=== PATIENT | male | born 1980 | race Hispanic/Latino ===

== ENCOUNTER 2019-06-06 07:44 | Emergency (ER) | payer SELFPAY ==
[2019-06-06] MEDS ORDERED: KETOROLAC 30 MG/ML INJ ONE (08:16)
[2019-06-06 08:20] LABS: Absolute Lymphocytes (CBC) 1.6 K/uL (0.7-4.9); Basophils % 0.9 % (0-1.3); Hematocrit 39.5 % (39.6-49.0); Lymphocytes % 14.7 % (15.3-44.8); MPV 9.1 fL (7.6-11.3)
[2019-06-06 08:45] LABS: Albumin 3.6 g/dL (3.4-5.0); Bilirubin Direct 0.1 mg/dL (0-0.2); Bilirubin Total 0.4 mg/dL (0.2-1.0); Potassium 3.9 mmol/L (3.5-5.1); Protein, Total 7.6 g/dL (6.4-8.2)
--- NOTE | 2019-06-06 08:47 | RAD REPORT ---
EXAM DESCRIPTION: CT - Stone Protocol - 06/06/2019 8:25 am CLINICAL HISTORY: Flank pain. FLANK PAIN COMPARISON: Stone Protocol dated 12/25/2016 TECHNIQUE: Axial images were obtained without oral or IV contrast. Lack of contrast limits solid org an and vascular assessment. The [id number] spans the entirety of the system partially obscuring uppermost abdomen and lung bases. Coronal reformatted images were obtained and reviewed. All CT scans are performed using dose optimization technique as appropriate and may include automated exposure control or mA/KV adjustment according to patient size. FINDINGS: The lower lung izquierdo are clear. 20 mm cyst is present superior aspect of right lobe of the liver compatible with a small cyst.The spl een is intact. The pancreas and adrenal glands are normal. No pathologic lymphadenopathy in the abdom en or pelvis. Multiple small stones are present in both kidneys. 6 mm stone is present in the right renal pelvis. M ild right hydronephrosis. No left-sided hydronephrosis. No bowel obstruction, free air, free fluid or abscess. Normal appendix noted. Mild compression fracture anteriorly affects the L3 vertebral body. IMPRESSION: Bilateral nephrolithiasis is present with a stone in the right renal pelvis noted. Mild right hydronephrosis.
--- NOTE | 2019-06-06 08:55 | ER ---
Nurse's Notes [facility] Name: James Cooley II Age: 38 yrs Sex: Male : 1980 Arrival Date: 06/06/2019 Time: 07:46 Bed 14 Private MD: Juan Monahan H Diagnosis: Hydronephrosis with renal and ureteral calculous obstruction Presentation: 06/06 07:53 Presenting complaint: Patient states: 0500 this morning he started having pain in the rb1 right lower quadrant, pain radiates to his back. Transition of care: patient was not received from another setting of care. Onset of symptoms was June 06, 2019 at 05:00. Risk Assessment: Do you want to hurt yourself or someone else? Patient reports no desire to harm self or others. Initial Sepsis Screen: Does the patient meet any 2 criteria? No. Patient's initial sepsis screen is negative. Does the patient have a suspected source of infection? No. Patient's initial sepsis screen is negative. Care prior to arrival: None. 07:53 Method Of Arrival: Ambulatory [facility] 07:53 Acuity: SHAYE 3 rb1 Triage Assessment: 07:53 General: Appears in no apparent distress. comfortable, Behavior is calm, cooperative, rb1 Denies fever. Pain: Complains of pain in right lower quadrant Pain radiates to right mid back and right low back Pain currently is 8 out of 10 on a pain scale. Pain began 0500 this morning. Neuro: Level of Consciousness is awake, alert, obeys commands, Oriented to person, place, time, situation. Cardiovascular: Capillary refill < 3 seconds is brisk in bilateral fingers. Respiratory: Reports cough that is productive, clear sputum Airway is patent Respiratory effort is even, unlabored, Respiratory pattern is regular, symmetrical. GI: Reports diarrhea. : No signs and/or symptoms were reported regarding the genitourinary system. Derm: Skin is pink, warm \T\ dry. Historical: - Allergies: 07:56 No Known Allergies; rb1 - Home Meds: 07:56 None [Active]; rb1 - PMHx: 07:56 Kidney stones; rb1 - PSHx: 07:53 None; rb1 - Immunization history:: Adult Immunizations up to date. - Social history:: Smoking status: Patient/guardian denies using tobacco. - Ebola Screening: : Patient negative for fever greater than or equal to 101.5 degrees Fahrenheit, and additional compatible Ebola Virus Disease symptoms. Screenin:53 Abuse screen: Denies threats or abuse. Nutritional screening: No deficits noted. rb1 Tuberculosis screening: No symptoms or risk factors identified. Fall Risk None identified. Assessment: 07:53 General: See triage assessment. rb1 07:53 GI: Bowel sounds present X 4 quads. Abd is soft X 4 quads. rb1 08:21 Reassessment: Pt. went to CT. rb1 08:36 Reassessment: Pt is back from CT and is playing on his phone. rb1 09:02 Reassessment: Patient appears in no apparent distress at this time. Patient and/or rb1 family updated on plan of care and expected duration. Pain level reassessed. Patient is alert, oriented x 3, equal unlabored respirations, skin warm/dry/pink. Vital Signs: 07:53 BP 128 / 88; Pulse 70; Resp 19; Temp 97.5(O); Pulse Ox 97% on R/A; Weight 127.01 kg rb1 (R); Height 5 ft. 9 in. (175.26 cm) (R); Pain 8/10; 09:02 BP 126 / 79; Pulse 83; Resp 18; Pulse Ox 97% on R/A; Pain 6/10; rb1 07:53 Body Mass Index 41.35 (127.01 kg, 175.26 cm) [facility] ED Course: 07:46 Patient arrived in ED. ag5 07:46 Jesse Lindsay MD is Private Physician. ag5 07:46 Juan Monahan DO is Private Physician. ag5 07:48 Zeina Vicente, RN is Primary Nurse. rb1 07:53 Arm band placed on right wrist. rb1 07:53 Patient has correct armband on for positive identification. Bed in low position. Call rb1 light in reach. Side rails up X 1. Pulse ox on. NIBP on. 07:55 Triage completed. rb1 08:00 Aroldo Reinoso MD is Attending Physician. ps1 08:00 [employer] PA is PHCP. jr8 08:01 Aroldo Reinoso MD is Attending Physician. jr8 08:10 Inserted saline lock: 20 gauge in right antecubital area, using aseptic technique. rb1 Blood collected. 08:26 CT Stone Protocol In Process Unspecified. EDMS 08:53 Raúl Venegas MD is Referral Physician. jr8 09:03 No provider procedures requiring assistance completed. IV discontinued, intact, rb1 bleeding controlled, No redness/swelling at site. Pressure dressing applied. Administered Medications: 08:20 Drug: TORadol - Ketorolac 15 mg Route: IVP; Site: right antecubital; rb1 08:35 Follow up: Response: No adverse reaction; Pain is decreased rb1 Outcome: 08:53 Discharge ordered by . jr8 09:03 Discharged to home ambulatory, with family. rb1 09:03 Condition: stable 09:03 Discharge instructions given to patient, Instructed on discharge instructions, follow up and referral plans. medication usage, Demonstrated understanding of instructions, follow-up care, medications, Prescriptions given X 3. 09:04 Patient left the ED. rb1 Signatures: Dispatcher [employer] EDMS [employer] PA PA jr8 Zeina Vicente, RN RN rb1 Aroldo Reinoso MD MD ps1 Axel Spence ag5
--- NOTE | 2019-06-06 08:55 | EDPHYS ---
Physician Documentation [facility] Name: Jaems Cooley II Age: 38 yrs Sex: Male : 1980 Arrival Date: 06/06/2019 Time: 07:46 Bed 14 Private MD: Juan Monahan H ED Physician Aroldo Reinoso HPI: 06/06 08:45 This 38 yrs old Male presents to ER via Ambulatory with complaints of jr8 Abdominal Pain. 08:45 The patient presents with abdominal pain right lower quadrant. Onset: The jr8 symptoms/episode began/occurred acutely, this morning, today. The symptoms radiate to right back. Associated signs and symptoms: none. The symptoms are described as sharp. Modifying factors: The symptoms are alleviated by nothing, the symptoms are aggravated by nothing. Severity of pain: At its worst the pain was moderate in the emergency department the pain is unchanged. It is unknown whether or not the patient has had similar symptoms in the past. The patient has not recently seen a physician. History of renal stones in past. Started with right lower quadrant abdomen radiating to back . Historical: - Allergies: 07:56 No Known Allergies; rb1 - Home Meds: 07:56 None [Active]; rb1 - PMHx: 07:56 Kidney stones; rb1 - PSHx: 07:53 None; rb1 - Immunization history:: Adult Immunizations up to date. - Social history:: Smoking status: Patient/guardian denies using tobacco. - Ebola Screening: : Patient negative for fever greater than or equal to 101.5 degrees Fahrenheit, and additional compatible Ebola Virus Disease symptoms. ROS: 08:45 Eyes: Negative for injury, pain, redness, and discharge, ENT: Negative for injury, jr8 pain, and discharge, Neck: Negative for injury, pain, and swelling, Cardiovascular: Negative for chest pain, palpitations, and edema, Respiratory: Negative for shortness of breath, cough, wheezing, and pleuritic chest pain, MS/Extremity: Negative for injury and deformity, Skin: Negative for injury, rash, and discoloration, Neuro: Negative for headache, weakness, numbness, tingling, and seizure. 08:45 Abdomen/GI: Positive for abdominal pain, Negative for nausea, vomiting, and diarrhea, abdominal distension, anorexia, dysphagia, hematemesis, black/tarry stool, rectal pain, rectal bleeding, bowel incontinence, flatulence. 08:45 Back: Positive for pain at rest, Negative for pain with movement. Exam: 08:45 Eyes: Pupils equal round and reactive to light, extra-ocular motions intact. Lids and jr8 lashes normal. Conjunctiva and sclera are non-icteric and not injected. Cornea within normal limits. Periorbital areas with no swelling, redness, or edema. ENT: Nares patent. No nasal discharge, no septal abnormalities noted. Tympanic membranes are normal and external auditory canals are clear. Oropharynx with no redness, swelling, or masses, exudates, or evidence of obstruction, uvula midline. Mucous membranes moist. Neck: Trachea midline, no thyromegaly or masses palpated, and no cervical lymphadenopathy. Supple, full range of motion without nuchal rigidity, or vertebral point tenderness. No Meningismus. Cardiovascular: Regular rate and rhythm with a normal S1 and S2. No gallops, murmurs, or rubs. Normal PMI, no JVD. No pulse deficits. Respiratory: Lungs have equal breath sounds bilaterally, clear to auscultation and percussion. No rales, rhonchi or wheezes noted. No increased work of breathing, no retractions or nasal flaring. Abdomen/GI: Soft, non-tender, with normal bowel sounds. No distension or tympany. No guarding or rebound. No evidence of tenderness throughout. Skin: Warm, dry with normal turgor. Normal color with no rashes, no lesions, and no evidence of cellulitis. MS/ Extremity: Pulses equal, no cyanosis. Neurovascular intact. Full, normal range of motion. Neuro: Awake and alert, GCS 15, oriented to person, place, time, and situation. Cranial nerves II-XII grossly intact. Motor strength 5/5 in all extremities. Sensory grossly intact. Cerebellar exam normal. Normal gait. 08:45 Back: pain, that is mild, of the right flank and right mid back, ROM is normal, normal spinal alignment noted, CVA tenderness, is absent, vertebral tenderness, is not appreciated, muscle spasm, is not present. Vital Signs: 07:53 BP 128 / 88; Pulse 70; Resp 19; Temp 97.5(O); Pulse Ox 97% on R/A; Weight 127.01 kg rb1 (R); Height 5 ft. 9 in. (175.26 cm) (R); Pain 8/10; 09:02 BP 126 / 79; Pulse 83; Resp 18; Pulse Ox 97% on R/A; Pain 6/10; rb1 07:53 Body Mass Index 41.35 (127.01 kg, 175.26 cm) rb1 MDM: 08:01 Patient medically screened. jr8 08:52 Data reviewed: vital signs, nurses notes, lab test result(s), radiologic studies, CT jr8 scan. Data interpreted: Pulse oximetry: on room air is 97 %. Interpretation: normal. Counseling: I had a detailed discussion with the patient and/or guardian regarding: the historical points, exam findings, and any diagnostic results supporting the discharge/admit diagnosis, lab results, radiology results, the need for outpatient follow up, a urologist, to return to the emergency department if symptoms worsen or persist or if there are any questions or concerns that arise at home. Response to treatment: the patient's symptoms have markedly improved after treatment. 06/06 08:00 Order name: Basic Metabolic Panel; Complete Time: 08:52 06/06 08:00 Order name: CBC with Diff; Complete Time: 08:34 06/06 08:00 Order name: Creatinine for Radiology; Complete Time: 06/06 08:00 Order name: Hepatic Function; Complete Time: :52 06/06 08:00 Order name: Lipase; Complete Time: :52 06/06 08:45 Order name: Urine Dipstick--Ancillary (enter results) bd 06/06 08:00 Order name: IV Saline Lock; Complete Time: 08:14 06/06 08:00 Order name: Labs collected and sent; Complete Time: 08:14 06/06 08:09 Order name: CT Stone Protocol; Complete Time: 06/06 08:09 Order name: Urine Dipstick-Ancillary (obtain specimen); Complete Time: 08:31 Administered Medications: 08:20 Drug: TORadol - Ketorolac 15 mg Route: IVP; Site: right antecubital; rb1 08:35 Follow up: Response: No adverse reaction; Pain is decreased rb1 Disposition: 17:50 Co-signature as Attending Physician, Aroldo Reinoso MD Did not see or evaluate patient. ps1 Chart signed for administrative purposes. Not an endorsement of care. . Disposition: 06/06/19 08:53 Discharged to Home. Impression: Hydronephrosis with renal and ureteral calculous obstruction. - Condition is Stable. - Discharge Instructions: Kidney Stones, Hydronephrosis. - Prescriptions for Ibuprofen 800 mg Oral Tablet - take 1 tablet by ORAL route every 12 hours As needed take with food; 20 tablet. Zofran 4 mg Oral Tablet - take 1 tablet by ORAL route every 12 hours As needed; 20 tablet. Flomax 0.4 mg Oral Capsule, Sust. Release 24 hr - take 1 capsule by ORAL route once daily 1/2 hour following the same meal each day; 30 capsule. - Medication Reconciliation Form, Thank You Letter, Antibiotic Education, Prescription Opioid Use form. - Follow up: Raúl Venegas MD; When: 5 - 6 days; Reason: Recheck today's complaints, Continuance of care, Re-evaluation by your physician. - Problem is new. - Symptoms have improved. Signatures: Dispatcher [employer] EDMS [employer] PA PA jr8 Zeina Vicente, RN RN rb1 Aroldo Reinoso MD MD ps1 Corrections: (The following items were deleted from the chart) 09:04 08:53 06/06/2019 08:53 Discharged to Home. Impression: Hydronephrosis with renal and rb1 ureteral calculous obstruction. Condition is Stable. Forms are Medication Reconciliation Form, Thank You Letter, Antibiotic Education, Prescription Opioid Use. Follow up: Raúl Venegas; When: 5 - 6 days; Reason: Recheck today's complaints, Continuance of care, Re-evaluation by your physician. Problem is new. Symptoms have improved. jr8
[2019-06-06 09:51] LABS: Urine Blood 3+ (NEG); Urine Glucose NEGATIVE (NEG); Urine Protein 1+ (NEG); Urine Specific Gravity >1.030 (1.005-1.030); Urine pH 5.5 (5.0-7.0)
[2019-06-06 10:10] VITALS: TEMP 97.5; O2SAT 97
[2019-06-06 10:11] VITALS: BP 126/79
== END 2019-06-06 09:04 | disposition home or self-care (01) ==
LOC: ER 07:44
DX: N13.2 Hydronephrosis with renal and ureteral calculous obstruction (principal)
CPT/HCPCS: 36415; 74176; 76377; 80048; 80076; 81003; 83690; 85025; 96374; 99284

== ENCOUNTER 2019-09-24 12:14 | Inpatient (IN) | payer SELFPAY ==
[2019-09-24 12:45] LABS: Absolute Lymphocytes (CBC) 2.3 K/uL (0.7-4.9); Basophils % 0.8 % (0-1.3); Hematocrit 43.1 % (39.6-49.0); Lymphocytes % 22.7 % (15.3-44.8); MPV 9.3 fL (7.6-11.3); RBC Red Blood Cell Count 5.12 M/uL (4.33-5.43)
[2019-09-24 12:48] LABS: Protime INR 0.96
[2019-09-24] MEDS ORDERED: ASPIRIN 81 MG CHEWABLE TABLET ONE (12:51)
[2019-09-24] MEDS ORDERED: METOPROLOL TAR 50 MG TAB ONE (12:51)
[2019-09-24] MEDS ORDERED: FAMOTIDINE 20 MG/2 ML VIAL IV ONE (12:51)
[2019-09-24] MEDS ORDERED: MORPHINE 2 MG/ML SYR ONE (12:51)
[2019-09-24] MEDS ORDERED: ONDANSETRON 4 MG/2 ML VIAL ONE (12:51)
--- NOTE | 2019-09-24 13:09 | EDPHYS ---
Physician Documentation [facility] Name: James Cooley II Age: 39 yrs Sex: Male : 1980 Arrival Date: 09/24/2019 Time: 12:18 Bed 4 Private MD: KIM Physician Anival Escudero HPI: 09/23 12:33 This 39 yrs old Male presents to ER via Ambulatory with complaints of Numbness joshua Of Arm, Jaw Pain, Shoulder Pain. 12:33 The patient or guardian complains of pain, that is acute. joshua 12:34 The complaints affect the left bicep, dorsal aspect of left forearm, left tricep and joshua palmar aspect of left forearm. Context: The problem was sustained at home. Onset: The symptoms/episode began/occurred this morning, today. Treatment prior to arrival includes: no previous treatment. Modifying factors: The symptoms are alleviated by nothing. the symptoms are aggravated by nothing. The patient or guardian reports chest pain that is located primarily in the anterior chest wall. The pain radiates to the left arm, Historical: - Allergies: 12:32 No Known Allergies; ss - Home Meds: 12:32 None [Active]; ss - PMHx: 12:32 Kidney stones; ss - Immunization history:: Adult Immunizations up to date. - Social history:: Smoking status: Patient denies any tobacco usage or history of. - Family history:: not pertinent. ROS: 12:34 Constitutional: Negative for fever, chills, and weight loss, Eyes: Negative for injury, joshua pain, redness, and discharge, ENT: Negative for injury, pain, and discharge, Neck: Negative for injury, pain, and swelling, Respiratory: Negative for shortness of breath, cough, wheezing, and pleuritic chest pain, Abdomen/GI: Negative for abdominal pain, nausea, vomiting, diarrhea, and constipation, Back: Negative for injury and pain, : Negative for injury, bleeding, discharge, and swelling, MS/Extremity: Negative for injury and deformity, Skin: Negative for injury, rash, and discoloration, Neuro: Negative for headache, weakness, numbness, tingling, and seizure, Psych: Negative for depression, anxiety, suicide ideation, homicidal ideation, and hallucinations, Allergy/Immunology: Negative for hives, rash, and allergies, Endocrine: Negative for neck swelling, polydipsia, polyuria, polyphagia, and marked weight changes, Hematologic/Lymphatic: Negative for swollen nodes, abnormal bleeding, and unusual bruising. 12:34 Cardiovascular: Positive for chest pain, of the chest. Exam: 12:34 Constitutional: This is a well developed, well nourished patient who is awake, alert, joshua and in no acute distress. Head/Face: Normocephalic, atraumatic. Eyes: Pupils equal round and reactive to light, extra-ocular motions intact. Lids and lashes normal. Conjunctiva and sclera are non-icteric and not injected. Cornea within normal limits. Periorbital areas with no swelling, redness, or edema. ENT: Nares patent. No nasal discharge, no septal abnormalities noted. Tympanic membranes are normal and external auditory canals are clear. Oropharynx with no redness, swelling, or masses, exudates, or evidence of obstruction, uvula midline. Mucous membranes moist. Neck: Trachea midline, no thyromegaly or masses palpated, and no cervical lymphadenopathy. Supple, full range of motion without nuchal rigidity, or vertebral point tenderness. No Meningismus. Chest/axilla: Normal chest wall appearance and motion. Nontender with no deformity. No lesions are appreciated. Cardiovascular: Regular rate and rhythm with a normal S1 and S2. No gallops, murmurs, or rubs. Normal PMI, no JVD. No pulse deficits. Respiratory: Lungs have equal breath sounds bilaterally, clear to auscultation and percussion. No rales, rhonchi or wheezes noted. No increased work of breathing, no retractions or nasal flaring. Abdomen/GI: Soft, non-tender, with normal bowel sounds. No distension or tympany. No guarding or rebound. No evidence of tenderness throughout. Back: No spinal tenderness. No costovertebral tenderness. Full range of motion. Male : Normal genitalia with no discharge or lesions. Skin: Warm, dry with normal turgor. Normal color with no rashes, no lesions, and no evidence of cellulitis. MS/ Extremity: Pulses equal, no cyanosis. Neurovascular intact. Full, normal range of motion. Neuro: Awake and alert, GCS 15, oriented to person, place, time, and situation. Cranial nerves II-XII grossly intact. Motor strength 5/5 in all extremities. Sensory grossly intact. Cerebellar exam normal. Normal gait. Psych: Awake, alert, with orientation to person, place and time. Behavior, mood, and affect are within normal limits. 12:36 Musculoskeletal/extremity: DVT Exam: No signs of deep vein thrombosis. no pain, no joshua swelling, no tenderness, negative Homans' sign noted on exam, no appreciated bluish discoloration, no erythema, no increased warmth. Vital Signs: 12:29 BP 148 / 94; Pulse 92; Resp 17; Temp 97.4; Pulse Ox 100% on R/A; Weight 136.08 kg; hb Height 5 ft. 8 in. (172.72 cm); Pain 5/10; 12:30 BP 148 / 94; Pulse 93; Resp 23; Pulse Ox 96% ; sv 13:38 Pain 0/10; sv 13:45 BP 152 / 91; Pulse 88; Resp 18; Pulse Ox 98% on R/A; sv 15:00 BP 110 / 69; Pulse 79; Resp 14; Pulse Ox 97% on R/A; sv 16:04 BP 108 / 61; Pulse 76; Resp 12; Pulse Ox 100% ; sv 16:46 BP 116 / 71; Pulse 68; Resp 20; Pulse Ox 97% on R/A; sv 17:18 BP 121 / 73; Pulse 66; Resp 18; Pulse Ox 100% ; sv 18:00 BP 102 / 69; Pulse 63; Resp 20; Pulse Ox 96% ; sv 19:00 BP 123 / 75; Pulse 62; Resp 15; Pulse Ox 97% ; sv 12:29 Body Mass Index 45.62 (136.08 kg, 172.72 cm) hb MDM: 12:23 Patient medically screened. [facility] 12:36 Data reviewed: vital signs, nurses notes, lab test result(s), EKG, radiologic studies, [facility] CT scan, plain films. 09/23 12:33 Order name: Basic Metabolic Panel; Complete Time: 13:23 [facility] 09/23 12:33 Order name: CBC with Diff; Complete Time: 13:06 [facility] 09/23 12:33 Order name: LFT's; Complete Time: 13:23 [facility] 09/23 12:33 Order name: Magnesium; Complete Time: 13:23 [facility] 09/23 12:33 Order name: NT PRO-BNP; Complete Time: 13:23 [facility] 09/23 12:33 Order name: PT-INR; Complete Time: 13:06 [facility] 09/23 12:33 Order name: Troponin (emerg Dept Use Only); Complete Time: 13:23 [facility] 09/23 12:33 Order name: XRAY Chest (1 view) [facility] 09/23 12:33 Order name: Lipase; Complete Time: 13:23 [facility] 09/23 12:33 Order name: CT Aorta for Dissection [facility] 09/23 13:06 Order name: UDS [facility] 09/23 13:29 Order name: Urine Dipstick--Ancillary (enter results) 09/23 12:33 Order name: EKG; Complete Time: 12:34 [facility] 09/23 12:33 Order name: Cardiac monitoring; Complete Time: 12:54 [facility] 09/23 12:33 Order name: EKG - Nurse/Tech; Complete Time: 12:54 [facility] 09/23 12:33 Order name: IV Saline Lock; Complete Time: 12:54 [facility] 09/23 12:33 Order name: Labs collected and sent; Complete Time: 12:55 [facility] 09/23 12:33 Order name: O2 Per Protocol; Complete Time: 12:55 [facility] 09/23 12:33 Order name: O2 Sat Monitoring; Complete Time: 12:55 [facility] 09/23 12:33 Order name: Urine Dipstick-Ancillary (obtain specimen); Complete Time: 13:29 [facility] 09/23 15:53 Order name: Diet Heart Healthy; Complete Time: 15:54 eb Administered Medications: 12:50 Drug: Aspirin Chewable Tablet 324 mg Route: PO; sv 13:39 Follow up: Response: No adverse reaction sv 12:50 Drug: Lopressor (metoprolol TARTRATE) 50 mg Route: PO; sv 13:39 Follow up: Response: No adverse reaction sv 12:50 Drug: Zofran (Ondansetron) 4 mg Route: IVP; Site: right antecubital; sv 13:38 Follow up: Response: No adverse reaction sv 12:52 Drug: Pepcid 20 mg Route: IVP; Site: right antecubital; sv 13:38 Follow up: Response: No adverse reaction sv 12:54 Drug: morphine 2 mg {Note: RASS0.} Route: IVP; Site: right antecubital; sv 13:38 Follow up: Pain 0/10 Adult; Response: No adverse reaction; Marked relief of symptoms; sv Pain is decreased; RASS: Alert and Calm (0) 14:30 Drug: Lovenox 1 mg/kg Route: Sub-Q; Site: left lower abdomen; sv 15:08 Follow up: Response: No adverse reaction sv Disposition: 09/24/19 13:08 Hospitalization ordered by Edin Salmon for Observation. Preliminary diagnosis are Other chest pain, Essential (primary) hypertension, Obesity, unspecified. - Bed requested for Telemetry/MedSurg (observation). - Status is Observation. rr5 - Condition is Fair. - Problem is new. - Symptoms have improved. Signatures: Dispatcher [employer] EDElizabeth Bansal RN RN Anival Jordan MD MD cha Smirch, Shelby, RN RN Nora Wood Raymond RN RN rr5 Corrections: (The following items were deleted from the chart) 13:30 13:08 Hospitalization Ordered by Edin Salmon for Observation. Preliminary diagnosis eb is Other chest pain; Essential (primary) hypertension; Obesity, unspecified. Bed requested for Telemetry/MedSurg (observation). Status is Observation. Condition is Fair. Problem is new. Symptoms have improved. joshua 18:53 13:30 09/24/2019 13:08 Hospitalization Ordered by Edin Salmon for Observation. eb Preliminary diagnosis is Other chest pain; Essential (primary) hypertension; Obesity, unspecified. Bed requested for Telemetry/MedSurg (observation). Status is Observation. Condition is Fair. Problem is new. Symptoms have improved. eb 19:52 18:53 09/24/2019 13:08 Hospitalization Ordered by Edin Salmon for Observation. rr5 Preliminary diagnosis is Other chest pain; Essential (primary) hypertension; Obesity, unspecified. Bed requested for Telemetry/MedSurg (observation). Status is Observation. Condition is Fair. Problem is new. Symptoms have improved. eb
--- NOTE | 2019-09-24 13:09 | ER ---
Nurse's Notes [facility] Name: James Cooley II Age: 39 yrs Sex: Male : 1980 Arrival Date: 09/24/2019 Time: 12:18 Bed 4 Private MD: Diagnosis: Other chest pain;Essential (primary) hypertension;Obesity, unspecified Presentation: 09/23 12:29 Chief complaint: Patient states: L sided jaw pain, chest discomfort, nausea, R shoulder ss pain and intermittent numbness to L arm that began yesterday. Coronavirus screen: The patient has NOT traveled to a country currently being monitored by the [facility] within the last 14 days. Ebola Screen: Patient denies exposure to infectious person. Patient denies travel to an Ebola-affected area in the 21 days before illness onset. Initial Sepsis Screen: Does the patient meet any 2 criteria? No. Patient's initial sepsis screen is negative. Does the patient have a suspected source of infection? No. Patient's initial sepsis screen is negative. Risk Assessment: Do you want to hurt yourself or someone else? Patient reports no desire to harm self or others. 12:29 Method Of Arrival: Ambulatory ss 12:29 Acuity: SHAYE 3 ss 12:40 Onset of symptoms was September 23, 2019. sv Historical: - Allergies: 12:32 No Known Allergies; ss - Home Meds: 12:32 None [Active]; ss - PMHx: 12:32 Kidney stones; ss - Immunization history:: Adult Immunizations up to date. - Social history:: Smoking status: Patient denies any tobacco usage or history of. - Family history:: not pertinent. Screenin:33 Abuse screen: Denies threats or abuse. Denies injuries from another. Nutritional hb screening: No deficits noted. Tuberculosis screening: No symptoms or risk factors identified. Fall Risk None identified. Assessment: 12:35 General: Appears in no apparent distress. uncomfortable, well groomed, well developed, sv Behavior is cooperative, appropriate for age, quiet. Pain: Complains of pain in chest and left jaw Pain radiates to left arm Pain currently is 5 out of 10 on a pain scale. Pain began 1 day ago. Is continuous. Neuro: Level of Consciousness is awake, alert, obeys commands, Oriented to person, place, time, situation, Moves all extremities. Full function Gait is steady, Speech is normal. Cardiovascular: Patient's skin is warm and dry. Rhythm is sinus rhythm. Respiratory: Airway is patent Respiratory effort is even, unlabored, Respiratory pattern is regular, symmetrical. Derm: Skin is intact, Skin is pink, warm \T\ dry. Musculoskeletal: Range of motion: intact in all extremities, Reports numbness in left arm. 12:54 Reassessment: Patient appears in no apparent distress at this time. No changes from sv previously documented assessment. Patient and/or family updated on plan of care and expected duration. Pain level reassessed. Patient is alert, oriented x 3, equal unlabored respirations, skin warm/dry/pink. 13:38 Reassessment: Patient appears in no apparent distress at this time. Patient and/or sv family updated on plan of care and expected duration. Pain level reassessed. Patient is alert, oriented x 3, equal unlabored respirations, skin warm/dry/pink. Patient denies pain at this time. Patient states feeling better. Patient states symptoms have improved. 13:49 Reassessment: Dr Salmon at the bedside. 14:30 Reassessment: Patient appears in no apparent distress at this time. Patient and/or hb family updated on plan of care and expected duration. Pain level reassessed. Patient is alert, oriented x 3, equal unlabored respirations, skin warm/dry/pink. 15:30 Reassessment: Patient appears in no apparent distress at this time. Patient and/or hb family updated on plan of care and expected duration. Pain level reassessed. Patient is alert, oriented x 3, equal unlabored respirations, skin warm/dry/pink. 16:30 Reassessment: Patient appears in no apparent distress at this time. Patient and/or hb family updated on plan of care and expected duration. Pain level reassessed. Patient is alert, oriented x 3, equal unlabored respirations, skin warm/dry/pink. 17:30 Reassessment: Patient appears in no apparent distress at this time. Patient and/or hb family updated on plan of care and expected duration. Pain level reassessed. Patient is alert, oriented x 3, equal unlabored respirations, skin warm/dry/pink. 18:30 Reassessment: Patient appears in no apparent distress at this time. Patient and/or hb family updated on plan of care and expected duration. Pain level reassessed. Patient is alert, oriented x 3, equal unlabored respirations, skin warm/dry/pink. Admission ordered, awaiting room assignment at this time. Family remains at bedside. 19:28 Reassessment: Patient appears in no apparent distress at this time. Patient and/or sg family updated on plan of care and expected duration. Pain level reassessed. Patient is alert, oriented x 3, equal unlabored respirations, skin warm/dry/pink. pt updated on POC and attempt to call report but the receiving nurse was not available, pt and pt family stated understanding, will attempt to call report again. Vital Signs: 12:29 BP 148 / 94; Pulse 92; Resp 17; Temp 97.4; Pulse Ox 100% on R/A; Weight 136.08 kg; hb Height 5 ft. 8 in. (172.72 cm); Pain 5/10; 12:30 BP 148 / 94; Pulse 93; Resp 23; Pulse Ox 96% ; sv 13:38 Pain 0/10; sv 13:45 BP 152 / 91; Pulse 88; Resp 18; Pulse Ox 98% on R/A; sv 15:00 BP 110 / 69; Pulse 79; Resp 14; Pulse Ox 97% on R/A; sv 16:04 BP 108 / 61; Pulse 76; Resp 12; Pulse Ox 100% ; sv 16:46 BP 116 / 71; Pulse 68; Resp 20; Pulse Ox 97% on R/A; sv 17:18 BP 121 / 73; Pulse 66; Resp 18; Pulse Ox 100% ; sv 18:00 BP 102 / 69; Pulse 63; Resp 20; Pulse Ox 96% ; sv 19:00 BP 123 / 75; Pulse 62; Resp 15; Pulse Ox 97% ; sv 12:29 Body Mass Index 45.62 (136.08 kg, 172.72 cm) hb ED Course: 12:18 Patient arrived in ED. mr 12:23 Anival Escudero MD is Attending Physician. joshua 12:28 Elizabeth Kiran, JANICE is Primary Nurse. sv 12:31 Triage completed. ss 12:32 Arm band placed on right wrist. ss 12:40 Radiology exam delayed due to lab results not completed at this time. (BUN/Creatinine). vm2 12:40 Patient has correct armband on for positive identification. Placed in gown. Bed in low sv position. Call light in reach. Adult w/ patient. air sampling and monitoring on. Pulse ox on. NIBP on. Door closed. Head of bed elevated. 12:40 Inserted saline lock: 20 gauge in right antecubital area, using aseptic technique. sv Blood collected. Flushed right antecubital with 5 ml normal saline. 12:59 X-ray(s) taken. sv 13:07 Edin Salmon is Hospitalizing Provider. joshua 13:09 XRAY Chest (1 view) In Process Unspecified. EDMS 13:[address] Scan. sv 13:37 CT Aorta for Dissection In Process Unspecified. EDMS 13:38 Awaiting radiology results. sv 15:08 Awaiting bed assignment. sv 16:04 Awaiting bed assignment. sv 19:08 Primary Nurse role handed off by Elizabeth Kiran RN sg 19:08 Mat Corey, RN is Primary Nurse. sg 19:11 Report given to Mat CAMACHO and Angel CAMACHO. sv 19:41 No provider procedures requiring assistance completed. Patient admitted, IV remains in rr5 place. intact, No redness/swelling at site. Administered Medications: 12:50 Drug: Aspirin Chewable Tablet 324 mg Route: PO; sv 13:39 Follow up: Response: No adverse reaction sv 12:50 Drug: Lopressor (metoprolol TARTRATE) 50 mg Route: PO; sv 13:39 Follow up: Response: No adverse reaction sv 12:50 Drug: Zofran (Ondansetron) 4 mg Route: IVP; Site: right antecubital; sv 13:38 Follow up: Response: No adverse reaction sv 12:52 Drug: Pepcid 20 mg Route: IVP; Site: right antecubital; sv 13:38 Follow up: Response: No adverse reaction sv 12:54 Drug: morphine 2 mg {Note: RASS0.} Route: IVP; Site: right antecubital; sv 13:38 Follow up: Pain 0/10 Adult; Response: No adverse reaction; Marked relief of symptoms; sv Pain is decreased; RASS: Alert and Calm (0) 14:30 Drug: Lovenox 1 mg/kg Route: Sub-Q; Site: left lower abdomen; sv 15:08 Follow up: Response: No adverse reaction sv Outcome: 13:08 Decision to Hospitalize by Provider. [facility] 19:40 Admitted to Med/surg accompanied by tech, via stretcher, room 221, with chart, Report rr5 called to michelle 19:40 Condition: stable 19:40 Instructed on the need for admit. 19:52 Patient left the ED. rr5 Signatures: Dispatcher [employer] Elizabeth De La Torre, JANICE CAMACHO Mat Corey RN RN sg Anderson, Corey, MD MD cha Rivera, Zuleika mr Kavita Dickens RN RN Kayleigh Deras RN RN Rosangela Richards [facility] Angel Almeida RN RN rr5 Corrections: (The following items were deleted from the chart) 12:32 12:29 Resp 17bpm; Pulse Ox 100% RA; 136.08 kg; Height 5 ft. 8 in.; BMI: 45.6; Pain hb 5/10; ss 12:32 12:31 BP 164 / 95; Pulse 88bpm; Resp 20bpm; Pulse Ox 94% RA; Temp 97.4F; 136.08 kg; hb Height 6 ft.; BMI: 40.6; Pain 8/10; hb
[2019-09-24 13:16] LABS: ALT/SGPT 74 U/L (12-78); AST/SGOT 32 U/L (15-37); Albumin 3.5 g/dL (3.4-5.0); Alkaline Phosphatase 90 U/L (45-117); BUN Blood Urea Nitrogen 13 mg/dL (7-18); Bicarbonate 27 mmol/L (21-32); Bilirubin Direct < 0.1 mg/dL (0-0.2); Bilirubin Total 0.3 mg/dL (0.2-1.0); Glucose Level 144 mg/dL (74-106); Lipase 135 U/L (73-393); NT PRO-BNP 7 pg/mL (<125); Potassium 3.6 mmol/L (3.5-5.1); Sodium Level 141 mmol/L (136-145); Troponin (Emerg Dept Use Only) < 0.02 ng/mL (0.0-0.045)
--- NOTE | 2019-09-24 13:39 | RAD REPORT ---
EXAM DESCRIPTION: RAD - Chest Single View - 09/24/2019 1:09 pm CLINICAL HISTORY: CHEST PAIN TECHNIQUE: AP portable chest image was obtained 09/24/2019 1:09 pm . FINDINGS: Lungs are clear. Heart and vasculature are normal. No measurable pleural effusion and no p neumothorax. No acute bony abnormality seen. No acute aortic findings suspected. IMPRESSION: No acute cardiopulmonary process.
[2019-09-24 13:47] LABS: Urine Blood NEGATIVE (NEG); Urine Glucose NEGATIVE (NEG); Urine Protein NEGATIVE (NEG); Urine pH 7.5 (5.0-7.0)
[2019-09-24 13:49] LABS: Barbiturates NEGATIVE (NEGATIVE); Benzodiazepines NEGATIVE (NEGATIVE); Cocaine NEGATIVE (NEGATIVE); METHAMPHETAM NEGATIVE (NEGATIVE); Methadone NEGATIVE (NEGATIVE); Opiates NEGATIVE (NEGATIVE); Phencyclidine NEGATIVE (NEGATIVE); THC Cannibis NEGATIVE (NEGATIVE)
--- NOTE | 2019-09-24 13:59 | RAD REPORT ---
EXAM DESCRIPTION: CT - Angio Aorta For Dissection - 09/24/2019 1:36 pm CLINICAL HISTORY: Dissection;PE COMPARISON: None. TECHNIQUE: Dynamically enhanced 3 mm thick images of the chest, abdomen, and upper pelvis were obtai cb during administration of approximately 150mL Isovue 370 IV contrast. Sagittal and coronal reconst ruction images were generated using MIP and reviewed. Exam utilizes a protocol to evaluate entire cou rse of the aorta. All CT scans are performed using dose optimization technique as appropriate and may include automated exposure control or mA/KV adjustment according to patient size. FINDINGS: Aorta is normal in diameter with no dissection or other acute aortic findings. Reconstruct ion images show no significant findings. Pulmonary arteries are normal as well. No cardiomegaly, pericardial thickening or pericardial effusio n. No mass or infiltrate in the lung parenchyma. No pleural thickening, pleural effusion or pneumothorax . No abnormal mediastinal or hilar mass or lymphadenopathy seen. No chest wall mass or abnormal axillar y lymphadenopathy. Celiac, SMA and renal arteries show no suspicious findings. Solid abdominal viscera and bowel show no significant findings. Gallbladder contracted. No biliary tree dilatation. Bilateral nonobstructing c thomas calculi are present similar to comparison. No mass or abnormal lymphadenopathy. No free air, fr ee fluid or inflammatory stranding. No urinary bladder abnormality. No acute bone finding. The L3 compression fracture is stable from May 2019. IMPRESSION: Negative CT scan of the aorta. No other significant findings on chest, abdomen and upper pelvis examination.
--- NOTE | 2019-09-24 14:22 | P.HP ---
Certification for Inpatient Patient admitted to: Observation With expected LOS: <2 Midnights Practitioner: I am a practitioner with admitting privileges, knowledge of patient current condition, hospital course, and medical plan of care. Services: Services provided to patient in accordance with Admission requirements found in Title 42 Section 412.3 of the Code of Federal Regulations Patient History Date of Service: 09/24/19 Reason for admission: Chest pain History of Present Illness: 39-year-old gentleman with no known past medical history presented to the ED with a complaint of chest pain of onset since yesterday, described as intermittent, radiating to both jaws, associated with left arm numbness and tingling sensation. Patient has a significant family history of coronary artery disease. His father of heart disease at the age of 55. His initial troponin in the ED is negative. Patient noted to be hypertensive. EKG showed normal sinus rhythm, Q-wave in lead V1 and V2. CTA thorax negative for aortic dissection. Patient is placed under observation for ACS rule out. Allergies No Known Allergies Allergy (Unverified 11/10/11 12:42) Home medications list reviewed: Yes (None) - Past Medical/Surgical History -: None -: None - Social History Smoking Status: Former smoker Alcohol use: Yes CD- Drugs: No Place of Residence: Home Review of Systems Other: Except as documented, all other systems reviewed are negative. Physical Examination - Physical Exam General: Alert, In no apparent distress, Oriented x3 HEENT: PERRLA, Mucous membr. moist/pink, Sclerae nonicteric Neck: Supple, JVD not distended Respiratory: Clear to auscultation bilaterally, Normal air movement Cardiovascular: No edema, Normal pulses, Regular rate/rhythm, Normal S1 S2 Capillary refill: <2 Seconds Gastrointestinal: Normal bowel sounds, Soft and benign, Non-distended, No tenderness Musculoskeletal: No swelling, No erythema Integumentary: No rashes, No erythema Neurological: Normal speech, Normal strength at 5/5 x4 extr - Studies Laboratory Data (last 24 hrs) 09/24/19 12:30: PT 11.3, INR 0.96 09/24/19 12:30: WBC 10.0, Hgb 14.4, Hct 43.1, Plt Count 308 09/24/19 12:30: Sodium 141, Potassium 3.6, BUN 13, Creatinine 0.99, Glucose 144 H, Magnesium 2.0, Total Bilirubin 0.3, AST 32, ALT 74, Alkaline Phosphatase 90, Lipase 135 Assessment and Plan - Problems (Diagnosis) (1) Chest pain Current Visit: Yes Status: Acute (2) Hypertension Current Visit: Yes Status: Acute - Plan Place under observation Continue to trend troponin Start aspirin and metoprolol Check lipid profile Obtain echocardiogram. Stress test if troponin trend negative given patient's significant risk factors - Advance Directives Does patient have a Living Will: No Does patient have a Durable POA for Healthcare: No
[2019-09-24] MEDS ORDERED: ENOXAPARIN 30 MG/0.3 ML SQ ONE (14:34)
[2019-09-24] MEDS ORDERED: ENOXAPARIN 100 MG/ML SYR SQ ONE (14:34)
[2019-09-24] MEDS ORDERED: NITROGLYCERIN 0.4 MG/TAB SL PRN (20:22)
[2019-09-24 21:13] LABS: HDL Cholesterol 31 mg/dL (40-60); LDL Cholesterol, Calculated ND (<130); Troponin I < 0.02 ng/mL (0.0-0.045)
[2019-09-24 21:26] LABS: LDL, Direct 141 mg/dL (100-129)
[2019-09-24] MEDS: METOPROLOL TAR 50 MG TAB PO SCH (21:44)
[2019-09-24 22:51] VITALS: BMI 43.8
[2019-09-25] MEDS ORDERED: INFLUENZA VACCINE (for 3y+) 0.5 ML DOSE IMVAC ONE (08:00)
[2019-09-25 08:07] VITALS: O2SAT 95
[2019-09-25] MEDS ORDERED: REGADENOSON 0.4 MG/5 ML SYR IV ONE (08:47)
[2019-09-25] MEDS ORDERED: ASPIRIN EC 81 MG TAB PO SCH (09:00)
[2019-09-25] MEDS ORDERED: ENOXAPARIN 40 MG/0.4 ML SQ SCH (09:00)
--- NOTE | 2019-09-25 09:15 | EKG ---
Test Date: 2019-09-24 Test Time: 12:31:48 Airplane Flight Attendant: DL MEASUREMENT RESULTS: Intervals: Rate: 91 OH: 150 QRSD: 78 QT: 340 QTc: 418 [place]: P: 50 OH: 150 QRS: 41 T: 13 INTERPRETIVE STATEMENTS: Normal sinus rhythm Septal infarct, age undetermined Abnormal ECG Compared to ECG 06/05/2003 15:20:00 Myocardial infarct finding now present Atrial premature complex(es) no longer present Electronically Signed On 09-25-19 09:14:30 CDT by Tanmay Trujillo
[2019-09-25 11:01] VITALS: TEMP 97.6
[2019-09-25] MEDS: METOPROLOL TAR 50 MG TAB PO SCH (12:47)
[2019-09-25 12:48] VITALS: BP 117/65
--- NOTE | 2019-09-25 12:48 | RAD REPORT ---
EXAM DESCRIPTION: NM - Rest Stress Cardiac Imaging - 09/25/2019 12:34 pm CLINICAL HISTORY: Chest pain COMPARISON: None. TECHNIQUE: The patient was administered 10.4 mCi of Tc 99m Sestamibi prior to resting SPECT imaging of the heart. The patient was then administered 32.1 mCi of Tc 99m Sestamibi following exercise or ph armacologic stress. Multiplanar SPECT images were reviewed. FINDINGS: The end diastolic volume is 140 ml, the end systolic volume is 83 ml, and the ejection fra ction is 40 %. Physiologic distribution of the radiopharmaceutical through the myocardium is noted. No stress induce d ischemic defect is seen to suggest stress induced ischemia. No fixed defect is seen to suggest hibe rnating myocardium or scarred myocardium. Diaphragm attenuation artifacts are present involving the inferior wall. IMPRESSION: No stress induced ischemia or other suspicious findings. End-diastolic volume is enlarged at 140 milliliters. Ejection fraction is below normal at 40%.
--- NOTE | 2019-09-25 14:23 | P.DS ---
Admission Date: 09/25/19 Discharge Date: 09/25/19 Primary Care Provider: none Disposition: ROUTINE DISCHARGE Discharge Condition: GOOD Reason for Admission: Chest pain Consultations: none Procedures: Cardiac Stress test: FINDINGS: The end diastolic volume is 140 ml, the end systolic volume is 83 ml , and the ejection fraction is 40 %. Physiologic distribution of the radiopharmaceutical through the myocardium is noted. No stress induced ischemic defect is seen to suggest stress induced ischemia. No fixed defect is seen to suggest hibernating myocardium or scarred myocardium. Diaphragm attenuation artifacts are present involving the inferior wall. IMPRESSION: No stress induced ischemia or other suspicious findings. End-diastolic volume is enlarged at 140 milliliters. Ejection fraction is below normal at 40%. CT Scan: FINDINGS: Aorta is normal in diameter with no dissection or other acute aortic findings. Reconstruction images show no significant findings. Pulmonary arteries are normal as well. No cardiomegaly, pericardial thickening or pericardial effusion. No mass or infiltrate in the lung parenchyma. No pleural thickening, pleural effusion or pneumothorax. No abnormal mediastinal or hilar mass or lymphadenopathy seen. No chest wall mass or abnormal axillary lymphadenopathy. Celiac, SMA and renal arteries show no suspicious findings. Solid abdominal viscera and bowel show no significant findings. Gallbladder contracted. No biliary tree dilatation. Bilateral nonobstructing calyx calculi are present similar to comparison. No mass or abnormal lymphadenopathy. No free air, free fluid or inflammatory stranding. No urinary bladder abnormality. No acute bone finding. The L3 compression fracture is stable from May 2019. IMPRESSION: Negative CT scan of the aorta. No other significant findings on chest, abdomen and upper pelvis examination. Medical Problem list: Chest pain Hypertension, new Hyperlipidemia GERD Brief History of Present Illness: 39-year-old male presented to the emergency room with chest pain. Patient was admitted for further evaluation. Initial CT chest unremarkable. Hospital Course: Patient presented with chest pain. CT chest unremarkable. Cardiac enzymes also have been unremarkable. Echocardiogram obtained. Cardiac stress test showed no stress-induced ischemia with ejection fraction around 40%. No further intervention was required. Patient was also to found to have elevated blood pressure indicative of hypertension. Patient was placed on blood pressure medication. At discharge patient may continue with aspirin 81 mg daily, metoprolol 12.5 mg 1 pill twice daily. Hold blood pressure medication if systolic less than 110 or heart rate less than 50. Patient also has hyperlipidemia. Total triglycerides 497, LDL 140. At discharge patient will continue with Lipitor 20 mg daily and fish oil 1 g twice daily. Recommend to recheck fasting lipid panel in 1 month to monitor his progress. Patient with BMI 43. Lifestyle modification education provided. Patient may have underlying GERD. Patient may continue with Protonix 40 mg daily. Patient may follow up with GI as an outpatient to further evaluate. Vital Signs/Physical Exam: Temp Pulse Resp BP Pulse Ox 97.6 F 64 20 117/65 97 09/25/19 12:00 09/25/19 12:47 09/25/19 12:00 09/25/19 12:47 09/25/19 12:00 General: Alert, In no apparent distress, Oriented x3, Cooperative HEENT: Atraumatic Neck: Supple Respiratory: Clear to auscultation bilaterally, Normal air movement Cardiovascular: Normal pulses, Regular rate/rhythm Gastrointestinal: Normal bowel sounds, Soft and benign, Non-distended, No tenderness, No masses, No rebound, No guarding Integumentary: No tenderness/swelling, No erythema, No warmth, No cyanosis Neurological: Normal speech, Normal strength at 5/5 x4 extr, Normal tone, Normal affect Laboratory Data at Discharge: WBC 10.0 K/uL (4.3-10.9) 09/24/19 12:30 Hgb 14.4 g/dL (13.6-17.9) 09/24/19 12:30 Hct 43.1 % (39.6-49.0) 09/24/19 12:30 Plt Count 308 K/uL (152-406) 09/24/19 12:30 PT 11.3 SECONDS (9.5-12.5) 09/24/19 12:30 INR 0.96 09/24/19 12:30 Sodium 141 mmol/L (136-145) 09/24/19 12:30 Potassium 3.6 mmol/L (3.5-5.1) 09/24/19 12:30 BUN 13 mg/dL (7-18) 09/24/19 12:30 Creatinine 0.99 mg/dL (0.55-1.3) 09/24/19 12:30 Glucose 144 mg/dL (74-106) H 09/24/19 12:30 Magnesium 2.0 mg/dL (1.8-2.4) 09/24/19 12:30 Total Bilirubin 0.3 mg/dL (0.2-1.0) 09/24/19 12:30 AST 32 U/L (15-37) 09/24/19 12:30 ALT 74 U/L (12-78) 09/24/19 12:30 Alkaline Phosphatase 90 U/L (45-117) 09/24/19 12:30 Troponin I < 0.02 ng/mL (0.0-0.045) 09/25/19 04:58 Triglycerides 497 mg/dL (<150) H 09/24/19 20:30 Cholesterol 207 mg/dL (<200) H 09/24/19 20:30 LDL Cholesterol Direct 141 mg/dL (100-129) H 09/24/19 20:30 HDL Cholesterol 31 mg/dL (40-60) L 09/24/19 20:30 Cholesterol/HDL Ratio 6.68 09/24/19 20:30 Lipase 135 U/L (73-393) 09/24/19 12:30 Home Medications: Aspirin [Aspirin EC 81 MG] 81 mg PO DAILY #90 tablet. 09/25/19 Atorvastatin Calcium [Lipitor] 20 mg PO BEDTIME #30 tab 09/25/19 Docosahexanoic AC/Epa [Fish Oil 1,000 MG CAP] 1 cap PO BID #60 cap 09/25/19 Metoprolol Tartrate [Lopressor*] 12.5 mg PO BID #60 tab 09/25/19 Pantoprazole Sodium [Protonix] 40 mg PO DAILY #30 tablet. 09/25/19 New Medications: Aspirin [Aspirin EC 81 MG] 81 mg PO DAILY #90 tablet. Atorvastatin Calcium [Lipitor] 20 mg PO BEDTIME #30 tab Docosahexanoic AC/Epa [Fish Oil 1,000 MG CAP] 1 cap PO BID #60 cap Metoprolol Tartrate [Lopressor*] 12.5 mg PO BID #60 tab Pantoprazole Sodium [Protonix] 40 mg PO DAILY #30 tablet. Patient Discharge Instructions: 1. Recommend follow up with a PCP to establish care and follow up this hospitalization. 2. Patient presented with chest pain. CT chest unremarkable. Cardiac enzymes also have been unremarkable. Echocardiogram obtained. Cardiac stress test showed no stress-induced ischemia with ejection fraction around 40%. No further intervention was required. Patient was also to found to have elevated blood pressure indicative of hypertension. Patient was placed on blood pressure medication. At discharge patient may continue with aspirin 81 mg daily, metoprolol 12.5 mg 1 pill twice daily. Hold blood pressure medication if systolic less than 110 or heart rate less than 50. 3. Patient also has hyperlipidemia. Total triglycerides 497, LDL 140. At discharge patient will continue with Lipitor 20 mg daily and fish oil 1 g twice daily. Recommend to recheck fasting lipid panel in 1 month to monitor his progress. 4. Patient with BMI 43. Lifestyle modification education provided. 5. Patient may have underlying GERD. Patient may continue with Protonix 40 mg daily. Patient may follow up with GI as an outpatient to further evaluate. Diet: AHA Activity: Ad vira Time spent managing pt's care (in minutes): 55
--- NOTE | 2019-09-25 14:57 | ECHO ---
HEIGHT: 5 ft 9 in WEIGHT: 296 lb 11.2 oz DATE OF STUDY: 09/25/[address]: walter mendoza 2-DIMENSIONAL: YES M.MODE: YES DOPPLER: YES COLOR FLOW: YES TDS: NO PORTABLE: NO DEFINITY: NO BUBBLE STUDY: NO DIAGNOSIS: CHEST PAIN, HYPERTENSION CARDIAC HISTORY: CATHERIZATION: NO SURGERY: NO PROSTHETIC VALVE: NO PACEMAKER: NO MEASUREMENTS (cm) DIASTOLIC (NORMALS) SYSTOLIC (NORMALS) IVSd 1.1 (0.6-1.2) LA Diam 3.8 (1.9-4.0) LVEF 69% LVIDd 4.7 (3.5-5.7) LVIDs 2.9 (2.0-3.5) %FS 38% LVPWd 1.1 (0.6-1.2) Ao Diam 2.7 (2.0-3.7) 2 DIMENSIONAL ASSESSMENT: RIGHT ATRIUM: NORMAL LEFT ATRIUM: NORMAL RIGHT VENTRICLE: NORMAL LEFT VENTRICLE: NORMAL TRICUSPID VALVE: NORMAL MITRAL VALVE: NORMAL PULMONIC VALVE: NORMAL AORTIC VALVE: NORMAL PERICARDIAL EFFUSION: NONE AORTIC ROOT: NORMAL LEFT VENTRICULAR WALL MOTION: NORMAL. DOPPLER/COLOR FLOW: NORMAL. COMMENTS: NORMAL 2D ECHO WITH DOPPLER. TECHNOLOGIST: OZZY DIXON
--- NOTE | 2019-09-25 15:07 | TREADPHA ---
DX: CHEST PAIN Date of Study: 09/25/2019 Ht: 5 9 Wt: 296 lb 11.2 oz Consulting Physician: HA MEDICATIONS: ASPIRIN, LOVENOX, LOPRESSOR, NITROSTAT, PEPCID, MORPHINE HISTORY: 39 YEAR OLD MALE PATIENT ADMITTED FOR CHEST DISCOMFORT AND LEFT JAW PAIN REPORTS NO PREVIOUS MEDICAL HISTORY. DENIED CHEST PAIN AT TIME OF TESTING. PHYSICIAL EXAMINATION: RESTING B.P.: 132/80 RESTING H.R.: 59 RESTING EKG: NORMAL PROTOCOL: PHARMACOLOGIC EXERCISE TIME: 3:30 B.P. AT PEAK STRESS: 173/117 IMPRESSION: LEXISCAN STRESS TEST PERFORMED. CARDIOLITE INJECTED PER PROTOCOL. NO SUPRAVENTRICULAR TACHYCARDIA, NO VENTRICULAR TACHCARDIA, NO ARRHYTHMIA NOTED. PATIENT DENIED CHEST PAIN. REPEAT BLOOD PRESSURE 129/84. TOLTERATED WELL. SEE NUCLEAR MEDICINE REPORT. NON-DIAGNOSTIC ELECTROCARDIOGRAM WITH LEXISCAN STRESS.
== END 2019-09-25 15:29 | disposition home or self-care (01) | DRG 313 ==
LOC: ER 12:14 → ERHOLD 14:44 → 2ND 19:30 → OBSVTOIN 09-25 07:50
PROVIDERS: ADMIT Internal Medicine; ATTEND Internal Medicine
DX: R07.9 Chest pain, unspecified (principal); I10 Essential (primary) hypertension; E78.5 Hyperlipidemia, unspecified; K21.9 Gastro-esophageal reflux disease without esophagitis
CPT/HCPCS: 36415; 71045; 71275; 74175; 78452; 80048; 80061; 80076; 80307; 81003; 83690; 83735; 83880; 84484; 85025; 85610; 93005; 93017; 93306; 94760; 96372; 96374; 96375; 99285; A9500; G0378; J1650; J2270; J2405; J2785; Q9967

== ENCOUNTER 2021-01-16 08:40 | Inpatient (IN) | payer OTHER, SELFPAY ==
[2021-01-16 08:59] LABS: Absolute Lymphocytes (CBC) 0.6 K/uL (0.7-4.9); Basophils % 0.3 % (0-1.3); Hematocrit 42.4 % (39.6-49.0); Lymphocytes % 9.9 % (15.3-44.8); RBC Red Blood Cell Count 5.17 M/uL (4.33-5.43)
[2021-01-16 09:03] LABS: Protime INR 1.13
[2021-01-16] MEDS ORDERED: METHYLPREDNISOLONE 125 MG INJ ONE (09:07)
[2021-01-16] MEDS ORDERED: NA CHLORIDE 0.9% 500 ML ONE (09:11)
[2021-01-16] MEDS ORDERED: LEVALBUTEROL 1.25 MG/3 ML NEB ONE (09:11)
[2021-01-16] MEDS ORDERED: ACETAMINOPHEN 500 MG TAB ONE (09:20)
[2021-01-16 09:35] LABS: Blood Morphology Comment NOT SEEN (NOT SEEN); Platelet Estimate ADEQ
[2021-01-16 09:52] LABS: Albumin 2.9 g/dL (3.4-5.0); Bilirubin Direct 0.2 mg/dL (0-0.2); Bilirubin Total 0.4 mg/dL (0.2-1.0); Ferritin 1317.8 ng/mL (26-388); Potassium 3.9 mmol/L (3.5-5.1); Protein, Total 7.6 g/dL (6.4-8.2); Troponin (Emerg Dept Use Only) 0.02 ng/mL (0.0-0.045)
--- NOTE | 2021-01-16 10:03 | RAD REPORT ---
EXAM DESCRIPTION: CT - Chest For Pe Angio - 01/16/2021 9:38 am CLINICAL HISTORY: DYSPNEA DYSPNEA , COVID positive COMPARISON: Chest Single View dated 01/16/2021 TECHNIQUE: Dynamically enhanced 3 mm thick images of the chest were obtained during administration o f approximately 150mL Isovue 370 IV contrast. Coronal and oblique MIP reconstruction images were gene rated and reviewed. Exam utilizes a protocol to evaluate the pulmonary arterial tree. All CT scans are performed using dose optimization technique as appropriate and may include automated exposure control or mA/KV adjustment according to patient size. FINDINGS: No pulmonary emboli are identified. Far peripheral branch assessment is difficult due to m otion. The aorta as imaged shows no acute or suspicious finding. No pericardial thickening or effusion. Extensive bilateral airspace opacification present most pronounced in the right upper lobe in each danette ng base. Given the provided history this is consistent with moderate severity COVID-19 pneumonia. No pleural effusion or pleural thickening. No mediastinal or hilar suspicious masses. No chest wall masses or abnormal axillary lymphadenopathy. IMPRESSION: No pulmonary emboli identified. Moderate severity bilateral COVID-19 pneumonia.
--- NOTE | 2021-01-16 10:04 | RAD REPORT ---
EXAM DESCRIPTION: RAD - Chest Single View - 01/16/2021 9:25 am CLINICAL HISTORY: DYSPNEA COMPARISON: September 2019 TECHNIQUE: AP portable chest image was obtained 01/16/2021 9:25 am . FINDINGS: Lung volumes are low. Bilateral airspace opacification is present with relative sparing of the left apex. Trachea is midline. No cavitation or mass component. Heart and vasculature are normal . No measurable pleural effusion and no pneumothorax. No acute bony abnormality seen. No acute aortic findings suspected. IMPRESSION: Extensive bilateral airspace opacification. In the current clinical environment, bilateral COVID-19 pneumonia would be a primary consideration. A non COVID viral pneumonia can also have this presentation. Pattern is not typical for failure or vol ume overload.
--- NOTE | 2021-01-16 10:51 | EDPHYS ---
Physician Documentation [facility] Name: James Cooley II Age: 40 yrs Sex: Male : 1980 Arrival Date: 01/16/2021 Time: 08:41 Bed 4 Private MD: ED Physician Canelo Arthur HPI: 01/16 08:43 This 40 yrs old Male presents to ER via Unassigned with complaints of rn Shortness Of Breath. 08:43 The patient has shortness of breath at rest, with light activity. Onset: The rn symptoms/episode began/occurred this morning. Duration: The symptoms are continuous. The patient's shortness of breath is aggravated by exertion, light activity, talking, walking, is alleviated by nothing. Associated signs and symptoms: Pertinent positives: productive cough, Pertinent negatives: fever, hemoptysis, loss of consciousness. Severity of symptoms: At their worst the symptoms were moderate in the emergency department the symptoms are unchanged. The patient has not experienced similar symptoms in the past. The patient has been recently seen by a physician:. Reports sick for 6 days, tested positive for COVID 5 days ago, increased sob since last night and this morning. No known medical problems, non-smoker, no chronic medical conditions. No chest pain. No hx of dvt/PE. No leg swelling.. Historical: - Allergies: 08:43 No Known Allergies; sv - PMHx: 08:43 Kidney stones; sv - PSHx: 08:43 None; sv - Immunization history:: Client reports having NOT received the Covid vaccine. - Social history:: Smoking status: . - Family history:: not pertinent. - Hospitalizations: : No recent hospitalization is reported. ROS: 08:43 Constitutional: Negative for fever, chills, and weight loss, Eyes: Negative for injury, rn pain, redness, and discharge, ENT: Negative for injury, pain, and discharge, Neck: Negative for injury, pain, and swelling, Cardiovascular: Negative for chest pain, palpitations, and edema, Respiratory: + sob and cough Abdomen/GI: Negative for abdominal pain, nausea, vomiting, diarrhea, and constipation, Back: Negative for injury and pain, MS/Extremity: Negative for injury and deformity, Skin: Negative for injury, rash, and discoloration, Neuro: Negative for headache, numbness, tingling, and seizure. 08:50 All other systems are negative. rn Exam: 08:43 Constitutional: This is a well developed, well nourished patient who is awake, alert, rn appears anxious, able to walk and get into bed on own power. Head/Face: Normocephalic, atraumatic. Eyes: Periorbital areas with no swelling, redness, or edema. ENT: dry MM, no stridor Cardiovascular: Tachycardic, regular Respiratory: + moderate tachypnea, speaking 3 word sentences. Skin: Warm, dry, no cyanosis MS/ Extremity: Pulses equal, no cyanosis. Neurovascular intact. Full, normal range of motion. Equal circumference. Neuro: Awake and alert, GCS 15, oriented to person, place, time, and situation. Cranial nerves II-XII grossly intact. Motor strength 4/5 in all extremities. Sensory grossly intact. Normal gait. 08:49 ECG was reviewed by the Attending Physician. rn 08:50 Abdomen/GI: Soft, non-tender rn Vital Signs: 08:42 Pulse Ox 45% on R/A; Weight 104.33 kg; Height 5 ft. 9 in. (175.26 cm); sv 08:45 Pulse 138; Resp 26; Temp 103.5(TE); ll1 08:56 BP 112 / 66; sv 10:54 BP 112 / 66; Pulse 138; Resp 22; Temp 98.2(A); Pulse Ox 92% on CPAP; kg 12:00 BP 116 / 71; Pulse 101; Resp 29; Pulse Ox 91% on CPAP; kg 13:00 BP 130 / 71; Pulse 110; Resp 27; Pulse Ox 91% on BiPAP; kg 13:30 BP 125 / 68; Pulse 106; Resp 29; Pulse Ox 91% on CPAP; kg 08:42 Body Mass Index 33.96 (104.33 kg, 175.26 cm) sv 08:42 Pt placed on 10)% NRB sv MDM: 08:41 Patient medically screened. rn 08:46 Differential diagnosis: Anemia Anxiety Reaction Bronchitis Myocardial Infarction rn pneumonia, Pneumothorax pulmonary edema, Pulmonary Embolism Sepsis. 08:46 Data interpreted: Pulse oximetry: on room air is 52 %. Interpretation: hypoxia. Plan: rn O2 by Mask applied. 08:58 Antibiotic administration: Not indicated, the patient has a suspected viral illness, rn COVID +. 08:58 ED course: Gradual fluid administration given COVID + and elevated HR primarily 2/2 103 rn fever at this point, no hypotension.. 10:48 Data reviewed: vital signs, nurses notes, lab test result(s), EKG, radiologic studies, rn CT scan, plain films, and as a result, I will admit patient. Counseling: I had a detailed discussion with the patient and/or guardian regarding: the historical points, exam findings, and any diagnostic results supporting the discharge/admit diagnosis, lab results, radiology results, the need for further work-up and treatment in the hospital. Response to treatment: the patient's symptoms have mildly improved after treatment, and as a result, I will admit patient. Admission orders: after a detailed discussion of the patient's condition and case, the admit orders are written by me. ED course: Pt feels much better after bipap, oxygen up to 95%, HR down to 118, will admit to Dr. Alfaro for COVID pneumonia and hypoxemia.. 01/16 08:43 Order name: BMP rn 01/16 08:43 Order name: Blood Culture Adult (2) rn 01/16 08:43 Order name: C-Reactive Protein rn 01/16 08:43 Order name: CBC with Diff rn 01/16 08:43 Order name: D-Dimer; Complete Time: 10:12 rn 01/16 08:43 Order name: Ferritin; Complete Time: 10:12 rn 01/16 08:43 Order name: Flu; Complete Time: 10:12 rn 01/16 08:43 Order name: LFT's; Complete Time: 10:12 rn 01/16 08:43 Order name: Lactate rn 01/16 08:43 Order name: PT-INR; Complete Time: 10:12 rn 01/16 08:43 Order name: Procalcitonin; Complete Time: 11:13 rn 01/16 08:43 Order name: Ptt, Activated; Complete Time: 10:12 rn 01/16 08:43 Order name: Troponin (emerg Dept Use Only); Complete Time: 10:12 rn 01/16 08:43 Order name: Basic Metabolic Panel; Complete Time: 10:12 EDMS 01/16 08:43 Order name: CXR XRAY; Complete Time: 10:12 rn 01/16 08:43 Order name: EKG; Complete Time: 08:44 rn 08 08:43 Order name: Cardiac monitoring; Complete Time: 12:57 rn 08 08:43 Order name: Droplet/Contact Precautions; Complete Time: 08:48 rn 08 08:43 Order name: EKG - Nurse/Tech; Complete Time: 08:48 rn 08 08:43 Order name: CT Chest For PE Angio; Complete Time: 10:12 rn 08 08:43 Order name: BIPAP rn 01/16 08:43 Order name: Blood Culture EDMS 08 08:43 Order name: C-Reactive Protein; Complete Time: 10:12 EDMS 08 08:43 Order name: CBC with Automated Diff; Complete Time: 10:12 EDMS 08 09:13 Order name: CREATININE WHOLE BLOOD; Complete Time: 10:12 EDMS 08 09:35 Order name: Manual Differential; Complete Time: 10:12 EDMS 08 08:43 Order name: IV Start; Complete Time: 08:48 rn 08 08:43 Order name: Labs collected and sent; Complete Time: 08:48 rn 08 08:43 Order name: O2 Per Protocol; Complete Time: 08:48 rn 08 08:43 Order name: O2 Sat Monitoring; Complete Time: 08:48 rn 08 08:59 Order name: Labs - recollect needed; Complete Time: 09:11 mt EC:49 Rate is 141 beats/min. Rhythm is regular. QRS [place] is Normal. [place] interval is normal. rn QRS interval is normal. QT interval is normal. No Q waves. T waves are Normal. No ST changes noted. Clinical impression: Sinus tachycardia. Interpreted by me. Reviewed by me. Administered Medications: 08:49 Drug: SOLU-Medrol (methylPrednisoLONE) 125 mg Route: IVP; Site: left antecubital; kg 09:30 Follow up: Response: No adverse reaction; Marked relief of symptoms kg 08:49 Drug: NS 0.9% 500 ml Route: IV; Rate: bolus; Site: right antecubital; kg 10:00 Follow up: IV Status: Completed infusion; IV Intake: 500ml kg 08:49 Drug: Xopenex (levalbuterol) 1.25 mg Route: Inhalation; kg 09:06 Drug: Tylenol 1000 mg Route: PO; kg 10:00 Follow up: Response: No adverse reaction; Marked relief of symptoms; Temperature is kg decreased Disposition: 10:48 Critical Care:. rn Disposition Summary: 01/16/21 10:50 Hospitalization Ordered Hospitalization Status: Inpatient Admission rn Provider: Osman Alfaro rn Condition: Stable rn Problem: new rn Symptoms: have improved rn Bed/Room Type: Standard rn Location: Intensive Care Unit(01/16/21 13:31) dw Room Assignment: 6-(01/16/21 13:31) dw Diagnosis - Viral pneumonia, unspecified - COVID/Coronavirus rn - Hypoxemia rn - Sepsis, unspecified organism rn Forms: - Medication Reconciliation Form rn - SBAR form director e learning time excluding procedures: 10:48 Critical care time: Bedside Care: 30 minutes, Consultation: 5 minutes. Total time: 35 rn minutes Signatures: Dispatcher [employer] Elizabeth De La Torre RN Doris Craig RN RN dw Canelo Arthur MD MD rn Thompson, Moriah Eileen Villalobos RN RN kg Corrections: (The following items were deleted from the chart) 13:31 10:50 Telemetry/MedSurg (Inpatient) rn dw 13:31 10:50 rn dw
--- NOTE | 2021-01-16 10:51 | ER ---
Nurse's Notes [facility] Name: James Cooley II Age: 40 yrs Sex: Male : 1980 Arrival Date: 01/16/2021 Time: 08:41 Bed 4 Private MD: Diagnosis: Viral pneumonia, unspecified-COVID/Coronavirus;Hypoxemia;Sepsis, unspecified organism Presentation: 01/16 08:42 Chief complaint: Patient states: SOB increased this morning, stated that his O2 sv sat at home was 45%. Pt tested COVID+ 01/11/21. Coronavirus screen: Client denies travel out of the [place] in the last 14 days. Client presents with at least one sign or symptom that may indicate coronavirus-19. Standard/surgical mask placed on the client. Provider contacted for isolation considerations. Client reports previous positive COVID test result. Date of collection: January 11, 2021. Ebola Screen: No symptoms or risks identified at this time. Risk Assessment: Do you want to hurt yourself or someone else? Patient reports no desire to harm self or others. Onset of symptoms was January 16, 2021. 08:42 Method Of Arrival: Wheelchair sv 08:42 Acuity: SHAYE 1 sv 09:17 Initial Sepsis Screen: Does the patient meet any 2 criteria? RR > 20 per min. Temp kg <36.0*C (96.8*F)) or > 38.3*C (100.9*F). HR > 90 bpm. Yes Does the patient have a suspected source of infection? Yes: Productive cough/pneumonia. Triage Assessment: 08:42 General: Appears comfortable, Behavior is calm, cooperative, appropriate for age. sv Neuro: Level of Consciousness is awake, alert, obeys commands, Oriented to person, place, time, situation. Respiratory: Reports shortness of breath at rest on exertion Respiratory effort is even, Respiratory pattern is tachypnea Onset: The symptoms/episode began/occurred this morning, the patient has moderate shortness of breath. Historical: - Allergies: 08:43 No Known Allergies; sv - PMHx: 08:43 Kidney stones; sv - PSHx: 08:43 None; sv - Immunization history:: Client reports having NOT received the Covid vaccine. - Social history:: Smoking status: . - Family history:: not pertinent. - Hospitalizations: : No recent hospitalization is reported. Screenin:48 Abuse screen: Denies threats or abuse. Denies injuries from another. Nutritional sv screening: No deficits noted. Tuberculosis screening: No symptoms or risk factors identified. Fall Risk None identified. Assessment: 09:12 General: Appears distressed, Behavior is calm, cooperative, appropriate for age, quiet. kg Pain: Denies pain. Neuro: No deficits noted. Level of Consciousness is awake, alert, obeys commands, Oriented to person, place, time, situation, Appropriate for age Weakness. Cardiovascular: Heart tones S1 S2 Capillary refill is > 3 seconds is brisk Pulses are 3+ in right radial artery and left radial artery Rhythm is sinus tachycardia. Respiratory: Reports shortness of breath at rest on exertion Airway is patent Trachea midline Respiratory effort is gasping, with nasal flaring, with retractions, Respiratory pattern is regular, tachypnea. GI: No deficits noted. : No deficits noted. EENT: No deficits noted. Derm: No deficits noted. Musculoskeletal: No deficits noted. 09:30 Respiratory: Breath sounds are diminished bilaterally. kg Vital Signs: 08:42 Pulse Ox 45% on R/A; Weight 104.33 kg; Height 5 ft. 9 in. (175.26 cm); sv 08:45 Pulse 138; Resp 26; Temp 103.5(TE); ll1 08:56 BP 112 / 66; sv 10:54 BP 112 / 66; Pulse 138; Resp 22; Temp 98.2(A); Pulse Ox 92% on CPAP; kg 12:00 BP 116 / 71; Pulse 101; Resp 29; Pulse Ox 91% on CPAP; kg 13:00 BP 130 / 71; Pulse 110; Resp 27; Pulse Ox 91% on BiPAP; kg 13:30 BP 125 / 68; Pulse 106; Resp 29; Pulse Ox 91% on CPAP; kg 08:42 Body Mass Index 33.96 (104.33 kg, 175.26 cm) sv 08:42 Pt placed on 10)% NRB sv ED Course: 08:41 Patient arrived in ED. rn 08:41 Canelo Arthur MD is Attending Physician. rn 08:42 monitor tech on. Pulse ox on. NIBP on. sv 08:42 Inserted saline lock: 18 gauge in left antecubital area, using aseptic technique. kg 08:43 Triage completed. sv 08:43 Arm band placed on. sv 08:45 Patient has correct armband on for positive identification. Placed in gown. Bed in low sv position. Call light in reach. Head of bed elevated. 08:45 Inserted saline lock: 18 gauge in right antecubital area, using aseptic technique. kg ,using aseptic technique. By Lidya CAMACHO. 08:48 BIPAP Sent. sv 08:51 BMP Sent. sv 08:51 Blood Culture Adult (2) Sent. sv 08:51 C-Reactive Protein Sent. sv 08:51 CBC with Diff Sent. sv 09:05 Notified ED physician of a critical lab result(s). D dimer 533. Dr. Sandhya garcia, ll1 verbalized understanding. 09:09 Eileen Nance, JANICE is Primary Nurse. kg 09:25 CXR XRAY In Process Unspecified. EDMS 09:38 CT Chest For PE Angio In Process Unspecified. EDMS 10:49 Osman Alfaro DO is Hospitalizing Provider. rn 12:57 Lactate Sent. kg 13:41 Report given to Bernie CAMACHO. kg 13:42 No provider procedures requiring assistance completed. Converted IV to saline lock on kg right left antecubital area. Administered Medications: 08:49 Drug: SOLU-Medrol (methylPrednisoLONE) 125 mg Route: IVP; Site: left antecubital; kg 09:30 Follow up: Response: No adverse reaction; Marked relief of symptoms kg 08:49 Drug: NS 0.9% 500 ml Route: IV; Rate: bolus; Site: right antecubital; kg 10:00 Follow up: IV Status: Completed infusion; IV Intake: 500ml kg 08:49 Drug: Xopenex (levalbuterol) 1.25 mg Route: Inhalation; kg 09:06 Drug: Tylenol 1000 mg Route: PO; kg 10:00 Follow up: Response: No adverse reaction; Marked relief of symptoms; Temperature is kg decreased Intake: 10:00 IV: 500ml; Total: 500ml. kg Output: 12:50 Urine: 380ml ([place]); Total: 380ml. kg Outcome: 10:50 Decision to Hospitalize by Provider. rn 13:42 Admitted to ICU accompanied by tech, via wheelchair, room 6, with oxygen, with chart, kg Report called to Bernie CAMACHO 13:42 Condition: stable 13:42 Instructed on the need for admit, Demonstrated understanding of instructions. 14:19 Patient left the ED. kg Signatures: Dispatcher [employer] Elizabeth De La Torre, RN Canelo Barnes MD MD rn Lewis, Lynsay, RN RN ll1 Eileen Nance RN RN kg Corrections: (The following items were deleted from the chart) 13:34 08:45 Inserted saline lock: 20 gauge in right antecubital area, using aseptic kg technique. ,using aseptic technique. By Lidya CAMACHO kg
--- NOTE | 2021-01-16 12:00 | P.HP ---
Certification for Inpatient Patient admitted to: Inpatient With expected LOS: >2 Midnights Patient will require the following post-hospital care: None Practitioner: I am a practitioner with admitting privileges, knowledge of patient current condition, hospital course, and medical plan of care. Services: Services provided to patient in accordance with Admission requirements found in Title 42 Section 412.3 of the Code of Federal Regulations Patient History Date of Service: 01/16/21 Primary Care Provider: None Reason for admission: Shortness of breath History of Present Illness: 40-year-old male with no past medical history. Patient presents with increasing shortness of breath, fatigue and body aches. Patient also reported some fever. Patient has been ill over the past 5 days. He was tested positive recently for Covid. His symptoms did not improve. Patient continued to have increasing shortness of breath and fever. He came to the ER for further evaluation. Patient is unvaccinated Patient was seen and evaluated in the ER. In the ER patient was found to be hypoxic with room air saturations around 50%. Patient febrile. Patient tachypneic and tachycardic initially but improved. White count 6.2, hemoglobin 14.4. Platelet count 241. Sodium 137, creatinine 1.2 with a GFR 65. Glucose 169. Ferritin 1317. CRP 124. D-dimer elevated at 553. Procalcitonin 0.49. AST 202, ALT 141. CT scan shows moderate Covid pneumonia. Negative for pulmonary embolism. Patient given IV Solu-Medrol in the emergency room. Patient was placed on BiPAP. Patient admitted for further evaluation and treatment. Allergies No Known Allergies Allergy (Verified 09/24/19 21:45) Home medications list reviewed: Yes Home Medications: Aspirin [Aspirin EC 81 MG] 81 mg PO DAILY #90 tablet. 09/25/19 Atorvastatin Calcium [Lipitor] 20 mg PO BEDTIME #30 tab 09/25/19 Docosahexanoic AC/Epa [Fish Oil 1,000 MG CAP] 1 cap PO BID #60 cap 09/25/19 Metoprolol Tartrate [Lopressor*] 12.5 mg PO BID #60 tab 09/25/19 Pantoprazole Sodium [Protonix] 40 mg PO DAILY #30 tablet. 09/25/19 - Past Medical/Surgical History Diabetic: No Past Medical History: Patient denies medical history Past Surgical History: Patient denies surgical history -: None Psychosocial/ Personal History: Patient lives at home - Family History Family History: Reviewed- Non-Contributory - Social History Smoking Status: Never smoker Alcohol use: Yes CD- Drugs: No Caffeine use: No Place of Residence: Home Review of Systems General: Fever, Chills, Weakness, Malaise, As per HPI Eyes: Unremarkable ENT: Nose Congestion, As per HPI Respiratory: Cough, Shortness of Breath, SOB with Excertion, As per HPI Cardiovascular: Unremarkable Gastrointestinal: Unremarkable Genitourinary: Unremarkable Musculoskeletal: Unremarkable Integumentary: Unremarkable Neurological: Unremarkable Lymphatics: Unremarkable Physical Examination - Studies Laboratory Data (last 24 hrs) 01/16/21 09:05: Sodium 137, Potassium 3.9, BUN 16, Creatinine 1.23, Glucose 169 H, Total Bilirubin 0.4, AST 202 H, ALT 141 H, Alkaline Phosphatase 82 01/16/21 08:47: PT 13.0 H, INR 1.13, APTT 31.2 01/16/21 08:47: WBC 6.20, Hgb 14.4, Hct 42.4, Plt Count 241 Microbiology Data (last 24 hrs): 01/16/21 09:04 Nasopharnyx Influenza Type A Antigen Screen - Final 01/16/21 09:04 Nasopharnyx Influenza Type B Antigen Screen - Final Assessment and Plan Discharge Plan: Home Plan to discharge in: Greater than 2 days - Advance Directives Does patient have a Living Will: No Does patient have a Durable POA for Healthcare: No - Code Status/Comfort Care Code Status Assessed: Yes (Patient is full code) Physician Review Additional Text: CT scan: FINDINGS: No pulmonary emboli are identified. Far peripheral branch assessment is difficult due to motion. The aorta as imaged shows no acute or suspicious finding. No pericardial thickening or effusion. Extensive bilateral airspace opacification present most pronounced in the right upper lobe in each lung base. Given the provided history this is consistent with moderate severity COVID-19 pneumonia. No pleural effusion or pleural thickening. No mediastinal or hilar suspicious masses. No chest wall masses or abnormal axillary lymphadenopathy. IMPRESSION: No pulmonary emboli identified. Moderate severity bilateral COVID-19 pneumonia. Physical Exam: GENERAL: Anterior VITAL SIGNS: Reviewed HEENT: Head is normocephalic and atraumatic. Extraocular muscles are intact. Pupils are equal, round, and reactive to light and accommodation. Nares appeared normal. Mouth is well hydrated and without lesions. Mucous membranes are moist. NECK: Supple. No carotid bruits. No lymphadenopathy or thyromegaly. LUNGS: Clear to auscultation. No crackles or wheezes are heard. HEART: Regular rate and rhythm, no appreciable gallops, rubs, murmurs or extra heart sounds ABDOMEN: Soft, nontender, and nondistended. Positive bowel sounds. No hepatosplenomegaly was noted. EXTREMITIES: Without any cyanosis, clubbing, rash, lesions or peripheral edema. NEUROLOGIC: The patient is oriented to person, place and time. Strength and sensation are grossly intact. Face is symmetric. SKIN: Normal color, turgor and temperature. No ulcerations or rashes noted. Impression: Acute respiratory failure with hypoxia secondary to bilateral moderate Covid 19 pneumonia, unvaccinated Elevated liver function likely underlying fatty liver Plan: Acute respiratory failure with hypoxia secondary to bilateral moderate Covid 19 pneumonia, unvaccinated: Patient will be admitted for further evaluation and treatment. Will continue with BiPAP and wean off. Patient may be able to do high flow at this time. Maintain oxygen above 93%. Continue with IV Solu- Medrol and supplementation. Due to his elevated liver function patient not a candidate for remdesivir, Actemra, or baricitinib. We will continue to monitor his response with IV steroids and supplementation. Will provide medication for cough. Will discuss case with pulmonology. Continue to monitor and trend CRP/ferritin. Will monitor his response to therapy. Will provide medication for nausea, fever, pain. Will provide medication for cough. DVT prophylaxis in placeLovenox. Anticipate improvement over the next 72 to 96 hours. Elevated liver function likely underlying fatty liver: Liver function test elevated. We will continue to monitor and trend liver function test. Code Status: Full Code DVT prophylaxis: Lovenox Advanced Care Planning-30 minutes: Patient desires to go home at discharge. Time Spent Managing Pts Care (In Minutes): 55
[2021-01-16] MEDS ORDERED: IBUPROFEN 400 MG TAB PO PRN (13:41)
[2021-01-16] MEDS ORDERED: BENZONATATE 100 MG CAP PO PRN (13:41)
[2021-01-16] MEDS ORDERED: TRAMADOL HCL 50 MG TAB PO PRN (13:41)
[2021-01-16] MEDS ORDERED: ACETAMINOPHEN 500 MG TAB PO PRN (13:41)
[2021-01-16] MEDS: ASCORBIC ACID 500 MG TABLET PO SCH ×2 (16:29→20:21)
[2021-01-16] MEDS: ENOXAPARIN 40 MG/0.4 ML SQ SCH (16:29)
[2021-01-16] MEDS: METHYLPREDNISOLONE 125 MG INJ IV SCH (16:29)
[2021-01-16] MEDS: FAMOTIDINE 20 MG TAB PO SCH (20:21)
[2021-01-17] MEDS: METHYLPREDNISOLONE 125 MG INJ IV SCH ×3 (01:51→17:29)
[2021-01-17] MEDS: ONDANSETRON 4 MG/2 ML VIAL IV PRN ×2 (03:18→12:53)
[2021-01-17] MEDS ORDERED: GUAIFENESIN/CODEINE 5ML UCUP PO PRN (03:20)
[2021-01-17 05:50] LABS: Absolute Lymphocytes (CBC) 0.9 K/uL (0.7-4.9); Basophils % 0.2 % (0-1.3); Hematocrit 40.8 % (39.6-49.0); Lymphocytes % 11.3 % (15.3-44.8); RBC Red Blood Cell Count 4.95 M/uL (4.33-5.43)
--- NOTE | 2021-01-17 05:54 | P.PN ---
Subjective Date of Service: 01/17/21 Primary Care Provider: None Chief Complaint: Shortness of breath Subjective: Improving (But remains on BIPAP at 100%. He says he is doing better.) Physical Examination - Vital Signs Temperature: 97.8 F Blood Pressure: 109/59 Pulse: 88 Respirations: 27 Pulse Ox (%): 88 - Studies Laboratory Data (last 24 hrs) 01/16/21 09:05: Sodium 137, Potassium 3.9, BUN 16, Creatinine 1.23, Glucose 169 H, Total Bilirubin 0.4, AST 202 H, ALT 141 H, Alkaline Phosphatase 82 01/16/21 08:47: PT 13.0 H, INR 1.13, APTT 31.2 01/16/21 08:47: WBC 6.20, Hgb 14.4, Hct 42.4, Plt Count 241 Microbiology Data (last 24 hrs): 01/16/21 09:04 Nasopharnyx Influenza Type A Antigen Screen - Final 01/16/21 09:04 Nasopharnyx Influenza Type B Antigen Screen - Final Assessment & Plan Discharge Plan: Home Plan to discharge in: Greater than 2 days Physician Review Additional Text: CT scan: FINDINGS: No pulmonary emboli are identified. Far peripheral branch assessment is difficult due to motion. The aorta as imaged shows no acute or suspicious finding. No pericardial thickening or effusion. Extensive bilateral airspace opacification present most pronounced in the right upper lobe in each lung base. Given the provided history this is consistent with moderate severity COVID-19 pneumonia. No pleural effusion or pleural thickening. No mediastinal or hilar suspicious masses. No chest wall masses or abnormal axillary lymphadenopathy. IMPRESSION: No pulmonary emboli identified. Moderate severity bilateral COVID-19 pneumonia. Physical Exam: GENERAL: Anterior VITAL SIGNS: Reviewed HEENT: Head is normocephalic and atraumatic. Extraocular muscles are intact. Pupils are equal, round, and reactive to light and accommodation. Nares appeared normal. Mouth is well hydrated and without lesions. Mucous membranes are moist. NECK: Supple. No carotid bruits. No lymphadenopathy or thyromegaly. LUNGS: Congestion bilateral to the bases. Patient does not appear in any distress. Patient currently on BiPAP 100%. HEART: Regular rate and rhythm, no appreciable gallops, rubs, murmurs or extra heart sounds ABDOMEN: Soft, nontender, and nondistended. Positive bowel sounds. No hepatosplenomegaly was noted. EXTREMITIES: Without any cyanosis, clubbing, rash, lesions or peripheral edema. NEUROLOGIC: The patient is oriented to person, place and time. Strength and sensation are grossly intact. Face is symmetric. SKIN: Normal color, turgor and temperature. No ulcerations or rashes noted. Impression: Acute respiratory failure with hypoxia secondary to bilateral moderate Covid 19 pneumonia, unvaccinated Elevated liver function likely underlying fatty liver Plan: Acute respiratory failure with hypoxia secondary to bilateral moderate Covid 19 pneumonia, unvaccinated: Patient reports slight improvement. Continue with current treatment plan. Patient on BiPAP at 100%. Continue to wean off to high flow then nasal cannula. Maintain oxygen above 93%. Continue with IV Solu- Medrol and supplementation. Due to his elevated liver function patient not a candidate for remdesivir, Actemra, or baricitinib. We will continue to monitor his response with IV steroids and supplementation. Will provide medication for cough. Will adjust medication for cough. Will discuss case with pulmonology. Continue to monitor and trend CRP/ferritin. Will provide medication for nausea, fever, pain. Will provide medication for cough. DVT prophylaxis in placeLovenox. Recheck chest x-ray tomorrow. Anticipate improvement over the next 5 days. Elevated liver function likely underlying fatty liver: Liver function test elevated. Will continue to monitor and trend liver function test. Code Status: Full Code DVT prophylaxis: Lovenox Advanced Care Planning-30 minutes: Patient desires to go home at discharge. Time Spent Managing Pts Care (In Minutes): 55
[2021-01-17 06:30] LABS: ALT/SGPT 141 U/L (12-78); AST/SGOT 244 U/L (15-37); Albumin 2.7 g/dL (3.4-5.0); Alkaline Phosphatase 83 U/L (45-117); BUN Blood Urea Nitrogen 18 mg/dL (7-18); Bicarbonate 29 mmol/L (21-32); Bilirubin Total 0.4 mg/dL (0.2-1.0); Ferritin 1749.6 ng/mL (26-388); Glucose Level 190 mg/dL (74-106); Magnesium 2.5 mg/dL (1.8-2.4); Potassium 4.1 mmol/L (3.5-5.1); Protein, Total 7.3 g/dL (6.4-8.2); Sodium Level 141 mmol/L (136-145); Thyroid Stimulating Hormone 0.304 uIU/mL (0.360-3.740)
--- NOTE | 2021-01-17 07:46 | EKG ---
Test Date: 2021-01-16 Test Time: 08:47:40 Gas Flow Regulator: DL MEASUREMENT RESULTS: Intervals: Rate: 141 ME: 122 QRSD: 74 QT: 282 QTc: 431 Parker: P: 28 ME: 122 QRS: 19 T: 20 INTERPRETIVE STATEMENTS: Sinus tachycardia Septal infarct, age undetermined Abnormal ECG Compared to ECG 09/24/2019 12:31:48 Sinus rhythm no longer present Myocardial infarct finding still present Electronically Signed On 01-17-21 07:43:00 CDT by Matt Kirk
[2021-01-17] MEDS: THIAMINE HCL 100 MG TABLET PO SCH (09:18)
[2021-01-17] MEDS: ENOXAPARIN 40 MG/0.4 ML SQ SCH (09:18)
[2021-01-17] MEDS: VITAMIN D 1000 UNIT TAB PO SCH (09:18)
[2021-01-17] MEDS: ASPIRIN EC 81 MG TAB PO SCH (09:18)
[2021-01-17] MEDS: ASCORBIC ACID 500 MG TABLET PO SCH ×3 (09:18→20:00)
[2021-01-17] MEDS: ZINC SULFATE 220 MG CAP PO SCH (09:18)
[2021-01-17] MEDS: FAMOTIDINE 20 MG TAB PO SCH ×2 (09:18→20:00)
[2021-01-17] MEDS: GUAIFENESIN/CODEINE 5ML UCUP PO SCH ×3 (15:11→20:00)
[2021-01-17] MEDS: PROMETHAZINE INJ 25 MG/ML AMP IV PRN (17:56)
[2021-01-18] MEDS: METHYLPREDNISOLONE 125 MG INJ IV SCH ×3 (00:16→16:59)
[2021-01-18 05:16] LABS: Absolute Lymphocytes (CBC) 0.8 K/uL (0.7-4.9); Hematocrit 41.3 % (39.6-49.0); Lymphocytes % 7.7 % (15.3-44.8); MPV 8.7 fL (7.6-11.3); RBC Red Blood Cell Count 4.96 M/uL (4.33-5.43)
--- NOTE | 2021-01-18 05:48 | P.PN ---
Subjective Date of Service: 01/18/21 Primary Care Provider: None Chief Complaint: Shortness of breath Subjective: Other (Patient remains on BiPAP at 100%. Patient reports some improvement) Physical Examination - Vital Signs Temperature: 98.2 F Blood Pressure: 116/63 Pulse: 83 Respirations: 27 Pulse Ox (%): 87 Assessment & Plan Discharge Plan: Home Plan to discharge in: Greater than 2 days Physician Review Additional Text: CT scan: FINDINGS: No pulmonary emboli are identified. Far peripheral branch assessment is difficult due to motion. The aorta as imaged shows no acute or suspicious finding. No pericardial thickening or effusion. Extensive bilateral airspace opacification present most pronounced in the right upper lobe in each lung base. Given the provided history this is consistent with moderate severity COVID-19 pneumonia. No pleural effusion or pleural thickening. No mediastinal or hilar suspicious masses. No chest wall masses or abnormal axillary lymphadenopathy. IMPRESSION: No pulmonary emboli identified. Moderate severity bilateral COVID-19 pneumonia. Follow up CXR: COMPARISON: January 16 CT chest and portable chest TECHNIQUE: AP portable chest image was obtained 01/18/2021 7:46 am . FINDINGS: Bilateral airspace opacification is present throughout both lung izquierdo. Allowing for inspiratory differences in portable technique differences, pneumonia findings are not significantly different. Heart size magnified by the lower lung volumes. Pulmonary vasculature has not changed. No measurable pleural effusion and no pneumothorax. IMPRESSION: Bilateral COVID-19 pneumonia not clearly different from comparison. Physical Exam: GENERAL: Anterior VITAL SIGNS: Reviewed HEENT: Neck supple patient appears well-hydrated NECK: Supple. No carotid bruits. No lymphadenopathy or thyromegaly. LUNGS: Congestion bilateral to the bases. Patient does not appear in any distress. Patient currently on BiPAP 100%. HEART: Regular rate and rhythm, no appreciable gallops, rubs, murmurs or extra heart sounds ABDOMEN: Soft, nontender, and nondistended. Positive bowel sounds. No hep atosplenomegaly was noted. EXTREMITIES: Without any cyanosis, clubbing, rash, lesions or peripheral edema. NEUROLOGIC: The patient is oriented to person, place and time. Strength and sensation are grossly intact. Face is symmetric. SKIN: Normal color, turgor and temperature. No ulcerations or rashes noted. Impression: Acute respiratory failure with hypoxia secondary to bilateral moderate Covid 19 pneumonia, unvaccinated Elevated liver function likely underlying fatty liver Plan: Acute respiratory failure with hypoxia secondary to bilateral moderate Covid 19 pneumonia, unvaccinated: Patient clinically appears stable. Patient reports some improvement. Still on BiPAP at 100%. Continue to wean off. LFTs, CRP and ferritin remain elevated. No change in x-ray. Maintain oxygen above 90%. Continue with IV Solu-Medrol and supplementation. Due to his elevated liver function patient not a candidate for remdesivir, Actemra, or baricitinib. Will continue to monitor his response with IV steroids and supplementation. Will provide medication for cough. Will adjust medication for cough. Will discuss case with pulmonology. Continue to monitor and trend CRP/ferritin. Will provide medication for nausea, fever, pain. Will provide medication for cough. DVT prophylaxis in placeLovenox. Recheck chest x-ray tomorrow. Anticipate improvement over the next 5 days. Elevated liver function likely underlying fatty liver: Liver function test elevated. Will continue to monitor and trend liver function test. Code Status: Full Code DVT prophylaxis: Lovenox Advanced Care Planning-30 minutes: Patient desires to go home at discharge. Time Spent Managing Pts Care (In Minutes): 55
[2021-01-18 05:59] LABS: ALT/SGPT 154 U/L (12-78); AST/SGOT 226 U/L (15-37); Albumin 2.6 g/dL (3.4-5.0); Alkaline Phosphatase 82 U/L (45-117); BUN Blood Urea Nitrogen 26 mg/dL (7-18); Bicarbonate 29 mmol/L (21-32); Bilirubin Total 0.4 mg/dL (0.2-1.0); Ferritin 1727.2 ng/mL (26-388); Glucose Level 217 mg/dL (74-106); Magnesium 2.8 mg/dL (1.8-2.4); Potassium 4.3 mmol/L (3.5-5.1); Protein, Total 7.1 g/dL (6.4-8.2); Sodium Level 143 mmol/L (136-145)
--- NOTE | 2021-01-18 08:24 | RAD REPORT ---
EXAM DESCRIPTION: RAD - Chest Single View - 01/18/2021 7:46 am CLINICAL HISTORY: follow up COVID, COVID pneumonia, shortness of breath COMPARISON: January 16 CT chest and portable chest TECHNIQUE: AP portable chest image was obtained 01/18/2021 7:46 am . FINDINGS: Bilateral airspace opacification is present throughout both lung izquierdo. Allowing for insp iratory differences in portable technique differences, pneumonia findings are not significantly diffe rent. Heart size magnified by the lower lung volumes. Pulmonary vasculature has not changed. No measurable pleural effusion and no pneumothorax. Delete select IMPRESSION: Bilateral COVID-19 pneumonia not clearly different from comparison.
[2021-01-18] MEDS: THIAMINE HCL 100 MG TABLET PO SCH (08:33)
[2021-01-18] MEDS: VITAMIN D 1000 UNIT TAB PO SCH (08:33)
[2021-01-18] MEDS: ASPIRIN EC 81 MG TAB PO SCH (08:33)
[2021-01-18] MEDS: ZINC SULFATE 220 MG CAP PO SCH (08:33)
[2021-01-18] MEDS: FAMOTIDINE 20 MG TAB PO SCH ×2 (08:34→20:07)
[2021-01-18] MEDS: ENOXAPARIN 40 MG/0.4 ML SQ SCH (08:34)
[2021-01-18] MEDS: ASCORBIC ACID 500 MG TABLET PO SCH ×3 (08:34→20:07)
[2021-01-18] MEDS: GUAIFENESIN/CODEINE 5ML UCUP PO SCH ×4 (08:34→20:07)
[2021-01-18] MEDS ORDERED: DOCUSATE NA 100 MG CAP PO PRN (09:04)
[2021-01-19] MEDS: METHYLPREDNISOLONE 125 MG INJ IV SCH ×3 (00:16→17:18)
[2021-01-19 04:32] LABS: Absolute Lymphocytes (CBC) 0.7 K/uL (0.7-4.9); Basophils % 0.3 % (0-1.3); Hematocrit 39.8 % (39.6-49.0); Lymphocytes % 6.6 % (15.3-44.8); MPV 9.2 fL (7.6-11.3); RBC Red Blood Cell Count 4.76 M/uL (4.33-5.43)
[2021-01-19 04:58] LABS: ALT/SGPT 163 U/L (12-78); AST/SGOT 155 U/L (15-37); Albumin 2.6 g/dL (3.4-5.0); Alkaline Phosphatase 83 U/L (45-117); BUN Blood Urea Nitrogen 35 mg/dL (7-18); Bicarbonate 29 mmol/L (21-32); Bilirubin Total 0.8 mg/dL (0.2-1.0); Ferritin 1231.2 ng/mL (26-388); Glucose Level 237 mg/dL (74-106); Magnesium 3.2 mg/dL (1.8-2.4); Potassium 4.7 mmol/L (3.5-5.1); Protein, Total 6.7 g/dL (6.4-8.2); Sodium Level 144 mmol/L (136-145)
[2021-01-19] MEDS: GUAIFENESIN/CODEINE 5ML UCUP PO SCH ×4 (08:19→20:43)
[2021-01-19] MEDS: ASPIRIN EC 81 MG TAB PO SCH (08:19)
[2021-01-19] MEDS: ZINC SULFATE 220 MG CAP PO SCH (08:19)
[2021-01-19] MEDS: ENOXAPARIN 40 MG/0.4 ML SQ SCH (08:19)
[2021-01-19] MEDS: THIAMINE HCL 100 MG TABLET PO SCH (08:19)
[2021-01-19] MEDS: VITAMIN D 1000 UNIT TAB PO SCH (08:19)
[2021-01-19] MEDS: ASCORBIC ACID 500 MG TABLET PO SCH ×3 (08:20→20:39)
[2021-01-19] MEDS: FAMOTIDINE 20 MG TAB PO SCH ×2 (08:20→20:39)
--- NOTE | 2021-01-19 09:01 | RAD REPORT ---
EXAM DESCRIPTION: Si[facility] Single View01/19/2021 6:14 am CLINICAL HISTORY: Chest pain COMPARISON: January 18 FINDINGS: No significant change in diffuse bilateral pulmonary opacities. Heart is mildly enlarged IMPRESSION: No change in bilateral pneumonia
[2021-01-19] MEDS ORDERED: GLUCAGON 1 MG/VIAL IM PRN (09:12)
[2021-01-19] MEDS ORDERED: D50W 25 GM/50 ML SYRINGE IV PRN (09:12)
--- NOTE | 2021-01-19 09:17 | P.PN ---
Subjective Date of Service: 01/19/21 Primary Care Provider: None Chief Complaint: Shortness of breath Subjective: Improving (Patient sitting up to the chair. Currently on BiPAP. Patient reports improvement.) Physical Examination - Vital Signs Temperature: 98 F Blood Pressure: 117/72 Pulse: 79 Respirations: 22 Pulse Ox (%): 100 Assessment & Plan Discharge Plan: Home Plan to discharge in: Greater than 2 days Physician Review Additional Text: CT scan: FINDINGS: No pulmonary emboli are identified. Far peripheral branch assessment is difficult due to motion. The aorta as imaged shows no acute or suspicious finding. No pericardial thickening or effusion. Extensive bilateral airspace opacification present most pronounced in the right upper lobe in each lung base. Given the provided history this is consistent with moderate severity COVID-19 pneumonia. No pleural effusion or pleural thickening. No mediastinal or hilar suspicious masses. No chest wall masses or abnormal axillary lymphadenopathy. IMPRESSION: No pulmonary emboli identified. Moderate severity bilateral COVID-19 pneumonia. Follow up CXR: COMPARISON: January 18 FINDINGS: No significant change in diffuse bilateral pulmonary opacities. Heart is mildly enlarged IMPRESSION: No change in bilateral pneumonia Physical Exam: GENERAL: Anterior VITAL SIGNS: Reviewed HEENT: Neck supple patient appears well-hydrated NECK: Supple. No carotid bruits. No lymphadenopathy or thyromegaly. LUNGS: Patient sitting up to the chair. Patient does not appear labored. Currently on BiPAP at 100%. Air movement improved. HEART: Regular rate and rhythm, no appreciable gallops, rubs, murmurs or extra heart sounds ABDOMEN: Soft, nontender, and nondistended. Positive bowel sounds. No hepatosplenomegaly was noted. EXTREMITIES: Without any cyanosis, clubbing, rash, lesions or peripheral edema. NEUROLOGIC: The patient is oriented to person, place and time. Strength and sensation are grossly intact. Face is symmetric. SKIN: Normal color, turgor and temperature. No ulcerations or rashes noted. Impression: Acute respiratory failure with hypoxia secondary to bilateral moderate Covid 19 pneumonia, unvaccinated Elevated liver function likely underlying fatty liver Hyperglycemia suspect diabetes mellitus type 2 Obesity, BMI greater than 40 Plan: Acute respiratory failure with hypoxia secondary to bilateral moderate Covid 19 pneumonia, unvaccinated: Patient reports improvement. Patient able to sit to the chair. Currently on BiPAP at 100%. We will have respiratory wean off BiPAP to maintain sats above 92%. LFTs remain elevated. CRP and ferritin improved. Chest x-ray shows no change. Blood sugars elevated. Suspect diabetes mellitus. Accu-Cheks in place. Sliding scale added. Lantus also added for better blood sugar control. Will check A1c to confirm diabetes. Continue with IV Solu-Medrol and supplementation. Due to his elevated liver function patient not a candidate for remdesivir, Actemra, or baricitinib. Will continue to monitor his response with IV steroids and supplementation. Continue to monitor and trend CRP/ferritin. Continue with medication for cough, nausea, fever and pain. DVT prophylaxis in placeLovenox. Will monitor liver function test. Anticipate continued improvement over the next several days. Elevated liver function likely underlying fatty liver: Liver function test remains elevated. Will continue to monitor and trend liver function test. Hyperglycemia suspect diabetes mellitus type 2: Blood sugars elevated. Will check A1c to confirm diabetes. Will start Accu-Cheks and sliding scale. We will add Lantus 10 units daily as the patient is on IV Solu-Medrol. Monitor and address appropriately. Obesity, BMI greater than 40: Lifestyle modification education provided. Code Status: Full Code DVT prophylaxis: Lovenox Advanced Care Planning-30 minutes: Patient desires to go home at discharge. Anticipate improvement over the next several days. Time Spent Managing Pts Care (In Minutes): 55
[2021-01-19] MEDS: INSULIN -REGULAR HUMAN 50 UNIT/0.5 ML ML SQ SCH ×4 (09:32→21:34)
[2021-01-20] MEDS: METHYLPREDNISOLONE 125 MG INJ IV SCH ×3 (01:01→17:29)
[2021-01-20 05:14] LABS: Absolute Lymphocytes (CBC) 0.8 K/uL (0.7-4.9); Basophils % 0.1 % (0-1.3); Hematocrit 38.1 % (39.6-49.0); Lymphocytes % 6.9 % (15.3-44.8); MPV 9.2 fL (7.6-11.3); RBC Red Blood Cell Count 4.61 M/uL (4.33-5.43)
[2021-01-20 05:38] LABS: ALT/SGPT 237 U/L (12-78); AST/SGOT 109 U/L (15-37); Albumin 2.5 g/dL (3.4-5.0); Alkaline Phosphatase 86 U/L (45-117); BUN Blood Urea Nitrogen 32 mg/dL (7-18); Bicarbonate 30 mmol/L (21-32); Bilirubin Total 0.7 mg/dL (0.2-1.0); C-Reactive Protein 6.67 mg/L (<3.00); Glucose Level 245 mg/dL (74-106); Magnesium 3.1 mg/dL (1.8-2.4); Potassium 4.6 mmol/L (3.5-5.1); Protein, Total 6.4 g/dL (6.4-8.2); Sodium Level 140 mmol/L (136-145)
--- NOTE | 2021-01-20 05:50 | P.PN ---
Subjective Date of Service: 01/20/21 Primary Care Provider: None Chief Complaint: Shortness of breath Subjective: Improving (Sitting up to chair on CPAP. Reports he is improving.) Physical Examination - Vital Signs Temperature: 97.5 F Blood Pressure: 108/54 Pulse: 70 Respirations: 25 Pulse Ox (%): 93 Assessment & Plan Discharge Plan: Home Plan to discharge in: Greater than 2 days Physician Review Additional Text: CT scan: FINDINGS: No pulmonary emboli are identified. Far peripheral branch assessment is difficult due to motion. The aorta as imaged shows no acute or suspicious finding. No pericardial thickening or effusion. Extensive bilateral airspace opacification present most pronounced in the right upper lobe in each lung base. Given the provided history this is consistent with moderate severity COVID-19 pneumonia. No pleural effusion or pleural thickening. No mediastinal or hilar suspicious masses. No chest wall masses or abnormal axillary lymphadenopathy. IMPRESSION: No pulmonary emboli identified. Moderate severity bilateral COVID-19 pneumonia. Follow up CXR: COMPARISON: January 18 FINDINGS: No significant change in diffuse bilateral pulmonary opacities. Heart is mildly enlarged IMPRESSION: No change in bilateral pneumonia Physical Exam: GENERAL: Alert cooperative. No deficits. VITAL SIGNS: Reviewed HEENT: Neck supple patient appears well-hydrated NECK: Supple. No carotid bruits. No lymphadenopathy or thyromegaly. LUNGS: Patient sitting up to the chair. Patient does not appear labored. Currently on CPAP at 50%. Air movement improved. HEART: Regular rate and rhythm, no appreciable gallops, rubs, murmurs or extra heart sounds ABDOMEN: Soft, nontender, and nondistended. Positive bowel sounds. No hepatosplenomegaly was noted. EXTREMITIES: Without any cyanosis, clubbing, rash, lesions or peripheral edema. NEUROLOGIC: The patient is oriented to person, place and time. Strength and sensation are grossly intact. Face is symmetric. SKIN: Normal color, turgor and temperature. No ulcerations or rashes noted. Impression: Acute respiratory failure with hypoxia secondary to bilateral moderate Covid 19 pneumonia, unvaccinated Elevated liver function likely underlying fatty liver Hyperglycemia suspect diabetes mellitus type 2 Obesity, BMI greater than 40 Plan: Acute respiratory failure with hypoxia secondary to bilateral moderate Covid 19 pneumonia, unvaccinated: Patient reports continued improvement. Patient able to sit to the chair. Currently on CPAP at 50% and HF at 100%. Will have respiratory wean off CPAP and HF to maintain sats above 92%. LFTs remain elevated. CRP and ferritin improved. Chest x-ray shows no change. Blood sugars elevated. Patient with DM with A1c at 6.9. Will add Metformin for diabetes mellitus. Accu-Cheks in place. Continue with sliding scale and Lantus. Continue with IV Solu-Medrol and supplementation. Due to his elevated liver function patient not a candidate for remdesivir, Actemra, or baricitinib. Will continue to monitor his response with IV steroids and supplementation. Continue to monitor and trend CRP/ferritin. Continue with medication for cough, nausea, fever and pain. DVT prophylaxis in placeLovenox. Will monitor liver function test. Anticipate continued improvement over the next several days. Elevated liver function likely underlying fatty liver: Liver function test r emains elevated. Will continue to monitor and trend liver function test. Hyperglycemia suspect diabetes mellitus type 2: Blood sugars elevated. A1c 6.9, new DM. Will add Metformin. Cotinue with sliding scale and Lantus as the patient is on IV Solu-Medrol. Will continue to adjust Lantus for better controll. Monitor and address appropriately. Obesity, BMI greater than 40: Lifestyle modification education provided. Code Status: Full Code DVT prophylaxis: Lovenox Advanced Care Planning-30 minutes: Patient desires to go home at discharge. Anticipate improvement over the next several days. Time Spent Managing Pts Care (In Minutes): 55
[2021-01-20] MEDS ORDERED: INSULIN GLARGINE 100 UNITS/ML SQ SCH (08:00)
[2021-01-20] MEDS: INSULIN GLARGINE 100 UNITS/ML SQ SCH (08:13)
[2021-01-20] MEDS: INSULIN -REGULAR HUMAN 50 UNIT/0.5 ML ML SQ SCH ×4 (08:13→20:19)
[2021-01-20] MEDS: ASPIRIN EC 81 MG TAB PO SCH (08:14)
[2021-01-20] MEDS: GUAIFENESIN/CODEINE 5ML UCUP PO SCH ×4 (08:14→20:18)
[2021-01-20] MEDS: ZINC SULFATE 220 MG CAP PO SCH (08:14)
[2021-01-20] MEDS: ENOXAPARIN 40 MG/0.4 ML SQ SCH (08:14)
[2021-01-20] MEDS: FAMOTIDINE 20 MG TAB PO SCH ×2 (08:14→20:18)
[2021-01-20] MEDS: VITAMIN D 1000 UNIT TAB PO SCH (08:14)
[2021-01-20] MEDS: ASCORBIC ACID 500 MG TABLET PO SCH ×3 (08:14→20:19)
[2021-01-20] MEDS: THIAMINE HCL 100 MG TABLET PO SCH (08:14)
[2021-01-20] MEDS: METFORMIN HCL 500 MG TAB PO SCH ×2 (08:14→17:29)
[2021-01-20] MEDS: NYSTATIN 500,000 UNIT/5 ML UDC PO SCH ×2 (17:29→20:18)
[2021-01-21] MEDS: METHYLPREDNISOLONE 125 MG INJ IV SCH ×3 (00:57→17:04)
[2021-01-21 04:45] LABS: Absolute Lymphocytes (CBC) 0.7 K/uL (0.7-4.9); Basophils % 0.1 % (0-1.3); Hematocrit 38.4 % (39.6-49.0); Lymphocytes % 5.8 % (15.3-44.8); MPV 9.5 fL (7.6-11.3); RBC Red Blood Cell Count 4.65 M/uL (4.33-5.43)
[2021-01-21 05:11] LABS: ALT/SGPT 213 U/L (12-78); AST/SGOT 66 U/L (15-37); Albumin 2.5 g/dL (3.4-5.0); Alkaline Phosphatase 84 U/L (45-117); BUN Blood Urea Nitrogen 32 mg/dL (7-18); Bicarbonate 31 mmol/L (21-32); Bilirubin Total 0.6 mg/dL (0.2-1.0); C-Reactive Protein 5.61 mg/L (<3.00); Ferritin 695.5 ng/mL (26-388); Glucose Level 247 mg/dL (74-106); Magnesium 3.1 mg/dL (1.8-2.4); Protein, Total 6.5 g/dL (6.4-8.2); Sodium Level 141 mmol/L (136-145)
--- NOTE | 2021-01-21 06:08 | P.PN ---
Subjective Date of Service: 01/21/21 Primary Care Provider: None Chief Complaint: Shortness of breath Subjective: Improving, Doing well Physical Examination - Vital Signs Temperature: 98.7 F Blood Pressure: 123/69 Pulse: 79 Respirations: 21 Pulse Ox (%): 90 Assessment & Plan Discharge Plan: Home Plan to discharge in: Greater than 2 days Physician Review Additional Text: CT scan: FINDINGS: No pulmonary emboli are identified. Far peripheral branch assessment is difficult due to motion. The aorta as imaged shows no acute or suspicious finding. No pericardial thickening or effusion. Extensive bilateral airspace opacification present most pronounced in the right upper lobe in each lung base. Given the provided history this is consistent with moderate severity COVID-19 pneumonia. No pleural effusion or pleural thickening. No mediastinal or hilar suspicious masses. No chest wall masses or abnormal axillary lymphadenopathy. IMPRESSION: No pulmonary emboli identified. Moderate severity bilateral COVID-19 pneumonia. Follow up CXR: COMPARISON: January 18 FINDINGS: No significant change in diffuse bilateral pulmonary opacities. Heart is mildly enlarged IMPRESSION: No change in bilateral pneumonia Physical Exam: GENERAL: Alert cooperative. No deficits. VITAL SIGNS: Reviewed HEENT: Neck supple patient appears well-hydrated NECK: Supple. No carotid bruits. No lymphadenopathy or thyromegaly. LUNGS: Patient sitting up to the chair. Patient does not appear labored. Air movement improved. Currently on high flow at 100%. HEART: Regular rate and rhythm, no appreciable gallops, rubs, murmurs or extra heart sounds ABDOMEN: Soft, nontender, and nondistended. Positive bowel sounds. No hepatosplenomegaly was noted. EXTREMITIES: Without any cyanosis, clubbing, rash, lesions or peripheral edema. NEUROLOGIC: The patient is oriented to person, place and time. Strength and sensation are grossly intact. Face is symmetric. SKIN: Normal color, turgor and temperature. No ulcerations or rashes noted. Impression: Acute respiratory failure with hypoxia secondary to bilateral moderate Covid 19 pneumonia, unvaccinated Elevated liver function likely underlying fatty liver Hyperglycemia suspect diabetes mellitus type 2 Obesity, BMI greater than 40 Plan: Acute respiratory failure with hypoxia secondary to bilateral moderate Covid 19 pneumonia, unvaccinated: Patient reports continued improvement. Patient able to sit to the chair. Currently on CPAP at 50% and HF at 100%. Will have respiratory wean off CPAP and HF to maintain sats above 92%. LFTs remain elevated. CRP and ferritin improved. Chest x-ray shows no change. Blood sugars elevated but stable. Patient with DM with A1c at 6.9. Metformin was added the other day. Accu-Cheks in place. Continue with sliding scale and Lantus. Continue with IV Solu-Medrol and supplementation. Due to his elevated liver function patient not a candidate for remdesivir, Actemra, or baricitinib. Will continue to monitor his response with IV steroids and supplementation. Continue to monitor and trend CRP/ferritin. Continue with medication for cough, nausea, fever and pain. DVT prophylaxis in placeLovenox. Will monitor liver function test. Anticipate continued improvement over the next several days. Will turn to service over to the hospitalist team tomorrow. I will go over plan of care with him. Elevated liver function likely underlying fatty liver: Liver function test remains elevated. Will continue to monitor and trend liver function test. Hyperglycemia suspect diabetes mellitus type 2: Blood sugars elevated. A1c 6.9, new DM. Now on Metformin. Continue with sliding scale and Lantus as the patient is on IV Solu-Medrol. Will continue to adjust Lantus for better contro ll. Monitor and address appropriately. Obesity, BMI greater than 40: Lifestyle modification education provided. Code Status: Full Code DVT prophylaxis: Lovenox Advanced Care Planning-30 minutes: Patient desires to go home at discharge. Anticipate improvement over the next several days. Time Spent Managing Pts Care (In Minutes): 55
[2021-01-21] MEDS: INSULIN -REGULAR HUMAN 50 UNIT/0.5 ML ML SQ SCH ×4 (08:08→20:26)
[2021-01-21] MEDS: INSULIN GLARGINE 100 UNITS/ML SQ SCH (08:08)
[2021-01-21] MEDS: ASCORBIC ACID 500 MG TABLET PO SCH ×3 (08:09→20:25)
[2021-01-21] MEDS: ENOXAPARIN 40 MG/0.4 ML SQ SCH (08:09)
[2021-01-21] MEDS: METFORMIN HCL 500 MG TAB PO SCH ×2 (08:09→17:03)
[2021-01-21] MEDS: GUAIFENESIN/CODEINE 5ML UCUP PO SCH ×4 (08:09→20:26)
[2021-01-21] MEDS: ZINC SULFATE 220 MG CAP PO SCH (08:10)
[2021-01-21] MEDS: VITAMIN D 1000 UNIT TAB PO SCH (08:10)
[2021-01-21] MEDS: ASPIRIN EC 81 MG TAB PO SCH (08:10)
[2021-01-21] MEDS: FAMOTIDINE 20 MG TAB PO SCH ×2 (08:10→20:25)
[2021-01-21] MEDS: THIAMINE HCL 100 MG TABLET PO SCH (08:10)
[2021-01-21] MEDS: NYSTATIN 500,000 UNIT/5 ML UDC PO SCH ×3 (08:10→20:25)
--- NOTE | 2021-01-21 21:58 | P.CNS ---
Date of Consult: 01/21/21 (TV) Reason for Consult: REsp failure Primary Care Provider: None Chief Complaint: Shortness of breath History of Present Illness: PT NO PMH, AW reps failure from COVID, REquiring high CPAP Allergies No Known Allergies Allergy (Verified 09/24/19 21:45) Home Medications: NK [No Home Meds] 01/16/21 - Past Medical/Surgical History Diabetic: No -: Kidney Stones -: None Psychosocial/ Personal History: Patient lives at home - Family History Mother History Unknown: Yes Medical History: Heart disease, Hypertension Brother History Unknown: Yes Medical History: Heart disease - Social History Smoking Status: Current some day smoker Alcohol use: Yes CD- Drugs: No Caffeine use: No Place of Residence: Home Physical Examination Temp Pulse Resp BP Pulse Ox 97.8 F 100 H 29 H 127/74 91 01/21/21 19:00 01/21/21 20:00 01/21/21 20:00 01/21/21 20:00 01/21/21 20:00 - Problems (1) COVID-19 Current Visit: Yes Status: Acute Plan: PT is AGE 40 AW resp failure from COVID/CRP has declinedREquiring high conc fo O2LAbs reviewedCT scan ext biateral infiltrates. Better in prone on CPAP
[2021-01-22] MEDS: METHYLPREDNISOLONE 125 MG INJ IV SCH ×3 (00:30→17:09)
[2021-01-22 05:12] LABS: Absolute Lymphocytes (CBC) 0.6 K/uL (0.7-4.9); Basophils % 0.1 % (0-1.3); Lymphocytes % 3.5 % (15.3-44.8); MPV 10.1 fL (7.6-11.3); RBC Red Blood Cell Count 4.73 M/uL (4.33-5.43)
[2021-01-22 05:21] LABS: ALT/SGPT 219 U/L (12-78); AST/SGOT 58 U/L (15-37); Albumin 2.6 g/dL (3.4-5.0); Alkaline Phosphatase 78 U/L (45-117); BUN Blood Urea Nitrogen 31 mg/dL (7-18); Bicarbonate 29 mmol/L (21-32); Bilirubin Total 0.7 mg/dL (0.2-1.0); C-Reactive Protein 9.58 mg/L (<3.00); Glucose Level 247 mg/dL (74-106); Magnesium 2.9 mg/dL (1.8-2.4); Protein, Total 6.6 g/dL (6.4-8.2); Sodium Level 140 mmol/L (136-145)
[2021-01-22] MEDS: INSULIN GLARGINE 100 UNITS/ML SQ SCH (08:00)
[2021-01-22] MEDS: ZINC SULFATE 220 MG CAP PO SCH (08:00)
[2021-01-22] MEDS: METFORMIN HCL 500 MG TAB PO SCH ×2 (08:00→17:10)
[2021-01-22] MEDS: INSULIN -REGULAR HUMAN 50 UNIT/0.5 ML ML SQ SCH ×4 (08:00→20:56)
[2021-01-22] MEDS: ASCORBIC ACID 500 MG TABLET PO SCH ×3 (08:01→20:29)
[2021-01-22] MEDS: GUAIFENESIN/CODEINE 5ML UCUP PO SCH ×4 (08:01→20:29)
[2021-01-22] MEDS: FAMOTIDINE 20 MG TAB PO SCH ×2 (08:01→20:28)
[2021-01-22] MEDS: ENOXAPARIN 40 MG/0.4 ML SQ SCH (08:01)
[2021-01-22] MEDS: VITAMIN D 1000 UNIT TAB PO SCH (08:01)
[2021-01-22] MEDS: NYSTATIN 500,000 UNIT/5 ML UDC PO SCH ×3 (08:01→20:28)
[2021-01-22] MEDS: ASPIRIN EC 81 MG TAB PO SCH (08:01)
[2021-01-22] MEDS: THIAMINE HCL 100 MG TABLET PO SCH (08:01)
[2021-01-22 08:51] LABS: Blood Morphology Comment NOT SEEN (NOT SEEN); Platelet Estimate ADEQ
[2021-01-22] MEDS: BARICITINIB 2 MG TABLET PO SCH (09:24)
[2021-01-22] MEDS: IPRATROPIUM BROM 0.5MG/2.5ML NEB PRN ×3 (10:08→20:20)
[2021-01-22] MEDS: ALBUTEROL 2.5 MG/3 ML NEB SOL NEB PRN ×2 (10:08→15:43)
--- NOTE | 2021-01-22 18:14 | P.PN ---
Subjective Date of Service: 01/22/21 (TV) Primary Care Provider: None Chief Complaint: Resp failure from COVID Subjective: Improving (Doign better on BIPA alert, responive and coperative) Review of Systems General: Weakness Physical Examination - Vital Signs Temperature: 99.0 F Blood Pressure: 141/80 Pulse: 94 Respirations: 24 Pulse Ox (%): 90 Assessment & Plan - Problems (Diagnosis) (1) COVID-19 Current Visit: Yes Status: Acute Plan: Aw resp failure from COVID, feeling better still on BIPAP/ LAbs rev. WBC mild eleation On high concentration o f O2 CW present tX/ On Barcitinib con to monitor LFT
[2021-01-22] MEDS ORDERED: FUROSEMIDE 20 MG/ 2ML VIAL IV ONE (19:00)
[2021-01-23] MEDS: METHYLPREDNISOLONE 125 MG INJ IV SCH ×3 (01:00→16:51)
[2021-01-23 04:52] LABS: Absolute Lymphocytes (CBC) 0.7 K/uL (0.7-4.9); Basophils % 0.1 % (0-1.3); Hematocrit 39.4 % (39.6-49.0); Lymphocytes % 4.2 % (15.3-44.8); MPV 10.3 fL (7.6-11.3); RBC Red Blood Cell Count 4.77 M/uL (4.33-5.43)
[2021-01-23 05:13] LABS: ALT/SGPT 281 U/L (12-78); AST/SGOT 78 U/L (15-37); Albumin 2.6 g/dL (3.4-5.0); Alkaline Phosphatase 78 U/L (45-117); BUN Blood Urea Nitrogen 31 mg/dL (7-18); Bicarbonate 27 mmol/L (21-32); Bilirubin Total 0.8 mg/dL (0.2-1.0); Ferritin 732.6 ng/mL (26-388); Glucose Level 197 mg/dL (74-106); Magnesium 2.7 mg/dL (1.8-2.4); Protein, Total 6.7 g/dL (6.4-8.2); Sodium Level 139 mmol/L (136-145)
[2021-01-23] MEDS: INSULIN -REGULAR HUMAN 50 UNIT/0.5 ML ML SQ SCH ×4 (07:30→21:10)
--- NOTE | 2021-01-23 08:10 | RAD REPORT ---
EXAM DESCRIPTION: RAD - Chest Single View - 01/23/2021 5:40 am CLINICAL HISTORY: COVID pneumonia COMPARISON: Chest Single View dated 01/19/2021; Chest Single View dated 01/18/2021; Chest Single View dated 01/16/2021; Chest Single View dated 09/24/2019 FINDINGS: Interval development of extensive subcutaneous emphysema. Widespread bilateral airspace di sease noted. Difficult to exclude a small right apical pneumothorax. There is increased consolidation bilaterally. Heart size is normal. Suspect pneumomediastinum as well. Visualized upper abdomen is un remarkable. IMPRESSION: Worsened aeration of the lungs bilaterally with increasing consolidation in the left zuleyma g. Interval development of extensive subcutaneous emphysema and pneumomediastinum. Suspect new small right apical pneumothorax. Discussed with ICU nurse Puja by Dr. Allen at 0805 on 01/23/21
[2021-01-23] MEDS: GUAIFENESIN/CODEINE 5ML UCUP PO SCH ×4 (08:17→21:09)
[2021-01-23] MEDS: ENOXAPARIN 40 MG/0.4 ML SQ SCH (08:17)
[2021-01-23] MEDS: INSULIN GLARGINE 100 UNITS/ML SQ SCH (08:17)
[2021-01-23] MEDS: METFORMIN HCL 500 MG TAB PO SCH ×2 (08:18→16:51)
[2021-01-23] MEDS: ASPIRIN EC 81 MG TAB PO SCH (08:18)
[2021-01-23] MEDS: THIAMINE HCL 100 MG TABLET PO SCH (08:18)
[2021-01-23] MEDS: VITAMIN D 1000 UNIT TAB PO SCH (08:18)
[2021-01-23] MEDS: ASCORBIC ACID 500 MG TABLET PO SCH ×3 (08:18→21:10)
[2021-01-23] MEDS: ZINC SULFATE 220 MG CAP PO SCH (08:18)
[2021-01-23] MEDS: NYSTATIN 500,000 UNIT/5 ML UDC PO SCH ×3 (08:19→21:09)
[2021-01-23] MEDS: FAMOTIDINE 20 MG TAB PO SCH ×2 (08:19→21:10)
[2021-01-23] MEDS: BARICITINIB 2 MG TABLET PO SCH (08:19)
--- NOTE | 2021-01-23 14:01 | RAD REPORT ---
EXAM DESCRIPTION: RAD - Chest Single View - 01/23/2021 1:42 pm CLINICAL HISTORY: f/u pneumothorax, COVID-19 pneumonia COMPARISON: January 23 TECHNIQUE: AP portable chest image was obtained 01/23/2021 1:42 pm . FINDINGS: Extensive bilateral airspace opacification is present similar to the examination earlier i n the day. Extensive pneumomediastinum and subcutaneous emphysema again noted. Several lines overlie the midline upper chest. It is unknown if the patient has been intubated. Earlier study showed questionable apical pneumothorax on the right. That finding is diminished or abs ent on the current examination. Heart and vasculature are normal. No measurable pleural effusion and no pneumothorax. No acute bony abnormality seen. No acute aortic findings suspected. IMPRESSION: Right apical pneumothorax is not identifiable on this study. There is no enlargement of a pneumothorax. Lung parenchymal opacification not substantially different from earlier study. Extensive subcutaneous emphysema and pneumomediastinum are similar to earlier in the day.
--- NOTE | 2021-01-23 14:02 | RAD REPORT ---
EXAM DESCRIPTION: RAD - Abdomen 1 View (KUB) - 01/23/2021 1:42 pm CLINICAL HISTORY: Dobbhoff placement COMPARISON: No comparisons FINDINGS: Feeding tube has been placed. Tip is in the midline abdomen which corresponds to the body of the decompressed stomach. No abnormal bend or kink in the tubing. No other significant finding.
[2021-01-23] MEDS: GLUCERNA 1.2 CAL 1,000 ML BOT FT SCH ×2 (15:00→21:11)
--- NOTE | 2021-01-23 17:37 | P.PN ---
Subjective Date of Service: 01/22/21 Patient states he feels better. Still on BiPAP. Continue with management noninvasive ventilation. Will try to alternate with high-flow oxygen if he can tolerated. Review of Systems 10-point ROS is otherwise unremarkable Physical Examination - Vital Signs Temperature: 99.4 F Blood Pressure: 123/77 Pulse: 97 Respirations: 22 Pulse Ox (%): 91 - Physical Exam General: Alert, In no apparent distress, Oriented x3 HEENT: Atraumatic, PERRLA, EOMI Neck: Supple, JVD not distended Respiratory: Diminished, Rhonchi/gurgles Cardiovascular: Regular rate/rhythm, Normal S1 S2 Gastrointestinal: Normal bowel sounds, No tenderness Musculoskeletal: No tenderness Integumentary: No rashes Neurological: Normal speech, Normal tone, Normal affect Lymphatics: No axilla or inguinal lymphadenopathy - Studies Medications List Reviewed: Yes Assessment & Plan - Problems (Diagnosis) (1) Pneumonia due to COVID-19 virus Current Visit: Yes Status: Acute (2) Hypertension Current Visit: Yes Status: Acute (3) Morbid obesity Current Visit: Yes Status: Acute - Plan 1. Continue with IV steroids 2. Monitor inflammatory markers 3. Repeat chest x-ray is symptoms are progressively worsening 4. O2 per protocol 5. Pulmonary consultation 6. Continue with albuterol inhaler therapy; also supportive care 7. Monitor LFTs 8. GI and DVT prophylaxis - Advance Directives Does patient have a Living Will: No Does patient have a Durable POA for Healthcare: No
--- NOTE | 2021-01-23 21:35 | P.PN ---
Subjective Date of Service: 01/23/21 (TV) Primary Care Provider: None Chief Complaint: Resp failure from COVID Subjective: Improving (Looking well on BIPAP/ unable to remove BIPAP) Review of Systems Respiratory: Shortness of Breath Physical Examination - Vital Signs Temperature: 97.7 F Blood Pressure: 111/68 Pulse: 92 Respirations: 26 Pulse Ox (%): 92 - Studies Medications List Reviewed: Yes Assessment & Plan - Problems (Diagnosis) (1) COVID-19 Current Visit: Yes Status: Acute Plan: Resp failure/ NC. Alert andresponsive/ Dobhoff done
[2021-01-24] MEDS: METHYLPREDNISOLONE 125 MG INJ IV SCH ×3 (00:17→17:13)
[2021-01-24 06:35] LABS: Alkaline Phosphatase 85 U/L (45-117); BUN Blood Urea Nitrogen 27 mg/dL (7-18); Bicarbonate 25 mmol/L (21-32); Bilirubin Total 0.8 mg/dL (0.2-1.0); Glucose Level 233 mg/dL (74-106); Sodium Level 137 mmol/L (136-145)
[2021-01-24 06:36] LABS: AST/SGOT 98 U/L (15-37); Albumin 2.6 g/dL (3.4-5.0); Ferritin 809.9 ng/mL (26-388); Magnesium 2.5 mg/dL (1.8-2.4); Potassium 4.8 mmol/L (3.5-5.1); Protein, Total 6.8 g/dL (6.4-8.2)
[2021-01-24 06:39] LABS: ALT/SGPT 383 U/L (12-78)
--- NOTE | 2021-01-24 07:23 | RAD REPORT ---
EXAM DESCRIPTION: RAD - Chest Single View - 01/24/2021 5:43 am CLINICAL HISTORY: COVID pneumonia COMPARISON: Abdomen 1 View (KUB) dated 01/23/2021; Chest Single View dated 01/23/2021; Chest Single Vi ew dated 01/23/2021; Chest Single View dated 01/19/2021 FINDINGS: Widespread airspace disease without significant change compared with 01/23/2021. No pneumo thorax identified. Subcutaneous emphysema and pneumomediastinum is again noted. The heart size is nor mal. Enteric tube is noted. The tip is not visualized beyond the cardiac silhouette due to underpenet ration. IMPRESSION: Similar widespread bilateral airspace disease concerning for multifocal pneumonia. Subcu taneous emphysema and pneumomediastinum again identified. No pneumothorax is seen.
[2021-01-24 07:24] LABS: Protime INR 1.02
[2021-01-24] MEDS: NYSTATIN 500,000 UNIT/5 ML UDC PO SCH ×3 (08:57→20:22)
[2021-01-24] MEDS: FAMOTIDINE 20 MG TAB PO SCH ×2 (08:58→20:22)
[2021-01-24] MEDS: THIAMINE HCL 100 MG TABLET PO SCH (08:58)
[2021-01-24] MEDS: ENOXAPARIN 40 MG/0.4 ML SQ SCH ×2 (08:58→20:23)
[2021-01-24] MEDS: ASCORBIC ACID 500 MG TABLET PO SCH ×3 (08:58→20:22)
[2021-01-24] MEDS: VITAMIN D 1000 UNIT TAB PO SCH (08:58)
[2021-01-24] MEDS: ZINC SULFATE 220 MG CAP PO SCH (08:58)
[2021-01-24] MEDS: METFORMIN HCL 500 MG TAB PO SCH ×2 (08:58→17:14)
[2021-01-24] MEDS: INSULIN -REGULAR HUMAN 50 UNIT/0.5 ML ML SQ SCH ×3 (08:59→17:13)
[2021-01-24] MEDS: INSULIN GLARGINE 100 UNITS/ML SQ SCH (08:59)
[2021-01-24] MEDS: GLUCERNA 1.2 CAL 1,000 ML BOT FT SCH ×2 (09:00→13:09)
[2021-01-24] MEDS: BARICITINIB 2 MG TABLET PO SCH (09:02)
[2021-01-24] MEDS: GUAIFENESIN/CODEINE 5ML UCUP PO SCH ×4 (09:02→20:22)
[2021-01-24] MEDS: ASPIRIN 81 MG CHEWABLE TABLET PO SCH (09:27)
[2021-01-24] MEDS: IVERMECTIN 3 MG TABLET PO SCH (10:01)
--- NOTE | 2021-01-24 11:00 | P.PN ---
Date of Service: 01/24/21 Subjective Patient is clinically doing a little bit better. Sitting up on BiPAP support. at bedside. Review of Systems 10-point ROS is otherwise unremarkable Physical Examination - Vital Signs Reviewed - Physical Exam General: Alert, In no apparent distress, Oriented x3 Respiratory: Diminished, Rhonchi/gurgles Cardiovascular: Regular rate/rhythm, Normal S1 S2 Gastrointestinal: Normal bowel sounds, No tenderness Neurological: Normal speech, Normal tone, Normal affect Assessment & Plan - Problems (Diagnosis) (1) Pneumonia due to COVID-19 virus Current Visit: Yes Status: Acute (2) Hypertension Current Visit: Yes Status: Acute (3) Morbid obesity Current Visit: Yes Status: Acute - Plan Continue with plan of care as mentioned below: 1. Continue with IV steroids 2. Monitor inflammatory markers 3. Repeat chest x-ray after changing BiPAP settings 4. O2 per protocol 5. Pulmonary consultation appreciated 6. Continue with albuterol inhaler therapy; also supportive care 7. Monitor LFTs 8. GI and DVT prophylaxis
--- NOTE | 2021-01-24 11:00 | P.PN ---
Date of Service: 01/23/21 Subjective Patient's chest x-ray revealed apical pneumothorax with a pneumomediastinum and subcutaneous emphysema. Changed BiPAP settings and repeat chest x-ray Review of Systems 10-point ROS is otherwise unremarkable Physical Examination - Vital Signs Reviewed - Physical Exam General: Alert, In no apparent distress, Oriented x3 Respiratory: Diminished, Rhonchi/gurgles Cardiovascular: Regular rate/rhythm, Normal S1 S2 Gastrointestinal: Normal bowel sounds, No tenderness Neurological: Normal speech, Normal tone, Normal affect Assessment & Plan - Problems (Diagnosis) (1) Pneumonia due to COVID-19 virus Current Visit: Yes Status: Acute (2) Hypertension Current Visit: Yes Status: Acute (3) Morbid obesity Current Visit: Yes Status: Acute - Plan Continue with plan of care as mentioned below: 1. Continue with IV steroids 2. Monitor inflammatory markers 3. Repeat chest x-ray after changing BiPAP settings 4. O2 per protocol 5. Pulmonary consultation appreciated 6. Continue with albuterol inhaler therapy; also supportive care 7. Monitor LFTs 8. GI and DVT prophylaxis
[2021-01-24] MEDS ORDERED: D50W 25 GM/50 ML SYRINGE IV PRN (15:45)
[2021-01-24] MEDS ORDERED: GLUCAGON 1 MG/VIAL IM PRN (15:45)
[2021-01-24] MEDS: VITAL AF 1,000 ML BOT FT SCH (20:23)
[2021-01-24] MEDS ORDERED: NA CHLORIDE 0.9% 250 ML IV ONE (22:54)
[2021-01-25] MEDS: METHYLPREDNISOLONE 125 MG INJ IV SCH ×3 (00:17→17:45)
[2021-01-25] MEDS: INSULIN -REGULAR HUMAN 50 UNIT/0.5 ML ML SQ SCH ×4 (00:17→17:45)
[2021-01-25] MEDS: VITAL AF 1,000 ML BOT FT SCH ×6 (00:17→21:18)
[2021-01-25 05:43] LABS: Absolute Lymphocytes (CBC) 0.7 K/uL (0.7-4.9); Hematocrit 37.1 % (39.6-49.0); Lymphocytes % 3.8 % (15.3-44.8); MPV 10.3 fL (7.6-11.3); RBC Red Blood Cell Count 4.44 M/uL (4.33-5.43)
--- NOTE | 2021-01-25 05:59 | P.PN ---
Subjective Date of Service: 01/25/21 Primary Care Provider: None Chief Complaint: Resp failure from COVID Subjective: Other (Patient reports improvement. Currently on CPAP. Dobbhoff in place. Vital signs stable) Physical Examination - Vital Signs Temperature: 98.1 F Blood Pressure: 130/70 Pulse: 80 Respirations: 16 Pulse Ox (%): 94 - Studies Medications List Reviewed: Yes Assessment & Plan Discharge Plan: Transfer Plan to discharge in: 24 Hours Physician Review Additional Text: CT scan: FINDINGS: No pulmonary emboli are identified. Far peripheral branch assessment is difficult due to motion. The aorta as imaged shows no acute or suspicious finding. No pericardial thickening or effusion. Extensive bilateral airspace opacification present most pronounced in the right upper lobe in each lung base. Given the provided history this is consistent with moderate severity COVID-19 pneumonia. No pleural effusion or pleural thickening. No mediastinal or hilar suspicious masses. No chest wall masses or abnormal axillary lymphadenopathy. IMPRESSION: No pulmonary emboli identified. Moderate severity bilateral COVID-19 pneumonia. Follow up CXR 01/25/2021: COMPARISON: Chest Single View dated 01/24/2021; Abdomen 1 View (KUB) dated 01/23/2021; Chest Single View dated 01/23/2021; Chest Single View dated 01/23/2021 FINDINGS: Widespread bilateral airspace disease without significant interval change. Pneumomediastinum and subcutaneous emphysema has slightly decreased. Enteric tube noted with tip not visualized due to underpenetration. The heart size is unchanged. No fractures are seen. IMPRESSION: No significant change in aeration of the lungs but mild decreased subcutaneous emphysema. Physical Exam: GENERAL: Alert cooperative. No deficits. VITAL SIGNS: Reviewed HEENT: Neck supple patient appears well-hydrated. Dobbhoff in place NECK: Supple. No carotid bruits. No lymphadenopathy or thyromegaly. LUNGS: Patient sitting up to the chair. Patient does not appear labored. Air movement improved. Subcutaneous emphysema noted to the upper chest. Currently on CPAP 12 at 100% HEART: Mild tachycardia. ABDOMEN: Soft, nontender, and nondistended. Positive bowel sounds. No hepatosplenomegaly was noted. EXTREMITIES: Some slight subcutaneous emphysema noted to the upper chest wall NEUROLOGIC: The patient is oriented to person, place and time. Strength and sensation are grossly intact. Face is symmetric. SKIN: Normal color, turgor and temperature. No ulcerations or rashes noted. Impression: Acute respiratory failure with hypoxia secondary to bilateral moderate Covid 19 pneumonia, unvaccinated with pneumomediastinum and subcu emphysema Elevated liver function likely underlying fatty liver Hyperglycemia suspect diabetes mellitus type 2 Obesity, BMI greater than 40 Plan: Acute respiratory failure with hypoxia secondary to bilateral moderate Covid 19 pneumonia, unvaccinated with pneumomediastinum and subcu emphysema: Patient reports some improvement. Patient sitting up to chair this morning. Currently on CPAP at 100% with setting at 12. Chest x-ray shows decreased subcutaneous emphysema. No pneumothorax noted. Continue to wean off CPAP. Dobbhoff in place. Ferritin and CRP improving. AST 66, ALT 381. Patient remains on IV steroids and supplementation. Patient also on baricitinib currently on dose 5 out of 16. Continue to monitor and trend CRP/ferritin. Continue with medication for cough, nausea, fever and pain. DVT prophylaxis in placeLovenox. Will monitor liver function test. Case discussed with pulmonology about the possibility of transfer to higher level center for further evaluation and treatment. This was discussed in detail with patient and significant other. All are in agreement. Will transfer to higher level center for further evaluation. Elevated liver function likely underlying fatty liver: Liver function test remains elevated but stable. Will continue to monitor and trend liver function test. Hyperglycemia suspect diabetes mellitus type 2: Blood sugars elevated. A1c 6.9, new DM. Now on Metformin and Lantus. Continue with sliding scale and Lantus as the patient is on IV Solu-Medrol. Will continue to adjust Lantus for better control. Monitor and address appropriately. Obesity, BMI greater than 40: Lifestyle modification education provided. Code Status: Full Code DVT prophylaxis: Lovenox Advanced Care Planning-30 minutes: Patient desires to go home at discharge. Time Spent Managing Pts Care (In Minutes): 55
[2021-01-25 06:00] LABS: Protime INR 1.01
[2021-01-25 06:28] LABS: AST/SGOT 66 U/L (15-37); Albumin 2.4 g/dL (3.4-5.0); Alkaline Phosphatase 74 U/L (45-117); BUN Blood Urea Nitrogen 32 mg/dL (7-18); Bicarbonate 28 mmol/L (21-32); Bilirubin Total 0.5 mg/dL (0.2-1.0); C-Reactive Protein 31.3 mg/L (<3.00); Ferritin 644.8 ng/mL (26-388); Glucose Level 304 mg/dL (74-106); Magnesium 2.6 mg/dL (1.8-2.4); Protein, Total 6.3 g/dL (6.4-8.2); Sodium Level 136 mmol/L (136-145)
[2021-01-25 06:33] LABS: ALT/SGPT 381 U/L (12-78)
--- NOTE | 2021-01-25 07:03 | RAD REPORT ---
EXAM DESCRIPTION: RAD - Chest Single View - 01/25/2021 6:43 am CLINICAL HISTORY: COVID pneumonia COMPARISON: Chest Single View dated 01/24/2021; Abdomen 1 View (KUB) dated 01/23/2021; Chest Single Vi ew dated 01/23/2021; Chest Single View dated 01/23/2021 FINDINGS: Widespread bilateral airspace disease without significant interval change. Pneumomediastin um and subcutaneous emphysema has slightly decreased. Enteric tube noted with tip not visualized due to underpenetration. The heart size is unchanged. No fractures are seen. IMPRESSION: No significant change in aeration of the lungs but mild decreased subcutaneous emphysema .
[2021-01-25] MEDS: THIAMINE HCL 100 MG TABLET PO SCH (07:56)
[2021-01-25] MEDS: VITAMIN D 1000 UNIT TAB PO SCH (07:56)
[2021-01-25] MEDS: METFORMIN HCL 500 MG TAB PO SCH ×2 (07:56→17:45)
[2021-01-25] MEDS: ZINC SULFATE 220 MG CAP PO SCH (07:57)
[2021-01-25] MEDS: FAMOTIDINE 20 MG TAB PO SCH ×2 (07:57→21:17)
[2021-01-25] MEDS: GUAIFENESIN/CODEINE 5ML UCUP PO SCH ×5 (07:57→21:17)
[2021-01-25] MEDS: INSULIN GLARGINE 100 UNITS/ML SQ SCH (07:57)
[2021-01-25] MEDS: ASCORBIC ACID 500 MG TABLET PO SCH ×3 (07:57→21:19)
[2021-01-25] MEDS: ASPIRIN 81 MG CHEWABLE TABLET PO SCH (07:57)
[2021-01-25] MEDS: ENOXAPARIN 40 MG/0.4 ML SQ SCH ×2 (07:58→21:17)
[2021-01-25] MEDS: NYSTATIN 500,000 UNIT/5 ML UDC PO SCH ×4 (07:58→21:17)
[2021-01-25] MEDS: BARICITINIB 2 MG TABLET PO SCH (07:59)
--- NOTE | 2021-01-25 16:41 | P.DS ---
Admission Date: 01/16/21 Discharge Date: 01/25/21 Primary Care Provider: None Disposition: [facility] Discharge Condition: GOOD Reason for Admission: Resp failure from COVID Consultations: Pulmonary-Dr. Richardson Procedures: CT scan: FINDINGS: No pulmonary emboli are identified. Far peripheral branch assessment is difficult due to motion. The aorta as imaged shows no acute or suspicious finding. No pericardial thickening or effusion. Extensive bilateral airspace opacification present most pronounced in the right upper lobe in each lung base. Given the provided history this is consistent with moderate severity COVID-19 pneumonia. No pleural effusion or pleural thickening. No mediastinal or hilar suspicious masses. No chest wall masses or abnormal axillary lymphadenopathy. IMPRESSION: No pulmonary emboli identified. Moderate severity bilateral COVID-19 pneumonia. Follow up CXR 01/25/2021: COMPARISON: Chest Single View dated 01/24/2021; Abdomen 1 View (KUB) dated 01/23/2021; Chest Single View dated 01/23/2021; Chest Single View dated 01/23/2021 FINDINGS: Widespread bilateral airspace disease without significant interval change. Pneumomediastinum and subcutaneous emphysema has slightly decreased. Enteric tube noted with tip not visualized due to underpenetration. The heart size is unchanged. No fractures are seen. IMPRESSION: No significant change in aeration of the lungs but mild decreased subcutaneous emphysema. Medical problem list: Acute respiratory failure with hypoxia secondary to bilateral moderate Covid 19 pneumonia, unvaccinated with pneumomediastinum and subcu emphysema Elevated liver function likely underlying fatty liver Hyperglycemia suspect diabetes mellitus type 2 Obesity, BMI greater than 40 Brief History of Present Illness: 40-year-old male with no past medical history. Patient presents with increasing shortness of breath, fatigue and body aches. Patient also reported some fever. Patient has been ill over the past 5 days. He was tested positive recently for Covid. His symptoms did not improve. Patient continued to have increasing shortness of breath and fever. He came to the ER for further evaluation. Patient is unvaccinated Patient was seen and evaluated in the ER. In the ER patient was found to be hypoxic with room air saturations around 50%. Patient febrile. Patient tachypneic and tachycardic initially but improved. White count 6.2, hemoglobin 14.4. Platelet count 241. Sodium 137, creatinine 1.2 with a GFR 65. Glucose 169. Ferritin 1317. CRP 124. D-dimer elevated at 553. Procalcitonin 0.49. AST 202, ALT 141. CT scan shows moderate Covid pneumonia. Negative for pulmonary embolism. Patient given IV Solu-Medrol in the emergency room. Patient was placed on BiPAP. Patient admitted for further evaluation and t reatment. Hospital Course: Patient presented with acute respiratory failure with hypoxia secondary to bilateral moderate COVID-19 pneumonia. Patient is unvaccinated. Patient was admitted for treatment. His condition has not improved. Patient has received IV steroids, supplementation and baricitinib. He is currently on dose 5 out of 16. Patient will be transferred to [place] for higher level of care which may include invasive ventilation and other treatment. This was discussed in detail with the patient and family. Patient agreed. Patient has been accepted. Patient will be transferred. Case discussed in detail with pulmonology who agrees with plan. Patient stable for transfer. Patient with elevated liver function likely underlying fatty liver. This has been monitored closely. Patient with hyperglycemia with diabetes mellitus type 2. Hemoglobin A1c 6.9. Patient currently on Lantus and Metformin. This can be further adjusted at the other facility. Vital Signs/Physical Exam: Temp Pulse Resp BP Pulse Ox 98.1 F 129 H 22 H 137/85 91 01/25/21 13:45 01/25/21 14:00 01/25/21 14:00 01/25/21 14:00 01/25/21 14:00 General: Alert, In no apparent distress, Oriented x3, Cooperative HEENT: Atraumatic, Other (Dobbhoff in place) Neck: Supple Respiratory: Other (Currently on [id number].) Cardiovascular: Normal pulses, Regular rate/rhythm Gastrointestinal: Normal bowel sounds, No masses, No rebound, No guarding Integumentary: Other (Subcutaneous emphysema noted) Neurological: Normal speech, Normal strength at 5/5 x4 extr, Normal tone, Normal affect Laboratory Data at Discharge: WBC 17.40 K/uL (4.3-10.9) H 01/25/21 04:57 Hgb 12.6 g/dL (13.6-17.9) L 01/25/21 04:57 Hct 37.1 % (39.6-49.0) L 01/25/21 04:57 Plt Count 362 K/uL (152-406) 01/25/21 04:57 PT 11.6 SECONDS (9.5-12.5) 01/25/21 04:57 INR 1.01 01/25/21 04:57 APTT 31.2 SECONDS (24.3-36.9) 01/16/21 08:47 Sodium 136 mmol/L (136-145) 01/25/21 04:57 Potassium 5.0 mmol/L (3.5-5.1) 01/25/21 04:57 BUN 32 mg/dL (7-18) H 01/25/21 04:57 Creatinine 0.78 mg/dL (0.55-1.3) 01/25/21 04:57 Glucose 304 mg/dL (74-106) H 01/25/21 04:57 Magnesium 2.6 mg/dL (1.8-2.4) H 01/25/21 04:57 Total Bilirubin 0.5 mg/dL (0.2-1.0) 01/25/21 04:57 AST 66 U/L (15-37) H 01/25/21 04:57 ALT 381 U/L (12-78) H* 01/25/21 04:57 Alkaline Phosphatase 74 U/L (45-117) 01/25/21 04:57 Home Medications: NK [No Home Meds] 01/16/21 Physician Discharge Instructions: Patient will be transferred to [facility] to continue Covid treatment. Diet: ADA Activity: Ad vira Followup: NONE,NONE [Primary Care Provider] - Time spent managing pt's care (in minutes): 55
[2021-01-25] MEDS ORDERED: GLUCAGON 1 MG/VIAL IM PRN (17:02)
[2021-01-25] MEDS ORDERED: D50W 25 GM/50 ML SYRINGE IV PRN (17:02)
--- NOTE | 2021-01-25 17:05 | P.PN ---
Subjective Date of Service: 01/25/21 (TV) Primary Care Provider: None Chief Complaint: Resp failure from COVID NC stil on high concentration of Fio2/ Tolerating feeding/ Alert Physical Examination - Vital Signs Temperature: 98.1 F Blood Pressure: 137/85 Pulse: 129 Respirations: 22 Pulse Ox (%): 91 - Studies Medications List Reviewed: Yes Assessment & Plan - Problems (Diagnosis) (1) COVID-19 Current Visit: Yes Status: Acute Plan: Resp failure SQ emphysema/ Pt has a deedee/ ALT elevated/ CXRY reviewed SQ emphysema/Add insulin
[2021-01-25 17:58] LABS: Arterial Blood Carboxyhemoglob 0.8 % (0-1.5); Blood Gas Oxyhemoglobin 95.1 % (94-97); Blood O2 Saturation 96.7 % (92-98.5)
[2021-01-25] MEDS ORDERED: LORazepam 2 MG/ML VIAL IV ONE (19:06)
[2021-01-25] MEDS ORDERED: LORazepam 2 MG/ML VIAL ONE (19:30)
[2021-01-26] MEDS ORDERED: INSULIN -REGULAR HUMAN 50 UNIT/0.5 ML ML SQ SCH ×3 (00:36→06:00)
[2021-01-26] MEDS: METHYLPREDNISOLONE 125 MG INJ IV SCH ×3 (00:42→17:49)
[2021-01-26] MEDS: VITAL AF 1,000 ML BOT FT SCH ×6 (00:49→20:19)
[2021-01-26] MEDS: INSULIN -REGULAR HUMAN 50 UNIT/0.5 ML ML SQ SCH ×4 (05:29→17:51)
[2021-01-26 05:31] LABS: Protime INR 1.01
--- NOTE | 2021-01-26 05:51 | P.PN ---
Subjective Date of Service: 01/26/21 Primary Care Provider: None Chief Complaint: Resp failure from COVID Subjective: Other (Transfer was held yesterday due to poor saturation on ambulance BIPAP. Patient stable this am. BP and HR elevated. On CPAP) Physical Examination - Vital Signs Temperature: 98.6 F Blood Pressure: 131/70 Pulse: 114 Respirations: 22 Pulse Ox (%): 93 - Studies Medications List Reviewed: Yes Assessment & Plan Discharge Plan: Home Plan to discharge in: Greater than 2 days Physician Review Additional Text: CT scan: FINDINGS: No pulmonary emboli are identified. Far peripheral branch assessment is difficult due to motion. The aorta as imaged shows no acute or suspicious finding. No pericardial thickening or effusion. Extensive bilateral airspace opacification present most pronounced in the right upper lobe in each lung base. Given the provided history this is consistent with moderate severity COVID-19 pneumonia. No pleural effusion or pleural thickening. No mediastinal or hilar suspicious masses. No chest wall masses or abnormal axillary lymphadenopathy. IMPRESSION: No pulmonary emboli identified. Moderate severity bilateral COVID-19 pneumonia. Follow up CXR 01/25/2021: COMPARISON: Chest Single View dated 01/24/2021; Abdomen 1 View (KUB) dated 01/23/2021; Chest Single View dated 01/23/2021; Chest Single View dated 01/23/2021 FINDINGS: Widespread bilateral airspace disease without significant interval change. Pneumomediastinum and subcutaneous emphysema has slightly decreased. Enteric tube noted with tip not visualized due to underpenetration. The heart size is unchanged. No fractures are seen. IMPRESSION: No significant change in aeration of the lungs but mild decreased subcutaneous emphysema. Physical Exam: GENERAL: Alert cooperative. No deficits. VITAL SIGNS: Reviewed HEENT: Neck supple patient appears well-hydrated. Dobbhoff in place NECK: Supple. No carotid bruits. No lymphadenopathy or thyromegaly. LUNGS: Patient sitting up to the chair. Patient does not appear labored. Air movement improved. Subcutaneous emphysema noted to the upper chest. Currently on CPAP 12 at 100% HEART: Mild tachycardia. ABDOMEN: Soft, nontender, and nondistended. Positive bowel sounds. No hepatosplenomegaly was noted. EXTREMITIES: Some slight subcutaneous emphysema noted to the upper chest wall NEUROLOGIC: The patient is oriented to person, place and time. Strength and sensation are grossly intact. Face is symmetric. SKIN: Normal color, turgor and temperature. No ulcerations or rashes noted. Impression: Acute respiratory failure with hypoxia secondary to bilateral moderate Covid 19 pneumonia, unvaccinated with pneumomediastinum and subcu emphysema Elevated liver function likely underlying fatty liver Hyperglycemia suspect diabetes mellitus type 2 HTN Obesity, BMI greater than 40 Plan: Acute respiratory failure with hypoxia secondary to bilateral moderate Covid 19 pneumonia, unvaccinated with pneumomediastinum and subcu emphysema: Transfer was held due to poor saturation on ambulance BIPAP. Will hold off on transfer at this time. Patient reports some improvement. Patient sitting up to chair this morning. Currently on CPAP at 100% with setting at 12. BP and HR up. Will add Metoprolol and monitor. Will recheck CXR. Continue to wean off CPAP. Dobbhoff in place. Monitor CRP/Ferritin along with LFT. Patient remains on IV steroids and supplementation. Patient also on baricitinib. This may need to be discontinued if PFT remain high. Will discuss with Pharmacy. Continue with medication for cough, nausea, fever and pain. DVT prophylaxis in placeLovenox. Will monitor liver function test. Will discuss with pulmonology. Continue with current plan. Elevated liver function likely underlying fatty liver: Liver function test remains elevated but stable. Will continue to monitor and trend liver function test. May need to DC Baricitinib if LFT remain high. Will discuss with Pharmacy. Hyperglycemia suspect diabetes mellitus type 2: Blood sugars elevated. A1c 6.9, new DM. Now on Metformin and Lantus. Continue with sliding scale and Lantus as the patient is on IV Solu-Medrol. Will continue to adjust Lantus for better control. Monitor and address appropriately. HTN: Will add Metoprolol and monitor BP/HR. Obesity, BMI greater than 40: Lifestyle modification education provided. Code Status: Full Code DVT prophylaxis: Lovenox Advanced Care Planning-30 minutes: Patient desires to go home at discharge. Time Spent Managing Pts Care (In Minutes): 55
[2021-01-26 06:02] LABS: AST/SGOT 41 U/L (15-37); Albumin 2.4 g/dL (3.4-5.0); Alkaline Phosphatase 73 U/L (45-117); BUN Blood Urea Nitrogen 33 mg/dL (7-18); Bicarbonate 28 mmol/L (21-32); Bilirubin Total 0.4 mg/dL (0.2-1.0); Ferritin 509.6 ng/mL (26-388); Glucose Level 325 mg/dL (74-106); Magnesium 2.5 mg/dL (1.8-2.4); Protein, Total 6.4 g/dL (6.4-8.2); Sodium Level 137 mmol/L (136-145)
[2021-01-26 06:03] LABS: ALT/SGPT 327 U/L (12-78)
[2021-01-26] MEDS ORDERED: METOPROLOL TAR 25 MG TAB PO SCH ×2 (06:57→09:00)
[2021-01-26] MEDS ORDERED: INSULIN 70/30 100 UNITS/ML SQ SCH (07:30)
--- NOTE | 2021-01-26 07:47 | RAD REPORT ---
EXAM DESCRIPTION: RAD - Chest Single View - 01/26/2021 6:15 am CLINICAL HISTORY: COVID pneumonia Chest pain. COMPARISON: Chest Single View dated 01/25/2021; Chest Single View dated 01/24/2021; Abdomen 1 View ([facility] B) dated 01/23/2021; Chest Single View dated 01/23/2021 FINDINGS: Portable technique limits examination quality. Since 01/25/2021, little overall change is seen. Subcutaneous emphysema and pneumomediastinum appear stable. Extensive bilateral pulmonary opacities appear unchanged. The heart is normal in size. IMPRESSION: Stable chest since 01/25/2021.
[2021-01-26] MEDS ORDERED: INSULIN GLARGINE 100 UNITS/ML SQ SCH (08:00)
[2021-01-26] MEDS: AMIODARONE HCL 900 MG in Dextrose 5%-Water 482 ML IV SCH ×2 (08:21→08:44)
[2021-01-26] MEDS ORDERED: ADENOSINE 6 MG/ 2ML VIAL IV ONE (08:25)
[2021-01-26] MEDS ORDERED: AMIODARONE HCL 150 MG in D5W 100 ML IV STA (08:31)
[2021-01-26] MEDS: ENOXAPARIN 40 MG/0.4 ML SQ SCH (08:36)
[2021-01-26] MEDS: VITAMIN D 1000 UNIT TAB PO SCH (08:37)
[2021-01-26] MEDS: FAMOTIDINE 20 MG TAB PO SCH ×2 (08:37→20:19)
[2021-01-26] MEDS: THIAMINE HCL 100 MG TABLET PO SCH (08:37)
[2021-01-26] MEDS: ASCORBIC ACID 500 MG TABLET PO SCH ×3 (08:37→20:19)
[2021-01-26] MEDS: ASPIRIN 81 MG CHEWABLE TABLET PO SCH (08:37)
[2021-01-26] MEDS: METFORMIN HCL 500 MG TAB PO SCH ×2 (08:37→17:50)
[2021-01-26] MEDS: GUAIFENESIN/CODEINE 5ML UCUP PO SCH ×5 (08:37→20:18)
[2021-01-26] MEDS: ZINC SULFATE 220 MG CAP PO SCH (08:37)
[2021-01-26] MEDS: IVERMECTIN 3 MG TABLET PO SCH (08:39)
[2021-01-26] MEDS: INSULIN GLARGINE 100 UNITS/ML SQ SCH ×2 (08:45→20:20)
[2021-01-26] MEDS ORDERED: AMIODARONE HCL 450 MG in D5W 241 ML IV SCH (09:00)
[2021-01-26] MEDS: NYSTATIN 500,000 UNIT/5 ML UDC PO SCH ×3 (09:00→20:18)
[2021-01-26] MEDS ORDERED: DIGOXIN 0.25 MG/ML AMP IV ONE (10:00)
[2021-01-26] MEDS: BARICITINIB 2 MG TABLET PO SCH (17:49)
[2021-01-26] MEDS: METOPROLOL TARTRATE 5 MG/5 ML INJ IV PRN (17:50)
--- NOTE | 2021-01-26 19:14 | P.PN ---
Subjective Date of Service: 01/26/21 (TV) Primary Care Provider: None Chief Complaint: Resp failure from COVID Oxygenation improving Review of Systems is unable to be obtained Physical Examination - Vital Signs Temperature: 99.8 F Blood Pressure: 122/67 Pulse: 109 Respirations: 26 Pulse Ox (%): 96 - Studies Medications List Reviewed: Yes Assessment & Plan - Problems (Diagnosis) (1) COVID-19 Current Visit: Yes Status: Acute Plan: Improving/developed Afib/ On AMio and Lopressor/ o2 requirement have declined/ CXYR no change/ ALt declining/ increase aspirin/change to Eliquis
[2021-01-26] MEDS: APIXABAN 2.5 MG TABLET PO SCH (20:19)
[2021-01-26] MEDS: METOPROLOL TAR 25 MG TAB PO SCH (20:19)
[2021-01-27] MEDS: METHYLPREDNISOLONE 125 MG INJ IV SCH ×3 (00:25→16:51)
[2021-01-27] MEDS: VITAL AF 1,000 ML BOT FT SCH ×3 (00:26→08:52)
[2021-01-27] MEDS: INSULIN -REGULAR HUMAN 50 UNIT/0.5 ML ML SQ SCH ×4 (00:26→16:52)
[2021-01-27 04:53] LABS: Absolute Lymphocytes (CBC) 0.7 K/uL (0.7-4.9); Basophils % 0.2 % (0-1.3); Hematocrit 38.5 % (39.6-49.0); MPV 10.7 fL (7.6-11.3); RBC Red Blood Cell Count 4.65 M/uL (4.33-5.43)
[2021-01-27 05:10] LABS: ALT/SGPT 276 U/L (12-78); AST/SGOT 34 U/L (15-37); Albumin 2.4 g/dL (3.4-5.0); Alkaline Phosphatase 74 U/L (45-117); BUN Blood Urea Nitrogen 33 mg/dL (7-18); Bicarbonate 28 mmol/L (21-32); Bilirubin Total 0.5 mg/dL (0.2-1.0); Ferritin 522.2 ng/mL (26-388); Glucose Level 313 mg/dL (74-106); Magnesium 2.6 mg/dL (1.8-2.4); Phosphorus 3.4 mg/dL (2.5-4.9); Potassium 4.9 mmol/L (3.5-5.1); Protein, Total 6.4 g/dL (6.4-8.2); Sodium Level 138 mmol/L (136-145)
--- NOTE | 2021-01-27 06:01 | P.PN ---
Subjective Date of Service: 01/27/21 Primary Care Provider: None Chief Complaint: Resp failure from COVID Subjective: Other (Patient reports improvement. Currently on CPAP at 80%. Patient remains normal sinus rhythm) Physical Examination - Vital Signs Temperature: 97.3 F Blood Pressure: 129/70 Pulse: 90 Respirations: 21 Pulse Ox (%): 91 - Studies Medications List Reviewed: Yes Assessment & Plan Discharge Plan: LTAC Plan to discharge in: 48 Hours Physician Review Additional Text: CT scan: FINDINGS: No pulmonary emboli are identified. Far peripheral branch assessment is difficult due to motion. The aorta as imaged shows no acute or suspicious finding. No pericardial thickening or effusion. Extensive bilateral airspace opacification present most pronounced in the right upper lobe in each lung base. Given the provided history this is consistent with moderate severity COVID-19 pneumonia. No pleural effusion or pleural thickening. No mediastinal or hilar suspicious masses. No chest wall masses or abnormal axillary lymphadenopathy. IMPRESSION: No pulmonary emboli identified. Moderate severity bilateral COVID-19 pneumonia. Follow up CXR 01/25/2021: COMPARISON: Chest Single View dated 01/26/2021; Chest Single View dated 01/25/2021; Chest Single View dated 01/24/2021; Abdomen 1 View (KUB) dated 01/23/2021 FINDINGS: Re- demonstrated widespread bilateral airspace disease. No significant change from yesterday's chest radiograph. Pneumomediastinum and extensive subcutaneous emphysema again noted. The heart size is within normal limits. No fractures seen. Enteric tube noted. IMPRESSION: No significant change from 01/26/2021 with widespread airspace disease compatible with multifocal pneumonia. Physical Exam: GENERAL: Alert cooperative. No deficits. VITAL SIGNS: Reviewed HEENT: Neck supple patient appears well-hydrated. Dobbhoff in place NECK: Supple. No carotid bruits. No lymphadenopathy or thyromegaly. LUNGS: Patient sitting up to the chair. Patient does not appear labored. Air movement improved. Subcutaneous emphysema noted to the upper chest. CPAP at 80% HEART: Mild tachycardia. ABDOMEN: Soft, nontender, and nondistended. Positive bowel sounds. No hepatosplenomegaly was noted. EXTREMITIES: Some slight subcutaneous emphysema noted to the upper chest wall NEUROLOGIC: The patient is oriented to person, place and time. Strength and sensation are grossly intact. Face is symmetric. SKIN: Normal color, turgor and temperature. No ulcerations or rashes noted. Impression: Acute respiratory failure with hypoxia secondary to bilateral moderate Covid 19 pneumonia, unvaccinated with pneumomediastinum and subcu emphysema Atrial fibrillation with RVR Elevated liver function likely underlying fatty liver Hyperglycemia suspect diabetes mellitus type 2 HTN Obesity, BMI greater than 40 Plan: Acute respiratory failure with hypoxia secondary to bilateral moderate Covid 19 pneumonia, unvaccinated with pneumomediastinum and subcu emphysema: Patient continues to improve. Currently on CPAP at 80%. Patient now in sinus rhythm. Continue to wean off BiPAP. Dobbhoff in place. Monitor CRP/Ferritin along with LFT. Patient remains on IV steroids and supplementation. Patient also on baricitinib. Patient now on Eliquis for prophylaxis. Continue to monitor the patient closely. If his condition improves over the next 48 to 72 hours we will consider long-term acute care facility placement if not patient will continue with current treatment plan. Atrial fibrillation with RVR: Patient now in sinus rhythm. Continue IV amiodarone. Continue metoprolol. We will change Lovenox to Eliquis. Will transition to oral amiodarone once taking better oral intake. Elevated liver function likely underlying fatty liver: Liver function test remains elevated but stable. Will continue to monitor and trend liver function test. While pharmacy monitor and adjust medication Hyperglycemia suspect diabetes mellitus type 2: Blood sugars elevated. A1c 6.9, new DM. Now on Metformin and Lantus. Continue with sliding scale and Lantus as the patient is on IV Solu-Medrol. Will continue to adjust Lantus for better control. Monitor and address appropriately. HTN: Continue metoprolol. Obesity, BMI greater than 40: Lifestyle modification education provided. Code Status: Full Code DVT prophylaxis: Lovenox Advanced Care Planning-30 minutes: Consider long-term acute care facility placement if his condition improves Time Spent Managing Pts Care (In Minutes): 55
[2021-01-27 06:42] LABS: Blood Morphology Comment NOT SEEN (NOT SEEN); Platelet Estimate ADEQ
--- NOTE | 2021-01-27 07:34 | RAD REPORT ---
EXAM DESCRIPTION: RAD - Chest Single View - 01/27/2021 6:05 am CLINICAL HISTORY: COVID pneumonia COMPARISON: Chest Single View dated 01/26/2021; Chest Single View dated 01/25/2021; Chest Single View dated 01/24/2021; Abdomen 1 View (KUB) dated 01/23/2021 FINDINGS: Re- demonstrated widespread bilateral airspace disease. No significant change from yesterd ay's chest radiograph. Pneumomediastinum and extensive subcutaneous emphysema again noted. The heart size is within normal limits. No fractures seen. Enteric tube noted. IMPRESSION: No significant change from 01/26/2021 with widespread airspace disease compatible with m ultifocal pneumonia.
[2021-01-27] MEDS: METOPROLOL TAR 25 MG TAB PO SCH ×2 (08:49→20:30)
[2021-01-27] MEDS: APIXABAN 2.5 MG TABLET PO SCH ×2 (08:49→20:30)
[2021-01-27] MEDS: THIAMINE HCL 100 MG TABLET PO SCH (08:50)
[2021-01-27] MEDS: ASPIRIN 81 MG CHEWABLE TABLET PO SCH (08:50)
[2021-01-27] MEDS: ASCORBIC ACID 500 MG TABLET PO SCH ×3 (08:50→20:31)
[2021-01-27] MEDS: GUAIFENESIN/CODEINE 5ML UCUP PO SCH ×4 (08:50→20:31)
[2021-01-27] MEDS: METFORMIN HCL 500 MG TAB PO SCH ×2 (08:50→16:51)
[2021-01-27] MEDS: FAMOTIDINE 20 MG TAB PO SCH ×2 (08:50→20:31)
[2021-01-27] MEDS: NYSTATIN 500,000 UNIT/5 ML UDC PO SCH ×3 (08:51→20:31)
[2021-01-27] MEDS: ZINC SULFATE 220 MG CAP PO SCH (08:51)
[2021-01-27] MEDS: VITAMIN D 1000 UNIT TAB PO SCH (08:51)
[2021-01-27] MEDS: BARICITINIB 2 MG TABLET PO SCH (08:52)
[2021-01-27] MEDS: INSULIN GLARGINE 100 UNITS/ML SQ SCH ×2 (09:00→20:32)
[2021-01-27] MEDS ORDERED: AMIODARONE HCL 900 MG in Dextrose 5%-Water 482 ML IV SCH (12:00)
[2021-01-27] MEDS ORDERED: VITAL HP 1,000 ML BOT FT SCH (13:00)
[2021-01-27] MEDS: VITAL HP 1,000 ML BOT FT SCH ×3 (16:24→20:24)
--- NOTE | 2021-01-27 19:04 | CON ---
Date of Consultation: 01/26/2021 Reason For Consultation: Mr. Cooley was admitted on 01/16/2021 with COVID pneumonia. I was consul heladio on 01/26/2021, because of new-onset atrial fibrillation. History Of Present Illness: The patient remains on CPAP and BiPAP. He was admitted on 01/16/2021 wi th COVID pneumonia. No previous cardiac history. Asymptomatic with his atrial fibrillation, but his rate is very rapid, did not respond to IV beta-dinora. I elected to put him on IV amiodarone. The re is an echocardiogram pending. Past Medical History: Negative. Medications: At home are negative. Review of Systems: Negative. Social History: Negative. Family History: Negative. Physical Examination: Vital Signs: His O2 saturations are adequate on CPAP and BiPAP. He is in atrial fibrillation, but b lood pressure is adequate. HEENT: Negative. Neck: Supple with no bruit. Chest: Revealed rales throughout. Cardiac: Revealed atrial fibrillation. Abdomen: Benign. Extremities: Revealed no clubbing, cyanosis, or edema. Diagnostic Data: As stated earlier. Impression And Plan: 1.COVID pneumonia, on appropriate therapy. 2.Atrial fibrillation secondary to COVID pneumonia. I would like to get an echocardiogram, continue IV amiodarone, continue anticoagulation. We would see what the echocardiogram shows and hopefully t he amiodarone will work. I will continue to follow him. NEFTALI/RICHMOND Voice ID: [id number] Report ID: [id number]
[2021-01-28] MEDS: VITAL HP 1,000 ML BOT FT SCH ×6 (00:24→16:24)
[2021-01-28] MEDS: METHYLPREDNISOLONE 125 MG INJ IV SCH ×3 (00:31→16:44)
[2021-01-28 05:12] LABS: Absolute Lymphocytes (CBC) 0.9 K/uL (0.7-4.9)
[2021-01-28 05:19] LABS: Basophils % 0.1 % (0-1.3); Lymphocytes % 4.3 % (15.3-44.8); RBC Red Blood Cell Count 4.69 M/uL (4.33-5.43)
[2021-01-28 05:28] LABS: ALT/SGPT 239 U/L (12-78); AST/SGOT 28 U/L (15-37); Albumin 2.5 g/dL (3.4-5.0); Alkaline Phosphatase 71 U/L (45-117); BUN Blood Urea Nitrogen 34 mg/dL (7-18); Bicarbonate 29 mmol/L (21-32); Bilirubin Total 0.5 mg/dL (0.2-1.0); C-Reactive Protein 5.61 mg/L (<3.00); Ferritin 546.2 ng/mL (26-388); Glucose Level 246 mg/dL (74-106); Magnesium 2.6 mg/dL (1.8-2.4); Potassium 4.8 mmol/L (3.5-5.1); Protein, Total 6.5 g/dL (6.4-8.2); Sodium Level 140 mmol/L (136-145)
[2021-01-28] MEDS: INSULIN -REGULAR HUMAN 50 UNIT/0.5 ML ML SQ SCH ×4 (05:57→16:44)
[2021-01-28] MEDS: VITAMIN D 1000 UNIT TAB PO SCH (08:21)
[2021-01-28] MEDS: FAMOTIDINE 20 MG TAB PO SCH ×2 (08:21→20:01)
[2021-01-28] MEDS: NYSTATIN 500,000 UNIT/5 ML UDC PO SCH ×3 (08:21→20:02)
[2021-01-28] MEDS: ASPIRIN 81 MG CHEWABLE TABLET PO SCH (08:21)
[2021-01-28] MEDS: APIXABAN 2.5 MG TABLET PO SCH (08:22)
[2021-01-28] MEDS: METOPROLOL TAR 25 MG TAB PO SCH ×2 (08:22→20:00)
[2021-01-28] MEDS: METFORMIN HCL 500 MG TAB PO SCH ×2 (08:22→16:39)
[2021-01-28] MEDS: ZINC SULFATE 220 MG CAP PO SCH (08:22)
[2021-01-28] MEDS: THIAMINE HCL 100 MG TABLET PO SCH (08:22)
[2021-01-28] MEDS: GUAIFENESIN/CODEINE 5ML UCUP PO SCH ×4 (08:22→20:02)
[2021-01-28] MEDS: ASCORBIC ACID 500 MG TABLET PO SCH ×3 (08:22→20:01)
[2021-01-28] MEDS: CEFTRIAXONE/SWI 1gm 1 GM/10 ML SYR IV SCH (08:24)
[2021-01-28] MEDS: INSULIN GLARGINE 100 UNITS/ML SQ SCH ×2 (08:28→20:02)
[2021-01-28] MEDS ORDERED: CEFTRIAXONE 1 GM/NS 50 ML 1 GM/50 ML BAG IV SCH (09:00)
[2021-01-28 10:52] LABS: Blood Morphology Comment NOT SEEN (NOT SEEN); Platelet Estimate ADEQ
--- NOTE | 2021-01-28 12:35 | PN ---
Date of Progress Note: 01/27/2021 Mr. Cooley, I was consulted on him because of COVID pneumonia and atrial fibrillation. We started him on IV amiodarone yesterday. He is back in normal rhythm. I feel comfortable switching him to 40 0 mg one p.o. b.i.d. whenever it is okay with Dr. Alfaro. I still think he needs an echocardiogram, to rule out a cardiomyopathy related to COVID. I will sign off his case. I will be available for qu estions if the need arises. NEFTALI/RICHMOND Voice ID: [id number] Report ID: [id number]
[2021-01-28] MEDS: AMIODARONE HCL 200 MG TAB PO SCH ×2 (12:38→20:01)
[2021-01-28] MEDS: BARICITINIB 2 MG TABLET PO SCH (12:38)
--- NOTE | 2021-01-28 16:27 | P.PN ---
Subjective Date of Service: 01/28/21 Primary Care Provider: None Chief Complaint: Resp failure from COVID Subjective: Improving Physical Examination - Vital Signs Temperature: 98.9 F Blood Pressure: 137/87 Pulse: 97 Respirations: 27 Pulse Ox (%): 95 - Studies Medications List Reviewed: Yes Assessment & Plan Discharge Plan: LTAC Plan to discharge in: 48 Hours Physician Review Additional Text: CT scan: FINDINGS: No pulmonary emboli are identified. Far peripheral branch assessment is difficult due to motion. The aorta as imaged shows no acute or suspicious finding. No pericardial thickening or effusion. Extensive bilateral airspace opacification present most pronounced in the right upper lobe in each lung base. Given the provided history this is consistent with moderate severity COVID-19 pneumonia. No pleural effusion or pleural thickening. No mediastinal or hilar suspicious masses. No chest wall masses or abnormal axillary lymphadenopathy. IMPRESSION: No pulmonary emboli identified. Moderate severity bilateral COVID-19 pneumonia. Follow up CXR 01/25/2021: COMPARISON: Chest Single View dated 01/26/2021; Chest Single View dated 01/25/2021; Chest Single View dated 01/24/2021; Abdomen 1 View (KUB) dated 01/23/2021 FINDINGS: Re- demonstrated widespread bilateral airspace disease. No s ignificant change from yesterday's chest radiograph. Pneumomediastinum and extensive subcutaneous emphysema again noted. The heart size is within normal limits. No fractures seen. Enteric tube noted. IMPRESSION: No significant change from 01/26/2021 with widespread airspace disease compatible with multifocal pneumonia. Physical Exam: GENERAL: Alert cooperative. No deficits. VITAL SIGNS: Reviewed HEENT: Neck supple patient appears well-hydrated. Dobbhoff in place NECK: Supple. No carotid bruits. No lymphadenopathy or thyromegaly. LUNGS: Patient sitting up to the chair. Patient does not appear labored. Air movement improved. Subcutaneous emphysema noted to the upper chest. CPAP at 80% HEART: Mild tachycardia. ABDOMEN: Soft, nontender, and nondistended. Positive bowel sounds. No hepatosplenomegaly was noted. EXTREMITIES: Some slight subcutaneous emphysema noted to the upper chest wall NEUROLOGIC: The patient is oriented to person, place and time. Strength and sensation are grossly intact. Face is symmetric. SKIN: Normal color, turgor and temperature. No ulcerations or rashes noted. Impression: Acute respiratory failure with hypoxia secondary to bilateral moderate Covid 19 pneumonia, unvaccinated with pneumomediastinum and subcu emphysema Atrial fibrillation with RVR Elevated liver function likely underlying fatty liver Hyperglycemia suspect diabetes mellitus type 2 HTN Obesity, BMI greater than 40 Plan: Acute respiratory failure with hypoxia secondary to bilateral moderate Covid 19 pneumonia, unvaccinated with pneumomediastinum and subcu emphysema: Patient continues to improve. Currently on CPAP at 80%. Patient now in sinus rhythm. Continue to wean off BiPAP. Dobbhoff in place. Monitor CRP/Ferritin along with LFT. Patient remains on IV steroids and supplementation. Patient also on baricitinib. Patient now on Eliquis for prophylaxis. Continue to monitor the patient closely. If his condition improves over the next 48 to 72 hours we will consider long-term acute care facility placement if not patient will continue with current treatment plan. Patient is agreeable to LTAC. Atrial fibrillation with RVR: Patient now in sinus rhythm. Transition to oral amiodarone. Continue metoprolol. We will change Lovenox to Eliquis. Will transition to oral amiodarone once taking better oral intake. Elevated liver function likely underlying fatty liver: Liver function test remai ns elevated but stable. Will continue to monitor and trend liver function test. Pharmacy monitor and adjust medication Hyperglycemia suspect diabetes mellitus type 2: Blood sugars elevated. A1c 6.9, new DM. Now on Metformin and Lantus. Continue with sliding scale and Lantus as the patient is on IV Solu-Medrol. Will continue to adjust Lantus for better control. Monitor and address appropriately. HTN: Continue metoprolol. Obesity, BMI greater than 40: Lifestyle modification education provided. Code Status: Full Code DVT prophylaxis: Lovenox Advanced Care Planning-30 minutes: Patient is agreeable to LTAC. Will continue to monitor. Time Spent Managing Pts Care (In Minutes): 55
[2021-01-28] MEDS ORDERED: APIXABAN 5 MG TABLET PO SCH (21:00)
[2021-01-29] MEDS: METHYLPREDNISOLONE 125 MG INJ IV SCH ×3 (00:24→18:02)
[2021-01-29] MEDS: VITAL HP 1,000 ML BOT FT SCH ×6 (00:24→21:15)
[2021-01-29 05:23] LABS: ALT/SGPT 219 U/L (12-78); AST/SGOT 24 U/L (15-37); Albumin 2.7 g/dL (3.4-5.0); Alkaline Phosphatase 66 U/L (45-117); BUN Blood Urea Nitrogen 40 mg/dL (7-18); Bicarbonate 28 mmol/L (21-32); Bilirubin Total 0.6 mg/dL (0.2-1.0); Ferritin 671.9 ng/mL (26-388); Glucose Level 280 mg/dL (74-106); Magnesium 2.6 mg/dL (1.8-2.4); Potassium 4.8 mmol/L (3.5-5.1); Protein, Total 6.5 g/dL (6.4-8.2); Sodium Level 138 mmol/L (136-145)
[2021-01-29] MEDS ORDERED: SODIUM CHLORIDE 0.9% 10ML INJ IV PRN (05:32)
[2021-01-29] MEDS ORDERED: PANTOPRAZOLE 40 MG INJ IVP SCH (05:32)
[2021-01-29 06:00] LABS: C-Reactive Protein < 2.90 mg/L (<3.00)
[2021-01-29] MEDS: INSULIN -REGULAR HUMAN 50 UNIT/0.5 ML ML SQ SCH ×4 (06:00→18:03)
--- NOTE | 2021-01-29 06:00 | P.PN ---
Subjective Date of Service: 01/29/21 Primary Care Provider: None Chief Complaint: Resp failure from COVID Subjective: Improving, Doing well Physical Examination - Vital Signs Temperature: 98.3 F Blood Pressure: 140/86 Pulse: 96 Respirations: 28 Pulse Ox (%): 87 - Studies Medications List Reviewed: Yes Assessment & Plan Discharge Plan: LTAC Plan to discharge in: 24 Hours Physician Review Additional Text: CT scan: FINDINGS: No pulmonary emboli are identified. Far peripheral branch assessment is difficult due to motion. The aorta as imaged shows no acute or suspicious finding. No pericardial thickening or effusion. Extensive bilateral airspace opacification present most pronounced in the right upper lobe in each lung base. Given the provided history this is consistent with moderate severity COVID-19 pneumonia. No pleural effusion or pleural thickening. No mediastinal or hilar suspicious masses. No chest wall masses or abnormal axillary lymphadenopathy. IMPRESSION: No pulmonary emboli identified. Moderate severity bilateral COVID-19 pneumonia. Follow up CXR 01/25/2021: COMPARISON: Chest Single View dated 01/26/2021; Chest Single View dated 01/25/2021; Chest Single View dated 01/24/2021; Abdomen 1 View (KUB) dated 01/23/2021 FINDINGS: Re- demonstrated widespread bilateral airspace disease. No significant change from yesterday's chest radiograph. Pneumomediastinum and extensive subcutaneous emphysema again noted. The heart size is within normal limits. No fractures seen. Enteric tube noted. IMPRESSION: No significant change from 01/26/2021 with widespread airspace disease compatible with multifocal pneumonia. Physical Exam: GENERAL: Alert cooperative. No deficits. VITAL SIGNS: Reviewed HEENT: Neck supple patient appears well-hydrated. Dobbhoff in place NECK: Supple. No carotid bruits. No lymphadenopathy or thyromegaly. LUNGS: Patient sitting up to the chair. Patient does not appear labored. Air movement improved. Subcutaneous emphysema noted to the upper chest. CPAP at 70% HEART: Mild tachycardia. ABDOMEN: Soft, nontender, and nondistended. Positive bowel sounds. No hepatosplenomegaly was noted. EXTREMITIES: Some slight subcutaneous emphysema noted to the upper chest wall NEUROLOGIC: The patient is oriented to person, place and time. Strength and sensation are grossly intact. Face is symmetric. SKIN: Normal color, turgor and temperature. No ulcerations or rashes noted. Impression: Acute respiratory failure with hypoxia secondary to bilateral moderate Covid 19 pneumonia, unvaccinated with pneumomediastinum and subcu emphysema Atrial fibrillation with RVR Elevated liver function likely underlying fatty liver Hyperglycemia suspect diabetes mellitus type 2 HTN Obesity, BMI greater than 40 Plan: Acute respiratory failure with hypoxia secondary to bilateral moderate Covid 19 pneumonia, unvaccinated with pneumomediastinum and subcu emphysema: Patient continues to improve. Currently on CPAP at 70%. Mild tachycardia noted. Continue to wean off CPAP. Dobbhoff in place. Monitor CRP/Ferritin along with LFT. Patient remains on IV steroids and supplementation. Patient also on baricitinib. Patient on Eliquis for prophylaxis. Continue to monitor the patient closely. Awaiting approval for long-term acute care facility placement Atrial fibrillation with RVR: Continue oral amiodarone. Increase metoprolol for better rate control. Continue Eliquis. Elevated liver function likely underlying fatty liver: Liver function test remains elevated but stable. Will continue to monitor and trend liver function test. Pharmacy monitor and adjust medication Hyperglycemia suspect diabetes mellitus type 2: Blood sugars elevated. A1c 6.9, new DM. Now on Metformin and Lantus. Continue with sliding scale and Lantus as the patient is on IV Solu-Medrol. Will continue to adjust Lantus for better control. Monitor and address appropriately. HTN: Continue metoprolol. Obesity, BMI greater than 40: Lifestyle modification education provided. Code Status: Full Code DVT prophylaxis: Lovenox Advanced Care Planning-30 minutes: Awaiting approval for long-term acute care facility placement. Time Spent Managing Pts Care (In Minutes): 55
[2021-01-29 06:22] LABS: Absolute Lymphocytes (CBC) 0.9 K/uL (0.7-4.9); Basophils % 0.1 % (0-1.3); Hematocrit 40.9 % (39.6-49.0); Lymphocytes % 4.5 % (15.3-44.8); RBC Red Blood Cell Count 4.87 M/uL (4.33-5.43)
[2021-01-29] MEDS: NYSTATIN 500,000 UNIT/5 ML UDC PO SCH ×3 (08:49→21:12)
[2021-01-29] MEDS: GUAIFENESIN/CODEINE 5ML UCUP PO SCH ×4 (08:50→21:12)
[2021-01-29] MEDS: FAMOTIDINE 20 MG TAB PO SCH ×2 (08:50→21:13)
[2021-01-29] MEDS: METOPROLOL TAR 25 MG TAB PO SCH ×2 (08:50→21:13)
[2021-01-29] MEDS: ZINC SULFATE 220 MG CAP PO SCH (08:50)
[2021-01-29] MEDS: VITAMIN D 1000 UNIT TAB PO SCH (08:50)
[2021-01-29] MEDS: METFORMIN HCL 500 MG TAB PO SCH ×2 (08:51→18:02)
[2021-01-29] MEDS: CEFTRIAXONE/SWI 1gm 1 GM/10 ML SYR IV SCH (08:51)
[2021-01-29] MEDS: THIAMINE HCL 100 MG TABLET PO SCH (08:51)
[2021-01-29] MEDS: AMIODARONE HCL 200 MG TAB PO SCH ×2 (08:51→21:13)
[2021-01-29] MEDS: ASCORBIC ACID 500 MG TABLET PO SCH ×3 (08:51→21:30)
[2021-01-29] MEDS: INSULIN GLARGINE 100 UNITS/ML SQ SCH (08:52)
[2021-01-29] MEDS: BARICITINIB 2 MG TABLET PO SCH (08:53)
--- NOTE | 2021-01-29 11:03 | ECHO ---
HEIGHT: 5 ft 9 in WEIGHT: 277 lb 14.4 oz DATE OF STUDY: 01/28/[address]: Osman Alfaro DO 2-DIMENSIONAL: YES M.MODE: YES DOPPLER: COLOR FLOW: TDS: YES PORTABLE: YES DEFINITY: BUBBLE STUDY: DIAGNOSIS: ATRIAL FIBRILLATION CARDIAC HISTORY: CATHERIZATION: NO SURGERY: NO PROSTHETIC VALVE: NO PACEMAKER: NO MEASUREMENTS (cm) DIASTOLIC (NORMALS) SYSTOLIC (NORMALS) IVSd (0.6-1.2) LA Diam (1.9-4.0) LVEF % LVIDd (3.5-5.7) LVIDs (2.0-3.5) %FS % LVPWd (0.6-1.2) Ao Diam (2.0-3.7) 2 DIMENSIONAL ASSESSMENT: RIGHT ATRIUM: LEFT ATRIUM: RIGHT VENTRICLE: LEFT VENTRICLE: TRICUSPID VALVE: MITRAL VALVE: PULMONIC VALVE: AORTIC VALVE: PERICARDIAL EFFUSION: AORTIC ROOT: LEFT VENTRICULAR WALL MOTION: DOPPLER/COLOR FLOW: COULD NOT COMPLETE DUE TO POOR WINDOWS COMMENTS: TECHNICALLY DIFFICULT STUDY. UNABLE TO INTERPRET. TECHNOLOGIST: OZZY DIXON
--- NOTE | 2021-01-29 11:34 | P.PN ---
Subjective Date of Service: 01/29/21 (TV) Primary Care Provider: None Chief Complaint: Resp failure from COVID GI bleed poss?, loosstools red stools/ On tube feeds Physical Examination - Vital Signs Temperature: 98.3 F Blood Pressure: 140/86 Pulse: 96 Respirations: 28 Pulse Ox (%): 87 - Studies Medications List Reviewed: Yes Assessment & Plan - Problems (Diagnosis) (1) COVID-19 Current Visit: Yes Status: Acute Plan: Resp failure / Maroon n colored stools/ Stable on BIPAP NC HGB stable/ Continue to monitor. Anticoag is on hold/ unstable for Ct of abdomen/On barcitinib and steroids Daily CXRY/ on 75% Fio2
--- NOTE | 2021-01-29 12:55 | RAD REPORT ---
EXAM DESCRIPTION: RAD - Chest Single View - 01/29/2021 12:34 pm CLINICAL HISTORY: Resp failure COMPARISON: Chest Single View dated 01/27/2021; Chest Single View dated 01/26/2021; Chest Single View dated 01/25/2021; Chest Single View dated 01/24/2021 FINDINGS: Diffuse widespread airspace disease, similar to 01/27/2021. Subcutaneous emphysema is note d. This is similar. Enteric tube below the diaphragm which is obscured by underpenetration. Heart siz e is similar. No fractures. IMPRESSION: Unchanged bilateral widespread airspace disease consistent with multifocal pneumonia.
[2021-01-29 15:19] LABS: Hematocrit 43.7 % (39.6-49.0)
[2021-01-29] MEDS ORDERED: INSULIN GLARGINE 100 UNITS/ML SQ SCH (21:00)
[2021-01-30] MEDS ORDERED: LORazepam 2 MG/ML VIAL IV ONE (00:31)
[2021-01-30] MEDS: METHYLPREDNISOLONE 125 MG INJ IV SCH ×3 (00:44→18:02)
[2021-01-30] MEDS: INSULIN -REGULAR HUMAN 50 UNIT/0.5 ML ML SQ SCH ×4 (00:45→18:02)
[2021-01-30] MEDS: VITAL HP 1,000 ML BOT FT SCH ×6 (00:45→20:45)
[2021-01-30 04:07] LABS: Albumin 2.8 g/dL (3.4-5.0); Bilirubin Total 0.5 mg/dL (0.2-1.0); C-Reactive Protein 3.63 mg/L (<3.00); Ferritin 806.4 ng/mL (26-388); Magnesium 2.6 mg/dL (1.8-2.4); Potassium 4.8 mmol/L (3.5-5.1); Protein, Total 6.6 g/dL (6.4-8.2)
--- NOTE | 2021-01-30 07:11 | RAD REPORT ---
EXAM DESCRIPTION: RAD - Chest Single View - 01/30/2021 6:51 am CLINICAL HISTORY: Resp failure COMPARISON: Chest Single View dated 01/29/2021; Chest Single View dated 01/27/2021; Chest Single View dated 01/26/2021; Chest Single View dated 01/25/2021 FINDINGS: Diffuse widespread airspace disease is similar to 01/29/2021 The heart size is within norm al limits.No acute osseous abnormality. Subcutaneous emphysema again noted. Enteric tube again noted. IMPRESSION: Unchanged widespread airspace disease consistent with multifocal pneumonia and/or ARDS.
--- NOTE | 2021-01-30 07:15 | P.PN ---
Subjective Date of Service: 01/30/21 Primary Care Provider: None Chief Complaint: Resp failure from COVID Subjective: Doing well (Minimal bleeding noted from stool. No jann blood. Patient reports stable. Still in A fib rate around 130s.) Physical Examination - Vital Signs Temperature: 98.3 F Blood Pressure: 139/75 Pulse: 121 Respirations: 32 Pulse Ox (%): 93 - Studies Medications List Reviewed: Yes Assessment & Plan Discharge Plan: LTAC Plan to discharge in: 48 Hours Physician Review Additional Text: CT scan: FINDINGS: No pulmonary emboli are identified. Far peripheral branch assessment is difficult due to motion. The aorta as imaged shows no acute or suspicious finding. No pericardial thickening or effusion. Extensive bilateral airspace opacification present most pronounced in the right upper lobe in each lung base. Given the provided history this is consistent with moderate severity COVID-19 pneumonia. No pleural effusion or pleural thickening. No mediastinal or hilar suspicious masses. No chest wall masses or abnormal axillary lymphadenopathy. IMPRESSION: No pulmonary emboli identified. Moderate severity bilateral COVID-19 pneumonia. Follow up CXR 01/25/2021: COMPARISON: Chest Single View dated 01/26/2021; Chest Single View dated 01/25/2021; Chest Single View dated 01/24/2021; Abdomen 1 View (KUB) dated 01/23/2021 FINDINGS: Re- demonstrated widespread bilateral airspace disease. No significant change from yesterday's chest radiograph. Pneumomediastinum and extensive subcutaneous emphysema again noted. The heart size is within normal limits. No fractures seen. Enteric tube noted. IMPRESSION: No significant change from 01/26/2021 with widespread airspace disease compatible with multifocal pneumonia. Physical Exam: GENERAL: Alert cooperative. No deficits. VITAL SIGNS: Reviewed HEENT: Neck supple patient appears well-hydrated. Dobbhoff in place NECK: Supple. No carotid bruits. No lymphadenopathy or thyromegaly. LUNGS: Patient sitting up to the chair. Patient does not appear labored. Air movement improved but still decreased. Subcutaneous emphysema noted to the upper chest. CPAP at 80% HEART: A fib, rate around 130 ABDOMEN: Soft, nontender, and nondistended. Positive bowel sounds. No hepatosplenomegaly was noted. EXTREMITIES: Some slight subcutaneous emphysema noted to the upper chest wall NEUROLOGIC: The patient is oriented to person, place and time. Strength and sensation are grossly intact. Face is symmetric. SKIN: Normal color, turgor and temperature. No ulcerations or rashes noted. Impression: Acute respiratory failure with hypoxia secondary to bilateral moderate Covid 19 pneumonia, unvaccinated with pneumomediastinum and subcu emphysema Atrial fibrillation with RVR Elevated liver function likely underlying fatty liver Hyperglycemia suspect diabetes mellitus type 2 HTN Melana Obesity, BMI greater than 40 Plan: Acute respiratory failure with hypoxia secondary to bilateral moderate Covid 19 pneumonia, unvaccinated with pneumomediastinum and subcu emphysema: Patient stable. Continue to monitor CRP and Ferritin. Continue to wean off CPAP currently on 80%. He remains on IV Solumedrol and Baricinitib. Will adjust Lantus for better control. Will adjust Metoprolol for rate control. Will add back on Lovenox 1 mg/kg sc BID. Will have dietary address daily needs. Will add Lovenox for A fib anticoagulation and monitor stool. Will discuss with Pulmonary and Cardiology. Continue to pursue LTAC. Atrial fibrillation with RVR: Continue oral amiodarone. Increase metoprolol for better rate control. Will discuss with Cardiology. Elevated liver function likely underlying fatty liver: Liver function test remains elevated but stable. Will continue to monitor and trend liver function test. Pharmacy monitor and adjust medication Hyperglycemia suspect diabetes mellitus type 2: Blood sugars elevated. A1c 6.9, new DM. Now on Metformin and Lantus. Continue with sliding scale and Lantus as the patient is on IV Solu-Medrol. Will continue to adjust Lantus for better control. Monitor and address appropriately. Lantus increased today. Will have dietary address daily needs. HTN: Continue metoprolol. Melana: ASA and Eliquis was discontinued along with NSAIDS. Will add back Krys enox for a fib anticoagulation. Increase Protonix to BID. Will monitor stool H/H stable. No need for CT ab for now. Will monitor closely. Obesity, BMI greater than 40: Lifestyle modification education provided. Code Status: Full Code DVT prophylaxis: Lovenox Advanced Care Planning-30 minutes: Awaiting approval for long-term acute care facility placement. Time Spent Managing Pts Care (In Minutes): 55
[2021-01-30] MEDS: ENOXAPARIN 100 MG/ML SYR SQ SCH ×2 (08:19→20:41)
[2021-01-30] MEDS: VITAMIN D 1000 UNIT TAB PO SCH (08:19)
[2021-01-30] MEDS: AMIODARONE HCL 200 MG TAB PO SCH ×2 (08:20→20:43)
[2021-01-30] MEDS: ZINC SULFATE 220 MG CAP PO SCH (08:20)
[2021-01-30] MEDS: METOPROLOL TAR 25 MG TAB PO SCH ×2 (08:20→20:43)
[2021-01-30] MEDS: THIAMINE HCL 100 MG TABLET PO SCH (08:20)
[2021-01-30] MEDS: INSULIN GLARGINE 100 UNITS/ML SQ SCH ×2 (08:20→20:41)
[2021-01-30] MEDS: METFORMIN HCL 500 MG TAB PO SCH ×2 (08:20→18:02)
[2021-01-30] MEDS: GUAIFENESIN/CODEINE 5ML UCUP PO SCH ×4 (08:20→20:44)
[2021-01-30] MEDS: ASCORBIC ACID 500 MG TABLET PO SCH ×3 (08:20→20:44)
[2021-01-30] MEDS: PANTOPRAZOLE 40 MG INJ IVP SCH ×2 (08:21→20:43)
[2021-01-30] MEDS: NYSTATIN 500,000 UNIT/5 ML UDC PO SCH ×3 (08:21→20:43)
[2021-01-30] MEDS: CEFTRIAXONE/SWI 1gm 1 GM/10 ML SYR IV SCH (08:27)
[2021-01-30] MEDS: LACTOBACILLUS/ACIDOPHILUS TAB PO SCH ×2 (08:27→20:43)
[2021-01-30] MEDS: BARICITINIB 2 MG TABLET PO SCH (08:28)
[2021-01-30 13:49] LABS: Absolute Lymphocytes (CBC) 0.7 K/uL (0.7-4.9); Basophils % 0.1 % (0-1.3); Hematocrit 41.1 % (39.6-49.0); Lymphocytes % 3.5 % (15.3-44.8); MPV 10.1 fL (7.6-11.3); RBC Red Blood Cell Count 4.89 M/uL (4.33-5.43)
[2021-01-30 14:31] LABS: Blood Morphology Comment NOT SEEN (NOT SEEN); Platelet Estimate INCR
[2021-01-31] MEDS: INSULIN -REGULAR HUMAN 50 UNIT/0.5 ML ML SQ SCH ×5 (00:07→23:59)
[2021-01-31] MEDS: METHYLPREDNISOLONE 125 MG INJ IV SCH ×3 (00:12→17:54)
[2021-01-31] MEDS: VITAL HP 1,000 ML BOT FT SCH ×6 (00:13→19:52)
[2021-01-31 05:31] LABS: Absolute Lymphocytes (CBC) 0.8 K/uL (0.7-4.9); Basophils % 0.2 % (0-1.3); Hematocrit 39.4 % (39.6-49.0); Lymphocytes % 3.6 % (15.3-44.8); MPV 10.3 fL (7.6-11.3); RBC Red Blood Cell Count 4.68 M/uL (4.33-5.43)
[2021-01-31 05:49] LABS: ALT/SGPT 193 U/L (12-78); AST/SGOT 22 U/L (15-37); Albumin 2.7 g/dL (3.4-5.0); Alkaline Phosphatase 58 U/L (45-117); BUN Blood Urea Nitrogen 42 mg/dL (7-18); Bicarbonate 29 mmol/L (21-32); Bilirubin Total 0.5 mg/dL (0.2-1.0); Ferritin 930.5 ng/mL (26-388); Glucose Level 293 mg/dL (74-106); Magnesium 2.5 mg/dL (1.8-2.4); Potassium 4.7 mmol/L (3.5-5.1); Protein, Total 6.2 g/dL (6.4-8.2); Sodium Level 140 mmol/L (136-145)
[2021-01-31 05:52] LABS: C-Reactive Protein < 2.90 mg/L (<3.00)
--- NOTE | 2021-01-31 05:53 | P.PN ---
Subjective Date of Service: 01/31/21 Primary Care Provider: None Chief Complaint: Resp failure from COVID Subjective: Doing well, Other (Patient feeling better. HR better. Currently on CPAP at 80. No distress noted.) Physical Examination - Vital Signs Temperature: 97.1 F Blood Pressure: 128/78 Pulse: 112 Respirations: 40 Pulse Ox (%): 96 - Studies Medications List Reviewed: Yes Assessment & Plan Discharge Plan: LTAC Plan to discharge in: 48 Hours Physician Review Additional Text: CT scan: FINDINGS: No pulmonary emboli are identified. Far peripheral branch assessment is difficult due to motion. The aorta as imaged shows no acute or suspicious finding. No pericardial thickening or effusion. Extensive bilateral airspace opacification present most pronounced in the right upper lobe in each lung base. Given the provided history this is consistent with moderate severity COVID-19 pneumonia. No pleural effusion or pleural thickening. No mediastinal or hilar suspicious masses. No chest wall masses or abnormal axillary lymphadenopathy. IMPRESSION: No pulmonary emboli identified. Moderate severity bilateral COVID-19 pneumonia. Follow up CXR 01/25/2021: COMPARISON: Chest Single View dated 01/26/2021; Chest Single View dated 01/25/2021; Chest Single View dated 01/24/2021; Abdomen 1 View (KUB) dated 01/23/2021 FINDINGS: Re- demonstrated widespread bilateral airspace disease. No significant change from yesterday's chest radiograph. Pneumomediastinum and extensive subcutaneous emphysema again noted. The heart size is within normal limits. No fractures seen. Enteric tube noted. IMPRESSION: No significant change from 01/26/2021 with widespread airspace disease compatible with multifocal pneumonia. Physical Exam: GENERAL: Alert cooperative. No deficits. VITAL SIGNS: Reviewed HEENT: Neck supple patient appears well-hydrated. Dobbhoff in place NECK: Supple. No carotid bruits. No lymphadenopathy or thyromegaly. LUNGS: Patient sitting up to the chair. Patient does not appear labored. Air movement improved but still decreased. Subcutaneous emphysema noted to the upper chest. CPAP at 80% HEART: A fib, rate around 110-120 ABDOMEN: Soft, nontender, and nondistended. Positive bowel sounds. No hepatosplenomegaly was noted. EXTREMITIES: Some slight subcutaneous emphysema noted to the upper chest wall, Edema to the lower ext. NEUROLOGIC: The patient is oriented to person, place and time. Strength and sensation are grossly intact. Face is symmetric. SKIN: Normal color, turgor and temperature. No ulcerations or rashes noted. Impression: Acute respiratory failure with hypoxia secondary to bilateral moderate Covid 19 pneumonia, unvaccinated with pneumomediastinum and subcu emphysema Atrial fibrillation with RVR Elevated liver function likely underlying fatty liver Hyperglycemia suspect diabetes mellitus type 2 HTN Melana Edema Obesity, BMI greater than 40 Plan: Acute respiratory failure with hypoxia secondary to bilateral moderate Covid 19 pneumonia, unvaccinated with pneumomediastinum and subcu emphysema: Patient stable. CRP improved but Ferritin slightly higher today. Will give Lasix 40 mg times one today due to dependent edema to the lower ext. May need to continue with lasix 20 mg daily until improved. Continue to monitor CRP and Ferritin. Continue to wean off CPAP currently on 80%. He remains on IV Solumedrol and Baricinitib. Also on Rocephin to cover for opportunistic infection. WBC stable. Will continued to adjust Lantus for better control. Metoprolol adjusted yesterday for better rate control. Also on Amidoarone orally. Was placed back on Lovenox 1 mg/kg sc BID. Will have dietary address daily needs. Will continue to discuss with Pulmonary and Cardiology. Approved for LTAC. Will discuss with Cardiology, Pulmonary and Respiratory this am to determine if stable for Transport. I anticipate dc to LTAC later today. Atrial fibrillation with RVR: Continue oral amiodarone. Metoprolol was increased for better rate control. Will continued to discuss with Cardiology. Elevated liver function likely underlying fatty liver: Liver function test remains elevated but stable. Will continue to monitor and trend liver function test. Pharmacy monitor and adjust medication Hyperglycemia suspect diabetes mellitus type 2: Blood sugars elevated. A1c 6.9, new DM. Now on Metformin and Lantus. Continue with sliding scale and Lantus as the patient is on IV Solu-Medrol. Will continue to adjust Lantus for better control. Monitor and address appropriately. Lantus increased today. Will have dietary address daily needs. HTN: Continue metoprolol. Melana: ASA and Eliquis was discontinued along with NSAIDS. Now back on Lovenox for a fib anticoagulation. On Protonix to BID. Will monitor stool H/H stable. No need for CT ab for now. Will monitor closely. Edema: Will provide Lasix 40 mg times one. Will continue with Lasix 20 mg daily until improved. Obesity, BMI greater than 40: Lifestyle modification education provided. Code Status: Full Code DVT prophylaxis: Lovenox Advanced Care Planning-30 minutes: Approval for long-term acute care facility placement. Likely dc to LTAC later today Time Spent Managing Pts Care (In Minutes): 55
[2021-01-31] MEDS ORDERED: FUROSEMIDE 40 MG/4 ML VIAL IV ONE (07:14)
--- NOTE | 2021-01-31 07:15 | RAD REPORT ---
EXAM DESCRIPTION: RAD - Chest Single View - 01/31/2021 5:56 am CLINICAL HISTORY: Resp failure COMPARISON: January 30, January 29 TECHNIQUE: AP portable chest image was obtained 01/31/2021 5:56 am . FINDINGS: Low lung volume exam again shows diffuse airspace opacification not clearly different from the 2 comparison studies. Feeding tube in place extending below the diaphragm, off the field of view . Extensive subcutaneous emphysema again noted. Heart and vasculature are normal. No measurable pleur al effusion and no pneumothorax. No acute bony abnormality seen. No acute aortic findings suspected. IMPRESSION: Stable chest as detailed. No identifiable changes from January 30 imaging.
[2021-01-31] MEDS: VITAMIN D 1000 UNIT TAB PO SCH (08:52)
[2021-01-31] MEDS: THIAMINE HCL 100 MG TABLET PO SCH (08:52)
[2021-01-31] MEDS: ENOXAPARIN 100 MG/ML SYR SQ SCH ×2 (08:52→19:54)
[2021-01-31] MEDS: LACTOBACILLUS/ACIDOPHILUS TAB PO SCH ×2 (08:52→19:54)
[2021-01-31] MEDS: PANTOPRAZOLE 40 MG INJ IVP SCH (08:52)
[2021-01-31] MEDS: AMIODARONE HCL 200 MG TAB PO SCH ×2 (08:52→19:53)
[2021-01-31] MEDS: METFORMIN HCL 500 MG TAB PO SCH ×2 (08:52→17:54)
[2021-01-31] MEDS: CEFTRIAXONE/SWI 1gm 1 GM/10 ML SYR IV SCH (08:53)
[2021-01-31] MEDS: NYSTATIN 500,000 UNIT/5 ML UDC PO SCH ×3 (08:53→19:55)
[2021-01-31] MEDS: METOPROLOL TAR 25 MG TAB PO SCH ×2 (08:53→19:54)
[2021-01-31] MEDS: ASCORBIC ACID 500 MG TABLET PO SCH ×3 (08:53→19:55)
[2021-01-31] MEDS: ZINC SULFATE 220 MG CAP PO SCH (08:53)
[2021-01-31] MEDS: INSULIN GLARGINE 100 UNITS/ML SQ SCH ×2 (08:55→19:58)
[2021-01-31] MEDS: FUROSEMIDE 20 MG/ 2ML VIAL IV SCH (08:57)
[2021-01-31] MEDS: GUAIFENESIN/CODEINE 5ML UCUP PO SCH ×4 (08:57→19:55)
[2021-01-31] MEDS: BARICITINIB 2 MG TABLET PO SCH (08:58)
--- NOTE | 2021-01-31 10:10 | P.PN ---
Subjective Date of Service: 01/31/21 Primary Care Provider: None Chief Complaint: Resp failure from COVID Coperative/ unable to wean off BIPAP/ sig desaturation. Whti colored stools. HGB stable Review of Systems General: Weakness Respiratory: Shortness of Breath Physical Examination - Vital Signs Temperature: 97.1 F Blood Pressure: 139/94 Pulse: 125 Respirations: 40 Pulse Ox (%): 96 - Studies Medications List Reviewed: Yes Assessment & Plan - Problems (Diagnosis) (1) COVID-19 Current Visit: Yes Status: Acute Plan: Resp failure uable to wean of BIPAP. Sig desat/ Mroon colored stools. HGB stable. Agree with low dose lasix// CXRY ILD with sQ emphsyema/ labs rev/ Dobut sepsis/ Change to PO AB, Cefurozime/PO,WBC stable/
[2021-01-31 13:23] LABS: Arterial Blood Carboxyhemoglob 1.1 % (0-1.5); Blood Gas Oxyhemoglobin 94.1 % (94-97); Blood O2 Saturation 96.1 % (92-98.5)
[2021-01-31] MEDS ORDERED: PANTOPRAZOLE 40MG TABLET PO SCH (16:30)
[2021-01-31] MEDS: CEFUROXIME 250 MG TAB PO SCH (19:53)
[2021-01-31] MEDS: Pantoprazole (granules) 40 MG/BLIST PACKET FT SCH (19:55)
[2021-02-01] MEDS: VITAL HP 1,000 ML BOT FT SCH ×6 (00:18→20:10)
[2021-02-01] MEDS: METHYLPREDNISOLONE 125 MG INJ IV SCH ×3 (00:18→17:53)
[2021-02-01 05:17] LABS: Absolute Lymphocytes (CBC) 0.8 K/uL (0.7-4.9); Basophils % 0.2 % (0-1.3); Hematocrit 40.6 % (39.6-49.0); Lymphocytes % 3.5 % (15.3-44.8); RBC Red Blood Cell Count 4.84 M/uL (4.33-5.43)
[2021-02-01 05:30] LABS: ALT/SGPT 205 U/L (12-78); AST/SGOT 28 U/L (15-37); Albumin 2.8 g/dL (3.4-5.0); Alkaline Phosphatase 58 U/L (45-117); BUN Blood Urea Nitrogen 44 mg/dL (7-18); Bicarbonate 29 mmol/L (21-32); Bilirubin Total 0.5 mg/dL (0.2-1.0); Ferritin 1197.4 ng/mL (26-388); Glucose Level 317 mg/dL (74-106); Magnesium 2.5 mg/dL (1.8-2.4); Potassium 4.8 mmol/L (3.5-5.1); Protein, Total 6.3 g/dL (6.4-8.2); Sodium Level 139 mmol/L (136-145)
[2021-02-01 05:31] LABS: C-Reactive Protein < 2.90 mg/L (<3.00)
--- NOTE | 2021-02-01 05:56 | P.PN ---
Subjective Date of Service: 02/01/21 Primary Care Provider: None Chief Complaint: Resp failure from COVID Subjective: Doing well Physical Examination - Vital Signs Temperature: 96.9 F Blood Pressure: 144/86 Pulse: 121 Respirations: 34 Pulse Ox (%): 92 - Studies Medications List Reviewed: Yes Assessment & Plan Discharge Plan: LTAC Plan to discharge in: Greater than 2 days Physician Review Additional Text: CT scan: FINDINGS: No pulmonary emboli are identified. Far peripheral branch assessment is difficult due to motion. The aorta as imaged shows no acute or suspicious finding. No pericardial thickening or effusion. Extensive bilateral airspace opacification present most pronounced in the right upper lobe in each lung base. Given the provided history this is consistent with moderate severity COVID-19 pneumonia. No pleural effusion or pleural thickening. No mediastinal or hilar suspicious masses. No chest wall masses or abnormal axillary lymphadenopathy. IMPRESSION: No pulmonary emboli identified. Moderate severity bilateral COVID-19 pneumonia. Follow up CXR 01/25/2021: COMPARISON: Chest Single View dated 01/26/2021; Chest Single View dated 01/25/2021; Chest Single View dated 01/24/2021; Abdomen 1 View (KUB) dated 01/23/2021 FINDINGS: Re- demonstrated widespread bilateral airspace disease. No significant change from yesterday's chest radiograph. Pneumomediastinum and extensive subcutaneous emphysema again noted. The heart size is within normal limits. No fractures seen. Enteric tube noted. IMPRESSION: No significant change from 01/26/2021 with widespread airspace disease compatible with multifocal pneumonia. Physical Exam: GENERAL: Alert cooperative. No deficits. VITAL SIGNS: Reviewed HEENT: Neck supple patient appears well-hydrated. Dobbhoff in place NECK: Supple. No carotid bruits. No lymphadenopathy or thyromegaly. LUNGS: Patient sitting up to the chair. Patient does not appear labored. Air movement improved but still decreased. Subcutaneous emphysema noted to the upper chest. CPAP at 80% HEART: A fib, rate around 110-120 ABDOMEN: Soft, nontender, and nondistended. Positive bowel sounds. No hepatosplenomegaly was noted. EXTREMITIES: Some slight subcutaneous emphysema noted to the upper chest wall, Edema to the lower ext. NEUROLOGIC: The patient is oriented to person, place and time. Strength and sensation are grossly intact. Face is symmetric. SKIN: Normal color, turgor and temperature. No ulcerations or rashes noted. Impression: Acute respiratory failure with hypoxia secondary to bilateral moderate Covid 19 pneumonia, unvaccinated with pneumomediastinum and subcu emphysema Atrial fibrillation with RVR Elevated liver function likely underlying fatty liver Hyperglycemia suspect diabetes mellitus type 2 HTN Melana Edema Obesity, BMI greater than 40 Plan: Acute respiratory failure with hypoxia secondary to bilateral moderate Covid 19 pneumonia, unvaccinated with pneumomediastinum and subcu emphysema: Patient stable. CRP improved but Ferritin slightly higher today. Continue with Lasix 20 mg daily. Continue to monitor CRP and Ferritin. Continue to wean off CPAP currently on 80%. He remains on IV Solumedrol and Baricinitib. Pulmonary plans to adjust CPAP. He also changed Rocephin to oral medication. Continue with Amidoarone orally. Currently on Lovenox 1 mg/kg sc BID. Will have dietary address daily needs. Will continue to discuss with Pulmonary and Cardiology. Approved for LTAC but still not stable to transfer. Will monitor closely. Atrial fibrillation with RVR: Continue oral amiodarone. Metoprolol was decreased. May need to decrease if bradycardia noted. Elevated liver function likely underlying fatty liver: Liver function test remains elevated but stable. Will continue to monitor and trend liver function test. Pharmacy monitor and adjust medication Hyperglycemia suspect diabetes mellitus type 2: Blood sugars elevated. A1c 6.9, new DM. Now on Metformin and Lantus. Continue with sliding scale and Lantus as the patient is on IV Solu-Medrol. Will continue to adjust Lantus for better control. Monitor and address appropriately. Lantus increased today. Will have dietary address daily needs. HTN: Continue metoprolol. Melana: ASA and Eliquis was discontinued along with NSAIDS. Now back on Lovenox for a fib anticoagulation. On Protonix to BID. Will monitor stool H/H stable. No need for CT ab for now. Will monitor closely. Edema: Will continue with Lasix 20 mg daily until improved. Obesity, BMI greater than 40: Lifestyle modification education provided. Code Status: Full Code DVT prophylaxis: Lovenox Advanced Care Planning-30 minutes: Approval for long-term acute care facility placement but unstable for transfer. Likely dc to LTAC later today Time Spent Managing Pts Care (In Minutes): 55
[2021-02-01] MEDS: INSULIN -REGULAR HUMAN 50 UNIT/0.5 ML ML SQ SCH ×3 (06:08→17:51)
[2021-02-01] MEDS: CEFUROXIME 250 MG TAB PO SCH ×2 (08:13→20:10)
[2021-02-01] MEDS: ZINC SULFATE 220 MG CAP PO SCH (08:13)
[2021-02-01] MEDS: VITAMIN D 1000 UNIT TAB PO SCH (08:13)
[2021-02-01] MEDS: LACTOBACILLUS/ACIDOPHILUS TAB PO SCH ×2 (08:13→20:10)
[2021-02-01] MEDS: FUROSEMIDE 20 MG/ 2ML VIAL IV SCH (08:14)
[2021-02-01] MEDS: BARICITINIB 2 MG TABLET PO SCH (08:14)
[2021-02-01] MEDS: ASCORBIC ACID 500 MG TABLET PO SCH ×3 (08:14→20:11)
[2021-02-01] MEDS: Pantoprazole (granules) 40 MG/BLIST PACKET FT SCH ×2 (08:14→20:11)
[2021-02-01] MEDS: GUAIFENESIN/CODEINE 5ML UCUP PO SCH ×4 (08:14→20:11)
[2021-02-01] MEDS: METFORMIN HCL 500 MG TAB PO SCH ×2 (08:14→17:51)
[2021-02-01] MEDS: AMIODARONE HCL 200 MG TAB PO SCH ×2 (08:14→20:10)
[2021-02-01] MEDS: NYSTATIN 500,000 UNIT/5 ML UDC PO SCH ×3 (08:14→20:12)
[2021-02-01] MEDS: THIAMINE HCL 100 MG TABLET PO SCH (08:14)
[2021-02-01] MEDS: INSULIN GLARGINE 100 UNITS/ML SQ SCH ×2 (08:15→20:14)
[2021-02-01] MEDS: ENOXAPARIN 100 MG/ML SYR SQ SCH ×2 (08:15→20:11)
[2021-02-01] MEDS: METOPROLOL TAR 25 MG TAB PO SCH ×2 (08:16→20:11)
--- NOTE | 2021-02-01 10:33 | P.PN ---
Subjective Date of Service: 02/01/21 Primary Care Provider: None Chief Complaint: Resp failure from COVID Stable/ unable tpo come off BIPAP Review of Systems General: Weakness Respiratory: Shortness of Breath Physical Examination - Vital Signs Temperature: 96.9 F Blood Pressure: 144/86 Pulse: 121 Respirations: 34 Pulse Ox (%): 92 - Studies Medications List Reviewed: Yes Assessment & Plan - Problems (Diagnosis) (1) COVID-19 Current Visit: Yes Status: Acute Plan: RResp failure, Try slightly higher level of EPAP/ HGB stabel doubt GIB Episodic sig bradycardia. Change To Eliquis POCW low dose lasix, CXYR no change/can decrease on fio2/CW Ldose B dinora
--- NOTE | 2021-02-01 10:47 | RAD REPORT ---
EXAM DESCRIPTION: [facility] Single View02/01/2021 6:55 am CLINICAL HISTORY: Respiratory failure COMPARISON: January 31, 2021 FINDINGS: No change in extensive bilateral pulmonary opacities, pneumomediastinum and subcutaneous emphysema. Feeding tube enters the stomach. The tip is not clearly visualized IMPRESSION: No significant change since the prior examination
[2021-02-01] MEDS: LORazepam 2 MG/ML VIAL IV PRN (13:00)
[2021-02-01] MEDS: METOPROLOL TARTRATE 5 MG/5 ML INJ IV PRN (18:56)
[2021-02-02] MEDS: VITAL HP 1,000 ML BOT FT SCH ×6 (00:22→19:44)
[2021-02-02] MEDS: METHYLPREDNISOLONE 125 MG INJ IV SCH ×3 (00:23→17:08)
[2021-02-02] MEDS: INSULIN -REGULAR HUMAN 50 UNIT/0.5 ML ML SQ SCH ×4 (00:50→17:07)
[2021-02-02 05:14] LABS: Absolute Lymphocytes (CBC) 0.7 K/uL (0.7-4.9); Basophils % 0.2 % (0-1.3); Hematocrit 39.1 % (39.6-49.0); Lymphocytes % 3.3 % (15.3-44.8); MPV 10.3 fL (7.6-11.3); RBC Red Blood Cell Count 4.66 M/uL (4.33-5.43)
[2021-02-02 06:08] LABS: ALT/SGPT 240 U/L (12-78); AST/SGOT 35 U/L (15-37); Albumin 2.8 g/dL (3.4-5.0); Alkaline Phosphatase 55 U/L (45-117); BUN Blood Urea Nitrogen 44 mg/dL (7-18); Bicarbonate 30 mmol/L (21-32); Glucose Level 276 mg/dL (74-106); Magnesium 2.3 mg/dL (1.8-2.4); Potassium 4.5 mmol/L (3.5-5.1); Protein, Total 6.1 g/dL (6.4-8.2); Sodium Level 139 mmol/L (136-145)
[2021-02-02 06:18] LABS: C-Reactive Protein < 2.90 mg/L (<3.00)
[2021-02-02 06:28] LABS: Bilirubin Total 0.6 mg/dL (0.2-1.0)
--- NOTE | 2021-02-02 07:31 | RAD REPORT ---
EXAM DESCRIPTION: RAD - Chest Single View - 02/02/2021 6:49 am CLINICAL HISTORY: Resp failure COMPARISON: Chest Single View dated 02/01/2021; Chest Single View dated 01/31/2021; Chest Single View dated 01/30/2021; Chest Single View dated 01/29/2021 FINDINGS: Mild improved aeration of right lung though there are persistent widespread bilateral airs pace opacities. The heart size is within normal limits.No acute osseous abnormality. No significant p leural effusions or pneumothorax. Enteric tube again noted. Subcutaneous emphysema noted. IMPRESSION: Mild improved aeration of the right lung compared with yesterday. The left lung is simil ar. Persistent widespread bilateral airspace disease consistent with multifocal pneumonia/ARDS.
[2021-02-02] MEDS: VITAMIN D 1000 UNIT TAB PO SCH (07:59)
[2021-02-02] MEDS: LACTOBACILLUS/ACIDOPHILUS TAB PO SCH ×2 (07:59→19:44)
[2021-02-02] MEDS: THIAMINE HCL 100 MG TABLET PO SCH (07:59)
[2021-02-02] MEDS: ZINC SULFATE 220 MG CAP PO SCH (07:59)
[2021-02-02] MEDS: METOPROLOL TAR 25 MG TAB PO SCH ×2 (07:59→19:45)
[2021-02-02] MEDS: ASCORBIC ACID 500 MG TABLET PO SCH ×3 (08:00→19:47)
[2021-02-02] MEDS: METFORMIN HCL 500 MG TAB PO SCH ×2 (08:00→17:07)
[2021-02-02] MEDS: CEFUROXIME 250 MG TAB PO SCH ×2 (08:00→19:44)
[2021-02-02] MEDS: FUROSEMIDE 20 MG/ 2ML VIAL IV SCH (08:00)
[2021-02-02] MEDS: AMIODARONE HCL 200 MG TAB PO SCH ×2 (08:00→19:44)
[2021-02-02] MEDS: NYSTATIN 500,000 UNIT/5 ML UDC PO SCH ×3 (08:01→19:45)
[2021-02-02] MEDS: Pantoprazole (granules) 40 MG/BLIST PACKET FT SCH ×2 (08:01→19:46)
[2021-02-02] MEDS: ENOXAPARIN 100 MG/ML SYR SQ SCH ×2 (08:01→19:45)
[2021-02-02] MEDS: GUAIFENESIN/CODEINE 5ML UCUP PO SCH ×4 (08:01→19:46)
[2021-02-02] MEDS: INSULIN GLARGINE 100 UNITS/ML SQ SCH ×2 (08:02→21:00)
[2021-02-02] MEDS: BARICITINIB 2 MG TABLET PO SCH (08:02)
--- NOTE | 2021-02-02 10:32 | P.PN ---
Subjective Date of Service: 02/02/21 Primary Care Provider: None Chief Complaint: Resp failure from COVID Subjective: Improving, Other (Currently on CPAP at 80%) Physical Examination - Vital Signs Temperature: 98.1 F Blood Pressure: 117/87 Pulse: 131 Respirations: 28 Pulse Ox (%): 96 - Studies Medications List Reviewed: Yes Assessment & Plan Discharge Plan: LTAC Plan to discharge in: Greater than 2 days Physician Review Additional Text: CT scan: FINDINGS: No pulmonary emboli are identified. Far peripheral branch assessment is difficult due to motion. The aorta as imaged shows no acute or suspicious finding. No pericardial thickening or effusion. Extensive bilateral airspace opacification present most pronounced in the right upper lobe in each lung base. Given the provided history this is consistent with moderate severity COVID-19 pneumonia. No pleural effusion or pleural thickening. No mediastinal or hilar suspicious masses. No chest wall masses or abnormal axillary lymphadenopathy. IMPRESSION: No pulmonary emboli identified. Moderate severity bilateral COVID-19 pneumonia. Follow up CXR 01/25/2021: COMPARISON: Chest Single View dated 02/01/2021; Chest Single View dated 01/31/2021; Chest Single View dated 01/30/2021; Chest Single View dated 01/29/2021 FINDINGS: Mild improved aeration of right lung though there are persistent widespread bilateral airspace opacities. The heart size is within normal limits.No acute osseous abnormality. No significant pleural effusions or pneumo thorax. Enteric tube again noted. Subcutaneous emphysema noted. IMPRESSION: Mild improved aeration of the right lung compared with yesterday. The left lung is similar. Persistent widespread bilateral airspace disease consistent with multifocal pneumonia/ARDS. Physical Exam: GENERAL: Alert cooperative. No deficits. VITAL SIGNS: Reviewed HEENT: Neck supple patient appears well-hydrated. Dobbhoff in place NECK: Supple. No carotid bruits. No lymphadenopathy or thyromegaly. LUNGS: Patient sitting up to the chair. Patient does not appear labored. Air movement improved but still decreased. Subcutaneous emphysema noted to the upper chest. CPAP at 80% HEART: A fib, rate around 110-120 ABDOMEN: Soft, nontender, and nondistended. Positive bowel sounds. No hepatosplenomegaly was noted. EXTREMITIES: Some slight subcutaneous emphysema noted to the upper chest wall, Edema to the lower ext. NEUROLOGIC: The patient is oriented to person, place and time. Strength and sensation are grossly intact. Face is symmetric. SKIN: Normal color, turgor and temperature. No ulcerations or rashes noted. Impression: Acute respiratory failure with hypoxia secondary to bilateral moderate Covid 19 pneumonia, unvaccinated with pneumomediastinum and subcu emphysema Atrial fibrillation with RVR Elevated liver function likely underlying fatty liver Hyperglycemia suspect diabetes mellitus type 2 HTN Melana Edema Obesity, BMI greater than 40 Plan: Acute respiratory failure with hypoxia secondary to bilateral moderate Covid 19 pneumonia, unvaccinated with pneumomediastinum and subcu emphysema: Patient remained stable. CRP remains normal. Ferritin improved. Continue with Lasix 20 mg IV daily. We will monitor this closely. Continue to wean off CPAP. Continue IV Solumedrol and Baricinitib. Patient currently on Ceftin to cover for opportunistic infection. Patient remains on oral amiodarone. Continue Lovenox at 1 mg/kilogram subcu twice daily. Consider changing Lovenox to Eliquis tomorrow. Patient has been approved for LTAC but still not able to transfer safely. This can be reevaluated tomorrow. I will go plan of care with hospitalist who will take over tomorrow. Atrial fibrillation with RVR: Continue oral amiodarone. Metoprolol was decreased. Overall stable. May need to decrease further if bradycardia noted. Patient remains on Lovenox. Consider transitioning to Eliquis in the next 2 days. Elevated liver function likely underlying fatty liver: Liver function test remains elevated but stable. Will continue to monitor and trend liver function test. Pharmacy monitor and adjust medication Hyperglycemia suspect diabetes mellitus type 2: Blood sugars elevated. A1c 6.9, new DM. Now on Metformin and Lantus. Continue with sliding scale and Lantus as the patient is on IV Solu-Medrol. Will continue to adjust Lantus for better control. Monitor and address appropriately. Lantus increased today. Will have dietary address daily needs. HTN: Continue metoprolol. This has been decreased. Will monitor for bradycardia. Melana: ASA and Eliquis was discontinued along with NSAIDS. Now back on Lovenox for a fib anticoagulation. Consider switching back to Eliquis over the next 2 days. On Protonix to BID. Will monitor stool H/H stable. No need for CT ab for now. Will monitor closely. Edema: Will continue with Lasix 20 mg IV daily until improved. Obesity, BMI greater than 40: Lifestyle modification education provided. Code Status: Full Code DVT prophylaxis: Lovenox Advanced Care Planning-30 minutes: Approval for long-term acute care facility placement but unstable for transfer. Reevaluate tomorrow for possible transfer to LTAC if stable for transfer Time Spent Managing Pts Care (In Minutes): 55
[2021-02-02] MEDS: METOPROLOL TARTRATE 5 MG/5 ML INJ IV PRN (14:38)
[2021-02-02] MEDS ORDERED: ONDANSETRON 4 MG (ODT) TAB PO ONE (15:12)
--- NOTE | 2021-02-02 15:14 | P.PN ---
Subjective Date of Service: 02/02/21 Primary Care Provider: None Chief Complaint: Resp failure from COVID Stable/ unable tpo come off BIPAP/NC Physical Examination - Vital Signs Temperature: 97.5 F Blood Pressure: 133/88 Pulse: 130 Respirations: 38 Pulse Ox (%): 90 - Studies Medications List Reviewed: Yes Assessment & Plan - Problems (Diagnosis) (1) COVID-19 Current Visit: Yes Status: Acute Plan: Resp failure/ O2 requiremetns still high/ HGB stable/ poss improvement oncxry/CW tube feeds
[2021-02-03] MEDS: VITAL HP 1,000 ML BOT FT SCH ×7 (00:07→23:59)
[2021-02-03] MEDS: INSULIN -REGULAR HUMAN 50 UNIT/0.5 ML ML SQ SCH ×4 (00:09→17:18)
[2021-02-03] MEDS: METHYLPREDNISOLONE 125 MG INJ IV SCH ×3 (00:09→17:18)
[2021-02-03] MEDS: METOPROLOL TARTRATE 5 MG/5 ML INJ IV PRN (03:38)
[2021-02-03 06:30] LABS: Absolute Lymphocytes (CBC) 0.7 K/uL (0.7-4.9); Basophils % 0.1 % (0-1.3); Hematocrit 38.7 % (39.6-49.0); Lymphocytes % 2.7 % (15.3-44.8); MPV 10.9 fL (7.6-11.3); RBC Red Blood Cell Count 4.61 M/uL (4.33-5.43)
[2021-02-03 06:31] LABS: Potassium 4.6 mmol/L (3.5-5.1); Sodium Level 136 mmol/L (136-145)
[2021-02-03 06:59] LABS: AST/SGOT 46 U/L (15-37); Albumin 2.9 g/dL (3.4-5.0); Alkaline Phosphatase 53 U/L (45-117); BUN Blood Urea Nitrogen 68 mg/dL (7-18); Bicarbonate 28 mmol/L (21-32); Bilirubin Total 0.5 mg/dL (0.2-1.0); Ferritin 1205.8 ng/mL (26-388); Glucose Level 358 mg/dL (74-106); Protein, Total 6.2 g/dL (6.4-8.2)
[2021-02-03 07:02] LABS: C-Reactive Protein < 2.90 mg/L (<3.00)
[2021-02-03 07:06] LABS: ALT/SGPT 314 U/L (12-78)
[2021-02-03] MEDS: BARICITINIB 2 MG TABLET PO SCH (09:00)
[2021-02-03 09:13] LABS: Blood Morphology Comment NOT SEEN (NOT SEEN); Platelet Estimate ADEQ
--- NOTE | 2021-02-03 10:37 | P.PN ---
Subjective Date of Service: 02/03/21 (TV) Primary Care Provider: None Chief Complaint: Resp failure from COVID NC Still hypoxic. unable to come off BIPAP Review of Systems General: Weakness Respiratory: Shortness of Breath Physical Examination - Vital Signs Temperature: 96.8 F Blood Pressure: 124/86 Pulse: 140 Respirations: 34 Pulse Ox (%): 94 - Physical Exam General: Alert, Cooperative - Studies Medications List Reviewed: Yes Assessment & Plan - Problems (Diagnosis) (1) COVID-19 Current Visit: Yes Status: Acute Plan: Resp failure. Tachycardic/ LFT worse/ DC Barcitinib/Add Doxy,WBC elevated/on amiodarone and B blockers/ o2 requirement stable/ NSR/ CPAP 12/ repeat ivermectin
--- NOTE | 2021-02-03 11:17 | RAD REPORT ---
EXAM DESCRIPTION: RAD - Chest Single View - 02/03/2021 5:57 am CLINICAL HISTORY: Resp failure Chest pain. COMPARISON: Chest Single View dated 02/02/2021; Chest Single View dated 02/01/2021; Chest Single View dated 01/31/2021; Chest Single View dated 01/30/2021 FINDINGS: Portable technique limits examination quality. Little overall change is seen in the appearance of the chest since yesterday's study. Extensive bilat eral pulmonary opacities and prominent subcutaneous emphysema is again seen. The heart is normal in s ize. IMPRESSION: Stable chest since yesterday's study.
[2021-02-03] MEDS: ENOXAPARIN 100 MG/ML SYR SQ SCH ×2 (11:47→20:23)
[2021-02-03] MEDS: INSULIN GLARGINE 100 UNITS/ML SQ SCH ×2 (11:47→20:24)
[2021-02-03] MEDS: GUAIFENESIN/CODEINE 5ML UCUP PO SCH ×4 (11:47→20:23)
[2021-02-03] MEDS: THIAMINE HCL 100 MG TABLET PO SCH (11:47)
[2021-02-03] MEDS: ZINC SULFATE 220 MG CAP PO SCH (11:48)
[2021-02-03] MEDS: AMIODARONE HCL 200 MG TAB PO SCH ×2 (11:48→20:20)
[2021-02-03] MEDS: LACTOBACILLUS/ACIDOPHILUS TAB PO SCH ×2 (11:48→20:20)
[2021-02-03] MEDS: METFORMIN HCL 500 MG TAB PO SCH ×2 (11:48→17:18)
[2021-02-03] MEDS: ASCORBIC ACID 500 MG TABLET PO SCH ×3 (11:48→20:23)
[2021-02-03] MEDS: VITAMIN D 1000 UNIT TAB PO SCH (11:48)
[2021-02-03] MEDS: METOPROLOL TAR 25 MG TAB PO SCH ×2 (11:48→20:22)
[2021-02-03] MEDS: FUROSEMIDE 20 MG/ 2ML VIAL IV SCH (11:49)
[2021-02-03] MEDS: NYSTATIN 500,000 UNIT/5 ML UDC PO SCH ×3 (11:49→20:23)
[2021-02-03] MEDS: IVERMECTIN 3 MG TABLET PO SCH ×2 (11:50→13:01)
[2021-02-03] MEDS: DOXYCYCLINE 100 MG CAP PO SCH ×2 (11:50→20:23)
[2021-02-03] MEDS: Pantoprazole (granules) 40 MG/BLIST PACKET FT SCH ×2 (12:46→20:24)
[2021-02-03] MEDS: CEFUROXIME 250 MG TAB PO SCH ×2 (12:46→20:19)
[2021-02-03] MEDS: ONDANSETRON 4 MG/2 ML VIAL IV PRN (15:01)
[2021-02-04] MEDS: METHYLPREDNISOLONE 125 MG INJ IV SCH ×4 (00:13→23:54)
[2021-02-04] MEDS: INSULIN -REGULAR HUMAN 50 UNIT/0.5 ML ML SQ SCH ×5 (00:14→23:55)
[2021-02-04] MEDS: VITAL HP 1,000 ML BOT FT SCH ×6 (03:59→23:55)
[2021-02-04 04:48] LABS: Absolute Lymphocytes (CBC) 1.3 K/uL (0.7-4.9); Basophils % 0.2 % (0-1.3); Hematocrit 37.5 % (39.6-49.0); Lymphocytes % 4.5 % (15.3-44.8); MPV 10.9 fL (7.6-11.3); RBC Red Blood Cell Count 4.48 M/uL (4.33-5.43)
[2021-02-04 05:40] LABS: AST/SGOT 46 U/L (15-37); Albumin 3.1 g/dL (3.4-5.0); Alkaline Phosphatase 54 U/L (45-117); BUN Blood Urea Nitrogen 87 mg/dL (7-18); Bicarbonate 30 mmol/L (21-32); Bilirubin Total 0.6 mg/dL (0.2-1.0); Glucose Level 211 mg/dL (74-106); Potassium 4.6 mmol/L (3.5-5.1); Protein, Total 6.3 g/dL (6.4-8.2); Sodium Level 140 mmol/L (136-145)
[2021-02-04 05:41] LABS: C-Reactive Protein < 2.90 mg/L (<3.00)
[2021-02-04 05:42] LABS: ALT/SGPT 384 U/L (12-78)
--- NOTE | 2021-02-04 07:08 | RAD REPORT ---
EXAM DESCRIPTION: RAD - Chest Single View - 02/04/2021 5:57 am CLINICAL HISTORY: Resp failure COMPARISON: February 03, February 02 TECHNIQUE: AP portable chest image was obtained 02/04/2021 5:57 am . FINDINGS: Lung volumes are very low accentuating heart, vasculature and lung markings. Film techniqu e and body habitus affects further accentuate the chest findings. Lung parenchymal opacification is p resent. Pattern is not clearly different from comparison when adjusting for the exam limitations. Fee ding tube extends below the diaphragm, off the field of view. Curvilinear density near each apex is p otentially small pneumothorax. These can be monitored on subsequent imaging. Heart and vasculature are normal. No measurable pleural effusion. Extensive subcutaneous emphysema a gain noted. No acute aortic findings suspected. IMPRESSION: No substantial change to the bilateral lung parenchymal opacification pattern since February 03 imaging. Questionable very small bilateral apical pneumothorax. This can be monitored on subsequent imaging.
[2021-02-04] MEDS: METFORMIN HCL 500 MG TAB PO SCH ×2 (08:00→17:32)
[2021-02-04] MEDS: LACTOBACILLUS/ACIDOPHILUS TAB PO SCH ×2 (09:00→21:22)
[2021-02-04] MEDS: THIAMINE HCL 100 MG TABLET PO SCH (09:00)
[2021-02-04] MEDS: ZINC SULFATE 220 MG CAP PO SCH (09:00)
[2021-02-04] MEDS: INSULIN GLARGINE 100 UNITS/ML SQ SCH ×2 (09:00→20:41)
[2021-02-04] MEDS: ENOXAPARIN 100 MG/ML SYR SQ SCH (09:00)
[2021-02-04] MEDS: AMIODARONE HCL 200 MG TAB PO SCH ×2 (09:00→21:17)
[2021-02-04] MEDS: FUROSEMIDE 20 MG/ 2ML VIAL IV SCH (09:00)
[2021-02-04] MEDS: VITAMIN D 1000 UNIT TAB PO SCH (09:00)
[2021-02-04] MEDS: METOPROLOL TAR 25 MG TAB PO SCH (09:00)
[2021-02-04] MEDS: GUAIFENESIN/CODEINE 5ML UCUP PO SCH ×2 (09:00→13:00)
[2021-02-04] MEDS: ASCORBIC ACID 500 MG TABLET PO SCH ×3 (09:00→21:18)
[2021-02-04] MEDS: NYSTATIN 500,000 UNIT/5 ML UDC PO SCH ×3 (09:00→21:18)
--- NOTE | 2021-02-04 10:09 | P.PN ---
Date of Service: 02/04/21 Subjective Patient is doing poorly. Patient continues to become hypoxic on any kind of movement. He also slipped down on his chair. His prognosis remains poor. Will probably need to proceed with intubation. Review of Systems 10-point ROS is otherwise unremarkable Physical Examination - Vital Signs Reviewed - Physical Exam General: Alert, In no apparent distress, Oriented x3; remains on CPAP support Respiratory: Diminished, Rhonchi/gurgles Cardiovascular: Regular rate/rhythm, Normal S1 S2 Gastrointestinal: Normal bowel sounds, No tenderness Neurological: Normal speech, Normal tone, Normal affect Assessment & Plan - Problems (Diagnosis) (1) Pneumonia due to COVID-19 virus Current Visit: Yes Status: Acute (2) Hypertension Current Visit: Yes Status: Acute (3) Morbid obesity Current Visit: Yes Status: Acute (4) NAYA with uremia Current Visit: Yes Status: Acute (5) Acute liver injury Current Visit: Yes Status: Acute - Plan Continue with plan of care as mentioned below: 1. Continue with IV steroids 2. Patient continues to do poorly. Currently on CPAP support. 3. Spoke with family regarding prognosis. Continue to talk to them regarding long-term plan of care. 4. Monitor renal function and liver function. Patient with uremia 5. Pulmonary consultation appreciated 6. Continue with albuterol inhaler therapy; also supportive care 7. Monitor LFTs and renal function 8. GI and DVT prophylaxis
--- NOTE | 2021-02-04 10:09 | P.PN ---
Date of Service: 02/03/21 Subjective Patient remains hypoxic. Patient gets tachypneic with little exertion. Clinically patient is not really improving unfortunately. Review of Systems 10-point ROS is otherwise unremarkable Physical Examination - Vital Signs Reviewed - Physical Exam General: Alert, In no apparent distress, Oriented x3 Respiratory: Diminished, Rhonchi/gurgles Cardiovascular: Regular rate/rhythm, Normal S1 S2 Gastrointestinal: Normal bowel sounds, No tenderness Neurological: Normal speech, Normal tone, Normal affect Assessment & Plan - Problems (Diagnosis) (1) Pneumonia due to COVID-19 virus Current Visit: Yes Status: Acute (2) Hypertension Current Visit: Yes Status: Acute (3) Morbid obesity Current Visit: Yes Status: Acute (4) NAYA with uremia Current Visit: Yes Status: Acute (5) Acute liver injury Current Visit: Yes Status: Acute - Plan Continue with plan of care as mentioned below: 1. Continue with IV steroids 2. Monitor inflammatory markers 3. Repeat chest x-ray after changing CPAP settings 4. O2 per protocol 5. Pulmonary consultation appreciated 6. Continue with albuterol inhaler therapy; also supportive care 7. Monitor LFTs and renal function 8. GI and DVT prophylaxis
[2021-02-04] MEDS: Pantoprazole (granules) 40 MG/BLIST PACKET FT SCH ×2 (10:18→21:00)
[2021-02-04] MEDS: CEFUROXIME 250 MG TAB PO SCH ×2 (10:18→21:17)
[2021-02-04] MEDS: DOXYCYCLINE 100 MG CAP PO SCH ×2 (10:18→21:18)
[2021-02-04] MEDS: DILTIAZEM HCL 60 MG TAB PO SCH ×2 (14:30→21:00)
--- NOTE | 2021-02-04 17:11 | P.PN ---
Subjective Date of Service: 02/04/21 Primary Care Provider: None Chief Complaint: Resp failure from COVID NC unable to tolerte coming off BIPAP/ Still tachycardic Review of Systems General: Weakness Physical Examination - Vital Signs Temperature: 98.5 F Blood Pressure: 113/56 Pulse: 129 Respirations: 37 Pulse Ox (%): 83 - Studies Medications List Reviewed: Yes Assessment & Plan - Problems (Diagnosis) (1) COVID-19 Current Visit: Yes Status: Acute Plan: Resp failure/ NC/ D/C lasix, BUn elevated/ chagne to PO eliquis. HGB stable/ prognosis poor 100% Fio2/ DC Metroprolol and change to Ditiazem, PT tachycardic SR
--- NOTE | 2021-02-04 18:12 | RAD REPORT ---
EXAM DESCRIPTION: RAD - Chest Single View - 02/04/2021 5:31 pm CLINICAL HISTORY: pneumonia Chest pain. COMPARISON: Chest Single View dated 02/04/2021; Chest Single View dated 02/03/2021; Chest Single View dated 02/02/2021; Chest Single View dated 02/01/2021 FINDINGS: Portable technique limits examination quality. Bilateral pulmonary opacities have mildly improved since comparative study. Heart size is mildly prom inent. Extensive subcutaneous emphysema is unchanged.Enteric tube descends into the stomach.
[2021-02-04] MEDS: PROMETHAZINE INJ 25 MG/ML AMP IV PRN (18:16)
[2021-02-04] MEDS ORDERED: MORPHINE 2 MG/ML SYR ONE (18:52)
[2021-02-04] MEDS ORDERED: HYDROMORPHONE HCL 2 MG/ML inj ONE (18:55)
[2021-02-04] MEDS ORDERED: ACETAMINOPHEN 500 MG TAB PO ONE (20:12)
[2021-02-04] MEDS ORDERED: ACETAMINOPHEN 500 MG TAB ONE (20:40)
[2021-02-04] MEDS: APIXABAN 5 MG TABLET PO SCH (21:17)
[2021-02-04] MEDS: FAMOTIDINE 20 MG TAB PO SCH (21:18)
[2021-02-05] MEDS: VITAL HP 1,000 ML BOT FT SCH ×6 (03:59→23:59)
[2021-02-05 04:42] LABS: Absolute Lymphocytes (CBC) 0.8 K/uL (0.7-4.9); Basophils % 0.2 % (0-1.3); Hematocrit 30.7 % (39.6-49.0); Lymphocytes % 3.2 % (15.3-44.8); MPV 10.8 fL (7.6-11.3); RBC Red Blood Cell Count 3.64 M/uL (4.33-5.43)
[2021-02-05 05:09] LABS: AST/SGOT 41 U/L (15-37); Albumin 2.7 g/dL (3.4-5.0); Alkaline Phosphatase 44 U/L (45-117); BUN Blood Urea Nitrogen 101 mg/dL (7-18); Bicarbonate 30 mmol/L (21-32); Bilirubin Total 0.6 mg/dL (0.2-1.0); Ferritin 856.5 ng/mL (26-388); Glucose Level 243 mg/dL (74-106); Magnesium 3.3 mg/dL (1.8-2.4); Potassium 4.6 mmol/L (3.5-5.1); Protein, Total 5.7 g/dL (6.4-8.2); Sodium Level 141 mmol/L (136-145)
[2021-02-05 05:19] LABS: C-Reactive Protein < 2.90 mg/L (<3.00)
[2021-02-05 05:20] LABS: ALT/SGPT 311 U/L (12-78)
[2021-02-05] MEDS: INSULIN -REGULAR HUMAN 50 UNIT/0.5 ML ML SQ SCH ×3 (05:53→17:59)
[2021-02-05] MEDS: AMIODARONE HCL 200 MG TAB PO SCH (09:00)
[2021-02-05] MEDS: DILTIAZEM HCL 60 MG TAB PO SCH ×4 (09:00→20:34)
[2021-02-05] MEDS: FAMOTIDINE 20 MG TAB PO SCH ×2 (09:52→20:35)
[2021-02-05] MEDS: DOXYCYCLINE 100 MG CAP PO SCH ×2 (09:52→20:34)
[2021-02-05] MEDS: VITAMIN D 1000 UNIT TAB PO SCH (09:52)
[2021-02-05] MEDS: ASCORBIC ACID 500 MG TABLET PO SCH ×3 (09:52→20:35)
[2021-02-05] MEDS: ZINC SULFATE 220 MG CAP PO SCH (09:53)
[2021-02-05] MEDS: APIXABAN 5 MG TABLET PO SCH ×2 (09:53→20:34)
[2021-02-05] MEDS: THIAMINE HCL 100 MG TABLET PO SCH (09:53)
[2021-02-05] MEDS: LACTOBACILLUS/ACIDOPHILUS TAB PO SCH ×2 (09:53→20:34)
[2021-02-05] MEDS: METFORMIN HCL 500 MG TAB PO SCH ×2 (09:53→17:59)
[2021-02-05] MEDS: INSULIN GLARGINE 100 UNITS/ML SQ SCH ×2 (09:54→20:37)
[2021-02-05] MEDS: NYSTATIN 500,000 UNIT/5 ML UDC PO SCH ×3 (09:55→20:36)
[2021-02-05] MEDS: METHYLPREDNISOLONE 125 MG INJ IV SCH ×2 (09:55→17:59)
[2021-02-05] MEDS: Pantoprazole (granules) 40 MG/BLIST PACKET FT SCH ×2 (09:57→20:37)
[2021-02-05] MEDS: IVERMECTIN 3 MG TABLET PO SCH (09:57)
[2021-02-05] MEDS: CEFUROXIME 250 MG TAB PO SCH ×2 (09:57→20:35)
[2021-02-05] MEDS ORDERED: HYDROMORPHONE HCL 1 MG/ML INJ IV ONE (12:40)
[2021-02-05] MEDS ORDERED: HYDROMORPHONE HCL 0.5 MG/0.5 ML INJ IV PRN (21:36)
[2021-02-06] MEDS: METHYLPREDNISOLONE 125 MG INJ IV SCH ×3 (00:48→17:59)
[2021-02-06] MEDS: INSULIN -REGULAR HUMAN 50 UNIT/0.5 ML ML SQ SCH ×4 (00:48→18:00)
[2021-02-06] MEDS: VITAL HP 1,000 ML BOT FT SCH ×6 (03:59→23:59)
[2021-02-06 06:07] LABS: Absolute Lymphocytes (CBC) 0.5 K/uL (0.7-4.9); Lymphocytes % 1.9 % (15.3-44.8); MPV 10.6 fL (7.6-11.3); RBC Red Blood Cell Count 3.03 M/uL (4.33-5.43)
[2021-02-06 06:11] LABS: Albumin 2.6 g/dL (3.4-5.0); Bilirubin Total 0.5 mg/dL (0.2-1.0); Magnesium 3.3 mg/dL (1.8-2.4); Phosphorus 3.9 mg/dL (2.5-4.9); Potassium 4.7 mmol/L (3.5-5.1); Protein, Total 5.4 g/dL (6.4-8.2)
[2021-02-06 09:12] LABS: Blood Morphology Comment NOT SEEN (NOT SEEN); Platelet Estimate ADEQ
[2021-02-06] MEDS: NYSTATIN 500,000 UNIT/5 ML UDC PO SCH ×3 (09:42→20:55)
[2021-02-06] MEDS: FAMOTIDINE 20 MG TAB PO SCH (09:42)
[2021-02-06] MEDS: VITAMIN D 1000 UNIT TAB PO SCH (09:42)
[2021-02-06] MEDS: LACTOBACILLUS/ACIDOPHILUS TAB PO SCH ×2 (09:42→20:54)
[2021-02-06] MEDS: METFORMIN HCL 500 MG TAB PO SCH ×2 (09:42→16:24)
[2021-02-06] MEDS: ZINC SULFATE 220 MG CAP PO SCH (09:42)
[2021-02-06] MEDS: THIAMINE HCL 100 MG TABLET PO SCH (09:42)
[2021-02-06] MEDS: APIXABAN 5 MG TABLET PO SCH ×2 (09:42→20:54)
[2021-02-06] MEDS: DOXYCYCLINE 100 MG CAP PO SCH (09:43)
[2021-02-06] MEDS: CEFUROXIME 250 MG TAB PO SCH (09:43)
[2021-02-06] MEDS: Pantoprazole (granules) 40 MG/BLIST PACKET FT SCH (09:43)
[2021-02-06] MEDS: DILTIAZEM HCL 60 MG TAB PO SCH ×2 (09:43→13:53)
[2021-02-06] MEDS: ASCORBIC ACID 500 MG TABLET PO SCH ×3 (09:44→20:54)
[2021-02-06] MEDS: INSULIN GLARGINE 100 UNITS/ML SQ SCH ×2 (09:44→20:55)
[2021-02-06] MEDS ORDERED: NOREPINEPHRINE 8 MG in D5W 250 ML IV PRN (11:55)
[2021-02-06 12:23] LABS: Arterial Blood Carboxyhemoglob 1.5 % (0-1.5); Blood Gas Oxyhemoglobin 50.2 % (94-97); Blood O2 Saturation 51.8 % (92-98.5)
--- NOTE | 2021-02-06 12:24 | RAD REPORT ---
EXAM DESCRIPTION: RAD - Abdomen 1 View (K[facility]) - 02/06/2021 12:16 pm CLINICAL HISTORY: Device placement nasogastric tube placement FINDINGS: A nasogastric tube lies within the lateral gastric fundus
--- NOTE | 2021-02-06 12:29 | RAD REPORT ---
EXAM DESCRIPTION: Sirena Single View02/06/2021 12:16 pm CLINICAL HISTORY: Endotracheal tube placement FINDINGS: Endotracheal tube with its tip at the truman. Nasogastric tube enters the right mainstem bronchus with its tip in the right lower lobe Lucency within the lower left hemithorax may represent a pneumothorax Nurse Chastity notified at 12:23 p.m. February 06, 2021
[2021-02-06] MEDS ORDERED: D5W 1,000 ML with NA BICARB 8.4% 150 MEQ IV SCH ×2 (14:00)
[2021-02-06] MEDS: D5W 1,000 ML with NA BICARB 8.4% 150 MEQ IV SCH ×2 (14:00)
--- NOTE | 2021-02-06 16:40 | P.PN ---
Subjective Date of Service: 02/06/21 Primary Care Provider: None Chief Complaint: Resp failure from COVID unresponsive today. Intubated on vesopressors Physical Examination - Vital Signs Temperature: 98.6 F Blood Pressure: 121/69 Pulse: 111 Respirations: 22 Pulse Ox (%): 87 - Physical Exam General: Comatose - Studies Medications List Reviewed: Yes Assessment & Plan - Problems (Diagnosis) (1) COVID-19 Current Visit: Yes Status: Acute Plan: Condtion owrse on vent/ on PC 100%/ CXRY reviewed/ prog very poor
[2021-02-06] MEDS: DEXTROSE 5% IV PRN (16:44)
[2021-02-06] MEDS: WATER IV PRN (16:44)
[2021-02-06] MEDS: PHENYLEPHRINE HCL IV PRN (16:44)
[2021-02-06] MEDS: NOREPINEPHRINE 16 MG in Dextrose 5%-Water 500 ML IV PRN (16:45)
[2021-02-06] MEDS ORDERED: HYDROMORPHONE HCL 0.5 MG/0.5 ML INJ IV PRN (17:16)
[2021-02-06] MEDS: LORazepam 2 MG/ML VIAL IV PRN (17:18)
[2021-02-06] MEDS ORDERED: EPINEPHrine 4 MG in NA CHLORIDE 0.9% 250 ML IV PRN (18:14)
[2021-02-06] MEDS ORDERED: SODIUM CHLORIDE 0.9% 10ML INJ IV PRN (20:14)
[2021-02-06] MEDS: FENTANYL CITR 100 MCG/2 ML IV PRN (20:54)
[2021-02-06] MEDS: PANTOPRAZOLE 40 MG INJ IVP SCH (20:56)
[2021-02-07] MEDS ORDERED: INSULIN -REGULAR HUMAN 50 UNIT/0.5 ML ML IV ONE (00:24)
[2021-02-07] MEDS: INSULIN -REGULAR HUMAN 50 UNIT/0.5 ML ML SQ SCH ×4 (00:41→18:31)
[2021-02-07] MEDS: METHYLPREDNISOLONE 125 MG INJ IV SCH ×3 (00:41→18:31)
[2021-02-07] MEDS: D5W 1,000 ML with NA BICARB 8.4% 150 MEQ IV SCH ×6 (00:42→23:37)
[2021-02-07] MEDS: NOREPINEPHRINE 16 MG in Dextrose 5%-Water 500 ML IV PRN ×3 (00:43→21:01)
[2021-02-07] MEDS: LORazepam 2 MG/ML VIAL IV PRN ×5 (01:09→22:21)
[2021-02-07] MEDS: PHENYLEPHRINE HCL IV PRN ×2 (01:34→10:29)
[2021-02-07] MEDS: WATER IV PRN ×2 (01:34→10:29)
[2021-02-07] MEDS: DEXTROSE 5% IV PRN ×2 (01:34→10:29)
[2021-02-07] MEDS: VITAL HP 1,000 ML BOT FT SCH ×6 (03:59→23:53)
[2021-02-07 05:54] LABS: Arterial Blood Carboxyhemoglob 1.7 % (0-1.5); Blood Gas Oxyhemoglobin 92.1 % (94-97); Blood O2 Saturation 94.9 % (92-98.5)
[2021-02-07 06:38] LABS: Absolute Lymphocytes (CBC) 1.4 K/uL (0.7-4.9); Basophils % 0.1 % (0-1.3); Lymphocytes % 5.6 % (15.3-44.8); MPV 10.3 fL (7.6-11.3); RBC Red Blood Cell Count 2.24 M/uL (4.33-5.43)
[2021-02-07 07:30] LABS: C-Reactive Protein 41.1 mg/L (<3.00); Ferritin 1322.1 ng/mL (26-388); Magnesium 3.2 mg/dL (1.8-2.4); Phosphorus 3.1 mg/dL (2.5-4.9); Potassium 4.2 mmol/L (3.5-5.1)
--- NOTE | 2021-02-07 07:37 | RAD REPORT ---
EXAM DESCRIPTION: Sirena Single View02/07/2021 5:51 am CLINICAL HISTORY: Shortness of breath COMPARISON: February 06 FINDINGS: Endotracheal tube has its tip at the level of the aortic arch. Nasogastric tube coiled wit hin the stomach. Extensive bilateral pulmonary opacities. Pneumomediastinum and subcutaneous emphysema unchanged. A pneumothorax is not visualized on this examination.
--- NOTE | 2021-02-07 07:43 | P.PN ---
Date of Service: 02/05/21 Subjective Patient remains hypoxic. Patient not really want to get out of bed today. Remains on BiPAP support. Patient wants his to be medical prior of attorney law clerk./significant other. They have been living together for 10 years and he wants her to make all his decisions that she also cares for his children. Prognosis is very poor. Review of Systems 10-point ROS is otherwise unremarkable Physical Examination - Vital Signs Reviewed - Physical Exam General: Alert, In no apparent distress, Oriented x3 Respiratory: Diminished, Rhonchi/gurgles Cardiovascular: Regular rate/rhythm, Normal S1 S2 Gastrointestinal: Normal bowel sounds, No tenderness Neurological: Normal speech, Normal tone, Normal affect Assessment & Plan - Problems (Diagnosis) (1) Pneumonia due to COVID-19 virus Current Visit: Yes Status: Acute (2) Hypertension Current Visit: Yes Status: Acute (3) Morbid obesity Current Visit: Yes Status: Acute (4) NAYA with uremia Current Visit: Yes Status: Acute (5) Acute liver injury Current Visit: Yes Status: Acute - Plan Continue with plan of care as mentioned below: 1. Continue with IV steroids 2. Monitor inflammatory markers 3. Continue with BiPAP support 4. O2 per protocol 5. Spoke with Pulmonary at this time we will continue to monitor. 6. Will do nebulizer therapy as well 7. Monitor labs closely and will repeat chest x-ray 8. GI and DVT prophylaxis
--- NOTE | 2021-02-07 07:46 | P.PN ---
Date of Service: 02/06/21 Subjective Patient ended up coding today. Patient became asystole. ACLS protocol was followed for over the next 15 min and we finally got a pulse. Patient was given multiple doses of epi and bicarb. Also given calcium IV push. Patient also need a central line placement. Intubated by Dr. Escudero your physician. Also. Patient may have aspirated. A lot of secretions from the ET tube. Patient prognosis is poor. Spoke with family and notified. Patient's mother came to visit him as well. Patient's significant other is medical prior of deputy attorney general per patient's request. Review of Systems 10-point ROS is otherwise unremarkable Physical Examination - Vital Signs Reviewed - Physical Exam General: Intubated and sedated Respiratory: Diminished, Rhonchi/gurgles Cardiovascular: Regular rate/rhythm, Normal S1 S2 Gastrointestinal: Normal bowel sounds, No tenderness Neurological: Normal speech, Normal tone, Normal affect Assessment & Plan - Problems (Diagnosis) (1) acute respiratory failure secondary to pneumonia due to COVID-19 virus/hypercapnia and hypoxemia/septic shock Current Visit: Yes Status: Acute (2) Hypertension Current Visit: Yes Status: Acute (3) Morbid obesity Current Visit: Yes Status: Acute (4) NAYA with uremia Current Visit: Yes Status: Acute (5) Acute liver injury Current Visit: Yes Status: Acute - Plan Continue with plan of care as mentioned below: 1. Continue vent support per Pulmonary; will also continue current medical therapy. 2. Monitor inflammatory markers 3. Vasopressor support as patient is hypotensive 4. Poor prognosis; spoke with family and at this time patient remains a full code. Will speak to them if patient goes asystole again if they want us to continue ACLS protocol or keep him comfortable. 5. Updated Pulmonary as well 6. Will do nebulizer therapy as well 7. Monitor labs closely and will repeat chest x-ray 8. GI and DVT prophylaxis Critical care time spent on patient care was 60 min
--- NOTE | 2021-02-07 07:50 | P.OP ---
Date of Service: 02/06/21 Findings and Operative Technique Right femoral vein triple-lumen catheter placement Patient was prepped and draped sterilely. Landmarks identified. Femoral artery identified and medially femoral vein was aspirated. Blood return on . Seldinger technique used. Did not need to use any local anesthesia as patient was unresponsive and intubated. All 3 ports were flushed and central line was sutured in place. Will try to get PICC line placement so this can be removed over the next 5-7 days.
--- NOTE | 2021-02-07 07:50 | P.PN ---
Date of Service: 02/07/21 Subjective Patient remains on numerous vasopressors. Currently on Mack-Synephrine and Levophed is still hypotensive. Continue with aggressive hydration and monitor renal function closely. Minimal urine output and creatinine continues to worsen. Spoke with common-law for prolonged period and allowed her to visit the patient. Prognosis is poor at this time as patient is on multiple vasopressors and not really waking up appropriately. Review of Systems Unable to obtain Physical Examination - Vital Signs Reviewed - Physical Exam General: Intubated and minimally sedated; unresponsive Respiratory: Diminished, Rhonchi/gurgles Cardiovascular: Regular rate/rhythm, Normal S1 S2 Gastrointestinal: Normal bowel sounds, No tenderness Neurological: Normal speech, Normal tone, Normal affect Genitourinary: Winters in place; minimal urine output Assessment & Plan - Problems (Diagnosis) (1) Acute respiratory failure secondary to pneumonia due to COVID-19 virus/hypercapnia and hypoxemia/septic shock Current Visit: Yes Status: Acute (2) Hypertension Current Visit: Yes Status: Acute (3) Morbid obesity Current Visit: Yes Status: Acute (4) NAYA with uremia Current Visit: Yes Status: Acute (5) Acute liver injury Current Visit: Yes Status: Acute - Plan Continue with plan of care as mentioned below: 1. Continue vent support per Pulmonary; will also continue current medical therapy. 2. Continue IV steroids 3. Vasopressor support as patient is hypotensive; continue on Levophed and Mack- Synephrine 4. Poor prognosis; spoke with family and at this time patient remains a full code. Spoke to patient's home common-law who is medical prior of environmental attorney appointed by the patient. At this time, patient will remain a full code 5. Continue with IV antibiotic therapy 6. Continue with IV hydration 7. Echocardiogram with no significant abnormalities 8. GI and DVT prophylaxis Critical care time spent on patient care was 35 min
[2021-02-07] MEDS: METFORMIN HCL 500 MG TAB PO SCH (07:53)
[2021-02-07] MEDS: NYSTATIN 500,000 UNIT/5 ML UDC PO SCH ×3 (07:54→21:00)
[2021-02-07] MEDS: LACTOBACILLUS/ACIDOPHILUS TAB PO SCH ×2 (07:54→21:01)
[2021-02-07] MEDS: ASCORBIC ACID 500 MG TABLET PO SCH (07:54)
[2021-02-07] MEDS: THIAMINE HCL 100 MG TABLET PO SCH (07:54)
[2021-02-07] MEDS: ZINC SULFATE 220 MG CAP PO SCH (07:55)
[2021-02-07] MEDS: APIXABAN 5 MG TABLET PO SCH (07:55)
[2021-02-07] MEDS: VITAMIN D 1000 UNIT TAB PO SCH (07:55)
[2021-02-07] MEDS: PANTOPRAZOLE 40 MG INJ IVP SCH ×2 (08:00→21:01)
[2021-02-07] MEDS: INSULIN GLARGINE 100 UNITS/ML SQ SCH ×2 (08:00→21:02)
[2021-02-07 08:10] LABS: Blood Morphology Comment NOTED (NOT SEEN); Platelet Estimate ADEQ
[2021-02-07 08:11] LABS: Basophilic Stippling 1+
--- NOTE | 2021-02-07 08:24 | P.PN ---
Subjective Date of Service: 02/07/21 Primary Care Provider: None Chief Complaint: Resp failure from COVID/Shock Upper GIB/ Low HGB// On Vaospressors/ Epi off Review of Systems is unable to be obtained Physical Examination - Vital Signs Temperature: 100.3 F Blood Pressure: 128/61 Pulse: 89 Respirations: 24 Pulse Ox (%): 94 - Physical Exam General: Comatose - Studies Medications List Reviewed: Yes Assessment & Plan - Problems (Diagnosis) (1) COVID-19 Current Visit: Yes Status: Acute Plan: resp failure/ CXRY diffuse ILD/ Pt to be transfused 2U/ Renal failure/ prog very poor
[2021-02-07] MEDS: CEFTRIAXONE/SWI 1gm 1 GM/10 ML SYR IV SCH (08:47)
[2021-02-07] MEDS ORDERED: NA CHLORIDE 0.9% 250 ML ONE ×2 (10:49→16:39)
[2021-02-07] MEDS ORDERED: ACETAMINOPHEN 650MG/RECT SUPP PR ONE ×2 (11:19→14:34)
--- NOTE | 2021-02-07 11:28 | RAD REPORT ---
EXAM DESCRIPTION: Sirena Single View02/06/2021 10:11 pm CLINICAL HISTORY: The patient is 40 years old and is Male; adjustment of ETT TECHNIQUE: Frontal view of the chest. COMPARISON: Chest radiograph performed the same day. FINDINGS: LUNGS: Diffuse interstitial infiltrates are noted throughout the lungs. PLEURAL SPACE: Suggestion of a small left pneumothorax is redemonstrated. HEART: The cardiac fluid is stable. MEDIASTINUM: Unremarkable. BONES/JOINTS: Unremarkable. SOFT TISSUES: Extensive subcutaneous emphysema is present. TUBES, LINES AND DEVICES: There has been replacement of enteric tube with the tip in the gastric fundus. The endotracheal tube tip has been retracted and is approximately 6 cm superior to the truman . IMPRESSION: 1. Support structures in appropriate position. 2. Otherwise, grossly stable appearance of the chest. Electronically signed by: Cecy Mendieta MD 02/06/2021 10:39 PM CDT Due to temporary technical issues with the PACS/Fluency reporting system, reports are being signed by the in house radiologists without review as a courtesy to insure prompt reporting. The interpreting radiologist is fully responsible for the content of the report.
[2021-02-07] MEDS ORDERED: NA CHLORIDE 0.9% 1,000 ML IV ONE (14:09)
[2021-02-07] MEDS ORDERED: EPINEPHrine 1 MG/10 ML SYR IV ONE (14:09)
[2021-02-07] MEDS ORDERED: Caclcium Chloride 10% INJ SYR IV ONE (14:09)
[2021-02-07] MEDS ORDERED: ACETAMINOPHEN 325 MG/SUPP PR ONE (15:00)
[2021-02-07] MEDS: FENTANYL CITR 100 MCG/2 ML IV PRN (21:03)
[2021-02-07 22:35] LABS: Hematocrit 23.1 % (39.6-49.0)
[2021-02-07] MEDS: MIDAZOLAM HCL 2 MG/2 ML INJ IV PRN (22:37)
[2021-02-07 22:48] LABS: Potassium 4.3 mmol/L (3.5-5.1)
[2021-02-07] MEDS ORDERED: MIDAZOLAM HCL 2 MG/2 ML INJ ONE (22:49)
[2021-02-08] MEDS: METHYLPREDNISOLONE 125 MG INJ IV SCH ×3 (00:06→16:44)
[2021-02-08] MEDS: INSULIN -REGULAR HUMAN 50 UNIT/0.5 ML ML SQ SCH ×5 (00:06→23:52)
[2021-02-08] MEDS: MIDAZOLAM HCL 2 MG/2 ML INJ IV PRN ×3 (03:40→11:54)
[2021-02-08] MEDS: VITAL HP 1,000 ML BOT FT SCH ×6 (03:41→23:52)
[2021-02-08] MEDS: LORazepam 2 MG/ML VIAL IV PRN ×2 (03:50→13:54)
[2021-02-08 04:49] LABS: Absolute Lymphocytes (CBC) 0.4 K/uL (0.7-4.9); Basophils % 0.1 % (0-1.3); MPV 10.3 fL (7.6-11.3); RBC Red Blood Cell Count 2.57 M/uL (4.33-5.43)
[2021-02-08 05:22] LABS: C-Reactive Protein 23.5 mg/L (<3.00); Ferritin 885.2 ng/mL (26-388); Magnesium 3.1 mg/dL (1.8-2.4); Phosphorus 4.5 mg/dL (2.5-4.9); Potassium 4.3 mmol/L (3.5-5.1)
[2021-02-08 07:08] LABS: Arterial Blood Carboxyhemoglob 1.9 % (0-1.5); Blood Gas Oxyhemoglobin 88.1 % (94-97); Blood O2 Saturation 90.7 % (92-98.5)
--- NOTE | 2021-02-08 07:51 | RAD REPORT ---
EXAM DESCRIPTION: RAD - Chest Single View - 02/08/2021 6:36 am CLINICAL HISTORY: Eval Pneumo/covid COMPARISON: Chest Single View dated 02/07/2021; Chest Single View dated 02/06/2021; Abdomen 1 View ([facility]) dated 02/06/2021; Chest Single View dated 02/06/2021 FINDINGS: Endotracheal tube and NG tube in similar positioning. Improving aeration in the right lung compared with 02/07/2021. There are still widespread bilateral airspace disease is now left eccentri c. Cardiomegaly. Improving subcutaneous emphysema. No pneumothorax is appreciated. IMPRESSION: No pneumothorax appreciated. Mild improved aeration of the right lung compared with 01/11. Support apparatus is stable.
[2021-02-08] MEDS: PANTOPRAZOLE 40 MG INJ IVP SCH ×2 (08:27→20:34)
[2021-02-08] MEDS: INSULIN GLARGINE 100 UNITS/ML SQ SCH ×2 (08:28→20:34)
[2021-02-08] MEDS: LACTOBACILLUS/ACIDOPHILUS TAB PO SCH ×2 (08:28→20:34)
[2021-02-08] MEDS: ZINC SULFATE 220 MG CAP PO SCH (08:28)
[2021-02-08] MEDS: NYSTATIN 500,000 UNIT/5 ML UDC PO SCH ×3 (08:29→20:34)
[2021-02-08] MEDS: CEFTRIAXONE/SWI 1gm 1 GM/10 ML SYR IV SCH (08:29)
--- NOTE | 2021-02-08 10:30 | P.CNS ---
Date of Consult: 02/08/21 Reason for Consult: NAYA Requesting Physician: Hossein Richardson Primary Care Provider: None Chief Complaint: Resp failure from COVID/Shock History of Present Illness: 40 yo HM admitted to the hospital with 5-7 days with moderate, progressive dyspnea with associated malaise, fatigue and myalgia in the setting of COVID-19. Today he was seen and examined in the ICU due to NAYA in the setting of septic shock, acute respiratory failure and severe anemia. Limited HPI/ ROS due to critical illness. 40-year-old male with no past medical history. Patient presents with increasing shortness of breath, fatigue and body aches. Patient also reported some fever. Patient has been ill over the past 5 days. He was tested positive recently for Covid. His symptoms did not improve. Patient continued to have increasing shortness of breath and fever. He came to the ER for further evaluation. Patient is unvaccinated Patient was seen and evaluated in the ER. In the ER patient was found to be hypoxic with room air saturations around 50%. Patient febrile. Patient tachypneic and tachycardic initially but improved. White count 6.2, hemoglobin 14.4. Platelet count 241. Sodium 137, creatinine 1.2 with a GFR 65. Glucose 169. Ferritin 1317. CRP 124. D-dimer elevated at 553. Procalcitonin 0.49. AST 202, ALT 141. CT scan shows moderate Covid pneumonia. Negative for pulmonary embolism. Patient given IV Solu-Medrol in the emergency room. Patient was placed on BiPAP. Patient admitted for further evaluation and treatment. 08:43 This 40 yrs old Male presents to ER via Unassigned with complaints of rn Shortness Of Breath. 08:43 The patient has shortness of breath at rest, with light activity. Onset: The rn symptoms/episode began/occurred this morning. Duration: The symptoms are continuous. The patient's shortness of breath is aggravated by exertion, light activity, talking, walking, is alleviated by nothing. Associated signs and symptoms: Pertinent positives: productive cough, Pertinent negatives: fever, hemoptysis, loss of consciousness. Severity of symptoms: At their worst the symptoms were moderate in the emergency department the symptoms are unchanged. The patient has not experienced similar symptoms in the past. The patient has been recently seen by a physician:. Reports sick for 6 days, tested positive for COVID 5 days ago, increased sob since last night and this morning. No known medical problems, non-smoker, no chronic medical conditions. No chest pain. No hx of dvt/PE. No leg swelling Allergies No Known Allergies Allergy (Verified 09/24/19 21:45) Home medications list reviewed: Yes Home Medications: NK [No Home Meds] 01/16/21 - Past Medical/Surgical History Diabetic: No -: Kidney Stones -: None Psychosocial/ Personal History: Patient lives at home - Family History Mother History Unknown: Yes Medical History: Heart disease, Hypertension Brother History Unknown: Yes Medical History: Heart disease - Social History Smoking Status: Current some day smoker Alcohol use: Yes CD- Drugs: No Caffeine use: No Place of Residence: Home Review of Systems is unable to be obtained Physical Examination Temp Pulse Resp BP Pulse Ox 99.9 F 107 H 25 H 117/59 L 91 02/08/21 08:00 02/08/21 10:00 02/08/21 10:00 02/08/21 10:00 02/08/21 10:00 General: Unresponsive, Obese HEENT: Atraumatic Neck: Supple Respiratory: Diminished Cardiovascular: Regular rate/rhythm, Edema Gastrointestinal: Soft and benign, Non-distended Musculoskeletal: No clubbing, No contractures Integumentary: No rashes, No cyanosis Neurological: Abnormal tone Blood work reviewed in the chart. Imagings Data: EXAM DESCRIPTION: RAD - Chest Single View - 02/08/2021 6:36 am CLINICAL HISTORY: Eval Pneumo/covid COMPARISON: Chest Single View dated 02/07/2021; Chest Single View dated 02/06/2021; Abdomen 1 View (KUB) dated 02/06/2021; Chest Single View dated 02/06/2021 FINDINGS: Endotracheal tube and NG tube in similar positioning. Improving aeration in the right lung compared with 02/07/2021. There are still widespread bilateral airspace disease is now left eccentric. Cardiomegaly. Improving subcutaneous emphysema. No pneumothorax is appreciated. IMPRESSION: No pneumothorax appreciated. Mild improved aeration of the right lung compared with 02/07/2021. Support apparatus is stable. Conclusions/Impression: NAYA with oliguria may be PreRenal Azotemia vs ATN -No NSAIDs -Continue aguero -Send urine studies -Continue IVF -Will consider renal imaging as needed. Nephrolithiasis Respiratory acidosis, resolved Metabolic Alkalosis -Discontinue Bicarb gtt -Change IVF 1/2NS @100 Hypocalcemia -Start Calcitriol throught FT DM II with hyperglycemia -Continue Lantus -RISS Moderate malnutrition -Maintain nutrition with tube feeds Anemia in chronic illness -Monitor H&H -Transfuse PRBC as needed -Consider Retacrit Sepsis with shock -Continue IVF -Continue vasopressor support -Continue abx COVID-19 PNA Acute hypoxic hypercapnic respiratory failure -Intubated; continue ventilatory support as ordered -Continue high dose IV steroids Toxic Metabolic Encephalopathy due to critical illness -Continue Rocephin Thank you kindly for the consultation. Critical Care: Yes (>30min)
[2021-02-08] MEDS: NACHLORIDE 0.45% 1,000 ML IV SCH ×2 (11:54→22:27)
--- NOTE | 2021-02-08 12:07 | P.PN ---
Subjective Date of Service: 02/08/21 Primary Care Provider: None Chief Complaint: Resp failure from COVID/Shock condition critical/ Renal function is worse Review of Systems is unable to be obtained Physical Examination - Vital Signs Temperature: 99.9 F Blood Pressure: 128/58 Pulse: 105 Respirations: 25 Pulse Ox (%): 91 - Physical Exam General: Unresponsive - Studies Medications List Reviewed: Yes Assessment & Plan - Problems (Diagnosis) (1) COVID-19 Current Visit: Yes Status: Acute Plan: resp failure/ CXRY diffuse ILD/ Pt to be transfused 2U/ Renal failure/ prog very poor (2) Respiratory failure Current Visit: Yes Status: Acute Plan: Resp failure/ Advance ET tube, on 100% Fio2/ WBC declining , HGB stable/ PC 100%/on bicarb drip/ LAbs CXry rev Qualifiers: Chronicity: acute
[2021-02-08] MEDS: CALCITROL 0.25 MCG CAP PO SCH (12:12)
[2021-02-08] MEDS: ACETAMINOPHEN 160 MG/5 ML UCUP PO PRN (12:12)
[2021-02-08] MEDS: HYDROMORPHONE HCL 2 MG/ML inj IV PRN (13:53)
--- NOTE | 2021-02-08 15:41 | RAD REPORT ---
EXAM DESCRIPTION: RAD - Chest Single View - 02/08/2021 2:44 pm CLINICAL HISTORY: intubation COMPARISON: Chest Single View dated 02/08/2021; Chest Single View dated 02/07/2021; Chest Single View dated 02/06/2021; Abdomen 1 View (KUB) dated 02/06/2021 FINDINGS: The endotracheal tube has been advanced/replaced but is above the truman by approximately 2 centimeters in satisfactory position. Again noted is widespread bilateral interstitial airspace dis ease similar to earlier in the day. NG tube noted. IMPRESSION: Endotracheal tube which has been replaced or repositioned with tip approximately 2 centi meter above the truman in satisfactory position. No significant change otherwise.
[2021-02-08 19:23] LABS: Urine Protein/Creatinine Ratio 1.6 ratio (<0.15)
[2021-02-08 19:30] LABS: Urine Appearance CLOUDY (Clear); Urine Bilirubin NEGATIVE (Negative); Urine Blood 3+ (Negative); Urine Color YELLOW (Yellow); Urine Glucose NEGATIVE (Negative); Urine Protein 1+ (Negative); Urine Specific Gravity 1.015 (1.005-1.030); Urine Urobilinogen 0.2 mg/dL (0.2-1.0)
[2021-02-08 19:51] LABS: Urine Bacteria 20-50 /HPF (NONE SEEN); Urine RBC <5 /HPF (NONE SEEN); Urine Urothelial Cells <5 /HPF (NONE SEEN)
[2021-02-09] MEDS: METHYLPREDNISOLONE 125 MG INJ IV SCH ×3 (00:01→16:55)
[2021-02-09] MEDS: HYDROMORPHONE HCL 2 MG/ML inj IV PRN ×2 (00:01→14:57)
[2021-02-09] MEDS: VITAL HP 1,000 ML BOT FT SCH ×6 (03:59→23:59)
[2021-02-09] MEDS: MIDAZOLAM HCL 2 MG/2 ML INJ IV PRN ×2 (04:35→10:26)
[2021-02-09 04:51] LABS: Absolute Lymphocytes (CBC) 0.2 K/uL (0.7-4.9); Basophils % 0.6 % (0-1.3); Lymphocytes % 2.2 % (15.3-44.8); MPV 10.1 fL (7.6-11.3); RBC Red Blood Cell Count 2.32 M/uL (4.33-5.43)
[2021-02-09 05:06] LABS: Hematocrit 20.3 % (39.6-49.0)
[2021-02-09] MEDS: LORazepam 2 MG/ML VIAL IV PRN ×2 (05:40→13:35)
[2021-02-09] MEDS: INSULIN -REGULAR HUMAN 50 UNIT/0.5 ML ML SQ SCH ×3 (06:23→17:00)
[2021-02-09 06:28] LABS: Arterial Blood Carboxyhemoglob 1.9 % (0-1.5); Blood Gas Oxyhemoglobin 93.3 % (94-97); Blood O2 Saturation 96.6 % (92-98.5)
[2021-02-09 07:53] LABS: C-Reactive Protein 13.2 mg/L (<3.00); Ferritin 667.4 ng/mL (26-388); Magnesium 3.1 mg/dL (1.8-2.4); Potassium 4.5 mmol/L (3.5-5.1); Uric Acid 14.3 mg/dL (3.5-7.2)
[2021-02-09] MEDS: ZINC SULFATE 220 MG CAP PO SCH (09:15)
[2021-02-09] MEDS: CEFTRIAXONE/SWI 1gm 1 GM/10 ML SYR IV SCH (09:15)
[2021-02-09] MEDS: CALCITROL 0.25 MCG CAP PO SCH (09:15)
[2021-02-09] MEDS: LACTOBACILLUS/ACIDOPHILUS TAB PO SCH ×2 (09:15→20:15)
[2021-02-09] MEDS: NACHLORIDE 0.45% 1,000 ML IV SCH ×2 (09:16→16:55)
[2021-02-09] MEDS: PANTOPRAZOLE 40 MG INJ IVP SCH ×2 (09:16→20:12)
[2021-02-09] MEDS: INSULIN GLARGINE 100 UNITS/ML SQ SCH ×2 (09:17→20:13)
[2021-02-09] MEDS ORDERED: NA CHLORIDE 0.9% 250 ML ONE (09:24)
--- NOTE | 2021-02-09 10:22 | RAD REPORT ---
EXAM DESCRIPTION: RAD - Chest Single View - 02/09/2021 6:02 am CLINICAL HISTORY: Eval Pneumo/covid Chest pain. COMPARISON: Chest Single View dated 02/08/2021; Chest Single View dated 02/08/2021; Chest Single View dated 02/07/2021; Chest Single View dated 02/06/2021 FINDINGS: Portable technique limits examination quality. Extensive bilateral pulmonary opacities are noted, greater on the left and appearing mildly progressi ve since yesterday's study. The heart is mildly prominent in size. Tip of the endotracheal tube is at the level of the superior margin of the aortic arch.Mild subcutaneous emphysema is seen along the ba se of the neck bilaterally, greater on the left. Enteric tube coils in the stomach. IMPRESSION: Mild worsening is seen in lung aeration since preceding day's study.
--- NOTE | 2021-02-09 10:49 | P.PN ---
Date of Service: 02/08/21 Subjective Patient appears to be waking up; however, not really following commands. Weaning down vasopressor support. Renal function is still very poor and Nephrology consulted. Unsure as to whether patient will need hemodialysis at this time. Monitor labs closely Review of Systems Unable to obtain Physical Examination - Vital Signs Reviewed - Physical Exam General: Intubated and minimally sedated; unresponsive Respiratory: Diminished, Rhonchi/gurgles Cardiovascular: Regular rate/rhythm, Normal S1 S2 Gastrointestinal: Normal bowel sounds, No tenderness Neurological: Unresponsive Genitourinary: Winters in place; minimal urine output Assessment & Plan - Problems (Diagnosis) (1) Acute respiratory failure secondary to pneumonia due to COVID-19 virus/hypercapnia and hypoxemia/septic shock Current Visit: Yes Status: Acute (2) Hypertension Current Visit: Yes Status: Acute (3) Morbid obesity Current Visit: Yes Status: Acute (4) NAYA with uremia Current Visit: Yes Status: Acute (5) Acute liver injury Current Visit: Yes Status: Acute - Plan Continue with plan of care as mentioned below: 1. Continue vent support per Pulmonary; will also continue current medical therapy. 2. Continue IV steroids 3. Vasopressor support as patient is hypotensive; on Levophed at 5mcg/hr at this time 4. Poor prognosis; spoke with family and at this time patient remains a full code. Spoke to patient's home common-law who is medical prior of employee benefits attorney appointed by the patient. At this time, patient will remain a full code 5. Continue with IV antibiotic therapy 6. Continue with IV hydration; monitor UOP 7. Echocardiogram with no significant abnormalities 8. GI and DVT prophylaxis Critical care time spent on patient care was 35 min
--- NOTE | 2021-02-09 10:50 | P.PN ---
Date of Service: 02/09/21 Subjective Patient is overall doing better clinically. Patient was weaned off of vasopressor support. Patient had been on Levophed, Mack-Synephrine, and epinephrine. Urine output has increased a little bit. Renal function worsening. Spoke to Nephrology and may need to arrange for hemodialysis access catheter if creatinine worsens. 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 Review of Systems Unable to obtain Physical Examination - Vital Signs Reviewed - Physical Exam General: Intubated and minimally sedated; unresponsive Respiratory: Basilar crackles Cardiovascular: Regular rate/rhythm, Normal S1 S2 Gastrointestinal: Normal bowel sounds, No tenderness Neurological: Unresponsive Genitourinary: Winters in place; minimal urine output Assessment & Plan - Problems (Diagnosis) (1) Acute respiratory failure secondary to pneumonia due to COVID-19 virus/hypercapnia and hypoxemia/septic shock Current Visit: Yes Status: Acute (2) Hypertension Current Visit: Yes Status: Acute (3) Morbid obesity Current Visit: Yes Status: Acute (4) NAYA with uremia Current Visit: Yes Status: Acute (5) Acute liver injury Current Visit: Yes Status: Acute - Plan Continue with plan of care as mentioned below: 1. Continue vent support per Pulmonary; will also continue current medical therapy. Oxygenation is improving 2. Continue IV steroids 3. We were able to get weaned off of vasopressor support 4. At this time, patient will remain a full code; wants to proceed with whatever treatment that will improve patient 5. Continue with IV antibiotic therapy 6. Continue with IV hydration; monitor UOP; monitor renal function closely 7. Echocardiogram with no significant abnormalities 8. GI and DVT prophylaxis Critical care time spent on patient care was 35 min
[2021-02-09] MEDS ORDERED: FUROSEMIDE 40 MG/4 ML VIAL IV ONE (14:00)
[2021-02-09 16:01] LABS: Hematocrit 22.9 % (39.6-49.0)
[2021-02-09] MEDS ORDERED: CALCIUM GLUC 10% INJ 9.3 MEQ in NA CHLORIDE 0.9% 100 ML IV ONE (19:24)
--- NOTE | 2021-02-09 19:33 | P.PN ---
Date of Service: 02/09/21 Vital Signs Temp Pulse Resp BP Pulse Ox 97.8 F 85 12 156/68 H 96 02/09/21 16:00 02/09/21 18:00 02/09/21 18:00 02/09/21 18:00 02/09/21 18:00 Medications Acetaminophen (Acetaminophen 160 Mg/5 Ml Ucup) 650 mg PO Q6H PRN PRN Reason: fever Last Admin: 02/08/21 12:12 Dose: 650 mg Documented by: Calcitriol (Calcitrol 0.25 Mcg Cap) 0.5 mcg PO DAILY HENRY Last Admin: 02/09/21 09:15 Dose: 0.5 mcg Documented by: Dextrose (D50w 25 Gm/50 Ml Syringe) 12.5 gm IV PRN PRN; Protocol PRN Reason: HYPOGLYCEMIA Docusate Sodium (Docusate Na 100 Mg Cap) 100 mg PO DAILY PRN PRN Reason: CONSTIPATION Fentanyl Citrate (Fentanyl Citr 100 Mcg/2 Ml) 25 mcg IV Q4H PRN PRN Reason: Pain scale 8-10 (Severe) Last Admin: 02/07/21 21:03 Dose: 25 mcg Documented by: Furosemide (Furosemide 40 Mg/4 Ml Vial) 80 mg IV Q6H HENRY Glucagon (Glucagon 1 Mg/Vial) 1 mg IM 1X PRN; Protocol PRN Reason: HYPOGLYCEMIA Hydromorphone HCl (Hydromorphone Hcl 2 Mg/Ml Inj) 4 mg IV Q2H PRN PRN Reason: Pain scale 5-7 (Moderate) Last Admin: 02/09/21 14:57 Dose: 4 mg Documented by: Phenylephrine HCl 100 mg/ (Dextrose) 510 mls @ 0 mls/hr IV PRN PRN; Protocol PRN Reason: Hemodynamic Parameters Last Admin: 02/07/21 10:29 Dose: 510 mls Documented by: Norepinephrine Bitartrate 16 (mg/ Dextrose) 516 mls @ 0 mls/hr IV PRN PRN; Protocol PRN Reason: HEMODYNAMIC PARAMETERS Last Admin: 02/07/21 21:01 Dose: 516 mls Documented by: Epinephrine HCl 4 mg/ Sodium (Chloride) 254 mls @ 0 mls/hr IV PRN PRN; Protocol PRN Reason: HEMODYNAMIC PARAMETERS Last Admin: 02/06/21 19:26 Dose: 254 mls Documented by: Ceftriaxone Sodium/Sodium Chloride (Rocephin 1 Gm/10 Ml Swi Ivp) 1 gm in 10 mls @ 600 mls/hr IV DAILY [facility]; Protocol Last Admin: 02/09/21 09:15 Dose: 10 mls Documented by: Calcium Gluconate 9.3 meq/ (Sodium Chloride) 100 mls @ 50 mls/hr IV 1X ONE Stop: 02/09/21 21:23 Insulin Glargine (Insulin Glargine 100 Units/Ml) 50 units SQ BID [facility] Last Admin: 02/09/21 09:17 Dose: 25 units Documented by: Insulin Human Regular (Insulin -Regular Human 50 Unit/0.5 Ml Ml) 0 unit SQ Q6H [facility]; Protocol Last Admin: 02/09/21 17:00 Dose: Not Given Documented by: Lactobacillus Acidoph/Bulgaricus (Lactobacillus/Acidophilus Tab) 1 tab PO BID [facility] Last Admin: 02/09/21 09:15 Dose: 1 tab Documented by: Lorazepam (Lorazepam 2 Mg/Ml Vial) 4 mg IV Q2H PRN PRN Reason: AGITATION Last Admin: 02/09/21 13:35 Dose: 4 mg Documented by: Methylprednisolone Sodium Succinate (Methylprednisolone 125 Mg Inj) 80 mg IV Q8HR [facility] Last Admin: 02/09/21 16:55 Dose: 80 mg Documented by: Metolazone (Metolazone 5 Mg Tablet) 5 mg FT Q6H HENRY Stop: 02/10/21 02:01 Metoprolol Tartrate (Metoprolol Tartrate 5 Mg/5 Ml Inj) 5 mg IV TID PRN PRN Reason: Tachycardia Last Admin: 02/02/21 14:38 Dose: 5 mg Documented by: Nutritional Formula (Vital Hp 1,000 Ml Bot) 240 ml FT Q4H [facility] Last Admin: 02/09/21 15:59 Dose: Not Given Documented by: Ondansetron HCl (Ondansetron 4 Mg/2 Ml Vial) 4 mg IV Q6HP PRN PRN Reason: NAUSEA / VOMITING Last Admin: 02/03/21 15:01 Dose: 4 mg Documented by: Pantoprazole Sodium (Pantoprazole 40 Mg Inj) 40 mg IVP Q12HR [facility]; Protocol Last Admin: 02/09/21 09:16 Dose: 40 mg Documented by: Sodium Chloride (Flush Normal Saline 10 Ml) 10 ml IV BID [facility] Last Admin: 02/09/21 09:17 Dose: 10 ml Documented by: Sodium Chloride (Sodium Chloride 0.9% 10ml Inj) 10 ml IV UD PRN PRN Reason: Diluant Zinc Sulfate (Zinc Sulfate 220 Mg Cap) 220 mg PO DAILY [facility] Last Admin: 02/09/21 09:15 Dose: 220 mg Documented by: Microbiology Results 01/16/21 08:57 Blood - Blood Aerobic Blood Culture - Final No growth in 5 days. 01/16/21 08:57 Blood - Blood Anaerobic Blood Culture - Final No growth in 5 days. 01/16/21 08:47 Blood - Blood Aerobic Blood Culture - Final No growth in 5 days. 01/16/21 08:47 Blood - Blood Anaerobic Blood Culture - Final No growth in 5 days. 01/16/21 09:04 Nasopharnyx Influenza Type A Antigen Screen - Final 01/16/21 09:04 Nasopharnyx Influenza Type B Antigen Screen - Final Assessment/ Plan: Nephrology/ ICU Limited IH/ ROS due to critical illness. No acute events overnight. Off vasopressors at this time. General: Unresponsive, Obese HEENT: Atraumatic Neck: Supple Respiratory: Diminished Cardiovascular: Regular rate/rhythm, Edema Gastrointestinal: Soft and benign, Non-distended Musculoskeletal: No clubbing, No contractures Integumentary: No rashes, No cyanosis Neurological: Abnormal tone Blood work reviewed in the chart. Imagings Data: EXAM DESCRIPTION: RAD - Chest Single View - 02/08/2021 6:36 am CLINICAL HISTORY: Eval Pneumo/covid COMPARISON: Chest Single View dated 02/07/2021; Chest Single View dated 02/06/2021; Abdomen 1 View (KUB) dated 02/06/2021; Chest Single View dated 02/06/2021 FINDINGS: Endotracheal tube and NG tube in similar positioning. Improving ae ration in the right lung compared with 02/07/2021. There are still widespread bilateral airspace disease is now left eccentric. Cardiomegaly. Improving subcutaneous emphysema. No pneumothorax is appreciated. IMPRESSION: No pneumothorax appreciated. Mild improved aeration of the right lung compared with 02/07/2021. Support apparatus is stable. Conclusions/Impression: NAYA with oliguria may be PreRenal Azotemia vs ATN -No NSAIDs -Continue aguero -Discontinue IVF; start diuretics -Will consider renal imaging as needed. -May need to initiate dialysis in the morning if the renal fx continues to worsen -Consult surgery in the morning for a non-tunneled HD CVC as needed -Check HBV panel Nephrolithiasis Respiratory acidosis, resolved Metabolic Alkalosis Hypocalcemia -Continue Calcitriol throught FT -Calcium gluconate 2g X1 Pulmonary Edema -Start Lasix IV 80mg q6h -Give Metolazone -Discontinue IVF DM II with hyperglycemia -Continue Lantus -RISS Moderate malnutrition -Maintain nutrition with tube feeds Anemia in chronic illness -Monitor H&H -Transfuse PRBC as needed -Retacrit X1 Sepsis/ Septic shock -IVF bolus as needed -Continue vasopressor support prn -Continue abx COVID-19 PNA Acute hypoxic hypercapnic respiratory failure -Intubated; continue ventilatory support as ordered -Continue high dose IV steroids Toxic Metabolic Encephalopathy due to critical illness -Continue Rocephin Case reviewed with Dr. Saenz Greater than 30min patient care.
[2021-02-09] MEDS ORDERED: EPOETIN ALFA-EPBX 10,000 UNIT/ML VIAL SQ ONE (19:39)
[2021-02-09] MEDS: FUROSEMIDE 40 MG/4 ML VIAL IV SCH (20:12)
[2021-02-09] MEDS: METOLAZONE 5 MG TABLET FT SCH (20:16)
[2021-02-09] MEDS ORDERED: CALCIUM GLUCONATE 1 GM IVPB 2 GM/100 ML BAG IV ONE (20:29)
[2021-02-09] MEDS ORDERED: NA CHLORIDE 0.9% 250 ML IV SCH (22:00)
[2021-02-10] MEDS: METHYLPREDNISOLONE 125 MG INJ IV SCH ×3 (00:05→17:01)
[2021-02-10] MEDS: FENTANYL CITR 100 MCG/2 ML IV PRN ×2 (00:05→21:00)
[2021-02-10] MEDS: METOLAZONE 5 MG TABLET FT SCH (01:53)
[2021-02-10] MEDS: FUROSEMIDE 40 MG/4 ML VIAL IV SCH ×4 (01:53→22:00)
[2021-02-10] MEDS: LORazepam 2 MG/ML VIAL IV PRN ×3 (02:08→15:10)
[2021-02-10] MEDS: HYDROMORPHONE HCL 2 MG/ML inj IV PRN ×3 (03:30→18:08)
[2021-02-10] MEDS: VITAL HP 1,000 ML BOT FT SCH ×2 (03:59→07:59)
[2021-02-10 05:19] LABS: Absolute Lymphocytes (CBC) 0.1 K/uL (0.7-4.9); Basophils % 0.3 % (0-1.3); Hematocrit 26.3 % (39.6-49.0); Lymphocytes % 1.1 % (15.3-44.8); RBC Red Blood Cell Count 3.04 M/uL (4.33-5.43)
[2021-02-10 05:27] LABS: Arterial Blood Carboxyhemoglob 1.9 % (0-1.5); Blood Gas Oxyhemoglobin 92.8 % (94-97)
[2021-02-10] MEDS: INSULIN -REGULAR HUMAN 50 UNIT/0.5 ML ML SQ SCH ×4 (05:35→17:02)
[2021-02-10 05:45] LABS: Urine Appearance CLEAR (Clear); Urine Bilirubin NEGATIVE (Negative); Urine Blood 3+ (Negative); Urine Color YELLOW (Yellow); Urine Glucose TRACE (Negative); Urine Protein TRACE (Negative); Urine Urobilinogen 0.2 mg/dL (0.2-1.0)
--- NOTE | 2021-02-10 05:55 | P.PN ---
Subjective Date of Service: 02/10/21 Primary Care Provider: None Chief Complaint: Resp failure from COVID/Shock Subjective: Other (Patient remains intubated and sedated.) Physical Examination - Vital Signs Temperature: 98 F Blood Pressure: 141/72 Pulse: 82 Respirations: 24 Pulse Ox (%): 94 - Studies Medications List Reviewed: Yes Assessment & Plan Discharge Plan: Home Plan to discharge in: Greater than 2 days Physician Review Additional Text: CT scan: FINDINGS: No pulmonary emboli are identified. Far peripheral branch assessment is difficult due to motion. The aorta as imaged shows no acute or suspicious finding. No pericardial thickening or effusion. Extensive bilateral airspace opacification present most pronounced in the right upper lobe in each lung base. Given the provided history this is consistent with moderate severity COVID-19 pneumonia. No pleural effusion or pleural thickening. No mediastinal or hilar suspicious masses. No chest wall masses or abnormal axillary lymphadenopathy. IMPRESSION: No pulmonary emboli identified. Moderate severity bilateral COVID-19 pneumonia. Follow up CXR 01/25/2021: COMPARISON: February 09, February 08, February 07 TECHNIQUE: AP portable chest image was obtained 02/10/2021 6:21 am . FINDINGS: Endotracheal tube tip is top of the aortic arch approximately 4 cm above the truman. NG tube extends below the diaphragm curled in the stomach. No pneumothorax is appreciated on this study. Bilateral lung parenchymal opacification present left greater than right. Lung volumes are reduced compared to the 2 most recent studies. Substantial change in right hemithorax is not noted. Left hemithorax does appear slightly greater in opacification. This may be due to greater overlying soft tissue. The patient is rotated for this study. Cardiac silhouette has not changed. Pulmonary vasculature is prominent. No measurable pleural effusion. Extensive subcutaneous emphysema has worsened. IMPRESSION: Endotracheal tube tip is 4 cm above the truman in satisfactory position. Increased opacification of the left hemithorax is probably mostly due to overly ing soft tissue from rotation. Patient can be monitored for any true progressive lung parenchymal disease. Worsening subcutaneous emphysema. Dialysis catheter placement 02/10/2021: Date of Procedure: 02/10/2021 Surgeon: Inocencio Hendrickson MD Preoperative Diagnosis: Acute renal failure. Postoperative Diagnosis: Acute renal failure. Procedure Performed: Placement of left femoral tunnel hemodialysis catheter. Anesthesia: 1% lidocaine used. Estimated Blood Loss: Less than 5 mL. Specimen: None. Findings: Dark nonpulsatile blood return. Complications: None. Physical Exam: GENERAL: Patient intubated and sedated. VITAL SIGNS: Reviewed HEENT: Neck supple Dobbhoff in place NECK: Supple. No carotid bruits. No lymphadenopathy or thyromegaly. LUNGS: Patient on mechanical ventilation at 85%. HEART: Normal sinus rhythm ABDOMEN: Soft, nontender, and nondistended. Positive bowel sounds. No hepatosplenomegaly was noted. EXTREMITIES: Edema to the lower extremities. NEUROLOGIC: Some edema to the lower extremities. Patient remains sedated SKIN: Normal color, turgor and temperature. No ulcerations or rashes noted. Impression: Acute respiratory failure with hypoxia secondary to bilateral moderate Covid 19 pneumonia, unvaccinated with pneumomediastinum and subcu emphysema Acute renal failure Atrial fibrillation with RVR Elevated liver function likely underlying fatty liver Hyperglycemia suspect diabetes mellitus type 2 HTN Melana Edema Anemia of chronic disease Obesity, BMI greater than 40 Plan: Acute respiratory failure with hypoxia secondary to bilateral moderate Covid 19 pneumonia, unvaccinated with pneumomediastinum and subcu emphysema: Patient remains intubated and sedated. Renal function further compromised. Nephrology recommending dialysis. Case discussed with surgery who will place renal dialysis catheter. Continue with pulmonology recommendations. Will monitor closely. Currently off vasopressors. Will monitor closely. Await recommendations from nephrology after dialysis. Prognosis still guarded. Will discuss with family. Acute renal failure: Dialysis catheter placed to start dialysis. Case discussed with surgery and nephrology. Atrial fibrillation with RVR: Continue metoprolol IV. Patient not on chronic anticoagulation therapy due to anemia. Elevated liver function likely underlying fatty liver: We will monitor lab closely Hyperglycemia suspect diabetes mellitus type 2: Continue Lantus. Patient on tube feeds. HTN: Continue metoprolol. Will monitor closely Melana: Patient off anticoagulation therapy Edema: Will continue with Lasix as recommended by nephrology Anemia chronic disease: Overall stable. Monitor closely. Patient not on anticoagulation therapy Obesity, BMI greater than 40: Lifestyle modification education provided. Code Status: Full Code DVT prophylaxis: Not on anticoagulation therapy Advanced Care Planning-30 minutes: Home at discharge Time Spent Managing Pts Care (In Minutes): 55
[2021-02-10 05:58] LABS: Urine Bacteria <20 /HPF (NONE SEEN)
[2021-02-10 06:05] LABS: Albumin 2.3 g/dL (3.4-5.0); Bilirubin Total 0.5 mg/dL (0.2-1.0); C-Reactive Protein 10.4 mg/L (<3.00); Ferritin 641.1 ng/mL (26-388); Magnesium 2.9 mg/dL (1.8-2.4); Potassium 4.4 mmol/L (3.5-5.1); Uric Acid 14.1 mg/dL (3.5-7.2)
[2021-02-10 06:12] LABS: Phosphorus 9.4 mg/dL (2.5-4.9)
[2021-02-10] MEDS: INSULIN GLARGINE 100 UNITS/ML SQ SCH ×2 (08:17→21:18)
[2021-02-10] MEDS: ZINC SULFATE 220 MG CAP PO SCH (08:17)
[2021-02-10] MEDS: LACTOBACILLUS/ACIDOPHILUS TAB PO SCH ×2 (08:17→21:18)
[2021-02-10] MEDS: CALCITROL 0.25 MCG CAP PO SCH (08:17)
[2021-02-10] MEDS: PANTOPRAZOLE 40 MG INJ IVP SCH ×2 (08:17→21:20)
[2021-02-10] MEDS: CEFTRIAXONE/SWI 1gm 1 GM/10 ML SYR IV SCH (08:17)
--- NOTE | 2021-02-10 08:21 | RAD REPORT ---
EXAM DESCRIPTION: RAD - Chest Single View - 02/10/2021 6:21 am CLINICAL HISTORY: Eval Pneumo/covid COMPARISON: February 09, February 08, February 07 TECHNIQUE: AP portable chest image was obtained 02/10/2021 6:21 am . FINDINGS: Endotracheal tube tip is top of the aortic arch approximately 4 cm above the truman. NG tu be extends below the diaphragm curled in the stomach. No pneumothorax is appreciated on this study. Bilateral lung parenchymal opacification present left g reater than right. Lung volumes are reduced compared to the 2 most recent studies. Substantial change in right hemithorax is not noted. Left hemithorax does appear slightly greater in opacification. Thi s may be due to greater overlying soft tissue. The patient is rotated for this study. Cardiac silhouette has not changed. Pulmonary vasculature is prominent. No measurable pleural effusi on. Extensive subcutaneous emphysema has worsened. IMPRESSION: Endotracheal tube tip is 4 cm above the truman in satisfactory position. Increased opacification of the left hemithorax is probably mostly due to overlying soft tissue from r otation. Patient can be monitored for any true progressive lung parenchymal disease. Worsening subcutaneous emphysema.
[2021-02-10] MEDS ORDERED: LIDOCAINE 1% 20 ML MDV ONE ×2 (09:40→09:43)
--- NOTE | 2021-02-10 09:44 | P.OP ---
Preoperative diagnosis: Acute Renal Failure Postoperative diagnosis: Acute Renal Failure Primary procedure: Placemement of LEFT femoral temporary hemodialysis catheter Anesthesia: 1% lidocaine Estimated blood loss: < 5cc Specimen: none Findings: Dark non-pulsatile blood Complications: None Transferred to: ICU Condition: Critical
--- NOTE | 2021-02-10 12:42 | CON ---
Date of Consultation: 02/10/2021 Brief History Of Present Illness: The patient is a 40-year-old male with past medical histo ry of mild congestive heart failure and angina in the past, who presents to the hospital with increas ing shortness of breath, fatigue, and body aches. He reported some subjective fever prior to his pre sentation at the hospital. He was admitted about 3 weeks ago with shortness of breath and COVID pneu ashley was his diagnosis as he was tested for COVID, which was positive. As such during his convalesc ence in the hospital, he had worsening of his respiratory function, makes significant decompensation to which point he started having acute renal injury requiring possible hemodialysis. As such, I was consulted for the above-stated problem. Past Medical History: Early CHF, angina pectoris. Past Surgical History: Unable to obtain as the patient is intubated. Allergies: NO KNOWN DRUG ALLERGIES. Home Medications: None. Social History: Smoking history, he is an every day smoker. Drinks alcohol by report. No recreatio nal drug use reported. Review of Systems: A ten-point review of systems unable to obtain. Physical Examination: General: He is unresponsive, obese. HEENT: Otherwise normocephalic. His oropharynx is somewhat dry. He has some blood in his mouth, wh ich is dried. Cardiovascular: Regular rate and rhythm. Pulmonary: Decreased breath sounds bilaterally. Abdomen: Soft. Laboratory Data: He had laboratory exam, which revealed a white blood cell count of 8.4, hemoglobin 9.1 after transfusion of 2 units of PRBCs from 6.8. His hematocrit is 26.3, platelet count was 82. His pH 7.4, pCO2 46, pO2 was 75, bicarb 32, base excess 8.8. His entire FiO2 was 85%, oxygen saturat ion was 96%. Sodium 139, potassium 4.4, chloride was 94, carbon dioxide is 34, BUN was 156, creatini ne is 6.1. His glucose was 214. Uric acid was 14. Calcium was 7.6, phosphorus is 9.4. His magnesi um was 2.9. His bilirubin 0.5, AST 82, ALT 201, alkaline phosphatase is 49. His C-reactive protein is 10.4. He has had multiple imaging since being in the hospital. His last chest x-ray on , which officially read as increased opacification in left hemithorax, probably mostly due to overly ing soft tissue from rotation. The patient could be monitored for any new progressive lung parenchym al disease, worsening subcutaneous emphysema. Assessment And Plan: This is a 40-year-old male, who comes in with acute renal injury and COVID posi tive, respiratory dysfunction/respiratory failure. 1.Continue medical management per primary team and consultants. 2.I have been consulted to place a temporary hemodialysis catheter. We discussed the risks, benefit s, and alternatives to placement of a temporary hemodialysis catheter including, but not limited to b leeding, infection, damage to surrounding tissues, need further operation and procedures. The patien t's family has given consent for the above procedure. We will proceed as indicated. Thank you for this interesting consult. GAY/RICHMOND Voice ID: [id number] Report ID: [id number]
--- NOTE | 2021-02-10 12:51 | OP ---
Date of Procedure: 02/10/2021 Surgeon: Inocencio Hendrickson MD, Preoperative Diagnosis: Acute renal failure. Postoperative Diagnosis: Acute renal failure. Procedure Performed: Placement of left femoral tunnel hemodialysis catheter. Anesthesia: 1% lidocaine used. Estimated Blood Loss: Less than 5 mL. Specimen: None. Findings: Dark nonpulsatile blood return. Complications: None. Disposition: The patient remained in the ICU in critical condition. Procedure In Detail: After informed consent was obtained, the patient was prepped and draped in the ICU in sterile fashion after adequate anesthesia was achieved. Using anatomic landmarks, I cannulate d the left femoral vein on the first attempt using a microintroducer set. I then advanced a wire usi ng Seldinger technique, made a small vaishali incision after placing the introducer sheath. A micro wire out was called at this point. I then advanced the standard wire through the introducer sheath. Richard k red nonpulsatile blood was returned throughout the procedure. After the wire was placed, the intro ducer sheath was removed and the standard dilatation was performed using Seldinger technique and the catheter was advanced without evidence of complication. The wire out was called for the second time with standard wire. At this point, I then withdrew and flushed dark red nonpulsatile blood easily th rough both ports. I then packed the catheter with heparinized saline and secured the catheter to the site using the attached 2-0 nylon suture and sterile dressing placed over top. The patient tolerate d the procedure well without evidence of complication, remained in the ICU in critical condition thro ughout the procedure. All counts were correct at the end of the case. TK/MODL Voice ID: [id number] Report ID: [id number]
--- NOTE | 2021-02-10 13:03 | PN ---
Date of Progress Note: 02/10/2021 The patient is seen in room ICU 7A. Subjective: The patient is intubated, on life support, currently sedated, unable to communicate. He does seem to be irritated and agitated, currently grimacing. Nurse is getting ready to give him nehemias e medications. His blood pressure has been good recently, about 140 to 160 systolic range, but curre ntly he is running in 180s. Clearly in the setting of the patient being agitated, he is getting some Ativan and also getting some pain medication. He has had a groin catheter placed this morning in th e left groin area. The site looks clean. He does have swelling in the lower extremities. He does h ave swelling in the upper extremities. He has had a reasonable urine output overnight, but still see ms to be swollen with edema. His lung sounds are clear anteriorly. He is currently not on any press ors. He is getting mechanical ventilation with AC mode respiratory rate set at 24. His oxygenation is reasonable currently at low 90s. He continues to be in critical condition overnight. No other si gnificant events except that the patient continues to worsen with his BUN creatinine worsening. Laboratory Data: His labs show now WBC count of 8.4, hemoglobin 9.1, hematocrit 26.3, platelet count of 82. Chemistry shows sodium 139, potassium 4.4, chloride 94, bicarb is 34, BUN is 156, creatinine is 6.19. His albumin is 2.3. His chest x-ray done earlier today shows that he has worsening subcut aneous emphysema. He has increased opacification of the left hemithorax. It is probably mostly due to overlying soft tissue from rotation. The patient can be monitored for any other progressive lung parenchymal disease. Endotracheal tube is at 4 cm above the truman in satisfactory position. Cardia c silhouette has not changed. Pulmonary vasculature is prominent. No measurable pleural effusion. Extensive subcutaneous emphysema has worsened. Objective: Vital signs: As stated above. Blood pressure is on the higher side right now, but the p atient does seem to be a little bit irritated, grimacing. Abdomen: Soft. Extremities: Reveal positive edema. Neurologic: The patient is sedated and is getting currently further lorazepam to calm him down. The patient is intubated and on AC setting of 24. Assessment And Plan: Acute kidney injury in the setting of COVID pneumonia. The patient in critical condition with ventilator support. At this point, he is on steroids. He is getting sedatives and p ain medication. Has had a left Jose catheter placed. Significant acute kidney injury with worsen ing azotemia and uremia. We will go ahead and dialyze the patient carefully today. Will dialyze for 2 hours with mannitol 25 g at start of dialysis and a repeat 25 g in about an hour, try to get 1-1/2 L of fluid off him as tolerated. Will likely need dialysis again tomorrow depending on how he aleyda ates it. Discussed the case with the dialysis nurse also and they are aware of the plan of dialysis later today. /RICHMOND Voice ID: [id number] Report ID: [id number]
[2021-02-10] MEDS ORDERED: METOLAZONE 5 MG TABLET FT SCH (20:00)
[2021-02-10] MEDS: MANNITOL 25% 12.5 GM/50 ML VIAL IV PRN (20:10)
[2021-02-11] MEDS: METHYLPREDNISOLONE 125 MG INJ IV SCH ×3 (01:16→17:40)
[2021-02-11] MEDS: INSULIN -REGULAR HUMAN 50 UNIT/0.5 ML ML SQ SCH ×4 (01:16→17:40)
[2021-02-11] MEDS: FUROSEMIDE 40 MG/4 ML VIAL IV SCH ×5 (03:00→20:09)
[2021-02-11] MEDS: LORazepam 2 MG/ML VIAL IV PRN ×5 (04:00→21:25)
--- NOTE | 2021-02-11 05:55 | P.PN ---
Subjective Date of Service: 02/11/21 Primary Care Provider: None Chief Complaint: Resp failure from COVID/Shock Subjective: Other (Overall stable.) Physical Examination - Vital Signs Temperature: 98.4 F Blood Pressure: 115/61 Pulse: 118 Respirations: 35 Pulse Ox (%): 92 - Studies Medications List Reviewed: Yes Assessment & Plan Discharge Plan: Home Plan to discharge in: Greater than 2 days Physician Review Additional Text: CT scan: FINDINGS: No pulmonary emboli are identified. Far peripheral branch assessment is difficult due to motion. The aorta as imaged shows no acute or suspicious finding. No pericardial thickening or effusion. Extensive bilateral airspace opacification present most pronounced in the right upper lobe in each lung base. Given the provided history this is consistent with moderate severity COVID-19 pneumonia. No pleural effusion or pleural thickening. No mediastinal or hilar suspicious masses. No chest wall masses or abnormal axillary lymphadenopathy. IMPRESSION: No pulmonary emboli identified. Moderate severity bilateral COVID-19 pneumonia. Follow up CXR 01/25/2021: COMPARISON: Chest Single View dated 02/10/2021; Chest Single View dated 02/09/2021; Chest Single View dated 02/08/2021; Chest Single View dated 02/08/2021 FINDINGS: Re- demonstrated severe bilateral airspace disease which is not significantly changed since 02/10/2021. The endotracheal tube terminates approximately 4 centimeters above the truman. Small volume of pneumomediastinum and subcutaneous emphysema again noted. NG tube. Cardiac silhouette is partially obscured. IMPRESSION: Support apparatus stable. No significant change aeration of the lungs with severe bilateral airspace disease. Dialysis catheter placement 02/10/2021: Date of Procedure: 02/10/2021 Surgeon: Inocencio Hendrickson MD Preoperative Diagnosis: Acute renal failure. Postoperative Diagnosis: Acute renal failure. Procedure Performed: Placement of left femoral tunnel hemodialysis catheter. Anesthesia: 1% lidocaine used. Estimated Blood Loss: Less than 5 mL. Specimen: None. Findings: Dark nonpulsatile blood return. Complications: None. Physical Exam: GENERAL: Patient intubated and sedated. VITAL SIGNS: Reviewed HEENT: Neck supple Dobbhoff in place NECK: Supple. No carotid bruits. No lymphadenopathy or thyromegaly. LUNGS: Patient on mechanical ventilation at 85%. HEART: Normal sinus rhythm ABDOMEN: Soft, nontender, and nondistended. Positive bowel sounds. No hepatosplenomegaly was noted. EXTREMITIES: Edema to the lower extremities. NEUROLOGIC: Some edema to the lower extremities. Patient remains sedated SKIN: Normal color, turgor and temperature. No ulcerations or rashes noted. Impression: Acute respiratory failure with hypoxia secondary to bilateral moderate Covid 19 pneumonia, unvaccinated with pneumomediastinum and subcu emphysema Acute renal failure Acute encephalopathy likely metabolic Atrial fibrillation with RVR Elevated liver function likely underlying fatty liver Hyperglycemia suspect diabetes mellitus type 2 HTN Melana Edema Anemia of chronic disease Obesity, BMI greater than 40 Plan: Acute respiratory failure with hypoxia secondary to bilateral moderate Covid 19 pneumonia, unvaccinated with pneumomediastinum and subcu emphysema: Patient remains intubated and sedated. Renal function further compromised. Dialysis catheter placed yesterday. Case discussed with nephrology. Nephrology recommends to continue to monitor the patient closely on dialysis. If no significant change will need to order EEG and CT scan of the head to evaluate status. Continue with pulmonology and cardiology recommendations. Acute encephalopathy likely metabolic: May be related to acute renal failure or secondary to above. Will monitor closely. Consider EEG and CT scan if no improvement over the next 72 hours with dialysis. Acute renal failure: Dialysis catheter placed to start dialysis. Nephrology plans to continue with dialysis. Atrial fibrillation with RVR: Continue metoprolol IV. Patient not on chronic anticoagulation therapy due to anemia. Elevated liver function likely underlying fatty liver: We will monitor lab closely Hyperglycemia suspect diabetes mellitus type 2: Continue Lantus. Patient on tube feeds. HTN: Continue metoprolol. Will monitor closely Melana: Patient off anticoagulation therapy Edema: Will continue with Lasix as recommended by nephrology Anemia chronic disease: Overall stable. Monitor closely. Patient not on anticoagulation therapy Obesity, BMI greater than 40: Lifestyle modification education provided. Code Status: Full Code DVT prophylaxis: Not on anticoagulation therapy Advanced Care Planning-30 minutes: Home at discharge Time Spent Managing Pts Care (In Minutes): 55
[2021-02-11 06:08] LABS: Absolute Lymphocytes (CBC) 0.2 K/uL (0.7-4.9); Basophils % 0.1 % (0-1.3); Hematocrit 30.5 % (39.6-49.0); MPV 10.3 fL (7.6-11.3); RBC Red Blood Cell Count 3.45 M/uL (4.33-5.43)
[2021-02-11 06:28] LABS: Albumin 2.6 g/dL (3.4-5.0); Bilirubin Total 0.4 mg/dL (0.2-1.0); C-Reactive Protein 8.43 mg/L (<3.00); Magnesium 2.8 mg/dL (1.8-2.4); Potassium 4.6 mmol/L (3.5-5.1); Protein, Total 5.7 g/dL (6.4-8.2)
[2021-02-11 06:29] LABS: Ferritin 624.1 ng/mL (26-388)
--- NOTE | 2021-02-11 07:27 | RAD REPORT ---
EXAM DESCRIPTION: RAD - Chest Single View - 02/11/2021 5:48 am CLINICAL HISTORY: ET TUBE COMPARISON: Chest Single View dated 02/10/2021; Chest Single View dated 02/09/2021; Chest Single View da heladio 02/08/2021; Chest Single View dated 02/08/2021 FINDINGS: Re- demonstrated severe bilateral airspace disease which is not significantly changed sinc e 02/10/2021. The endotracheal tube terminates approximately 4 centimeters above the truman. Small vo lume of pneumomediastinum and subcutaneous emphysema again noted. NG tube. Cardiac silhouette is part ially obscured. IMPRESSION: Support apparatus stable. No significant change aeration of the lungs with severe bilate ral airspace disease.
[2021-02-11] MEDS: ZINC SULFATE 220 MG CAP PO SCH (08:24)
[2021-02-11] MEDS: LACTOBACILLUS/ACIDOPHILUS TAB PO SCH ×2 (08:24→20:10)
[2021-02-11] MEDS: CALCITROL 0.25 MCG CAP PO SCH (08:24)
[2021-02-11] MEDS: PANTOPRAZOLE 40 MG INJ IVP SCH ×2 (08:25→20:10)
[2021-02-11] MEDS: INSULIN GLARGINE 100 UNITS/ML SQ SCH ×2 (10:35→21:00)
[2021-02-11] MEDS: CEFTRIAXONE/SWI 1gm 1 GM/10 ML SYR IV SCH (10:53)
--- NOTE | 2021-02-11 11:55 | PN ---
Date of Progress Note: 02/11/2021 Subjective: The patient is seen in intensive care unit in room 7. He is not alert. He is requiring a lot of ventilator support. Currently, he is on PEEP of 15 with O2 requirements about 100%, not br eathing over the vent, and with minimal responsiveness. He has been requiring medications including lorazepam and Dilaudid for pain management and also for his agitation and to allow him to stay ventil ated and airway protection. The patient has bilateral COVID pneumonia and seems to have severe respi ratory failure and in very guarded condition. He has also had acute renal failure, which was treated with dialysis yesterday. Dialysis went reasonably well. His numbers have improved. The patient ma y have been uremic with his BUN up to 150 range and it will take a few treatments to assess how much of that is contributing to his mental decline. However, the patient has multiple comorbidities and a ctive issues going on right now that are very concerning. If he is not alert and awake by the end of the week, may require an EEG to better understand the status of his brain waves. Objective: Vital Signs: Stable, somewhat improved compared to yesterday. Blood pressure last was , pulse was about 100-110. He does go up on the blood pressure and pulse rate with agitation. The patient is ventilated. He is on PEEP of 15 with O2 of 100% on AC mode with respiratory rate set at 24. Lungs: His lungs are with some wheezes and some decreased breath sounds at the bases. Abdomen: Soft, but the patient is sedated and on IV Dilaudid for pain control. Extremities: Reveal edema bilaterally. Laboratory Data: Reviewed. Labs from today show slight elevation of WBC from 8.4 yesterday to 11.9, hemoglobin 10.2, hematocrit 30.5, platelet count of 81. Chemistry shows sodium 137, potassium 4.6, chloride 93, bicarb is 31, BUN is 127, creatinine is 5.03. His glucose is running on the higher side between 200 and 370 was the last number. AST and ALT are elevated at 69 and 195. CRP is improved a nd now at about 8.43. Albumin is low at 2.6. Assessment And Plan: The patient with a very guarded critical condition, ventilated, with COVID-19 b ilateral pneumonia. He is continuing to require lot of ventilator support with 100% oxygen, PEEP of 15. We will attempt to dialyze him again today. Dialysis yesterday went reasonably well. I have di scussed the case with the dialysis nurse. We will give him mannitol at the start of dialysis and the n again at 1 hour of dialysis. We will dialyze him with 2K, 35 bicarb, 137 sodium and see if we can get about 1 L and half of fluid off him in this dialysis treatments. The patient's mentation decline could partially be from the uremia; however, there are other reasons for him to have anoxic brain da mage and not encephalopathic brain injury or delirium. At this point, we are hoping that with dialys is, the patient may have some improvement, but given the critical nature of his condition right now, if the patient does not improve over the next couple of days despite dialysis, we would recommend con tnt powder worker getting an EEG to see the status of his brain and guide further decisions. /RICHMOND Voice ID: [id number] Report ID: [id number]
[2021-02-11] MEDS: HYDROMORPHONE HCL 2 MG/ML inj IV PRN ×3 (12:00→18:20)
[2021-02-11] MEDS: MANNITOL 25% 12.5 GM/50 ML VIAL IV PRN (16:35)
[2021-02-11] MEDS ORDERED: MIDAZOLAM HCL 2 MG/2 ML INJ IV ONE (22:06)
[2021-02-11] MEDS ORDERED: MIDAZOLAM HCL 2 MG/2 ML INJ ONE (22:33)
[2021-02-12] MEDS: METHYLPREDNISOLONE 125 MG INJ IV SCH ×3 (00:23→16:45)
[2021-02-12] MEDS: INSULIN -REGULAR HUMAN 50 UNIT/0.5 ML ML SQ SCH ×4 (00:23→16:46)
[2021-02-12] MEDS: LORazepam 2 MG/ML VIAL IV PRN ×5 (00:53→21:34)
[2021-02-12] MEDS: HYDROMORPHONE HCL 2 MG/ML inj IV PRN ×6 (01:13→22:30)
[2021-02-12] MEDS: FUROSEMIDE 40 MG/4 ML VIAL IV SCH ×4 (03:25→20:26)
[2021-02-12 04:43] LABS: Absolute Lymphocytes (CBC) 0.1 K/uL (0.7-4.9); Basophils % 0.2 % (0-1.3); Hematocrit 27.7 % (39.6-49.0); Lymphocytes % 0.9 % (15.3-44.8); MPV 10.5 fL (7.6-11.3); RBC Red Blood Cell Count 3.12 M/uL (4.33-5.43)
[2021-02-12 05:10] LABS: Albumin 2.4 g/dL (3.4-5.0); Bilirubin Total 0.4 mg/dL (0.2-1.0); C-Reactive Protein 5.32 mg/L (<3.00); Ferritin 509.3 ng/mL (26-388); Magnesium 2.6 mg/dL (1.8-2.4); Potassium 4.8 mmol/L (3.5-5.1); Protein, Total 5.3 g/dL (6.4-8.2)
[2021-02-12 05:27] LABS: Basophilic Stippling 1+; Blood Morphology Comment NOTED (NOT SEEN); Platelet Estimate DECR
[2021-02-12] MEDS: ZINC SULFATE 220 MG CAP PO SCH (08:27)
[2021-02-12] MEDS: CALCITROL 0.25 MCG CAP PO SCH (08:27)
[2021-02-12] MEDS: PANTOPRAZOLE 40 MG INJ IVP SCH ×2 (08:28→20:26)
[2021-02-12] MEDS: INSULIN GLARGINE 100 UNITS/ML SQ SCH ×2 (08:32→20:27)
[2021-02-12] MEDS: LACTOBACILLUS/ACIDOPHILUS TAB PO SCH ×2 (08:33→20:26)
[2021-02-12] MEDS: CEFTRIAXONE/SWI 1gm 1 GM/10 ML SYR IV SCH (08:34)
--- NOTE | 2021-02-12 09:08 | RAD REPORT ---
EXAM DESCRIPTION: RAD - Chest Single View - 02/12/2021 5:37 am CLINICAL HISTORY: follow up COVID Chest pain. COMPARISON: Chest Single View dated 02/11/2021; Chest Single View dated 02/10/2021; Chest Single View da heladio 02/09/2021; Chest Single View dated 02/08/2021 FINDINGS: Portable technique limits examination quality. Tip of the ET tube is above the truman at the level of the superior aortic arch and is unchanged in p osition. Enteric tube descends and coils in the stomach. Extensive bilateral pulmonary opacities agai n seen without any real change since prior study. Subcutaneous emphysema appears mildly improved.
--- NOTE | 2021-02-12 09:15 | P.PN ---
Subjective Date of Service: 02/12/21 Primary Care Provider: None Chief Complaint: Resp failure from COVID No change ondialysis/ CXRY no change Review of Systems is unable to be obtained Physical Examination - Vital Signs Temperature: 96.6 F Blood Pressure: 129/70 Pulse: 122 Respirations: 24 Pulse Ox (%): 88 - Physical Exam General: Comatose - Studies Medications List Reviewed: Yes Assessment & Plan - Problems (Diagnosis) (1) Respiratory failure Current Visit: Yes Status: Acute Plan: RResp failure/ No change/ on dialysis/ prognosis poor start on propofol/ on 85% Fio2 oxygenation stable/labs xry reviewed/ no futher bleeding Qualifiers: Chronicity: acute
--- NOTE | 2021-02-12 10:10 | P.PN ---
Subjective Date of Service: 02/12/21 Primary Care Provider: None Chief Complaint: Resp failure from COVID Subjective: Other (overall stable. he remains on the ventilator.) Physical Examination - Vital Signs Temperature: 96.6 F Blood Pressure: 129/70 Pulse: 122 Respirations: 24 Pulse Ox (%): 88 - Studies Medications List Reviewed: Yes Assessment & Plan Discharge Plan: Home Plan to discharge in: Greater than 2 days Physician Review Additional Text: CT scan: FINDINGS: No pulmonary emboli are identified. Far peripheral branch assessment is difficult due to motion. The aorta as imaged shows no acute or suspicious finding. No pericardial thickening or effusion. Extensive bilateral airspace opacification present most pronounced in the right upper lobe in each lung base. Given the provided history this is consistent with moderate severity COVID-19 pneumonia. No pleural effusion or pleural thickening. No mediastinal or hilar suspicious masses. No chest wall masses or abnormal axillary lymphadenopathy. IMPRESSION: No pulmonary emboli identified. Moderate severity bilateral COVID-19 pneumonia. Follow up CXR 01/25/2021: EXAM DESCRIPTION: RAD - Chest Single View - 02/12/2021 5:37 am CLINICAL HISTORY: follow up COVID Chest pain. COMPARISON: Chest Single View dated 02/11/2021; Chest Single View dated 02/10/2021; Chest Single View dated 02/09/2021; Chest Single View dated 02/08/2021 FINDINGS: Portable technique limits examination quality. Tip of the ET tube is above the truman at the level of the superior aortic arch and is unchanged in position. Enteric tube descends and coils in the stomach. Extensive bilateral pulmonary opacities again seen without any real change since prior study. Subcutaneous emphysema appears mildly improved. Dialysis catheter placement 02/10/2021: Date of Procedure: 02/10/2021 Surgeon: Inocencio Hendrickson MD Preoperative Diagnosis: Acute renal failure. Postoperative Diagnosis: Acute renal failure. Procedure Performed: Placement of left femoral tunnel hemodialysis catheter. Anesthesia: 1% lidocaine used. Estimated Blood Loss: Less than 5 mL. Specimen: None. Findings: Dark nonpulsatile blood return. Complications: None. Physical Exam: GENERAL: Patient intubated and sedated. VITAL SIGNS: Reviewed HEENT: Neck supple Dobbhoff in place NECK: Supple. No carotid bruits. No lymphadenopathy or thyromegaly. LUNGS: Patient on mechanical ventilation at 85%. HEART: Normal sinus rhythm ABDOMEN: Soft, nontender, and nondistended. Positive bowel sounds. No hepatosplenomegaly was noted. EXTREMITIES: Edema to the lower extremities. NEUROLOGIC: Some edema to the lower extremities. Patient remains sedated SKIN: Normal color, turgor and temperature. No ulcerations or rashes noted. Impression: Acute respiratory failure with hypoxia secondary to bilateral moderate Covid 19 pneumonia, unvaccinated with pneumomediastinum and subcu emphysema Acute renal failure Acute encephalopathy likely metabolic Atrial fibrillation with RVR Elevated liver function likely underlying fatty liver Hyperglycemia suspect diabetes mellitus type 2 HTN Melana Edema Anemia of chronic disease Obesity, BMI greater than 40 Plan: Acute respiratory failure with hypoxia secondary to bilateral moderate Covid 19 pneumonia, unvaccinated with pneumomediastinum and subcu emphysema: Patient remains intubated and sedated. Renal function improved with dialysis. Continue with dialysis. Continue with current measures at this time. Will discuss with pulmonology about weaning off medication for sedation and pain. Need to consid er EEG and CT scan if no significant change in mental status over the next 48 hours. Will discuss with pulmonology and nephrology. Spoke with significant other. Readdressed advanced directives. Patient remains full code. Acute encephalopathy likely metabolic: May be related to acute renal failure or secondary to above. Will monitor closely. Consider EEG and CT scan if no improvement over the next 48 hours with dialysis. Acute renal failure: Renal function has improved. Will monitor closely. Atrial fibrillation with RVR: Continue metoprolol IV. Patient not on chronic anticoagulation therapy due to anemia. Elevated liver function likely underlying fatty liver: Continue to monitor close ly Hyperglycemia suspect diabetes mellitus type 2: Continue to adjust Lantus for better control. Patient on tube feeds. HTN: Continue metoprolol as needed. Will monitor closely Melana: Patient off anticoagulation therapy Edema: Will continue with Lasix as recommended by nephrology Anemia chronic disease: Overall stable. Monitor closely. Patient not on anticoagulation therapy Obesity, BMI greater than 40: Lifestyle modification education provided. Code Status: Full Code DVT prophylaxis: Not on anticoagulation therapy Advanced Care Planning-30 minutes: Home at discharge Time Spent Managing Pts Care (In Minutes): 55
[2021-02-12] MEDS: propofoL 1,000 MG/100 ML VIAL IV PRN ×4 (13:28→22:00)
[2021-02-12] MEDS: MANNITOL 25% 12.5 GM/50 ML VIAL IV PRN (15:45)
--- NOTE | 2021-02-12 17:00 | EKG ---
Test Date: 2021-02-11 Test Time: 22:38:18 Pilot Can Router: KODAK MEASUREMENT RESULTS: Intervals: Rate: 123 [place]: QRSD: 98 QT: 268 QTc: 383 [place]: P: WI: QRS: 36 T: 29 INTERPRETIVE STATEMENTS: Atrial fibrillation with rapid ventricular response Abnormal ECG Compared to ECG 02/06/2021 11:18:18 Sinus tachycardia no longer present Incomplete right bundle-branch block no longer present ST (T wave) deviation no longer present Possible ischemia no longer present Electronically Signed On 02-12-21 16:58:49 CDT by Matt Kirk
[2021-02-12 18:18] LABS: HBsAG Nonreactive (Nonreactive)
[2021-02-12] MEDS ORDERED: MIDAZOLAM HCL 2 MG/2 ML INJ ONE (21:44)
[2021-02-12] MEDS: FENTANYL CITR 100 MCG/2 ML IV PRN (21:46)
--- NOTE | 2021-02-12 23:15 | P.PN ---
Date of Service: 02/12/21 Vital Signs Temp Pulse Resp BP Pulse Ox 97.3 F 114 H 21 H 134/64 60 L 02/12/21 20:00 02/12/21 22:00 02/12/21 22:30 02/12/21 22:00 02/12/21 22:30 Medications Acetaminophen (Acetaminophen 160 Mg/5 Ml Ucup) 650 mg PO Q6H PRN PRN Reason: fever Last Admin: 02/08/21 12:12 Dose: 650 mg Documented by: Calcitriol (Calcitrol 0.25 Mcg Cap) 0.5 mcg PO DAILY HENRY Last Admin: 02/12/21 08:27 Dose: 0.5 mcg Documented by: Dextrose (D50w 25 Gm/50 Ml Syringe) 12.5 gm IV PRN PRN; Protocol PRN Reason: HYPOGLYCEMIA Docusate Sodium (Docusate Na 100 Mg Cap) 100 mg PO DAILY PRN PRN Reason: CONSTIPATION Fentanyl Citrate (Fentanyl Citr 100 Mcg/2 Ml) 25 mcg IV Q4H PRN PRN Reason: Pain scale 8-10 (Severe) Last Admin: 02/12/21 21:46 Dose: 25 mcg Documented by: Furosemide (Furosemide 40 Mg/4 Ml Vial) 80 mg IV Q6H HENRY Last Admin: 02/12/21 20:26 Dose: 80 mg Documented by: Glucagon (Glucagon 1 Mg/Vial) 1 mg IM 1X PRN; Protocol PRN Reason: HYPOGLYCEMIA Heparin Sodium (Porcine) (Heparin 1,000 Unit/Ml Vial) 4,000 unit IV EVERY HD PRN PRN Reason: dialysis Last Admin: 02/12/21 16:55 Dose: 4,000 unit Documented by: Hydromorphone HCl (Hydromorphone Hcl 2 Mg/Ml Inj) 4 mg IV Q2H PRN PRN Reason: Pain scale 5-7 (Moderate) Last Admin: 02/12/21 22:30 Dose: 4 mg Documented by: Norepinephrine Bitartrate 16 (mg/ Dextrose) 516 mls @ 0 mls/hr IV PRN PRN; Protocol PRN Reason: HEMODYNAMIC PARAMETERS Last Admin: 02/07/21 21:01 Dose: 516 mls Documented by: Ceftriaxone Sodium/Sodium Chloride (Rocephin 1 Gm/10 Ml Swi Ivp) 1 gm in 10 mls @ 600 mls/hr IV DAILY HENRY; Protocol Last Admin: 02/12/21 08:34 Dose: 10 mls Documented by: Sodium Chloride (Sodium Chloride) 250 mls @ 0 mls/hr IV .Q0M HENRY Last Admin: 02/09/21 22:08 Dose: 250 mls Documented by: Propofol (Diprivan) 1,000 mg in 100 mls @ 0 mls/hr IV PRN PRN; Protocol PRN Reason: SEDATION Last Admin: 02/12/21 18:36 Dose: 100 mls Documented by: Insulin Glargine (Insulin Glargine 100 Units/Ml) 55 units SQ BID HENRY Last Admin: 02/12/21 20:27 Dose: 55 units Documented by: Insulin Human Regular (Insulin -Regular Human 50 Unit/0.5 Ml Ml) 0 unit SQ Q6H HENRY; Protocol Last Admin: 02/12/21 16:46 Dose: 6 unit Documented by: Lactobacillus Acidoph/Bulgaricus (Lactobacillus/Acidophilus Tab) 1 tab PO BID [facility] Last Admin: 02/12/21 20:26 Dose: 1 tab Documented by: Lorazepam (Lorazepam 2 Mg/Ml Vial) 4 mg IV Q2H PRN PRN Reason: AGITATION Last Admin: 02/12/21 21:34 Dose: 4 mg Documented by: Mannitol (Mannitol 25% 12.5 Gm/50 Ml Vial) 25 gm IV EVERY HD PRN PRN Reason: dialysis Last Admin: 02/12/21 15:45 Dose: 25 gm Documented by: Methylprednisolone Sodium Succinate (Methylprednisolone 125 Mg Inj) 80 mg IV Q8HR HENRY Last Admin: 02/12/21 16:45 Dose: 80 mg Documented by: Metoprolol Tartrate (Metoprolol Tartrate 5 Mg/5 Ml Inj) 5 mg IV TID PRN PRN Reason: Tachycardia Last Admin: 02/02/21 14:38 Dose: 5 mg Documented by: Nutritional Formula (Vital Hp 1,000 Ml Bot) 0 ml RTH CONT HENRY Ondansetron HCl (Ondansetron 4 Mg/2 Ml Vial) 4 mg IV Q6HP PRN PRN Reason: NAUSEA / VOMITING Last Admin: 02/03/21 15:01 Dose: 4 mg Documented by: Pantoprazole Sodium (Pantoprazole 40 Mg Inj) 40 mg IVP Q12HR [facility]; Protocol Last Admin: 02/12/21 20:26 Dose: 40 mg Documented by: Sodium Chloride (Flush Normal Saline 10 Ml) 10 ml IV BID [facility] Last Admin: 02/12/21 20:27 Dose: 10 ml Documented by: Sodium Chloride (Sodium Chloride 0.9% 10ml Inj) 10 ml IV UD PRN PRN Reason: Diluant Zinc Sulfate (Zinc Sulfate 220 Mg Cap) 220 mg PO DAILY [facility] Last Admin: 02/12/21 08:27 Dose: 220 mg Documented by: Microbiology Results 01/16/21 08:57 Blood - Blood Aerobic Blood Culture - Final No growth in 5 days. 01/16/21 08:57 Blood - Blood Anaerobic Blood Culture - Final No growth in 5 days. 01/16/21 08:47 Blood - Blood Aerobic Blood Culture - Final No growth in 5 days. 01/16/21 08:47 Blood - Blood Anaerobic Blood Culture - Final No growth in 5 days. 01/16/21 09:04 Nasopharnyx Influenza Type A Antigen Screen - Final 01/16/21 09:04 Nasopharnyx Influenza Type B Antigen Screen - Final Assessment/ Plan: Nephrology/ ICU Limited IH/ ROS due to critical illness. Nurse reports episodes of agitation. No acute events overnight. General: Unresponsive, Obese HEENT: Atraumatic Neck: Supple Respiratory: Diminished Cardiovascular: Regular rate/rhythm, Edema Gastrointestinal: Soft and benign, Non-distended Musculoskeletal: No clubbing, No contractures Integumentary: No rashes, No cyanosis Neurological: Abnormal tone Greater than 30min patient care. Blood work reviewed in the chart. Imagings Data: EXAM DESCRIPTION: RAD - Chest Single View - 02/08/2021 6:36 am CLINICAL HISTORY: Eval Pneumo/covid COMPARISON: Chest Single View dated 02/07/2021; Chest Single View dated 02/06/2021; Abdomen 1 View (KUB) dated 02/06/2021; Chest Single View dated 02/06/2021 FINDINGS: Endotracheal tube and NG tube in similar positioning. Improving aeration in the right lung compared with 02/07/2021. There are still widespread bilateral airspace disease is now left eccentric. Cardiomegaly. Improving subcutaneous emphysema. No pneumothorax is appreciated. IMPRESSION: No pneumothorax appreciated. Mild improved aeration of the right lung compared with 02/07/2021. Support apparatus is stable. Conclusions/Impression: NAYA in the setting of sepsis -No NSAIDs -Continue aguero -Continue diuretics -Will consider renal imaging as needed. -Continue dialysis daily Nephrolithiasis Respiratory acidosis, resolved Metabolic Alkalosis Hypocalcemia -Continue Calcitriol throught FT -Calcium gluconate 2g X1 Pulmonary Edema -Continue Lasix IV 80mg q6h DM II with hyperglycemia -Continue Lantus -RISS Moderate malnutrition -Maintain nutrition with tube feeds Anemia in chronic illness -Monitor H&H -Transfuse PRBC as needed -Retacrit PRN Sepsis/ Septic shock -IVF bolus as needed -Continue vasopressor support prn -Continue abx COVID-19 PNA Acute hypoxic hypercapnic respiratory failure -Intubated; continue ventilatory support as ordered -Continue high dose IV steroids Toxic Metabolic Encephalopathy due to critical illness -Continue Rocephin
--- NOTE | 2021-02-12 23:31 | P.PN ---
Date of Service: 02/12/21 Patient very hypoxic this evening with saturations in the 60s to 70s persistently, have attempted repositioning, further sedation, changes in vent settings without significant improvement. Discussed with significant other who is at bedside, at this time patient with very poor prognosis, significant other in agreement and wishes to change advanced directive/CODE STATUS to DO NOT RESUSCITATE. She is okay with continuing on with ventilation, vasopressor therapy and other measures at this time but if his heart stopped she would not want him to have CPR/defibrillation or other aggressive invasive measures. We will continue with current therapies, CODE STATUS changed to DNR.
[2021-02-13] MEDS: METHYLPREDNISOLONE 125 MG INJ IV SCH ×3 (00:23→18:06)
[2021-02-13] MEDS: LORazepam 2 MG/ML VIAL IV PRN ×6 (00:24→21:05)
[2021-02-13] MEDS: INSULIN -REGULAR HUMAN 50 UNIT/0.5 ML ML SQ SCH ×4 (00:43→18:06)
[2021-02-13] MEDS: propofoL 1,000 MG/100 ML VIAL IV PRN ×8 (01:41→23:12)
[2021-02-13] MEDS: HYDROMORPHONE HCL 2 MG/ML inj IV PRN ×5 (01:44→18:41)
[2021-02-13] MEDS: FUROSEMIDE 40 MG/4 ML VIAL IV SCH ×4 (01:51→21:07)
--- NOTE | 2021-02-13 05:50 | P.PN ---
Subjective Date of Service: 02/13/21 Primary Care Provider: None Chief Complaint: Resp failure from COVID Subjective: Other (patient remains intubated. Patient had episodes of desaturation. Somewhat improved this morning.) Physical Examination - Vital Signs Temperature: 97.9 F Blood Pressure: 112/67 Pulse: 113 Respirations: 22 Pulse Ox (%): 82 - Studies Medications List Reviewed: Yes Assessment & Plan Discharge Plan: Home Plan to discharge in: Greater than 2 days Physician Review Additional Text: CT scan: FINDINGS: No pulmonary emboli are identified. Far peripheral branch assessment is difficult due to motion. The aorta as imaged shows no acute or suspicious finding. No pericardial thickening or effusion. Extensive bilateral airspace opacification present most pronounced in the right upper lobe in each lung base. Given the provided history this is consistent with moderate severity COVID-19 pneumonia. No pleural effusion or pleural thickening. No mediastinal or hilar suspicious masses. No chest wall masses or abnormal axillary lymphadenopathy. IMPRESSION: No pulmonary emboli identified. Moderate severity bilateral COVID-19 pneumonia. Follow up CXR 02/13/2021: COMPARISON: Chest Single View dated 02/12/2021; Chest Single View dated 02/11/2021; Chest Single View dated 02/10/2021; Chest Single View dated 02/09/2021 FINDINGS: Portable technique limits examination quality. Extensive bilateral pulmonary opacities are present, appearing mildly improved since prior study. Tip of the endotracheal tube is along the superior margin of aortic arch. Enteric tube coils in the stomach. Dialysis catheter placement 02/10/2021: Date of Procedure: 02/10/2021 Surgeon: Inocencio Hendrickson MD Preoperative Diagnosis: Acute renal failure. Postoperative Diagnosis: Acute renal failure. Procedure Performed: Placement of left femoral tunnel hemodialysis catheter. Anesthesia: 1% lidocaine used. Estimated Blood Loss: Less than 5 mL. Specimen: None. Findings: Dark nonpulsatile blood return. Complications: None. Physical Exam: GENERAL: Patient intubated and sedated. VITAL SIGNS: Reviewed HEENT: Neck supple Dobbhoff in place NECK: Supple. No carotid bruits. No lymphadenopathy or thyromegaly. LUNGS: Patient remains on ventilator at 100% FiO2 HEART: Sinus tachycardia ABDOMEN: Soft, nontender, and nondistended. Positive bowel sounds. No hepatosplenomegaly was noted. EXTREMITIES: Edema to the lower extremities. NEUROLOGIC: Some edema to the lower extremities. Patient remains sedated SKIN: Normal color, turgor and temperature. No ulcerations or rashes noted. Impression: Acute respiratory failure with hypoxia secondary to bilateral moderate Covid 19 pneumonia, unvaccinated with pneumomediastinum and subcu emphysema Acute renal failure Acute encephalopathy likely metabolic Atrial fibrillation with RVR Elevated liver function likely underlying fatty liver Hyperglycemia suspect diabetes mellitus type 2 HTN Melana Edema Anemia of chronic disease Obesity, BMI greater than 40 Plan: Acute respiratory failure with hypoxia secondary to bilateral moderate Covid 19 pneumonia, unvaccinated with pneumomediastinum and subcu emphysema: Patient's condition remains critical. Patient remains intubated. Patient with desaturations. Now requiring 100% on ventilator. Spoke with nephrology. Nephrology continues with dialysis. Spoke with significant other at length today. Readdressed advanced directives. Patient now DO NOT RESUSCITATE. Will consider EEG and CT scan if more stable within the next 48 hours. Continue with current plan of care will discuss with pulmonology. Acute encephalopathy likely metabolic: May be related to acute renal failure or secondary to above. Will monitor closely. Consider EEG and CT scan if no improvement over the next 48 hours with dialysis. Acute renal failure: Renal function remains improved. Nephrology plans for dialysis. Atrial fibrillation with RVR: Continue metoprolol IV. Patient not on chronic anticoagulation therapy due to anemia. Elevated liver function likely underlying fatty liver: Continue to monitor closely Hyperglycemia suspect diabetes mellitus type 2: Continue to adjust Lantus for better control. Patient on tube feeds. HTN: Continue metoprolol as needed. Will monitor closely Melana: Patient off anticoagulation therapy Edema: Will continue with Lasix as recommended by nephrology Anemia chronic disease: Overall stable. Monitor closely. Patient not on anticoagulation therapy Obesity, BMI greater than 40: Lifestyle modification education provided. Code Status: DO NOT RESUSCITATE DVT prophylaxis: Not on anticoagulation therapy Advanced Care Planning-30 minutes: Home at discharge Time Spent Managing Pts Care (In Minutes): 55
[2021-02-13 06:03] LABS: Absolute Lymphocytes (CBC) 0.1 K/uL (0.7-4.9); Basophils % 0.2 % (0-1.3); Hematocrit 29.5 % (39.6-49.0); Lymphocytes % 1.2 % (15.3-44.8); RBC Red Blood Cell Count 3.26 M/uL (4.33-5.43)
[2021-02-13 06:24] LABS: Albumin 2.5 g/dL (3.4-5.0); Bilirubin Total 0.4 mg/dL (0.2-1.0); C-Reactive Protein 7.08 mg/L (<3.00); Magnesium 2.6 mg/dL (1.8-2.4); Potassium 4.7 mmol/L (3.5-5.1); Protein, Total 5.7 g/dL (6.4-8.2); Uric Acid 7.7 mg/dL (3.5-7.2)
[2021-02-13 06:39] LABS: Phosphorus 8.4 mg/dL (2.5-4.9)
[2021-02-13] MEDS: CALCITROL 0.25 MCG CAP PO SCH ×2 (08:57→09:00)
[2021-02-13] MEDS: ZINC SULFATE 220 MG CAP PO SCH (08:57)
[2021-02-13] MEDS: PANTOPRAZOLE 40 MG INJ IVP SCH ×2 (08:57→20:11)
[2021-02-13] MEDS: LACTOBACILLUS/ACIDOPHILUS TAB PO SCH ×2 (08:57→20:11)
[2021-02-13] MEDS: INSULIN GLARGINE 100 UNITS/ML SQ SCH ×2 (09:18→20:11)
[2021-02-13] MEDS: CEFTRIAXONE/SWI 1gm 1 GM/10 ML SYR IV SCH (09:19)
--- NOTE | 2021-02-13 09:36 | RAD REPORT ---
EXAM DESCRIPTION: RAD - Chest Single View - 02/13/2021 5:41 am CLINICAL HISTORY: Increasing 02 requirement Chest pain. COMPARISON: Chest Single View dated 02/12/2021; Chest Single View dated 02/11/2021; Chest Single View da heladio 02/10/2021; Chest Single View dated 02/09/2021 FINDINGS: Portable technique limits examination quality. Extensive bilateral pulmonary opacities are present, appearing mildly improved since prior study. Tip of the endotracheal tube is along the superior margin of aortic arch. Enteric tube coils in the stom ach.
--- NOTE | 2021-02-13 10:25 | P.PN ---
Date of Service: 02/13/21 Vital Signs Temp Pulse Resp BP Pulse Ox 97.9 F 122 H 28 H 155/79 H 92 02/13/21 05:50 02/13/21 09:01 02/13/21 09:09 02/13/21 09:01 02/13/21 09:09 Medications Acetaminophen (Acetaminophen 160 Mg/5 Ml Ucup) 650 mg PO Q6H PRN PRN Reason: fever Last Admin: 02/08/21 12:12 Dose: 650 mg Documented by: Calcitriol (Calcitrol 0.25 Mcg Cap) 0.5 mcg PO DAILY HENRY Last Admin: 02/13/21 08:57 Dose: 0.5 mcg Documented by: Dextrose (D50w 25 Gm/50 Ml Syringe) 12.5 gm IV PRN PRN; Protocol PRN Reason: HYPOGLYCEMIA Docusate Sodium (Docusate Na 100 Mg Cap) 100 mg PO DAILY PRN PRN Reason: CONSTIPATION Fentanyl Citrate (Fentanyl Citr 100 Mcg/2 Ml) 25 mcg IV Q4H PRN PRN Reason: Pain scale 8-10 (Severe) Last Admin: 02/12/21 21:46 Dose: 25 mcg Documented by: Furosemide (Furosemide 40 Mg/4 Ml Vial) 80 mg IV Q6H HENRY Last Admin: 02/13/21 09:01 Dose: 80 mg Documented by: Glucagon (Glucagon 1 Mg/Vial) 1 mg IM 1X PRN; Protocol PRN Reason: HYPOGLYCEMIA Heparin Sodium (Porcine) (Heparin 1,000 Unit/Ml Vial) 4,000 unit IV EVERY HD PRN PRN Reason: dialysis Last Admin: 02/12/21 16:55 Dose: 4,000 unit Documented by: Hydromorphone HCl (Hydromorphone Hcl 2 Mg/Ml Inj) 4 mg IV Q2H PRN PRN Reason: Pain scale 5-7 (Moderate) Last Admin: 02/13/21 09:09 Dose: 4 mg Documented by: Norepinephrine Bitartrate 16 (mg/ Dextrose) 516 mls @ 0 mls/hr IV PRN PRN; Protocol PRN Reason: HEMODYNAMIC PARAMETERS Last Admin: 02/07/21 21:01 Dose: 516 mls Documented by: Ceftriaxone Sodium/Sodium Chloride (Rocephin 1 Gm/10 Ml Swi Ivp) 1 gm in 10 mls @ 600 mls/hr IV DAILY HENRY; Protocol Last Admin: 02/13/21 09:19 Dose: 10 mls Documented by: Sodium Chloride (Sodium Chloride) 250 mls @ 0 mls/hr IV .Q0M HENRY Last Admin: 02/09/21 22:08 Dose: 250 mls Documented by: Propofol (Diprivan) 1,000 mg in 100 mls @ 0 mls/hr IV PRN PRN; Protocol PRN Reason: SEDATION Last Admin: 02/13/21 09:24 Dose: 100 mls Documented by: Insulin Glargine (Insulin Glargine 100 Units/Ml) 55 units SQ BID HENRY Last Admin: 02/13/21 09:18 Dose: 55 units Documented by: Insulin Human Regular (Insulin -Regular Human 50 Unit/0.5 Ml Ml) 0 unit SQ Q6H HENRY; Protocol Last Admin: 02/13/21 00:43 Dose: 12 unit Documented by: Lactobacillus Acidoph/Bulgaricus (Lactobacillus/Acidophilus Tab) 1 tab PO BID [facility] Last Admin: 02/13/21 08:57 Dose: 1 tab Documented by: Lorazepam (Lorazepam 2 Mg/Ml Vial) 4 mg IV Q2H PRN PRN Reason: AGITATION Last Admin: 02/13/21 04:43 Dose: 4 mg Documented by: Mannitol (Mannitol 25% 12.5 Gm/50 Ml Vial) 25 gm IV EVERY HD PRN PRN Reason: dialysis Last Admin: 02/12/21 15:45 Dose: 25 gm Documented by: Methylprednisolone Sodium Succinate (Methylprednisolone 125 Mg Inj) 80 mg IV Q8HR HENRY Last Admin: 02/13/21 08:59 Dose: 80 mg Documented by: Metoprolol Tartrate (Metoprolol Tartrate 5 Mg/5 Ml Inj) 5 mg IV TID PRN PRN Reason: Tachycardia Last Admin: 02/02/21 14:38 Dose: 5 mg Documented by: Nutritional Formula (Vital Hp 1,000 Ml Bot) 0 ml RTH CONT HENRY Ondansetron HCl (Ondansetron 4 Mg/2 Ml Vial) 4 mg IV Q6HP PRN PRN Reason: NAUSEA / VOMITING Last Admin: 02/03/21 15:01 Dose: 4 mg Documented by: Pantoprazole Sodium (Pantoprazole 40 Mg Inj) 40 mg IVP Q12HR [facility]; Protocol Last Admin: 02/13/21 08:57 Dose: 40 mg Documented by: Sodium Chloride (Flush Normal Saline 10 Ml) 10 ml IV BID [facility] Last Admin: 02/13/21 09:00 Dose: 10 ml Documented by: Sodium Chloride (Sodium Chloride 0.9% 10ml Inj) 10 ml IV UD PRN PRN Reason: Diluant Zinc Sulfate (Zinc Sulfate 220 Mg Cap) 220 mg PO DAILY [facility] Last Admin: 02/13/21 08:57 Dose: 220 mg Documented by: Microbiology Results 01/16/21 08:57 Blood - Blood Aerobic Blood Culture - Final No growth in 5 days. 01/16/21 08:57 Blood - Blood Anaerobic Blood Culture - Final No growth in 5 days. 01/16/21 08:47 Blood - Blood Aerobic Blood Culture - Final No growth in 5 days. 01/16/21 08:47 Blood - Blood Anaerobic Blood Culture - Final No growth in 5 days. 01/16/21 09:04 Nasopharnyx Influenza Type A Antigen Screen - Final 01/16/21 09:04 Nasopharnyx Influenza Type B Antigen Screen - Final Assessment/ Plan: Nephrology/ ICU Limited IH/ ROS due to critical illness. No acute events overnight. General: Unresponsive, Obese HEENT: Atraumatic Neck: Supple Respiratory: Diminished Cardiovascular: Regular rate/rhythm, Edema Gastrointestinal: Soft and benign, Non-distended Musculoskeletal: No clubbing, No contractures Integumentary: No rashes, No cyanosis Neurological: Abnormal tone Greater than 30min patient care. Blood work reviewed in the chart. Imagings Data: EXAM DESCRIPTION: RAD - Chest Single View - 02/08/2021 6:36 am CLINICAL HISTORY: Eval Pneumo/covid COMPARISON: Chest Single View dated 02/07/2021; Chest Single View dated 02/06/2021; Abdomen 1 View (KUB) dated 02/06/2021; Chest Single View dated 02/06/2021 FINDINGS: Endotracheal tube and NG tube in similar positioning. Improving aeration in the right lung compared with 02/07/2021. There are still widespread bilateral airspace disease is now left eccentric. Cardiomegaly. Improving subcutaneous emphysema. No pneumothorax is appreciated. IMPRESSION: No pneumothorax appreciated. Mild improved aeration of the right lung compared with 02/07/2021. Support apparatus is stable. Conclusions/Impression: NAYA in the setting of sepsis -No NSAIDs -Continue aguero -Continue diuretics -Will consider renal imaging as needed. -Continue dialysis daily Nephrolithiasis Respiratory acidosis, resolved Metabolic Alkalosis, resolved Hypocalcemia -Continue Calcitriol throught FT Pulmonary Edema -Continue Lasix IV 80mg q6h DM II with hyperglycemia -Continue Lantus -RISS Moderate malnutrition -Maintain nutrition with tube feeds Anemia in chronic illness -Monitor H&H -Transfuse PRBC as needed -Retacrit X1 Sepsis/ Septic shock -IVF bolus as needed -Continue vasopressor support prn -Continue abx COVID-19 PNA Acute hypoxic hypercapnic respiratory failure -Intubated; continue ventilatory support as ordered -Continue high dose IV steroids Toxic Metabolic Encephalopathy due to critical illness -Continue Rocephin
[2021-02-13 10:30] LABS: Blood Morphology Comment NOT SEEN (NOT SEEN); Platelet Estimate DECR
[2021-02-13] MEDS ORDERED: EPOETIN ALFA-EPBX 10,000 UNIT/ML VIAL SQ ONE (10:30)
[2021-02-13] MEDS: FENTANYL CITR 100 MCG/2 ML IV PRN (13:40)
--- NOTE | 2021-02-13 16:43 | P.PN ---
Subjective Date of Service: 02/13/21 Primary Care Provider: None Chief Complaint: Resp failure from COVID NC om propofol drip/ Condition deterirated last night Review of Systems is unable to be obtained Physical Examination - Vital Signs Temperature: 97.1 F Blood Pressure: 99/50 Pulse: 115 Respirations: 22 Pulse Ox (%): 95 - Physical Exam General: Comatose - Studies Medications List Reviewed: Yes Assessment & Plan - Problems (Diagnosis) (1) Respiratory failure Current Visit: Yes Status: Acute Plan: Resp failure / on 100% Fio2/ Reduce PEEP/ CXRY Diffuse changes/ labs reviewd/ On Dialysis/ Prognosis poor Qualifiers: Chronicity: acute Physician Review Additional Text: CT scan: FINDINGS: No pulmonary emboli are identified. Far peripheral branch assessment is difficult due to motion. The aorta as imaged shows no acute or suspicious finding. No pericardial thickening or effusion. Extensive bilateral airspace opacification present most pronounced in the right upper lobe in each lung base. Given the provided history this is consistent with moderate severity COVID-19 pneumonia. No pleural effusion or pleural thickening. No mediastinal or hilar suspicious masses. No chest wall masses or abnormal ax illary lymphadenopathy. IMPRESSION: No pulmonary emboli identified. Moderate severity bilateral COVID-19 pneumonia. Follow up CXR 02/13/2021: COMPARISON: Chest Single View dated 02/12/2021; Chest Single View dated 02/11/2021; Chest Single View dated 02/10/2021; Chest Single View dated 02/09/2021 FINDINGS: Portable technique limits examination quality. Extensive bilateral pulmonary opacities are present, appearing mildly improved since prior study. Tip of the endotracheal tube is along the superior margin of aortic arch. Enteric tube coils in the stomach. Dialysis catheter placement 02/10/2021: Date of Procedure: 02/10/2021 Surgeon: Inocencio Hendrickson MD Preoperative Diagnosis: Acute renal failure. Postoperative Diagnosis: Acute renal failure. Procedure Performed: Placement of left femoral tunnel hemodialysis catheter. Anesthesia: 1% lidocaine used. Estimated Blood Loss: Less than 5 mL. Specimen: None. Findings: Dark nonpulsatile blood return. Complications: None. Physical Exam: GENERAL: Patient intubated and sedated. VITAL SIGNS: Reviewed HEENT: Neck supple Dobbhoff in place NECK: Supple. No carotid bruits. No lymphadenopathy or thyromegaly. LUNGS: Patient remains on ventilator at 100% FiO2 HEART: Sinus tachycardia ABDOMEN: Soft, nontender, and nondistended. Positive bowel sounds. No hepatosplenomegaly was noted. EXTREMITIES: Edema to the lower extremities. NEUROLOGIC: Some edema to the lower extremities. Patient remains sedated SKIN: Normal color, turgor and temperature. No ulcerations or rashes noted. Impression: Acute respiratory failure with hypoxia secondary to bilateral moderate Covid 19 pneumonia, unvaccinated with pneumomediastinum and subcu emphysema Acute renal failure Acute encephalopathy likely metabolic Atrial fibrillation with RVR Elevated liver function likely underlying fatty liver Hyperglycemia suspect diabetes mellitus type 2 HTN Melana Edema Anemia of chronic disease Obesity, BMI greater than 40 Plan: Acute respiratory failure with hypoxia secondary to bilateral moderate Covid 19 pneumonia, unvaccinated with pneumomediastinum and subcu emphysema: Patient's condition remains critical. Patient remains intubated. Patient with desaturations. Now requiring 100% on ventilator. Spoke with nephrology. Nephrology continues with dialysis. Spoke with significant other at length today. Readdressed advanced directives. Patient now DO NOT RESUSCITATE. Will consider EEG and CT scan if more stable within the next 48 hours. Continue with current plan of care will discuss with pulmonology. Acute encephalopathy likely metabolic: May be related to acute renal failure or secondary to above. Will monitor closely. Consider EEG and CT scan if no improvement over the next 48 hours with dialysis. Acute renal failure: Renal function remains improved. Nephrology plans for dialysis. Atrial fibrillation with RVR: Continue metoprolol IV. Patient not on chronic a nticoagulation therapy due to anemia. Elevated liver function likely underlying fatty liver: Continue to monitor closely Hyperglycemia suspect diabetes mellitus type 2: Continue to adjust Lantus for better control. Patient on tube feeds. HTN: Continue metoprolol as needed. Will monitor closely Melana: Patient off anticoagulation therapy Edema: Will continue with Lasix as recommended by nephrology Anemia chronic disease: Overall stable. Monitor closely. Patient not on anticoagulation therapy Obesity, BMI greater than 40: Lifestyle modification education provided. Code Status: DO NOT RESUSCITATE DVT prophylaxis: Not on anticoagulation therapy Advanced Care Planning-30 minutes: Home at discharge
[2021-02-14] MEDS ORDERED: INSULIN -REGULAR HUMAN 50 UNIT/0.5 ML ML IV ONE (00:01)
[2021-02-14] MEDS: METHYLPREDNISOLONE 125 MG INJ IV SCH ×3 (00:14→16:50)
[2021-02-14] MEDS: VITAL HP 1,000 ML BOT RTH SCH (00:14)
[2021-02-14] MEDS: INSULIN -REGULAR HUMAN 50 UNIT/0.5 ML ML SQ SCH ×4 (00:14→17:19)
[2021-02-14] MEDS: HYDROMORPHONE HCL 2 MG/ML inj IV PRN ×4 (01:01→14:10)
[2021-02-14] MEDS: FUROSEMIDE 40 MG/4 ML VIAL IV SCH ×6 (01:01→20:28)
[2021-02-14] MEDS: propofoL 1,000 MG/100 ML VIAL IV PRN ×7 (01:13→21:34)
[2021-02-14] MEDS: LORazepam 2 MG/ML VIAL IV PRN (04:30)
[2021-02-14 05:32] LABS: Arterial Blood Carboxyhemoglob 2.1 % (0-1.5); Blood Gas Oxyhemoglobin 88.4 % (94-97); Blood O2 Saturation 91.6 % (92-98.5)
--- NOTE | 2021-02-14 06:02 | P.PN ---
Subjective Date of Service: 02/14/21 Primary Care Provider: None Chief Complaint: Resp failure from COVID Subjective: Other (Still no significant improvement. Tachycardia noted. Patient given IV metoprolol.) Physical Examination - Vital Signs Temperature: 97.3 F Blood Pressure: 108/55 Pulse: 110 Respirations: 24 Pulse Ox (%): 92 - Studies Medications List Reviewed: Yes Assessment & Plan Discharge Plan: Home Plan to discharge in: Greater than 2 days Physician Review Additional Text: CT scan: FINDINGS: No pulmonary emboli are identified. Far peripheral branch assessment is difficult due to motion. The aorta as imaged shows no acute or suspicious finding. No pericardial thickening or effusion. Extensive bilateral airspace opacification present most pronounced in the right upper lobe in each lung base. Given the provided history this is consistent with moderate severity COVID-19 pneumonia. No pleural effusion or pleural thickening. No mediastinal or hilar suspicious masses. No chest wall masses or abnormal axillary lymphadenopathy. IMPRESSION: No pulmonary emboli identified. Moderate severity bilateral COVID-19 pneumonia. Follow up CXR 02/14/2021: COMPARISON: February 13, 2021 FINDINGS: The tip of an endotracheal tube top of the aortic arch. Enteric tube within the stomach. No significant change in diffuse bilateral pulmonary opacities, pneumomediastinum and subcutaneous emphysema. IMPRESSION: No significant change in diffuse bilateral pulmonary opacities, pneumomediastinum and subcutaneous emphysema. Dialysis catheter placement 02/10/2021: Date of Procedure: 02/10/2021 Surgeon: Inocencio Hendrickson MD Preoperative Diagnosis: Acute renal failure. Postoperative Diagnosis: Acute renal failure. Procedure Performed: Placement of left femoral tunnel hemodialysis catheter. Anesthesia: 1% lidocaine used. Estimated Blood Loss: Less than 5 mL. Specimen: None. Findings: Dark nonpulsatile blood return. Complications: None. Physical Exam: GENERAL: Patient intubated and sedated. VITAL SIGNS: Reviewed HEENT: Neck supple Dobbhoff in place NECK: Supple. No carotid bruits. No lymphadenopathy or thyromegaly. LUNGS: Patient remains on ventilator at 100% FiO2 HEART: Sinus tachycardia ABDOMEN: Soft, nontender, and nondistended. Positive bowel sounds. No hepatosplenomegaly was noted. EXTREMITIES: Edema to the lower extremities. NEUROLOGIC: Some edema to the lower extremities. Patient remains sedated SKIN: Normal color, turgor and temperature. No ulcerations or rashes noted. Impression: Acute respiratory failure with hypoxia secondary to bilateral moderate Covid 19 pneumonia, unvaccinated with pneumomediastinum and subcu emphysema Acute renal failure Acute encephalopathy likely metabolic Atrial fibrillation with RVR Elevated liver function likely underlying fatty liver Hyperglycemia suspect diabetes mellitus type 2 HTN Melana Edema Anemia of chronic disease Obesity, BMI greater than 40 Plan: Acute respiratory failure with hypoxia secondary to bilateral moderate Covid 19 pneumonia, unvaccinated with pneumomediastinum and subcu emphysema: Patient's condition remains critical. No significant improvement. Still with some desaturations. Still requiring 100% FiO2 on ventilator. Some episodes of tachycardia requiring IV metoprolol. Spoke with significant other the other day. Patient remains DO NOT RESUSCITATE. Anticipate continued decline. Will monitor closely. Continue plan of care. Acute encephalopathy likely metabolic: May be related to acute renal failure or secondary to above. Will monitor closely. Consider EEG and CT scan if no improvement over the next 48 hours with dialysis. Acute renal failure: Renal function remains improved. Nephrology plans for dialysis. Atrial fibrillation with RVR: Continue metoprolol IV. Patient not on chronic anticoagulation therapy due to anemia. Elevated liver function likely underlying fatty liver: Continue to monitor closely Hyperglycemia suspect diabetes mellitus type 2: Continue to adjust Lantus for better control. Patient on tube feeds. HTN: Continue metoprolol as needed. Will monitor closely Melana: Patient off anticoagulation therapy Edema: Will continue with Lasix as recommended by nephrology Anemia chronic disease: Overall stable. Monitor closely. Patient not on anticoagulation therapy Obesity, BMI greater than 40: Lifestyle modification education provided. Code Status: DO NOT RESUSCITATE DVT prophylaxis: Not on anticoagulation therapy Advanced Care Planning-30 minutes: Home at discharge Time Spent Managing Pts Care (In Minutes): 55
[2021-02-14 06:56] LABS: Absolute Lymphocytes (CBC) 0.2 K/uL (0.7-4.9); Basophils % 0.1 % (0-1.3); Hematocrit 27.1 % (39.6-49.0); Lymphocytes % 1.8 % (15.3-44.8); MPV 10.6 fL (7.6-11.3); RBC Red Blood Cell Count 3.01 M/uL (4.33-5.43)
--- NOTE | 2021-02-14 07:10 | RAD REPORT ---
EXAM DESCRIPTION: Sirena Single View02/14/2021 5:28 am CLINICAL HISTORY: Shortness breath COMPARISON: February 13, 2021 FINDINGS: The tip of an endotracheal tube top of the aortic arch. Enteric tube within the stomach. No significant change in diffuse bilateral pulmonary opacities, pneumomediastinum and subcutaneous em physema. IMPRESSION: No significant change in diffuse bilateral pulmonary opacities, pneumomediastinum and clay bcutaneous emphysema.
[2021-02-14 07:51] LABS: C-Reactive Protein 23.1 mg/L (<3.00); Magnesium 2.7 mg/dL (1.8-2.4); Potassium 4.2 mmol/L (3.5-5.1)
[2021-02-14] MEDS: CALCITROL 0.25 MCG CAP PO SCH (08:40)
[2021-02-14] MEDS: PANTOPRAZOLE 40 MG INJ IVP SCH ×2 (08:40→20:25)
[2021-02-14] MEDS: ZINC SULFATE 220 MG CAP PO SCH (08:40)
[2021-02-14] MEDS: LACTOBACILLUS/ACIDOPHILUS TAB PO SCH ×2 (08:40→20:25)
[2021-02-14] MEDS: INSULIN GLARGINE 100 UNITS/ML SQ SCH ×2 (08:41→20:25)
[2021-02-14] MEDS: CEFTRIAXONE/SWI 1gm 1 GM/10 ML SYR IV SCH (08:41)
[2021-02-14 10:11] LABS: Anisocytosis 1+; Blood Morphology Comment NOTED (NOT SEEN); Platelet Estimate DECR
[2021-02-14] MEDS: MANNITOL 25% 12.5 GM/50 ML VIAL IV PRN (11:33)
[2021-02-14] MEDS: METOPROLOL TARTRATE 5 MG/5 ML INJ IV PRN (12:53)
--- NOTE | 2021-02-14 20:32 | P.PN ---
Date of Service: 02/14/21 Vital Signs Temp Pulse Resp BP Pulse Ox 98.4 F 121 H 24 H 119/68 96 02/14/21 16:00 02/14/21 20:25 02/14/21 18:00 02/14/21 20:25 02/14/21 18:00 Medications Acetaminophen (Acetaminophen 160 Mg/5 Ml Ucup) 650 mg PO Q6H PRN PRN Reason: fever Last Admin: 02/08/21 12:12 Dose: 650 mg Documented by: Calcitriol (Calcitrol 0.25 Mcg Cap) 0.5 mcg PO DAILY HENRY Last Admin: 02/14/21 08:40 Dose: 0.5 mcg Documented by: Dextrose (D50w 25 Gm/50 Ml Syringe) 12.5 gm IV PRN PRN; Protocol PRN Reason: HYPOGLYCEMIA Docusate Sodium (Docusate Na 100 Mg Cap) 100 mg PO DAILY PRN PRN Reason: CONSTIPATION Fentanyl Citrate (Fentanyl Citr 100 Mcg/2 Ml) 25 mcg IV Q4H PRN PRN Reason: Pain scale 8-10 (Severe) Last Admin: 02/13/21 13:40 Dose: 25 mcg Documented by: Furosemide (Furosemide 40 Mg/4 Ml Vial) 80 mg IV Q6H HENRY Last Admin: 02/14/21 20:25 Dose: 80 mg Documented by: Glucagon (Glucagon 1 Mg/Vial) 1 mg IM 1X PRN; Protocol PRN Reason: HYPOGLYCEMIA Heparin Sodium (Porcine) (Heparin 1,000 Unit/Ml Vial) 4,000 unit IV EVERY HD PRN PRN Reason: dialysis Last Admin: 02/14/21 14:10 Dose: 4,000 unit Documented by: Hydromorphone HCl (Hydromorphone Hcl 2 Mg/Ml Inj) 4 mg IV Q2H PRN PRN Reason: Pain scale 5-7 (Moderate) Last Admin: 02/14/21 14:10 Dose: 4 mg Documented by: Norepinephrine Bitartrate 16 (mg/ Dextrose) 516 mls @ 0 mls/hr IV PRN PRN; Protocol PRN Reason: HEMODYNAMIC PARAMETERS Last Admin: 02/07/21 21:01 Dose: 516 mls Documented by: Ceftriaxone Sodium/Sodium Chloride (Rocephin 1 Gm/10 Ml Swi Ivp) 1 gm in 10 mls @ 600 mls/hr IV DAILY HENRY; Protocol Last Admin: 02/14/21 08:41 Dose: 10 mls Documented by: Sodium Chloride (Sodium Chloride) 250 mls @ 0 mls/hr IV .Q0M [facility] Last Admin: 02/09/21 22:08 Dose: 250 mls Documented by: Propofol (Diprivan) 1,000 mg in 100 mls @ 0 mls/hr IV PRN PRN; Protocol PRN Reason: SEDATION Last Admin: 02/14/21 17:43 Dose: 100 mls Documented by: Insulin Glargine (Insulin Glargine 100 Units/Ml) 55 units SQ BID [facility] Last Admin: 02/14/21 20:25 Dose: 55 units Documented by: Insulin Human Regular (Insulin -Regular Human 50 Unit/0.5 Ml Ml) 0 unit SQ Q6H [facility]; Protocol Last Admin: 02/14/21 17:19 Dose: 8 unit Documented by: Lactobacillus Acidoph/Bulgaricus (Lactobacillus/Acidophilus Tab) 1 tab PO BID [facility] Last Admin: 02/14/21 20:25 Dose: 1 tab Documented by: Lorazepam (Lorazepam 2 Mg/Ml Vial) 4 mg IV Q2H PRN PRN Reason: AGITATION Last Admin: 02/14/21 04:30 Dose: 4 mg Documented by: Mannitol (Mannitol 25% 12.5 Gm/50 Ml Vial) 25 gm IV EVERY HD PRN PRN Reason: dialysis Last Admin: 02/14/21 11:33 Dose: 25 gm Documented by: Methylprednisolone Sodium Succinate (Methylprednisolone 125 Mg Inj) 80 mg IV Q8HR [facility] Last Admin: 02/14/21 16:50 Dose: 80 mg Documented by: Metoprolol Tartrate (Metoprolol Tartrate 5 Mg/5 Ml Inj) 5 mg IV TID PRN PRN Reason: Tachycardia Last Admin: 02/14/21 12:53 Dose: 5 mg Documented by: Nutritional Formula (Vital Hp 1,000 Ml Bot) 0 ml RTH CONT [facility] Last Admin: 02/14/21 00:14 Dose: 1,000 ml Documented by: Ondansetron HCl (Ondansetron 4 Mg/2 Ml Vial) 4 mg IV Q6HP PRN PRN Reason: NAUSEA / VOMITING Last Admin: 02/03/21 15:01 Dose: 4 mg Documented by: Pantoprazole Sodium (Pantoprazole 40 Mg Inj) 40 mg IVP Q12HR [facility]; Protocol Last Admin: 02/14/21 20:25 Dose: 40 mg Documented by: Sodium Chloride (Flush Normal Saline 10 Ml) 10 ml IV BID [facility] Last Admin: 02/14/21 20:26 Dose: 10 ml Documented by: Sodium Chloride (Sodium Chloride 0.9% 10ml Inj) 10 ml IV UD PRN PRN Reason: Diluant Zinc Sulfate (Zinc Sulfate 220 Mg Cap) 220 mg PO DAILY [facility] Last Admin: 02/14/21 08:40 Dose: 220 mg Documented by: Microbiology Results 01/16/21 08:57 Blood - Blood Aerobic Blood Culture - Final No growth in 5 days. 01/16/21 08:57 Blood - Blood Anaerobic Blood Culture - Final No growth in 5 days. 01/16/21 08:47 Blood - Blood Aerobic Blood Culture - Final No growth in 5 days. 01/16/21 08:47 Blood - Blood Anaerobic Blood Culture - Final No growth in 5 days. 01/16/21 09:04 Nasopharnyx Influenza Type A Antigen Screen - Final 01/16/21 09:04 Nasopharnyx Influenza Type B Antigen Screen - Final Assessment/ Plan: Nephrology/ ICU Limited IH/ ROS due to critical illness. No acute events overnight. General: Unresponsive, Obese HEENT: Atraumatic Neck: Supple Respiratory: Diminished Cardiovascular: Regular rate/rhythm, Edema Gastrointestinal: Soft and benign, Non-distended Musculoskeletal: No clubbing, No contractures Integumentary: No rashes, No cyanosis Neurological: Abnormal tone Greater than 30min patient care. Blood work reviewed in the chart. Imagings Data: EXAM DESCRIPTION: RAD - Chest Single View - 02/08/2021 6:36 am CLINICAL HISTORY: Eval Pneumo/covid COMPARISON: Chest Single View dated 02/07/2021; Chest Single View dated 02/06/2021; Abdomen 1 View (KUB) dated 02/06/2021; Chest Single View dated 02/06/2021 FINDINGS: Endotracheal tube and NG tube in similar positioning. Improving aeration in the right lung compared with 02/07/2021. There are still widespread bilateral airspace disease is now left eccentric. Cardiomegaly. Improving subcutaneous emphysema. No pneumothorax is appreciated. IMPRESSION: No pneumothorax appreciated. Mild improved aeration of the right lung compared with 02/07/2021. Support apparatus is stable. Conclusions/Impression: NAYA in the setting of sepsis -No NSAIDs -Continue aguero -Continue diuretics -Will consider renal imaging as needed. -Continue dialysis daily Nephrolithiasis Respiratory acidosis, resolved Metabolic Alkalosis, resolved Hypocalcemia -Continue Calcitriol throught FT Pulmonary Edema -Continue Lasix IV 80mg q6h DM II with hyperglycemia -Continue Lantus -RISS Moderate malnutrition -Maintain nutrition with tube feeds Anemia in chronic illness -Monitor H&H -Transfuse PRBC as needed -Retacrit PRN Sepsis/ Septic shock -IVF bolus as needed -Continue vasopressor support prn -Continue abx COVID-19 PNA Acute hypoxic hypercapnic respiratory failure -Intubated; continue ventilatory support as ordered -Continue high dose IV steroids; wean as tolerated Toxic Metabolic Encephalopathy due to critical illness -Continue Rocephin
[2021-02-15] MEDS: METHYLPREDNISOLONE 125 MG INJ IV SCH ×3 (01:11→21:52)
[2021-02-15] MEDS: HYDROMORPHONE HCL 2 MG/ML inj IV PRN ×3 (01:12→13:21)
[2021-02-15] MEDS: INSULIN -REGULAR HUMAN 50 UNIT/0.5 ML ML SQ SCH ×4 (01:12→17:51)
[2021-02-15] MEDS: VITAL HP 1,000 ML BOT RTH SCH (01:35)
[2021-02-15] MEDS: propofoL 1,000 MG/100 ML VIAL IV PRN ×4 (01:35→21:48)
[2021-02-15] MEDS: FUROSEMIDE 40 MG/4 ML VIAL IV SCH ×4 (02:28→21:49)
[2021-02-15] MEDS: LORazepam 2 MG/ML VIAL IV PRN ×3 (03:53→15:23)
[2021-02-15 05:14] LABS: Absolute Lymphocytes (CBC) 0.2 K/uL (0.7-4.9); Basophils % 0.1 % (0-1.3); Hematocrit 26.6 % (39.6-49.0); MPV 10.5 fL (7.6-11.3); RBC Red Blood Cell Count 2.96 M/uL (4.33-5.43)
--- NOTE | 2021-02-15 05:52 | P.PN ---
Subjective Date of Service: 02/15/21 Primary Care Provider: None Chief Complaint: Resp failure from COVID Subjective: Other (No change. Patient remains intubated) Physical Examination - Vital Signs Temperature: 97.4 F Blood Pressure: 142/81 Pulse: 115 Respirations: 22 Pulse Ox (%): 86 - Studies Medications List Reviewed: Yes Assessment & Plan Discharge Plan: Home Plan to discharge in: Greater than 2 days Physician Review Additional Text: CT scan: FINDINGS: No pulmonary emboli are identified. Far peripheral branch assessment is difficult due to motion. The aorta as imaged shows no acute or suspicious finding. No pericardial thickening or effusion. Extensive bilateral airspace opacification present most pronounced in the right upper lobe in each lung base. Given the provided history this is consistent with moderate severity COVID-19 pneumonia. No pleural effusion or pleural thickening. No mediastinal or hilar suspicious masses. No chest wall masses or abnormal axillary lymphadenopathy. IMPRESSION: No pulmonary emboli identified. Moderate severity bilateral COVID-19 pneumonia. Follow up CXR 02/15/2021: COMPARISON: Chest Single View dated 02/14/2021; Chest Single View dated 02/13/2021; Chest Single View dated 02/12/2021; Chest Single View dated 02/11/2021 FINDINGS: Widespread bilateral airspace disease that is severe and unchanged. Endotracheal tube and NG tube in similar position the endotracheal tube terminates 3 centimeters above the truman. Subcutaneous emphysema and pneumomedi astinum is similar. Similar cardiomegalyNo acute osseous abnormality. IMPRESSION: Unchanged bilateral widespread airspace disease consistent with multifocal pneumonia/ARDS. Dialysis catheter placement 02/10/2021: Date of Procedure: 02/10/2021 Surgeon: Inocencio Hendrickson MD Preoperative Diagnosis: Acute renal failure. Postoperative Diagnosis: Acute renal failure. Procedure Performed: Placement of left femoral tunnel hemodialysis catheter. Anesthesia: 1% lidocaine used. Estimated Blood Loss: Less than 5 mL. Specimen: None. Findings: Dark nonpulsatile blood return. Complications: None. Physical Exam: GENERAL: Patient intubated and sedated. VITAL SIGNS: Reviewed HEENT: Neck supple Dobbhoff in place NECK: Supple. No carotid bruits. No lymphadenopathy or thyromegaly. LUNGS: Patient remains on ventilator at 100% FiO2, subcu emphysema noted HEART: Sinus tachycardia ABDOMEN: Soft, nontender, and nondistended. Positive bowel sounds. No hepatosplenomegaly was noted. EXTREMITIES: Edema to the lower extremities. NEUROLOGIC: Some edema to the lower extremities. Patient remains sedated SKIN: Normal color, turgor and temperature. No ulcerations or rashes noted. Impression: Acute respiratory failure with hypoxia secondary to bilateral moderate Covid 19 pneumonia, unvaccinated with pneumomediastinum and subcu emphysema Acute renal failure Acute encephalopathy likely metabolic Atrial fibrillation with RVR Elevated liver function likely underlying fatty liver Hyperglycemia suspect diabetes mellitus type 2 HTN Melana Edema Anemia of chronic disease Obesity, BMI greater than 40 Plan: Acute respiratory failure with hypoxia secondary to bilateral moderate Covid 19 pneumonia, unvaccinated with pneumomediastinum and subcu emphysema: Patient remains unchanged and critical. Still no significant improvement. Patient remains intubated. Patient requiring sedation. Patient on 100% FiO2 on the ventilator. Continue with IV metoprolol. Continue with current treatment plan. Spoke with pulmonology. Pulmonology may consider adjusting medication for sedation. Case discussed with nephrology. Continue with dialysis. Patient remains DO NOT RESUSCITATE. Acute encephalopathy likely metabolic: Patient remains sedated. Still no significant change in mentation. Consider EEG and CT scan in the next 48 hours. Acute renal failure: Renal function improved. Continue with dialysis. Case discussed with nephrology. Atrial fibrillation with RVR: Continue metoprolol IV. Patient not on chronic anticoagulation therapy due to anemia. Elevated liver function likely underlying fatty liver: Continue to monitor closely Hyperglycemia suspect diabetes mellitus type 2: Continue to adjust Lantus for better control. Patient on tube feeds. Patient tolerating feeds. HTN: Continue metoprolol as needed. Will monitor closely Melana: Patient off anticoagulation therapy. Continue to monitor hemoglobin. Edema: Will continue with Lasix as recommended by nephrology Anemia chronic disease: Overall stable. Monitor closely. Patient not on anticoagulation therapy. Continue to monitor hemoglobin. Obesity, BMI greater than 40: Lifestyle modification education provided. Code Status: DO NOT RESUSCITATE DVT prophylaxis: Not on anticoagulation therapy Advanced Care Planning-30 minutes: Home at discharge Time Spent Managing Pts Care (In Minutes): 55
[2021-02-15 05:56] LABS: C-Reactive Protein 38.4 mg/L (<3.00); Ferritin 535.8 ng/mL (26-388); Magnesium 2.5 mg/dL (1.8-2.4); Potassium 4.4 mmol/L (3.5-5.1)
[2021-02-15 06:05] LABS: Arterial Blood Carboxyhemoglob 2.1 % (0-1.5); Blood Gas Oxyhemoglobin 90.2 % (94-97); Blood O2 Saturation 93.7 % (92-98.5)
[2021-02-15] MEDS: FENTANYL CITR 100 MCG/2 ML IV PRN (07:40)
--- NOTE | 2021-02-15 08:40 | RAD REPORT ---
EXAM DESCRIPTION: RAD - Chest Single View - 02/15/2021 6:39 am CLINICAL HISTORY: COVID PNA COMPARISON: Chest Single View dated 02/14/2021; Chest Single View dated 02/13/2021; Chest Single View da heladio 02/12/2021; Chest Single View dated 02/11/2021 FINDINGS: Widespread bilateral airspace disease that is severe and unchanged. Endotracheal tube and NG tube in similar position the endotracheal tube terminates 3 centimeters above the truman. Subcutan eous emphysema and pneumomediastinum is similar. Similar cardiomegalyNo acute osseous abnormality. IMPRESSION: Unchanged bilateral widespread airspace disease consistent with multifocal pneumonia/DAJA S.
[2021-02-15] MEDS: PANTOPRAZOLE 40 MG INJ IVP SCH ×2 (08:46→21:51)
[2021-02-15] MEDS: CEFTRIAXONE/SWI 1gm 1 GM/10 ML SYR IV SCH (08:47)
[2021-02-15] MEDS: CALCITROL 0.25 MCG CAP PO SCH (08:48)
[2021-02-15] MEDS: LACTOBACILLUS/ACIDOPHILUS TAB PO SCH ×2 (08:50→21:50)
[2021-02-15] MEDS: INSULIN GLARGINE 100 UNITS/ML SQ SCH ×2 (08:50→21:50)
[2021-02-15] MEDS: ZINC SULFATE 220 MG CAP PO SCH (09:00)
--- NOTE | 2021-02-15 10:29 | P.PN ---
Subjective Date of Service: 02/15/21 Primary Care Provider: None Chief Complaint: Resp failure from COVID Nc unable to wean off propofol with sig desat Review of Systems is unable to be obtained Physical Examination - Vital Signs Temperature: 98.8 F Blood Pressure: 125/72 Pulse: 116 Respirations: 26 Pulse Ox (%): 95 - Physical Exam General: Comatose - Studies Medications List Reviewed: Yes Assessment & Plan - Problems (Diagnosis) (1) Respiratory failure Current Visit: Yes Status: Acute Plan: Resp failure/ prog very poor , Apneustic breathing when propofol reduced/ Trial of IV versed. CXRY no change diffuse ILD/ labs CXRY reviewed/ Reduce solumederol/ Repeat ivermectin D heaprin. HGB stable Qualifiers: Chronicity: acute Physician Review Additional Text: CT scan: FINDINGS: No pulmonary emboli are identified. Far peripheral branch assessment is difficult due to motion. The aorta as imaged shows no acute or suspicious finding. No pericardial thickening or effusion. Extensive bilateral airspace opacification present most pronounced in the right upper lobe in each lung base. Given the provided history this is consistent with moderate severity COVID-19 pneumonia. No pleural effusion or pleural thickening. No mediastinal or hilar suspicious masses. No chest wall masses or abnormal axillary lymphadenopathy. IMPRESSION: No pulmonary emboli identified. Moderate severity bilateral COVID-19 pneumonia. Follow up CXR 02/14/2021: COMPARISON: February 13, 2021 FINDINGS: The tip of an endotracheal tube top of the aortic arch. Enteric tube within the stomach. No significant change in diffuse bilateral pulmonary opacities, pneumomediastinum and subcutaneous emphysema. IMPRESSION: No significant change in diffuse bilateral pulmonary opacities, pneumomediastinum and subcutaneous emphysema. Dialysis catheter placement 02/10/2021: Date of Procedure: 02/10/2021 Surgeon: Inocencio Hendrickson MD Preoperative Diagnosis: Acute renal failure. Postoperative Diagnosis: Acute renal failure. Procedure Performed: Placement of left femoral tunnel hemodialysis catheter. Anesthesia: 1% lidocaine used. Estimated Blood Loss: Less than 5 mL. Specimen: None. Findings: Dark nonpulsatile blood return. Complications: None. Physical Exam: GENERAL: Patient intubated and sedated. VITAL SIGNS: Reviewed HEENT: Neck supple Dobbhoff in place NECK: Supple. No carotid bruits. No lymphadenopathy or thyromegaly. LUNGS: Patient remains on ventilator at 100% FiO2 HEART: Sinus tachycardia ABDOMEN: Soft, nontender, and nondistended. Positive bowel sounds. No hepatosplenomegaly was noted. EXTREMITIES: Edema to the lower extremities. NEUROLOGIC: Some edema to the lower extremities. Patient remains sedated SKIN: Normal color, turgor and temperature. No ulcerations or rashes noted. Impression: Acute respiratory failure with hypoxia secondary to bilateral moderate Covid 19 pneumonia, unvaccinated with pneumomediastinum and subcu emphysema Acute renal failure Acute encephalopathy likely metabolic Atrial fibrillation with RVR Elevated liver function likely underlying fatty liver Hyperglycemia suspect diabetes mellitus type 2 HTN Melana Edema Anemia of chronic disease Obesity, BMI greater than 40 Plan: Acute respiratory failure with hypoxia secondary to bilateral moderate Covid 19 pneumonia, unvaccinated with pneumomediastinum and subcu emphysema: Patient's condition remains critical. No significant improvement. Still with some desaturations. Still requiring 100% FiO2 on ventilator. Some episodes of tachycardia requiring IV metoprolol. Spoke with significant other the other day. Patient remains DO NOT RESUSCITATE. Anticipate continued decline. Will monitor closely. Continue plan of care. Acute encephalopathy likely metabolic: May be related to acute renal failure or secondary to above. Will monitor closely. Consider EEG and CT scan if no improvement over the next 48 hours with dialysis. Acute renal failure: Renal function remains improved. Nephrology plans for dialysis. Atrial fibrillation with RVR: Continue metoprolol IV. Patient not on chronic anticoagulation therapy due to anemia. Elevated liver function likely underlying fatty liver: Continue to monitor closely Hyperglycemia suspect diabetes mellitus type 2: Continue to adjust Lantus for better control. Patient on tube feeds. HTN: Continue metoprolol as needed. Will monitor closely Melana: Patient off anticoagulation therapy Edema: Will continue with Lasix as recommended by nephrology Anemia chronic disease: Overall stable. Monitor closely. Patient not on anticoagulation therapy Obesity, BMI greater than 40: Lifestyle modification education provided. Code Status: DO NOT RESUSCITATE DVT prophylaxis: Not on anticoagulation therapy Advanced Care Planning-30 minutes: Home at discharge
[2021-02-15] MEDS: MIDAZOLAM HCL 100 MG in NA CHLORIDE 0.9% 80 ML IV PRN ×2 (10:47→18:28)
--- NOTE | 2021-02-15 12:32 | PN ---
Subjective: The patient is seen in the intensive care unit, room 7. He is in guarded condition. In tubated with AC settings for his ventilator oxygenation with 100% O2 and also with a PEEP of 12, AC s etting with 24. The patient is on propofol and sedated. He has been intubated now for a while with COVID pneumonia. He continues to be in very guarded condition, hardly breathing over the vent and re quiring a full and heavy support with significant respiratory failure. He has had acute kidney injur y, has been on dialysis and despite dialysis, his mentation is not clearing up. It does not seem lik e most of his encephalopathy and change in mental condition is from uremia. The patient is scheduled for dialysis again today. Objective: Vital Signs: Blood pressure is stable between 120 to 140 systolic, diastolic in the 70 r gustavo, O2 sats are in mid 90s. The patient is on AC 24 with 100% oxygen, ventilating with a PEEP of 1 2. His pulse is around 100 to 110. Lungs: With decreased breath sounds bilaterally and wheezes bilaterally. Abdomen: Soft. Extremities: Reveal anasarca, significant edema bilaterally. Laboratory Data: Reviewed. Labs show WBC 10.5, hemoglobin 8.8, hematocrit 26.6, platelet count of 7 4. Chemistry shows sodium 141, potassium 4.4, chloride 103, bicarb is 28, BUN is 107, creatinine is 2.71, calcium 7.4. C-reactive protein is 38.4, magnesium 2.5. C-reactive protein has somewhat impro cristy on January 16 that was at 124. Medications: Reviewed. The patient is on Rocaltrol. He is on ceftriaxone. He is on fentanyl IV q. 4 hours p.r.n. He is on furosemide q.6 hours. He is on hydromorphone 4 mg IV q.2 hours p.r.n. pain. He is on insulin. He is on lorazepam p.r.n. agitation. He is on steroids with methylprednisolone and Solu-Medrol 80 mg IV q.8 hours. He is on metoprolol. He is on Protonix. He is on propofol for sedation and he is on zinc. Assessment And Plan: The patient with significant acute kidney injury in the setting of COVID-19 pne umonia, respiratory failure, guarded condition, on ventilation with Diprivan sedation. The patient d oes seem to have a significant volume overload. Urine output has not been adequate and his kidney fu nction was significantly worse with BUN up to 150 range. The patient has not been getting dialysis t reatments. His dialysis schedule today will continue to correct his uremia and continue to remove fl uid as tolerated to give him the best chance to recover from this. However, his condition seems to b e very guarded and the chance of recovery here given his condition seems to be guarded as well. /RICHMOND Voice ID: [id number] Report ID: [id number]
[2021-02-15] MEDS: IVERMECTIN 3 MG TABLET PO SCH (13:50)
[2021-02-16] MEDS: HEPARIN 5000 UNIT/ML 1 ML VIAL SQ SCH ×3 (01:00→17:00)
[2021-02-16] MEDS: INSULIN -REGULAR HUMAN 50 UNIT/0.5 ML ML SQ SCH ×5 (01:40→23:45)
[2021-02-16] MEDS: propofoL 1,000 MG/100 ML VIAL IV PRN (02:24)
[2021-02-16] MEDS: MIDAZOLAM HCL 100 MG in NA CHLORIDE 0.9% 80 ML IV PRN ×3 (02:24→23:45)
[2021-02-16] MEDS: FUROSEMIDE 40 MG/4 ML VIAL IV SCH ×4 (02:43→20:20)
[2021-02-16 05:14] LABS: Absolute Lymphocytes (CBC) 0.2 K/uL (0.7-4.9); Hematocrit 28.2 % (39.6-49.0); Lymphocytes % 1.9 % (15.3-44.8); MPV 10.4 fL (7.6-11.3); RBC Red Blood Cell Count 3.14 M/uL (4.33-5.43)
[2021-02-16 05:51] LABS: Albumin 2.3 g/dL (3.4-5.0); Bilirubin Total 0.4 mg/dL (0.2-1.0); C-Reactive Protein 51.3 mg/L (<3.00); Ferritin 600.8 ng/mL (26-388); Magnesium 2.2 mg/dL (1.8-2.4); Potassium 4.4 mmol/L (3.5-5.1); Protein, Total 5.9 g/dL (6.4-8.2)
--- NOTE | 2021-02-16 05:56 | P.PN ---
Subjective Date of Service: 02/16/21 Primary Care Provider: None Chief Complaint: Resp failure from COVID Subjective: Other (Patient remains intubated and sedated. No significant change since yesterday) Physical Examination - Vital Signs Temperature: 98 F Blood Pressure: 149/84 Pulse: 124 Respirations: 18 Pulse Ox (%): 93 - Studies Medications List Reviewed: Yes Assessment & Plan Discharge Plan: Home Plan to discharge in: Greater than 2 days Physician Review Additional Text: CT scan: FINDINGS: No pulmonary emboli are identified. Far peripheral branch assessment is difficult due to motion. The aorta as imaged shows no acute or suspicious finding. No pericardial thickening or effusion. Extensive bilateral airspace opacification present most pronounced in the right upper lobe in each lung base. Given the provided history this is consistent with moderate severity COVID-19 pneumonia. No pleural effusion or pleural thickening. No mediastinal or hilar suspicious masses. No chest wall masses or abnormal axillary lymphadenopathy. IMPRESSION: No pulmonary emboli identified. Moderate severity bilateral COVID-19 pneumonia. Follow up CXR 02/16/2021: COMPARISON: Chest Single View dated 02/15/2021; Chest Single View dated 02/14/2021; Chest Single View dated 02/13/2021; Chest Single View dated 02/12/2021 FINDINGS: Re- demonstrated unchanged widespread bilateral airspace disease. The endotracheal tube is in similar position at the clavicular heads approximately 3 centimeters above the truman. Enteric tube noted. Similar subcutaneous emphysema and pneumomediastinum. The heart size is within normal limits.No acute osseous abnormality. No significant pleural effusions or pneumothorax. IMPRESSION: Unchanged widespread bilateral airspace disease consistent with pneumonia/ARDS. Support apparatus stable. Dialysis catheter placement 02/10/2021: Date of Procedure: 02/10/2021 Surgeon: Inocencio Hendrickson MD Preoperative Diagnosis: Acute renal failure. Postoperative Diagnosis: Acute renal failure. Procedure Performed: Placement of left femoral tunnel hemodialysis catheter. Anesthesia: 1% lidocaine used. Estimated Blood Loss: Less than 5 mL. Specimen: None. Findings: Dark nonpulsatile blood return. Complications: None. Physical Exam: GENERAL: Patient intubated and sedated. VITAL SIGNS: Reviewed HEENT: Neck supple Dobbhoff in place NECK: Supple. No carotid bruits. No lymphadenopathy or thyromegaly. LUNGS: Patient remains on ventilator at 100% FiO2, subcu emphysema noted HEART: Sinus tachycardia ABDOMEN: Soft, nontender, and nondistended. Positive bowel sounds. No hepatosplenomegaly was noted. EXTREMITIES: Edema to the lower extremities. NEUROLOGIC: Some edema to the lower extremities. Patient remains sedated SKIN: Normal color, turgor and temperature. No ulcerations or rashes noted. Impression: Acute respiratory failure with hypoxia secondary to bilateral moderate Covid 19 pneumonia, unvaccinated with pneumomediastinum and subcu emphysema Acute renal failure Acute encephalopathy likely metabolic Atrial fibrillation with RVR Elevated liver function likely underlying fatty liver Hyperglycemia suspect diabetes mellitus type 2 HTN Melana Edema Anemia of chronic disease Obesity, BMI greater than 40 Plan: Acute respiratory failure with hypoxia secondary to bilateral moderate Covid 19 pneumonia, unvaccinated with pneumomediastinum and subcu emphysema: No significant change since yesterday. Patient remains unchanged and critical. Patient remains on ventilator on 100% FiO2. Pulmonology adjusting medication for sedation. Continue IV metoprolol for elevated blood pressure and heart rate. Patient received dialysis yesterday. Continue with nephrology recommendations and dialysis. Patient remains DO NOT RESUSCITATE. Prognosis poor. Will discuss with significant other. I will turn the service over to the hospitalist team tomorrow. I will go plan of care with him. Acute encephalopathy likely metabolic: Patient remains sedated. Still no significant change in mentation. Consider EEG and CT scan in the next 48 hours. Acute renal failure: Renal function improved. Dialysis performed yesterday. Continue with dialysis. Case discussed with nephrology. Atrial fibrillation with RVR: Continue metoprolol IV. Patient not on chronic anticoagulation therapy due to anemia. Elevated liver function likely underlying fatty liver: Continue to monitor closely Hyperglycemia suspect diabetes mellitus type 2: Continue to adjust Lantus for better control. Patient on tube feeds. Patient tolerating feeds. HTN: Continue metoprolol as needed. Will monitor closely Melana: Patient off anticoagulation therapy. Continue to monitor hemoglobin. Edema: Will continue with Lasix as recommended by nephrology Anemia chronic disease: Overall stable. Monitor closely. Patient not on anticoagulation therapy. Continue to monitor hemoglobin. Obesity, BMI greater than 40: Lifestyle modification education provided. Code Status: DO NOT RESUSCITATE DVT prophylaxis: Not on anticoagulation therapy Advanced Care Planning-30 minutes: Home at discharge Time Spent Managing Pts Care (In Minutes): 55
[2021-02-16 05:58] LABS: Arterial Blood Carboxyhemoglob 1.9 % (0-1.5); Blood Gas Oxyhemoglobin 88.5 % (94-97); Blood O2 Saturation 91.6 % (92-98.5)
--- NOTE | 2021-02-16 07:37 | RAD REPORT ---
EXAM DESCRIPTION: RAD - Chest Single View - 02/16/2021 6:53 am CLINICAL HISTORY: COVID PNA COMPARISON: Chest Single View dated 02/15/2021; Chest Single View dated 02/14/2021; Chest Single View da heladio 02/13/2021; Chest Single View dated 02/12/2021 FINDINGS: Re- demonstrated unchanged widespread bilateral airspace disease. The endotracheal tube is in similar position at the clavicular heads approximately 3 centimeters above the truman. Enteric tu be noted. Similar subcutaneous emphysema and pneumomediastinum. The heart size is within normal limit s.No acute osseous abnormality. No significant pleural effusions or pneumothorax. IMPRESSION: Unchanged widespread bilateral airspace disease consistent with pneumonia/ARDS. Support apparatus stable.
[2021-02-16] MEDS: METHYLPREDNISOLONE 125 MG INJ IV SCH ×2 (07:48→20:22)
[2021-02-16] MEDS: INSULIN GLARGINE 100 UNITS/ML SQ SCH ×2 (07:49→20:20)
[2021-02-16] MEDS: CEFTRIAXONE/SWI 1gm 1 GM/10 ML SYR IV SCH (07:49)
[2021-02-16] MEDS: PANTOPRAZOLE 40 MG INJ IVP SCH ×2 (07:49→20:21)
[2021-02-16] MEDS: CALCITROL 0.25 MCG CAP PO SCH (07:49)
[2021-02-16] MEDS: LACTOBACILLUS/ACIDOPHILUS TAB PO SCH ×2 (07:50→20:20)
[2021-02-16] MEDS: ZINC SULFATE 220 MG CAP PO SCH (07:51)
[2021-02-16] MEDS: HYDROMORPHONE HCL 2 MG/ML inj IV PRN ×3 (08:25→20:23)
[2021-02-16] MEDS ORDERED: CISATRACURIUM INJECTION 2 MG/ML (10 ML Vial) IV PRN (09:21)
--- NOTE | 2021-02-16 10:54 | P.PN ---
Subjective Date of Service: 02/16/21 Primary Care Provider: None Chief Complaint: Resp failure from COVID NC very hypoxic trying to wean down propofol/ Stil exp sig desat Review of Systems Unremarkable Physical Examination - Vital Signs Temperature: 98 F Blood Pressure: 149/84 Pulse: 124 Respirations: 18 Pulse Ox (%): 93 - Physical Exam General: Comatose - Studies Medications List Reviewed: Yes Assessment & Plan - Problems (Diagnosis) (1) Respiratory failure Current Visit: Yes Status: Acute Plan: Resp failure/ Advance ET tube by 1.5 cm/prognosis very poor/on dialysis reduce PC Qualifiers: Chronicity: acute Physician Review Additional Text: CT scan: FINDINGS: No pulmonary emboli are identified. Far peripheral branch assessment is difficult due to motion. The aorta as imaged shows no acute or suspicious finding. No pericardial thickening or effusion. Extensive bilateral airspace opacification present most pronounced in the right upper lobe in each lung base. Given the provided history this is consistent with moderate severity COVID-19 pneumonia. No pleural effusion or pleural thickening. No mediastinal or hilar suspicious masses. No chest wall masses or abnormal axillary lymphadenopathy. IMPRESSION: No pulmonary emboli identified. Moderate severity bilateral COVID-19 pneumonia. Follow up CXR 02/16/2021: COMPARISON: Chest Single View dated 02/15/2021; Chest Single View dated 02/14/2021; Chest Single View dated 02/13/2021; Chest Single View dated 02/12/2021 FINDINGS: Re- demonstrated unchanged widespread bilateral airspace disease. The endotracheal tube is in similar position at the clavicular heads approximately 3 centimeters above the truman. Enteric tube noted. Similar subcutaneous emphysema and pneumomediastinum. The heart size is within normal limits.No acute osseous abnormality. No significant pleural effusions or pneumothorax. IMPRESSION: Unchanged widespread bilateral airspace disease consistent with pneumonia/ARDS. Support apparatus stable. Dialysis catheter placement 02/10/2021: Date of Procedure: 02/10/2021 Surgeon: Inocencio Hendrickson MD Preoperative Diagnosis: Acute renal failure. Postoperative Diagnosis: Acute renal failure. Procedure Performed: Placement of left femoral tunnel hemodialysis catheter. Anesthesia: 1% lidocaine used. Estimated Blood Loss: Less than 5 mL. Specimen: None. Findings: Dark nonpulsatile blood return. Complications: None. Physical Exam: GENERAL: Patient intubated and sedated. VITAL SIGNS: Reviewed HEENT: Neck supple Dobbhoff in place NECK: Supple. No carotid bruits. No lymphadenopathy or thyromegaly. LUNGS: Patient remains on ventilator at 100% FiO2, subcu emphysema noted HEART: Sinus tachycardia ABDOMEN: Soft, nontender, and nondistended. Positive bowel sounds. No hepatosplenomegaly was noted. EXTREMITIES: Edema to the lower extremities. NEUROLOGIC: Some edema to the lower extremities. Patient remains sedated SKIN: Normal color, turgor and temperature. No ulcerations or rashes noted. Impression: Acute respiratory failure with hypoxia secondary to bilateral moderate Covid 19 pneumonia, unvaccinated with pneumomediastinum and subcu emphysema Acute renal failure Acute encephalopathy likely metabolic Atrial fibrillation with RVR Elevated liver function likely underlying fatty liver Hyperglycemia suspect diabetes mellitus type 2 HTN Melana Edema Anemia of chronic disease Obesity, BMI greater than 40 Plan: Acute respiratory failure with hypoxia secondary to bilateral moderate Covid 19 pneumonia, unvaccinated with pneumomediastinum and subcu emphysema: No significant change since yesterday. Patient remains unchanged and critical. Patient remains on ventilator on 100% FiO2. Pulmonology adjusting medication for sedation. Continue IV metoprolol for elevated blood pressure and heart rate. Patient received dialysis yesterday. Continue with nephrology recommendations and dialysis. Patient remains DO NOT RESUSCITATE. Prognosis poor. Will discuss with significant other. I will turn the service over to the hospitalist team tomorrow. I will go plan of care with him. Acute encephalopathy likely metabolic: Patient remains sedated. Still no signif icant change in mentation. Consider EEG and CT scan in the next 48 hours. Acute renal failure: Renal function improved. Dialysis performed yesterday. Continue with dialysis. Case discussed with nephrology. Atrial fibrillation with RVR: Continue metoprolol IV. Patient not on chronic anticoagulation therapy due to anemia. Elevated liver function likely underlying fatty liver: Continue to monitor closely Hyperglycemia suspect diabetes mellitus type 2: Continue to adjust Lantus for better control. Patient on tube feeds. Patient tolerating feeds. HTN: Continue metoprolol as needed. Will monitor closely Melana: Patient off anticoagulation therapy. Continue to monitor hemoglobin. Edema: Will continue with Lasix as recommended by nephrology Anemia chronic disease: Overall stable. Monitor closely. Patient not on anticoagulation therapy. Continue to monitor hemoglobin. Obesity, BMI greater than 40: Lifestyle modification education provided. Code Status: DO NOT RESUSCITATE DVT prophylaxis: Not on anticoagulation therapy Advanced Care Planning-30 minutes: Home at discharge
[2021-02-16] MEDS ORDERED: CEFTRIAXONE/SWI 1gm 1 GM/10 ML SYR ONE (12:12)
[2021-02-16] MEDS: ACETAMINOPHEN 160 MG/5 ML UCUP PO PRN (23:47)
[2021-02-17] MEDS: HEPARIN 5000 UNIT/ML 1 ML VIAL SQ SCH ×2 (01:00→09:00)
[2021-02-17] MEDS: HYDROMORPHONE HCL 2 MG/ML inj IV PRN ×4 (02:56→21:31)
[2021-02-17] MEDS: FUROSEMIDE 40 MG/4 ML VIAL IV SCH ×4 (02:59→21:21)
[2021-02-17] MEDS: INSULIN -REGULAR HUMAN 50 UNIT/0.5 ML ML SQ SCH ×4 (05:42→23:54)
[2021-02-17 06:18] LABS: Absolute Lymphocytes (CBC) 0.2 K/uL (0.7-4.9); Hematocrit 27.3 % (39.6-49.0); Lymphocytes % 1.7 % (15.3-44.8); MPV 11.7 fL (7.6-11.3); RBC Red Blood Cell Count 3.01 M/uL (4.33-5.43)
[2021-02-17 06:32] LABS: Albumin 2.2 g/dL (3.4-5.0); Bilirubin Total 0.3 mg/dL (0.2-1.0); C-Reactive Protein 65.2 mg/L (<3.00); Potassium 4.9 mmol/L (3.5-5.1); Protein, Total 5.8 g/dL (6.4-8.2)
[2021-02-17 06:33] LABS: Ferritin 685.7 ng/mL (26-388); Magnesium 2.5 mg/dL (1.8-2.4)
[2021-02-17 06:41] LABS: Arterial Blood Carboxyhemoglob 1.9 % (0-1.5); Blood Gas Oxyhemoglobin 86.2 % (94-97)
--- NOTE | 2021-02-17 08:13 | RAD REPORT ---
EXAM DESCRIPTION: Sirena Single View02/17/2021 7:09 am CLINICAL HISTORY: Chest pain COMPARISON: February 16 FINDINGS: Improvement in the pneumomediastinum and subcutaneous emphysema. Tip of an endotracheal tube 2.4 centimeters above the truman. Nasogastric tube coiled within stomach. The tip lies near the GE junction. Mild worsening in diffuse bilateral pulmonary opacities
[2021-02-17] MEDS: MIDAZOLAM HCL 100 MG in NA CHLORIDE 0.9% 80 ML IV PRN ×3 (08:56→21:31)
[2021-02-17] MEDS: LORazepam 2 MG/ML VIAL IV PRN ×3 (09:00→15:46)
[2021-02-17] MEDS: INSULIN GLARGINE 100 UNITS/ML SQ SCH ×2 (09:04→21:20)
[2021-02-17] MEDS: PANTOPRAZOLE 40 MG INJ IVP SCH ×2 (09:04→21:19)
[2021-02-17] MEDS: CEFTRIAXONE/SWI 1gm 1 GM/10 ML SYR IV SCH (09:04)
[2021-02-17] MEDS: METHYLPREDNISOLONE 125 MG INJ IV SCH ×2 (09:05→21:20)
[2021-02-17] MEDS: LACTOBACILLUS/ACIDOPHILUS TAB PO SCH ×2 (09:05→21:19)
[2021-02-17] MEDS: ZINC SULFATE 220 MG CAP PO SCH (09:05)
[2021-02-17] MEDS: CALCITROL 0.25 MCG CAP PO SCH (09:05)
[2021-02-17] MEDS: ACETAMINOPHEN 160 MG/5 ML UCUP PO PRN (09:07)
[2021-02-17] MEDS ORDERED: D5W 1,000 ML IV SCH (11:00)
[2021-02-17] MEDS: IVERMECTIN 3 MG TABLET PO SCH (12:03)
[2021-02-17] MEDS: FENTANYL CITR 100 MCG/2 ML IV PRN ×2 (12:09→15:46)
--- NOTE | 2021-02-17 18:14 | P.PN ---
Subjective Date of Service: 02/17/21 Chart has been reviewed. Events of the last 24 hr have been noted, patient continues to do poorly. Patient is not really improved much over the last week. His labs are not really improved. Patient with thrombocytopenia and respiratory acidosis. Prognosis is very poor. Spoken to the and updated her on patient's current clinical status. Review of Systems is unable to be obtained Physical Examination - Vital Signs Temperature: 99.4 F Blood Pressure: 129/56 Pulse: 127 Respirations: 20 Pulse Ox (%): 90 - Physical Exam General: Unresponsive, Other (Intubated and is sedated) HEENT: Other (ET tube is in place. Oral pharyngeal with multiple scabs) Respiratory: Diminished, Crackles/rales Cardiovascular: Regular rate/rhythm, Normal S1 S2, No murmurs Gastrointestinal: Normal bowel sounds, Soft and benign, Non-distended Musculoskeletal: No clubbing, No swelling, No tenderness Integumentary: No rashes, Erythema Neurological: Other (Patient is not responsive) - Studies Medications List Reviewed: Yes Assessment & Plan - Problems (Diagnosis) (1) Pneumonia due to COVID-19 virus Current Visit: Yes Status: Acute (2) Hypertension Current Visit: Yes Status: Acute (3) Morbid obesity Current Visit: Yes Status: Acute (4) Respiratory acidosis Current Visit: Yes Status: Acute (5) Anemia Current Visit: Yes Status: Acute (6) Thrombocytopenia Current Visit: Yes Status: Acute (7) Hyperglycemia Current Visit: Yes Status: Acute (8) Uremia Current Visit: Yes Status: Acute - Plan 1. Continue with IV steroids 2. Monitor inflammatory markers; continue with IV steroids-may need to go ahead and wean this down by this time 3. Repeat chest x-ray 4. O2 per protocol; continue with mechanical ventilation 5. Pulmonary following through face time 6. Continue with albuterol inhaler therapy; also supportive care 7. Monitor renal function closely; monitor CBC as patient is anemic and thrombocytopenic 8. Will discuss with regarding code status. 9. GI and DVT prophylaxis Discharge Plan: Home Plan to discharge in: Greater than 2 days - Advance Directives Does patient have a Living Will: No Does patient have a Durable POA for Healthcare: No - Code Status/Comfort Care Code Status Assessed: Yes Code Status: Full Code Critical Care: Yes Time Spent Managing PTS Care (In Minutes): 40
--- NOTE | 2021-02-17 18:39 | PN ---
Subjective: The patient is a 40-year-old male in Room 6 of Intensive Care Unit at [facility]. The patient is heavily sedated. He is on heavy ventilator support with 100% oxygen. He is looking in quite guarded condition with a pulse rate about 140. His respirations are around 24 , so his blood pressure is running in 130 systolic range. His O2 sats are around 91% and 92% with 10 0% oxygen. He is on pressure support with 24 respiratory rate. He is on ventilator support with a P EEP of 12. His condition continues to be guarded. Physical Examination: General: He does have a Jose on the left groin. The area looks clean. Lungs: Decreased breath sounds with some wheezing bilaterally. Abdomen: Soft, but the patient is sedated. Extremities: Reveal edema and anasarca bilaterally. Laboratory Data: Reviewed. The patient's WBC shows 9.2, hemoglobin 9.0, hematocrit 27.3, platelet c ount of 55. Chemistries show sodium 145, potassium 4.9, chloride 106, bicarb is 26, BUN 129, creatin ine 2.56, glucose 311, calcium 7.5, magnesium 2.5, ferritin 685. AST and ALT are 27 and 95, alkaline phosphatase is 58. C-reactive protein is 65.2. Assessment And Plan: The patient is in significantly guarded condition, continues to require heavy v entilator support with very poor prognosis. The patient at this point has elevated sodium, seems to be slightly water depleted. Also, his BUN has gone up to 129, partly secondary to heavy catabolic st ate with cell breakdown and elevation of urea. We will go ahead and dialyze him today with 3 hours t reatment, see if we can get about 2 L of fluid off. We will also put him on a D5W drip at 75 mL an h our for 1 L. I have discussed the plan with the dialysis nurse and also discussed the plan with inte [facility] care unit nurse. The patient has a left groin catheter, which is a very high risk for infectio n; however, given his current condition, we are using this for dialysis support. Given his severe re spiratory failure and inability to breathe over the vent much and with significant oxygen requirement s in the setting of this COVID pneumonia, it seems like his prognosis is quite poor. We will continu e supportive care with dialysis as needed with a plan for dialysis today. /RICHMOND Voice ID: [id number] Report ID: [id number]
[2021-02-17] MEDS ORDERED: Pharmacy Consult 1 EA XX PRN (21:34)
--- NOTE | 2021-02-17 21:40 | P.PN ---
Subjective Date of Service: 02/17/21 Primary Care Provider: None Chief Complaint: Resp failure from COVID Worse now febrile/ Still rquiring high level of support Review of Systems is unable to be obtained Physical Examination - Vital Signs Temperature: 99.4 F Blood Pressure: 121/60 Pulse: 126 Respirations: 24 Pulse Ox (%): 89 - Physical Exam General: Unresponsive - Studies Medications List Reviewed: Yes Assessment & Plan - Problems (Diagnosis) (1) Respiratory failure Current Visit: Yes Status: Acute Plan: resp failure/ Febrile/ Cultures add Vanc and merem /diflucan/ high level of support/Diffuse bialteral changes on CXYR prog very poor/ DC HEpairn Qualifiers: Chronicity: acute Physician Review Additional Text: CT scan: FINDINGS: No pulmonary emboli are identified. Far peripheral branch assessment is difficult due to motion. The aorta as imaged shows no acute or suspicious finding. No pericardial thickening or effusion. Extensive bilateral airspace opacification present most pronounced in the right upper lobe in each lung base. Given the provided history this is consistent with moderate severity COVID-19 pneumonia. No pleural effusion or pleural thickening. No mediastinal or hilar suspicious masses. No chest wall masses or abnormal axillary lymphadenopathy. IMPRESSION: No pulmonary emboli identified. Moderate severity bilateral COVID-19 pneumonia. Follow up CXR 02/16/2021: COMPARISON: Chest Single View dated 02/15/2021; Chest Single View dated 02/14/2021; Chest Single View dated 02/13/2021; Chest Single View dated 02/12/2021 FINDINGS: Re- demonstrated unchanged widespread bilateral airspace disease. The endotracheal tube is in similar position at the clavicular heads approximately 3 centimeters above the truman. Enteric tube noted. Similar subcutaneous emphysema and pneumomediastinum. The heart size is within normal limits.No acute osseous abnormality. No significant pleural effusions or pneumothorax. IMPRESSION: Unchanged widespread bilateral airspace disease consistent with pneumonia/ARDS. Support apparatus stable. Dialysis catheter placement 02/10/2021: Date of Procedure: 02/10/2021 Surgeon: Inocencio Hendrickson MD Preoperative Diagnosis: Acute renal failure. Postoperative Diagnosis: Acute renal failure. Procedure Performed: Placement of left femoral tunnel hemodialysis catheter. Anesthesia: 1% lidocaine used. Estimated Blood Loss: Less than 5 mL. Specimen: None. Findings: Dark nonpulsatile blood return. Complications: None. Physical Exam: GENERAL: Patient intubated and sedated. VITAL SIGNS: Reviewed HEENT: Neck supple Dobbhoff in place NECK: Supple. No carotid bruits. No lymphadenopathy or thyromegaly. LUNGS: Patient remains on ventilator at 100% FiO2, subcu emphysema noted HEART: Sinus tachycardia ABDOMEN: Soft, nontender, and nondistended. Positive bowel sounds. No hepatosplenomegaly was noted. EXTREMITIES: Edema to the lower extremities. NEUROLOGIC: Some edema to the lower extremities. Patient remains sedated SKIN: Normal color, turgor and temperature. No ulcerations or rashes noted. Impression: Acute respiratory failure with hypoxia secondary to bilateral moderate Covid 19 pneumonia, unvaccinated with pneumomediastinum and subcu emphysema Acute renal failure Acute encephalopathy likely metabolic Atrial fibrillation with RVR Elevated liver function likely underlying fatty liver Hyperglycemia suspect diabetes mellitus type 2 HTN Melana Edema Anemia of chronic disease Obesity, BMI greater than 40 Plan: Acute respiratory failure with hypoxia secondary to bilateral moderate Covid 19 pneumonia, unvaccinated with pneumomediastinum and subcu emphysema: No significant change since yesterday. Patient remains unchanged and critical. Patient remains on ventilator on 100% FiO2. Pulmonology adjusting medication for sedation. Continue IV metoprolol for elevated blood pressure and heart rate. Patient received dialysis yesterday. Continue with nephrology recommendations and dialysis. Patient remains DO NOT RESUSCITATE. Prognosis po or. Will discuss with significant other. I will turn the service over to the hospitalist team tomorrow. I will go plan of care with him. Acute encephalopathy likely metabolic: Patient remains sedated. Still no significant change in mentation. Consider EEG and CT scan in the next 48 hours. Acute renal failure: Renal function improved. Dialysis performed yesterday. Continue with dialysis. Case discussed with nephrology. Atrial fibrillation with RVR: Continue metoprolol IV. Patient not on chronic anticoagulation therapy due to anemia. Elevated liver function likely underlying fatty liver: Continue to monitor closely Hyperglycemia suspect diabetes mellitus type 2: Continue to adjust Lantus for better control. Patient on tube feeds. Patient tolerating feeds. HTN: Continue metoprolol as needed. Will monitor closely Melana: Patient off anticoagulation therapy. Continue to monitor hemoglobin. Edema: Will continue with Lasix as recommended by nephrology Anemia chronic disease: Overall stable. Monitor closely. Patient not on anticoagulation therapy. Continue to monitor hemoglobin. Obesity, BMI greater than 40: Lifestyle modification education provided. Code Status: DO NOT RESUSCITATE DVT prophylaxis: Not on anticoagulation therapy Advanced Care Planning-30 minutes: Home at discharge
[2021-02-17] MEDS ORDERED: FLUCONAZOLE 400 MG IVPB 400 MG/200 ML BAG IV SCH (21:45)
[2021-02-17] MEDS: Meropenem 500 MG/100 ML BAG IV SCH (22:00)
[2021-02-17] MEDS ORDERED: VANCOMYCIN 3 GM in NA CHLORIDE 0.9% 500 ML IV ONE (22:00)
[2021-02-17] MEDS ORDERED: VANCOMYCIN 1 GM/VIAL ONE (22:32)
[2021-02-17] MEDS ORDERED: NA CHLORIDE 0.9% 0 ML ONE (22:32)
[2021-02-17] MEDS ORDERED: NA CHLORIDE 0.9% 500 ML ONE (22:33)
[2021-02-17] MEDS ORDERED: NA CHLORIDE 0.9% 100 ML ONE (22:34)
[2021-02-17] MEDS ORDERED: Meropenem 500 MG VIAL IV ONE (22:37)
[2021-02-17] MEDS ORDERED: FLUCONAZOLE 200mg IVPB 400 MG/200 ML BAG IV ONE (22:41)
[2021-02-17 23:28] LABS: Urine Appearance TURBID (Clear); Urine Bilirubin NEGATIVE (Negative); Urine Blood 3+ (Negative); Urine Color YELLOW (Yellow); Urine Glucose 1+ (Negative); Urine Protein 1+ (Negative); Urine Urobilinogen 0.2 mg/dL (0.2-1.0); Urine pH 5.5 (5.0-7.0)
[2021-02-17 23:35] LABS: Urine Microscopic Reflex ORDER UMIC
[2021-02-18 00:12] LABS: Urine Bacteria 20-50 /HPF (NONE SEEN); Urine Coarse Granular Casts >10 /LPF (NONE SEEN); Urine RBC 20-50 /HPF (NONE SEEN)
[2021-02-18] MEDS: LORazepam 2 MG/ML VIAL IV PRN ×5 (00:14→23:55)
[2021-02-18] MEDS: FUROSEMIDE 40 MG/4 ML VIAL IV SCH ×4 (01:45→20:52)
[2021-02-18] MEDS: HYDROMORPHONE HCL 2 MG/ML inj IV PRN ×4 (03:18→17:57)
[2021-02-18 04:33] LABS: Absolute Lymphocytes (CBC) 0.2 K/uL (0.7-4.9); Hematocrit 26.5 % (39.6-49.0); Lymphocytes % 2.4 % (15.3-44.8); MPV 11.2 fL (7.6-11.3); RBC Red Blood Cell Count 2.92 M/uL (4.33-5.43)
[2021-02-18] MEDS: MIDAZOLAM HCL 100 MG in NA CHLORIDE 0.9% 80 ML IV PRN ×3 (04:39→19:53)
[2021-02-18 04:42] LABS: Albumin 2.1 g/dL (3.4-5.0); Bilirubin Total 0.3 mg/dL (0.2-1.0); C-Reactive Protein 48.6 mg/L (<3.00); Ferritin 643.8 ng/mL (26-388); Magnesium 2.1 mg/dL (1.8-2.4); Protein, Total 5.8 g/dL (6.4-8.2)
[2021-02-18] MEDS: INSULIN -REGULAR HUMAN 50 UNIT/0.5 ML ML SQ SCH ×3 (05:12→17:21)
[2021-02-18 06:13] LABS: Arterial Blood Carboxyhemoglob 2.4 % (0-1.5); Blood O2 Saturation 93.2 % (92-98.5)
--- NOTE | 2021-02-18 07:20 | RAD REPORT ---
EXAM DESCRIPTION: RAD - Chest Single View - 02/18/2021 6:49 am CLINICAL HISTORY: COVID PNA COMPARISON: February 17, February 16, February 15 TECHNIQUE: AP portable chest image was obtained 02/18/2021 6:49 am . FINDINGS: Endotracheal tube tip is 3 cm above the truman, top of the aortic arch. This is similar to the prior imaging. NG/ OG tube is curled in the stomach, mostly off the field of view. Bilateral airspace opacification is present with no improvement from the comparison. Subcutaneous emp hysema remains prominent. Pneumomediastinum is likely present as well. Heart and vasculature are normal. No measurable pleural effusion and no pneumothorax. No acute bony abnormality seen. No acute aortic findings suspected. IMPRESSION: No improvement in the bilateral COVID-19 pneumonia pattern. Stable positioning of the ET tube and NG/OG tube. No pneumothorax is identified.
[2021-02-18 08:57] LABS: Blood Morphology Comment NOT SEEN (NOT SEEN); Platelet Estimate DECR
[2021-02-18] MEDS: Meropenem 500 MG/100 ML BAG IV SCH ×3 (10:00→20:56)
[2021-02-18] MEDS: METHYLPREDNISOLONE 125 MG INJ IV SCH ×2 (10:06→20:51)
[2021-02-18] MEDS: INSULIN GLARGINE 100 UNITS/ML SQ SCH ×2 (10:07→21:22)
[2021-02-18] MEDS: PANTOPRAZOLE 40 MG INJ IVP SCH ×2 (10:07→20:52)
[2021-02-18] MEDS: CALCITROL 0.25 MCG CAP PO SCH (10:07)
[2021-02-18] MEDS: ZINC SULFATE 220 MG CAP PO SCH (10:08)
[2021-02-18] MEDS: LACTULOSE 20 GM/30 ML UCUP FT SCH ×2 (10:08→20:51)
[2021-02-18] MEDS: LACTOBACILLUS/ACIDOPHILUS TAB PO SCH ×2 (10:08→21:08)
--- NOTE | 2021-02-18 16:26 | PN ---
Date of Progress Note: 02/18/2021 Subjective: The patient is seen in ICU room 7. He is intubated, sedated, still in pretty critical c ondition requiring high oxygen with vent support, condition continues to be quite guarded. However, he seems to be more comfortable today in terms of his blood pressure improved and also with his pulse down in the 100 to 120 range as opposed to the 140 to 150 where it was yesterday. The patient has t olerated dialysis well yesterday. He is currently on AC 24, oxygen requirements continued to stay ve ry high in the 90 to 100 range. His ABG last was done yesterday that showed a pH of 7.2. The patien t's condition with pneumonia still seems to be critical and he is continuing to require vent support. Laboratory Data: His electrolytes and labs were reviewed. Labs showed a WBC count of 9.2, hemoglobi n 8.7, hematocrit 26.5, platelet count of 38. Chemistry shows sodium 140, this is an improvement fro m 145 yesterday. Potassium 4.0, chloride 101, bicarb 28, BUN 107, creatinine 2.0. Ferritin level 64 3. His AST, ALT are 24 and 81. Alkaline phosphatase 57, albumin level of 2.1. Assessment And Plan: The patient with acute kidney injury in the setting of severe COVID pneumonia r equiring vent support with 100% oxygen and AC support. The patient seems to be in critical condition . His dialysis will continue and close monitoring will continue. His sodium now improved to 140 in the setting of him getting dialysis yesterday and also getting some D5W. He is making reasonable uri ne output in the range of about 1 to 2 L with the Lasix. We will continue that. We will also contin ue ultrafiltration with dialysis. He tolerated treatment yesterday. Next treatment is planned for t omorrow. We will attempt to get about 2 L of fluid off with a bicarb of about 30, sodium of 137, pot assium of 2. The patient is clinically looking critical, but overall stable condition compared to yesterday. The prognosis continues to be guarded. /RICHMOND Voice ID: [id number] Report ID: [id number]
--- NOTE | 2021-02-18 16:54 | P.PN ---
Subjective Date of Service: 02/18/21 Primary Care Provider: None Chief Complaint: Resp failure from COVID NC O2 has improved Review of Systems is unable to be obtained Physical Examination - Vital Signs Temperature: 99.2 F Blood Pressure: 133/74 Pulse: 129 Respirations: 25 Pulse Ox (%): 93 - Studies Medications List Reviewed: Yes Assessment & Plan - Problems (Diagnosis) (1) Respiratory failure Current Visit: Yes Status: Acute Plan: Resp failure Titrate O2 sat of 90%/ thromboxytopenic now/ Cultures pending/ Onantibiotics Qualifiers: Chronicity: acute
--- NOTE | 2021-02-18 18:02 | P.PN ---
Date of Service: 02/18/21 Subjective Patient continues to decline. ABG showed worsening respiratory acidosis. Patient is acidotic. Ventilator changes have been made. Patient continues to worsen. Will also need to change triple-lumen catheter on the right femoral area. Patient remains anemic with thrombocytopenia. Continues with worsening renal failure. Prognosis is poor. wants to try to see how patient will do over the next few days before she makes a decision on whether to proceed with aggressive measures. Review of Systems is unable to be obtained Physical Examination - Vital Signs Reviewed - Physical Exam General: Unresponsive, Other (Intubated and is sedated) HEENT: Other (ET tube is in place. Oral pharyngeal with multiple scabs) Respiratory: Diminished, Crackles/rales Cardiovascular: Regular rate/rhythm, Normal S1 S2, No murmurs Gastrointestinal: Normal bowel sounds, Soft and benign, Non-distended Musculoskeletal: No clubbing, No swelling, No tenderness Integumentary: No rashes, Erythema Neurological: Other (Patient is not responsive) - Studies Medications List Reviewed: Yes Assessment & Plan - Problems (Diagnosis) (1) Pneumonia due to COVID-19 virus Current Visit: Yes Status: Acute (2) Hypertension Current Visit: Yes Status: Acute (3) Morbid obesity Current Visit: Yes Status: Acute (4) Respiratory acidosis Current Visit: Yes Status: Acute (5) Anemia Current Visit: Yes Status: Acute (6) Thrombocytopenia Current Visit: Yes Status: Acute (7) Hyperglycemia Current Visit: Yes Status: Acute (8) Uremia Current Visit: Yes Status: Acute - Plan Continue with plan of care as mentioned below: 1. Continue with IV steroids 2. Inflammatory markers are stable; 3. Repeat chest x-ray to further evaluate pulmonary status 4. Wean down O2 on mechanical ventilation 5. Pulmonary following through face time 6. Continue with nebulizer therapy 7. Monitor renal function closely; monitor CBC as patient is anemic and thrombocytopenic; monitor for DIC 8. Will discuss with regarding code status. 9. GI and DVT prophylaxis Discharge Plan: Home Plan to discharge in: Greater than 2 days - Advance Directives Does patient have a Living Will: No Does patient have a Durable POA for Healthcare: No - Code Status/Comfort Care Code Status Assessed: Yes Code Status: Full Code Critical Care: Yes Time Spent Managing PTS Care (In Minutes): 30
[2021-02-18 18:40] LABS: Arterial Blood Carboxyhemoglob 2.2 % (0-1.5); Blood Gas Oxyhemoglobin 88.5 % (94-97); Blood O2 Saturation 91.6 % (92-98.5)
[2021-02-18] MEDS: FENTANYL CITR 100 MCG/2 ML IV PRN (19:52)
[2021-02-18] MEDS: FLUCONAZOLE 400 MG IVPB 400 MG/200 ML BAG IV SCH (21:57)
[2021-02-18] MEDS: VANCOMYCIN 2 GM in NA CHLORIDE 0.9% 500 ML IV SCH (22:55)
[2021-02-19] MEDS: INSULIN -REGULAR HUMAN 50 UNIT/0.5 ML ML SQ SCH ×4 (00:16→18:11)
[2021-02-19] MEDS: MIDAZOLAM HCL 100 MG in NA CHLORIDE 0.9% 80 ML IV PRN (02:40)
[2021-02-19] MEDS: FUROSEMIDE 40 MG/4 ML VIAL IV SCH ×2 (02:42→08:28)
[2021-02-19 05:54] LABS: Absolute Lymphocytes (CBC) 0.4 K/uL (0.7-4.9); Basophils % 0.1 % (0-1.3); Hematocrit 26.7 % (39.6-49.0); Lymphocytes % 4.1 % (15.3-44.8); MPV 10.6 fL (7.6-11.3); RBC Red Blood Cell Count 2.94 M/uL (4.33-5.43)
[2021-02-19 06:11] LABS: C-Reactive Protein 33.1 mg/L (<3.00); Ferritin 542.7 ng/mL (26-388); Magnesium 2.2 mg/dL (1.8-2.4)
[2021-02-19] MEDS: LACTULOSE 20 GM/30 ML UCUP FT SCH ×2 (08:01→20:48)
[2021-02-19] MEDS: PANTOPRAZOLE 40 MG INJ IVP SCH ×2 (08:01→20:48)
[2021-02-19] MEDS: METHYLPREDNISOLONE 125 MG INJ IV SCH ×2 (08:01→20:48)
[2021-02-19] MEDS: HYDROMORPHONE HCL 2 MG/ML inj IV PRN ×2 (08:01→15:41)
[2021-02-19] MEDS: INSULIN GLARGINE 100 UNITS/ML SQ SCH ×2 (08:02→21:36)
[2021-02-19] MEDS: ZINC SULFATE 220 MG CAP PO SCH (08:02)
[2021-02-19] MEDS: LACTOBACILLUS/ACIDOPHILUS TAB PO SCH ×2 (08:02→20:48)
[2021-02-19] MEDS: CALCITROL 0.25 MCG CAP PO SCH (08:02)
[2021-02-19] MEDS: Meropenem 500 MG/100 ML BAG IV SCH ×2 (08:03→20:49)
[2021-02-19] MEDS: NEPRO 1,000 ML BOT RTH SCH (18:19)
--- NOTE | 2021-02-19 19:30 | P.PN ---
Date of Service: 02/19/21 Vital Signs Temp Pulse Resp BP Pulse Ox 98.9 F 115 H 14 132/59 L 96 02/19/21 16:00 02/19/21 18:00 02/19/21 18:00 02/19/21 18:00 02/19/21 18:00 Medications Acetaminophen (Acetaminophen 160 Mg/5 Ml Ucup) 650 mg PO Q6H PRN PRN Reason: fever Last Admin: 02/17/21 09:07 Dose: 650 mg Documented by: Calcitriol (Calcitrol 0.25 Mcg Cap) 0.5 mcg PO DAILY [facility] Last Admin: 02/19/21 08:02 Dose: 0.5 mcg Documented by: Cisatracurium Besylate (Cisatracurium Injection 2 Mg/Ml (10 Ml Vial)) 4 mg IV Q2HP PRN PRN Reason: AGITATION Last Admin: 02/16/21 12:24 Dose: 4 mg Documented by: Dextrose (D50w 25 Gm/50 Ml Syringe) 12.5 gm IV PRN PRN; Protocol PRN Reason: HYPOGLYCEMIA Docusate Sodium (Docusate Na 100 Mg Cap) 100 mg PO DAILY PRN PRN Reason: CONSTIPATION Enteral Nutritional Formula (Nepro 1,000 Ml Bot) 0 ml RTH CONT [facility] Last Admin: 02/19/21 18:19 Dose: 1,000 ml Documented by: Fentanyl Citrate (Fentanyl Citr 100 Mcg/2 Ml) 25 mcg IV Q4H PRN PRN Reason: Pain scale 8-10 (Severe) Last Admin: 02/18/21 19:52 Dose: 25 mcg Documented by: Glucagon (Glucagon 1 Mg/Vial) 1 mg IM 1X PRN; Protocol PRN Reason: HYPOGLYCEMIA Heparin Sodium (Porcine) (Heparin 1,000 Unit/Ml Vial) 4,000 unit IV EVERY HD PRN PRN Reason: DIALYSIS Last Admin: 02/17/21 17:33 Dose: 4,000 unit Documented by: Hydromorphone HCl (Hydromorphone Hcl 2 Mg/Ml Inj) 4 mg IV Q2H PRN PRN Reason: Pain scale 5-7 (Moderate) Last Admin: 02/19/21 15:41 Dose: 4 mg Documented by: Norepinephrine Bitartrate 16 (mg/ Dextrose) 516 mls @ 0 mls/hr IV PRN PRN; Protocol PRN Reason: HEMODYNAMIC PARAMETERS Last Admin: 02/07/21 21:01 Dose: 516 mls Documented by: Sodium Chloride (Sodium Chloride) 250 mls @ 0 mls/hr IV .Q0M [facility] Last Admin: 02/09/21 22:08 Dose: 250 mls Documented by: Propofol (Diprivan) 1,000 mg in 100 mls @ 0 mls/hr IV PRN PRN; Protocol PRN Reason: SEDATION Last Admin: 02/16/21 02:24 Dose: 100 mls Documented by: Midazolam HCl 100 mg/ Sodium (Chloride) 100 mls @ 0 mls/hr IV PRN PRN; Protocol PRN Reason: SEDATION Last Admin: 02/19/21 02:40 Dose: 100 mls Documented by: Pharmacy Consult (Pharmacy Consult) 1 mls @ 1 mls/hr XX DAILYPRN PRN; Protocol PRN Reason: Vancomycin dose by pharmacy Vancomycin HCl 2 gm/ Sodium (Chloride) 500 mls @ 250 mls/hr IV Q24H [facility] Last Admin: 02/18/21 22:55 Dose: 500 mls Documented by: Fluconazole (Diflucan 400 Mg/200 Ml Iv (Premix)) 400 mg in 200 mls @ 200 mls/hr IV Q24H [facility]; Protocol Last Admin: 02/18/21 21:57 Dose: 200 mls Documented by: Meropenem (Merrem 500 Mg/100 Ml Ns Ivpb) 500 mg in 100 mls @ 200 mls/hr IV Q12HR [facility] Last Admin: 02/19/21 08:03 Dose: 100 mls Documented by: Insulin Glargine (Insulin Glargine 100 Units/Ml) 55 units SQ BID [facility] Last Admin: 02/19/21 08:02 Dose: 55 units Documented by: Insulin Human Regular (Insulin -Regular Human 50 Unit/0.5 Ml Ml) 0 unit SQ Q6H [facility]; Protocol Last Admin: 02/19/21 18:11 Dose: 10 unit Documented by: Lactobacillus Acidoph/Bulgaricus (Lactobacillus/Acidophilus Tab) 1 tab PO BID [facility] Last Admin: 02/19/21 08:02 Dose: 1 tab Documented by: Lactulose (Lactulose 20 Gm/30 Ml Ucup) 20 gm FT BID [facility] Last Admin: 02/19/21 08:01 Dose: 20 gm Documented by: Lorazepam (Lorazepam 2 Mg/Ml Vial) 4 mg IV Q2H PRN PRN Reason: AGITATION Last Admin: 02/18/21 23:55 Dose: 4 mg Documented by: Mannitol (Mannitol 25% 12.5 Gm/50 Ml Vial) 25 gm IV EVERY HD PRN PRN Reason: dialysis Last Admin: 02/14/21 11:33 Dose: 25 gm Documented by: Methylprednisolone Sodium Succinate (Methylprednisolone 125 Mg Inj) 80 mg IV Q12HR [facility] Last Admin: 02/19/21 08:01 Dose: 80 mg Documented by: Metoprolol Tartrate (Metoprolol Tartrate 5 Mg/5 Ml Inj) 5 mg IV TID PRN PRN Reason: Tachycardia Last Admin: 02/14/21 12:53 Dose: 5 mg Documented by: Nutritional Formula (Vital Hp 1,000 Ml Bot) 0 ml RTH CONT [facility] Last Admin: 02/15/21 01:35 Dose: 1,000 ml Documented by: Ondansetron HCl (Ondansetron 4 Mg/2 Ml Vial) 4 mg IV Q6HP PRN PRN Reason: NAUSEA / VOMITING Last Admin: 02/03/21 15:01 Dose: 4 mg Documented by: Pantoprazole Sodium (Pantoprazole 40 Mg Inj) 40 mg IVP Q12HR [facility]; Protocol Last Admin: 02/19/21 08:01 Dose: 40 mg Documented by: Sodium Chloride (Flush Normal Saline 10 Ml) 10 ml IV BID [facility] Last Admin: 02/19/21 08:02 Dose: 10 ml Documented by: Sodium Chloride (Sodium Chloride 0.9% 10ml Inj) 10 ml IV UD PRN PRN Reason: Diluant Last Admin: 02/18/21 20:55 Dose: 10 ml Documented by: Zinc Sulfate (Zinc Sulfate 220 Mg Cap) 220 mg PO DAILY [facility] Last Admin: 02/19/21 08:02 Dose: 220 mg Documented by: Microbiology Results 01/16/21 08:57 Blood - Blood Aerobic Blood Culture - Final No growth in 5 days. 01/16/21 08:57 Blood - Blood Anaerobic Blood Culture - Final No growth in 5 days. 01/16/21 08:47 Blood - Blood Aerobic Blood Culture - Final No growth in 5 days. 01/16/21 08:47 Blood - Blood Anaerobic Blood Culture - Final No growth in 5 days. 01/16/21 09:04 Nasopharnyx Influenza Type A Antigen Screen - Final 01/16/21 09:04 Nasopharnyx Influenza Type B Antigen Screen - Final Assessment/ Plan: Nephrology/ ICU Limited IH/ ROS due to critical illness. No acute events overnight. General: Unresponsive, Obese HEENT: Atraumatic Neck: Supple Respiratory: Diminished Cardiovascular: Regular rate/rhythm, Edema Gastrointestinal: Soft and benign, Non-distended Musculoskeletal: No clubbing, No contractures Integumentary: No rashes, No cyanosis Neurological: Abnormal tone Greater than 30min patient care. Blood work reviewed in the chart. Imagings Data: EXAM DESCRIPTION: RAD - Chest Single View - 02/08/2021 6:36 am CLINICAL HISTORY: Eval Pneumo/covid COMPARISON: Chest Single View dated 02/07/2021; Chest Single View dated 02/06/2021; Abdomen 1 View (KUB) dated 02/06/2021; Chest Single View dated 02/06/2021 FINDINGS: Endotracheal tube and NG tube in similar positioning. Improving aeration in the right lung compared with 02/07/2021. There are still widespread bilateral airspace disease is now left eccentric. Cardiomegaly. Improving subcutaneous emphysema. No pneumothorax is appreciated. IMPRESSION: No pneumothorax appreciated. Mild improved aeration of the right lung compared with 02/07/2021. Support apparatus is stable. Conclusions/Impression: NAYA in the setting of sepsis -No NSAIDs -Continue aguero -Continue diuretics -Continue dialysis daily Nephrolithiasis Respiratory acidosis, resolved Metabolic Alkalosis, resolved Hypocalcemia -Continue Calcitriol throught FT Pulmonary Edema -Hold Lasix IV 80mg q6h DM II with hyperglycemia -Continue Lantus -RISS Moderate malnutrition -Maintain nutrition with tube feeds Anemia in chronic illness -Monitor H&H -Transfuse PRBC as needed -Retacrit PRN Sepsis/ Septic shock -IVF bolus as needed -Continue vasopressor support prn -Continue abx COVID-19 PNA Acute hypoxic hypercapnic respiratory failure -Intubated; continue ventilatory support as ordered -Continue high dose IV steroids; wean as tolerated Toxic Metabolic Encephalopathy due to critical illness -Continue Meropenem
[2021-02-19] MEDS: FLUCONAZOLE 400 MG IVPB 400 MG/200 ML BAG IV SCH (21:00)
[2021-02-19] MEDS ORDERED: FLUCONAZOLE 200mg IVPB 400 MG/200 ML BAG IV ONE (21:18)
[2021-02-19] MEDS: VANCOMYCIN 2 GM in NA CHLORIDE 0.9% 500 ML IV SCH (22:00)
[2021-02-20] MEDS: INSULIN -REGULAR HUMAN 50 UNIT/0.5 ML ML SQ SCH ×4 (00:20→18:17)
--- NOTE | 2021-02-20 00:57 | P.PN ---
Date of Service: 02/19/21 Subjective Spoke to regarding plan of care. At this time she wants to continue did see if he will respond. However, all we have taken patient off of sedation and really not waking up. Hold off sedation and plan to do EEG in the morning. Will discuss results with the . Continue antibiotic therapy. Monitor cultures. Repeat ABGs and chest x-ray in the morning as well. Review of Systems is unable to be obtained Physical Examination - Vital Signs Reviewed - Physical Exam General: Unresponsive, Other (Intubated and is sedated) HEENT: Other (ET tube is in place. Oral pharyngeal with multiple scabs) Respiratory: Diminished, Crackles/rales Cardiovascular: Regular rate/rhythm, Normal S1 S2, No murmurs Gastrointestinal: Normal bowel sounds, Soft and benign, Non-distended Musculoskeletal: No clubbing, No swelling, No tenderness Integumentary: No rashes, Erythema Neurological: Other (Patient is not responsive) - Studies Medications List Reviewed: Yes Assessment & Plan - Problems (Diagnosis) (1) Pneumonia due to COVID-19 virus Current Visit: Yes Status: Acute (2) Hypertension Current Visit: Yes Status: Acute (3) Morbid obesity Current Visit: Yes Status: Acute (4) Respiratory acidosis Current Visit: Yes Status: Acute (5) Anemia Current Visit: Yes Status: Acute (6) Thrombocytopenia Current Visit: Yes Status: Acute (7) Hyperglycemia Current Visit: Yes Status: Acute (8) Uremia Current Visit: Yes Status: Acute - Plan Continue with plan of care as mentioned below: 1. Continue with IV steroids 2. Inflammatory markers are stable; continue monitoring every 48 hr 3. X-ray with persistent inflammatory changes 4. Wean down O2 on mechanical ventilation 5. Pulmonary following through face time 6. Continue with nebulizer therapy 7. Monitor renal function closely; monitor CBC as patient is anemic and thrombocytopenic; monitor for DIC 8. Will discuss with regarding code status. 9. Strict blood sugar control 10. GI and DVT prophylaxis Discharge Plan: Home Plan to discharge in: Greater than 2 days - Advance Directives Does patient have a Living Will: No Does patient have a Durable POA for Healthcare: No - Code Status/Comfort Care Code Status Assessed: Yes Code Status: Full Code Critical Care: Yes Time Spent Managing PTS Care (In Minutes): 30
[2021-02-20 04:29] LABS: Protime INR 0.99
[2021-02-20 04:45] LABS: Albumin 2.4 g/dL (3.4-5.0); Bilirubin Total 0.4 mg/dL (0.2-1.0); C-Reactive Protein 19.8 mg/L (<3.00); Ferritin 495.3 ng/mL (26-388); Potassium 4.2 mmol/L (3.5-5.1); Protein, Total 6.1 g/dL (6.4-8.2)
[2021-02-20 06:21] LABS: Arterial Blood Carboxyhemoglob 2.1 % (0-1.5); Blood O2 Saturation 95.1 % (92-98.5)
--- NOTE | 2021-02-20 07:02 | RAD REPORT ---
EXAM DESCRIPTION: RAD - Chest Single View - 02/20/2021 6:15 am CLINICAL HISTORY: pneumonia COMPARISON: Chest Single View dated 02/18/2021; Chest Single View dated 02/17/2021; Chest Single View d ated 02/16/2021; Chest Single View dated 02/15/2021 FINDINGS: Endotracheal tube is 0.5 cm above the aortic arch at the lower margin of the clavicular he ads. Re- demonstrated widespread bilateral airspace disease without significant change compared with 02/18/2021. Subcutaneous emphysema again noted and which is increased in the chest burton. Enteric tub e below the diaphragm. Small volume of pneumomediastinum again noted. IMPRESSION: 1. Widespread bilateral airspace disease without significant change in consistent with multifocal pneumonia. 2. The endotracheal tube is approximately 1/2 centimeter above the aortic arch and at the clavicular heads. 3. Subcutaneous emphysema and pneumomediastinum. Subcutaneous emphysema has increased.
[2021-02-20] MEDS: Meropenem 500 MG/100 ML BAG IV SCH ×2 (07:58→20:42)
[2021-02-20] MEDS: LACTULOSE 20 GM/30 ML UCUP FT SCH ×2 (07:58→20:41)
[2021-02-20] MEDS: CALCITROL 0.25 MCG CAP PO SCH (07:58)
[2021-02-20] MEDS: LACTOBACILLUS/ACIDOPHILUS TAB PO SCH ×2 (07:58→20:41)
[2021-02-20] MEDS: METHYLPREDNISOLONE 125 MG INJ IV SCH ×2 (07:58→20:42)
[2021-02-20] MEDS: ZINC SULFATE 220 MG CAP PO SCH (07:58)
[2021-02-20] MEDS: PANTOPRAZOLE 40 MG INJ IVP SCH ×2 (07:59→20:41)
[2021-02-20] MEDS: INSULIN GLARGINE 100 UNITS/ML SQ SCH ×2 (07:59→20:45)
[2021-02-20 10:00] LABS: Absolute Lymphocytes (CBC) 0.2 K/uL (0.7-4.9); Basophils % 0.1 % (0-1.3); Lymphocytes % 2.2 % (15.3-44.8); MPV 10.3 fL (7.6-11.3); RBC Red Blood Cell Count 2.99 M/uL (4.33-5.43)
[2021-02-20 10:15] LABS: Magnesium 2.2 mg/dL (1.8-2.4); Potassium 3.8 mmol/L (3.5-5.1)
[2021-02-20] MEDS: NEPRO 1,000 ML BOT RTH SCH (18:18)
--- NOTE | 2021-02-20 20:18 | P.PN ---
Date of Service: 02/20/21 Vital Signs Temp Pulse Resp BP Pulse Ox 97.6 F 118 H 24 H 126/84 96 02/20/21 16:00 02/20/21 18:00 02/20/21 18:00 02/20/21 18:00 02/20/21 18:00 Medications Acetaminophen (Acetaminophen 160 Mg/5 Ml Ucup) 650 mg PO Q6H PRN PRN Reason: fever Last Admin: 02/17/21 09:07 Dose: 650 mg Documented by: Calcitriol (Calcitrol 0.25 Mcg Cap) 0.5 mcg PO DAILY [facility] Last Admin: 02/20/21 07:58 Dose: 0.5 mcg Documented by: Cisatracurium Besylate (Cisatracurium Injection 2 Mg/Ml (10 Ml Vial)) 4 mg IV Q2HP PRN PRN Reason: AGITATION Last Admin: 02/16/21 12:24 Dose: 4 mg Documented by: Dextrose (D50w 25 Gm/50 Ml Syringe) 12.5 gm IV PRN PRN; Protocol PRN Reason: HYPOGLYCEMIA Docusate Sodium (Docusate Na 100 Mg Cap) 100 mg PO DAILY PRN PRN Reason: CONSTIPATION Enteral Nutritional Formula (Nepro 1,000 Ml Bot) 0 ml RTH CONT [facility] Last Admin: 02/20/21 18:18 Dose: 1,000 ml Documented by: Fentanyl Citrate (Fentanyl Citr 100 Mcg/2 Ml) 25 mcg IV Q4H PRN PRN Reason: Pain scale 8-10 (Severe) Last Admin: 02/18/21 19:52 Dose: 25 mcg Documented by: Glucagon (Glucagon 1 Mg/Vial) 1 mg IM 1X PRN; Protocol PRN Reason: HYPOGLYCEMIA Norepinephrine Bitartrate 16 (mg/ Dextrose) 516 mls @ 0 mls/hr IV PRN PRN; Protocol PRN Reason: HEMODYNAMIC PARAMETERS Last Admin: 02/07/21 21:01 Dose: 516 mls Documented by: Sodium Chloride (Sodium Chloride) 250 mls @ 0 mls/hr IV .Q0M [facility] Last Admin: 02/09/21 22:08 Dose: 250 mls Documented by: Propofol (Diprivan) 1,000 mg in 100 mls @ 0 mls/hr IV PRN PRN; Protocol PRN Reason: SEDATION Last Admin: 02/16/21 02:24 Dose: 100 mls Documented by: Midazolam HCl 100 mg/ Sodium (Chloride) 100 mls @ 0 mls/hr IV PRN PRN; Protocol PRN Reason: SEDATION Last Admin: 02/19/21 02:40 Dose: 100 mls Documented by: Pharmacy Consult (Pharmacy Consult) 1 mls @ 1 mls/hr XX DAILYPRN PRN; Protocol PRN Reason: Vancomycin dose by pharmacy Fluconazole (Diflucan 400 Mg/200 Ml Iv (Premix)) 400 mg in 200 mls @ 200 mls/hr IV Q24H [facility]; Protocol Last Admin: 02/19/21 21:00 Dose: 200 mls Documented by: Meropenem (Merrem 500 Mg/100 Ml Ns Ivpb) 500 mg in 100 mls @ 200 mls/hr IV Q12HR [facility] Last Admin: 02/20/21 07:58 Dose: 100 mls Documented by: Vancomycin HCl 1.5 gm/ Sodium (Chloride) 500 mls @ 250 mls/hr IV AFTER EACH DIALYSIS [facility] Insulin Glargine (Insulin Glargine 100 Units/Ml) 55 units SQ BID [facility] Last Admin: 02/20/21 07:59 Dose: 55 units Documented by: Insulin Human Regular (Insulin -Regular Human 50 Unit/0.5 Ml Ml) 0 unit SQ Q6H [facility]; Protocol Last Admin: 02/20/21 18:17 Dose: 4 unit Documented by: Lactobacillus Acidoph/Bulgaricus (Lactobacillus/Acidophilus Tab) 1 tab PO BID [facility] Last Admin: 02/20/21 07:58 Dose: 1 tab Documented by: Lactulose (Lactulose 20 Gm/30 Ml Ucup) 20 gm FT BID [facility] Last Admin: 02/20/21 07:58 Dose: 20 gm Documented by: Mannitol (Mannitol 25% 12.5 Gm/50 Ml Vial) 25 gm IV EVERY HD PRN PRN Reason: dialysis Last Admin: 02/14/21 11:33 Dose: 25 gm Documented by: Methylprednisolone Sodium Succinate (Methylprednisolone 125 Mg Inj) 80 mg IV Q12HR [facility] Last Admin: 02/20/21 07:58 Dose: 80 mg Documented by: Metoprolol Tartrate (Metoprolol Tartrate 5 Mg/5 Ml Inj) 5 mg IV TID PRN PRN Reason: Tachycardia Last Admin: 02/14/21 12:53 Dose: 5 mg Documented by: Nutritional Formula (Vital Hp 1,000 Ml Bot) 0 ml RTH CONT [facility] Last Admin: 02/15/21 01:35 Dose: 1,000 ml Documented by: Ondansetron HCl (Ondansetron 4 Mg/2 Ml Vial) 4 mg IV Q6HP PRN PRN Reason: NAUSEA / VOMITING Last Admin: 02/03/21 15:01 Dose: 4 mg Documented by: Pantoprazole Sodium (Pantoprazole 40 Mg Inj) 40 mg IVP Q12HR [facility]; Protocol Last Admin: 02/20/21 07:59 Dose: 40 mg Documented by: Sodium Chloride (Flush Normal Saline 10 Ml) 10 ml IV BID [facility] Last Admin: 02/20/21 07:59 Dose: 10 ml Documented by: Sodium Chloride (Sodium Chloride 0.9% 10ml Inj) 10 ml IV UD PRN PRN Reason: Diluant Last Admin: 02/18/21 20:55 Dose: 10 ml Documented by: Zinc Sulfate (Zinc Sulfate 220 Mg Cap) 220 mg PO DAILY [facility] Last Admin: 02/20/21 07:58 Dose: 220 mg Documented by: Microbiology Results 01/16/21 08:57 Blood - Blood Aerobic Blood Culture - Final No growth in 5 days. 01/16/21 08:57 Blood - Blood Anaerobic Blood Culture - Final No growth in 5 days. 01/16/21 08:47 Blood - Blood Aerobic Blood Culture - Final No growth in 5 days. 01/16/21 08:47 Blood - Blood Anaerobic Blood Culture - Final No growth in 5 days. 01/16/21 09:04 Nasopharnyx Influenza Type A Antigen Screen - Final 01/16/21 09:04 Nasopharnyx Influenza Type B Antigen Screen - Final Assessment/ Plan: Nephrology/ ICU Limited IH/ ROS due to critical illness. No acute events overnight. General: Unresponsive, Obese HEENT: Atraumatic Neck: Supple Respiratory: Diminished Cardiovascular: Regular rate/rhythm, Edema Gastrointestinal: Soft and benign, Non-distended Musculoskeletal: No clubbing, No contractures Integumentary: No rashes, No cyanosis Neurological: Abnormal tone Greater than 30min patient care. Blood work reviewed in the chart. Imagings Data: EXAM DESCRIPTION: RAD - Chest Single View - 02/08/2021 6:36 am CLINICAL HISTORY: Eval Pneumo/covid COMPARISON: Chest Single View dated 02/07/2021; Chest Single View dated 02/06/2021; Abdomen 1 View (KUB) dated 02/06/2021; Chest Single View dated 02/06/2021 FINDINGS: Endotracheal tube and NG tube in similar positioning. Improving aeration in the right lung compared with 02/07/2021. There are still widespread bilateral airspace disease is now left eccentric. Cardiomegaly. Improving subcutaneous emphysema. No pneumothorax is appreciated. IMPRESSION: No pneumothorax appreciated. Mild improved aeration of the right lung compared with 02/07/2021. Support apparatus is stable. Conclusions/Impression: NAYA in the setting of sepsis -No NSAIDs -Continue aguero -Hold diuretics -Continue dialysis EOD Hypernatremia -Free water through FT Nephrolithiasis Respiratory acidosis, resolved Metabolic Alkalosis, resolved Hypocalcemia -Continue Calcitriol throught FT Pulmonary Edema -Hold Lasix IV 80mg q6h DM II with hyperglycemia -Continue Lantus -RISS Moderate malnutrition -Maintain nutrition with tube feeds Anemia in chronic illness -Monitor H&H -Transfuse PRBC as needed -Retacrit PRN Thrombocytopnea -Check HIT ab -Hold Heparin with HD Sepsis/ Septic shock -IVF bolus as needed -Continue vasopressor support prn -Continue abx COVID-19 PNA Acute hypoxic hypercapnic respiratory failure -Intubated; continue ventilatory support as ordered -Continue high dose IV steroids; wean as tolerated Toxic Metabolic Encephalopathy due to critical illness -Continue Meropenem
[2021-02-20] MEDS ORDERED: FLUCONAZOLE 200mg IVPB 400 MG/200 ML BAG IV ONE (20:27)
[2021-02-20] MEDS: FLUCONAZOLE 400 MG IVPB 400 MG/200 ML BAG IV SCH (20:44)
[2021-02-20 21:22] LABS: Absolute Lymphocytes (CBC) 0.3 K/uL (0.7-4.9); Basophils % 0.2 % (0-1.3); Hematocrit 27.5 % (39.6-49.0); Lymphocytes % 2.5 % (15.3-44.8); MPV 10.9 fL (7.6-11.3); RBC Red Blood Cell Count 3.05 M/uL (4.33-5.43)
[2021-02-20 22:14] LABS: Anisocytosis 1+; Blood Morphology Comment NOTED (NOT SEEN); Hypochromasia 1+; Macrocytosis 1+; Platelet Estimate DECR; Stomatocytes 1+
[2021-02-21] MEDS: INSULIN -REGULAR HUMAN 50 UNIT/0.5 ML ML SQ SCH ×3 (00:27→12:46)
[2021-02-21] MEDS: FENTANYL CITR 100 MCG/2 ML IV PRN (04:46)
[2021-02-21 05:02] LABS: Protime INR 0.96
[2021-02-21 05:17] LABS: Albumin 2.4 g/dL (3.4-5.0); Bilirubin Total 0.7 mg/dL (0.2-1.0); Ferritin 710.6 ng/mL (26-388)
[2021-02-21 05:20] VITALS: BMI 37.9
[2021-02-21 06:40] LABS: Arterial Blood Carboxyhemoglob 2.1 % (0-1.5); Blood Gas Oxyhemoglobin 88.7 % (94-97); Blood O2 Saturation 91.9 % (92-98.5)
--- NOTE | 2021-02-21 07:49 | P.PN ---
Date of Service: 02/20/21 Subjective EEG done. Patient still doing poorly. Sedation off and not really waking up. Still tachycardic. Prognosis remains very grim. Waiting for EEG results. Labs are still doing poorly and still having some blood in to the or pharyngeal region which we are suctioning. Still thrombocytopenic. Still hypernatremic. Adjusting IV fluids and hydration with feedings. PEG tube was clogged. Resume tube feedings and will increase water flushes. wanting everything done at this time. However, will discuss with her regarding EEG results and anticipate patient is continuing to decline. Not waking up off sedation. Prognosis poor. Review of Systems is unable to be obtained Physical Examination - Vital Signs Reviewed - Physical Exam General: Unresponsive, Other (Intubated and sedation discontinued) HEENT: Other (ET tube is in place. Oral pharyngeal with multiple scabs) Respiratory: Diminished, Crackles/rales Cardiovascular: Regular rate/rhythm, Normal S1 S2, No murmurs Gastrointestinal: Normal bowel sounds, Soft and benign, Non-distended Musculoskeletal: No clubbing, No swelling, No tenderness Integumentary: No rashes, Erythema Neurological: Other (Patient is not responsive) Assessment & Plan - Problems (Diagnosis) (1) Pneumonia due to COVID-19 virus Current Visit: Yes Status: Acute (2) Hypertension Current Visit: Yes Status: Acute (3) Morbid obesity Current Visit: Yes Status: Acute (4) Respiratory acidosis Current Visit: Yes Status: Acute (5) Anemia Current Visit: Yes Status: Acute (6) Thrombocytopenia Current Visit: Yes Status: Acute (7) Hyperglycemia Current Visit: Yes Status: Acute (8) Uremia Current Visit: Yes Status: Acute - Plan Continue with plan of care as mentioned below: 1. Continue with IV steroids 2. EEG pending 3. No significant changes on chest x-ray findings. 4. Thrombocytopenic and bleeding 5. Continue trying to wean off mechanical ventilation 6. Continue with nebulizer therapy 7. Monitor renal function closely; 8. Will discuss with regarding code status. 9. Strict blood sugar control 10. GI and DVT prophylaxis Discharge Plan: Home Plan to discharge in: Greater than 2 days - Advance Directives Does patient have a Living Will: No Does patient have a Durable POA for Healthcare: No - Code Status/Comfort Care Code Status Assessed: Yes Code Status: Full Code Critical Care: Yes Time Spent Managing PTS Care (In Minutes): 30
--- NOTE | 2021-02-21 07:50 | P.PN ---
Date of Service: 02/21/21 Subjective No significant changes in patient's current status; Family updated Review of Systems is unable to be obtained Physical Examination - Vital Signs Reviewed - Physical Exam General: Unresponsive, Other (Intubated and sedation discontinued) HEENT: Other (ET tube is in place. Oral pharyngeal with multiple scabs) Respiratory: Diminished, Crackles/rales Cardiovascular: Regular rate/rhythm, Normal S1 S2, No murmurs Gastrointestinal: Normal bowel sounds, Soft and benign, Non-distended Musculoskeletal: No clubbing, No swelling, No tenderness Integumentary: No rashes, Erythema Neurological: Other (Patient is not responsive) Assessment & Plan - Problems (Diagnosis) (1) Pneumonia due to COVID-19 virus Current Visit: Yes Status: Acute (2) Hypertension Current Visit: Yes Status: Acute (3) Morbid obesity Current Visit: Yes Status: Acute (4) Respiratory acidosis Current Visit: Yes Status: Acute (5) Anemia Current Visit: Yes Status: Acute (6) Thrombocytopenia Current Visit: Yes Status: Acute (7) Hyperglycemia Current Visit: Yes Status: Acute (8) Uremia Current Visit: Yes Status: Acute - Plan Continue with plan of care as mentioned below: 1. Continue with IV steroids 2. EEG pending 3. No significant changes on chest x-ray findings. 4. Thrombocytopenic and bleeding 5. Continue trying to wean off mechanical ventilation 6. Continue with nebulizer therapy 7. Monitor renal function closely; 8. Will discuss with regarding code status. 9. Strict blood sugar control 10. GI and DVT prophylaxis Discharge Plan: Home Plan to discharge in: Greater than 2 days - Advance Directives Does patient have a Living Will: No Does patient have a Durable POA for Healthcare: No - Code Status/Comfort Care Code Status Assessed: Yes Code Status: Full Code Critical Care: Yes Time Spent Managing PTS Care (In Minutes): 30
[2021-02-21 08:51] LABS: Absolute Lymphocytes (CBC) 0.2 K/uL (0.7-4.9); Basophils % 0.3 % (0-1.3); Hematocrit 27.2 % (39.6-49.0); Lymphocytes % 1.5 % (15.3-44.8); MPV 11.1 fL (7.6-11.3); RBC Red Blood Cell Count 2.98 M/uL (4.33-5.43)
[2021-02-21] MEDS ORDERED: VANCOMYCIN 1.5 GM in NA CHLORIDE 0.9% 500 ML IV SCH (09:00)
[2021-02-21] MEDS: PANTOPRAZOLE 40 MG INJ IVP SCH (09:19)
[2021-02-21] MEDS: ZINC SULFATE 220 MG CAP PO SCH (09:19)
[2021-02-21] MEDS: CALCITROL 0.25 MCG CAP PO SCH (09:19)
[2021-02-21] MEDS: LACTULOSE 20 GM/30 ML UCUP FT SCH (09:19)
[2021-02-21] MEDS: INSULIN GLARGINE 100 UNITS/ML SQ SCH (09:19)
[2021-02-21] MEDS: LACTOBACILLUS/ACIDOPHILUS TAB PO SCH (09:19)
[2021-02-21] MEDS: METHYLPREDNISOLONE 125 MG INJ IV SCH (09:19)
[2021-02-21] MEDS: Meropenem 500 MG/100 ML BAG IV SCH (09:21)
[2021-02-21 09:47] VITALS: O2SAT 92
[2021-02-21] MEDS ORDERED: propofoL 500 MG/50 ML ML IV PRN (12:56)
--- NOTE | 2021-02-21 13:55 | EEG ---
CHART: [id number] TEST ID#: [id number] DATE OF STUDY: 02/20/2021 THE EEG WAS RECORDED PORTABLE IN THE [facility] ICU ON A 17 CHANNEL MACHINE. ELECTRODES WERE APPLIED IN THE USUAL MANNER USING THE INTERNATIONAL 10-20 SYSTEM. THE EEG CONSISTS OF DIFFUSELY EXPRESSED MODERATE VOLTAGE 8.9-9 HZ ACTIVITY SEPERATED BY UP TO 200 SECONDS OF MARKED GENERALIZED VOLTAGE ATTENUATION. THE EEG BACKGROUND IS NOT RESPONSIVE TO NOXIOUS STIMULATION OF THE EXTREMITIES. THERE ARE NO FOCAL OR LATERALIZING FEATURES. NO EPILEPTIFORM ACTIVITY APPEARS. SLEEP DID NOT OCCUR. HYPERVENTILATION WAS NOT PERFOMRED. PHOTIC STIMULATION WAS NOT DONE. IMPRESSION: THIS IS A MARKEDLY ABNORMAL EEG DUE TO UNREACTIVE DIFFUSELYEXPRESSED ALPHA ACTIVITY SEPERATED BY EXTENDED PERIODS OF MARKED GENERALIZED VOLTAGE ATTENUATION. IN THE ABSENCE OF DEEP SEDATING MEDICATION OR SEVERE OR SEVERE HYPOTHERMIA, THIS FINDING INDICATED A POOR PROGNOSIS FOR MEANINGFUL RECOVERY.
--- NOTE | 2021-02-21 15:55 | P.PN ---
Date of Service: 02/21/21 Vital Signs Temp Pulse Resp BP Pulse Ox 97.4 F 132 H 26 H 127/78 94 02/21/21 12:00 02/21/21 15:00 02/21/21 15:00 02/21/21 15:00 02/21/21 15:00 Medications Acetaminophen (Acetaminophen 160 Mg/5 Ml Ucup) 650 mg PO Q6H PRN PRN Reason: fever Last Admin: 02/17/21 09:07 Dose: 650 mg Documented by: Calcitriol (Calcitrol 0.25 Mcg Cap) 0.5 mcg PO DAILY [facility] Last Admin: 02/21/21 09:19 Dose: 0.5 mcg Documented by: Cisatracurium Besylate (Cisatracurium Injection 2 Mg/Ml (10 Ml Vial)) 4 mg IV Q2HP PRN PRN Reason: AGITATION Last Admin: 02/16/21 12:24 Dose: 4 mg Documented by: Dextrose (D50w 25 Gm/50 Ml Syringe) 12.5 gm IV PRN PRN; Protocol PRN Reason: HYPOGLYCEMIA Docusate Sodium (Docusate Na 100 Mg Cap) 100 mg PO DAILY PRN PRN Reason: CONSTIPATION Enteral Nutritional Formula (Nepro 1,000 Ml Bot) 0 ml RTH CONT HENRY Last Admin: 02/20/21 18:18 Dose: 1,000 ml Documented by: Fentanyl Citrate (Fentanyl Citr 100 Mcg/2 Ml) 25 mcg IV Q4H PRN PRN Reason: Pain scale 8-10 (Severe) Last Admin: 02/21/21 04:46 Dose: 25 mcg Documented by: Glucagon (Glucagon 1 Mg/Vial) 1 mg IM 1X PRN; Protocol PRN Reason: HYPOGLYCEMIA Norepinephrine Bitartrate 16 (mg/ Dextrose) 516 mls @ 0 mls/hr IV PRN PRN; Protocol PRN Reason: HEMODYNAMIC PARAMETERS Last Admin: 02/07/21 21:01 Dose: 516 mls Documented by: Sodium Chloride (Sodium Chloride) 250 mls @ 0 mls/hr IV .Q0M HENRY Last Admin: 02/09/21 22:08 Dose: 250 mls Documented by: Midazolam HCl 100 mg/ Sodium (Chloride) 100 mls @ 0 mls/hr IV PRN PRN; Protocol PRN Reason: SEDATION Last Admin: 02/19/21 02:40 Dose: 100 mls Documented by: Pharmacy Consult (Pharmacy Consult) 1 mls @ 1 mls/hr XX DAILYPRN PRN; Protocol PRN Reason: Vancomycin dose by pharmacy Fluconazole (Diflucan 400 Mg/200 Ml Iv (Premix)) 400 mg in 200 mls @ 200 mls/hr IV Q24H HENRY; Protocol Last Admin: 02/20/21 20:44 Dose: Not Given Documented by: Meropenem (Merrem 500 Mg/100 Ml Ns Ivpb) 500 mg in 100 mls @ 200 mls/hr IV Q12HR HENRY Last Admin: 02/21/21 09:21 Dose: 100 mls Documented by: Vancomycin HCl 1.5 gm/ Sodium (Chloride) 500 mls @ 250 mls/hr IV AFTER EACH DIALYSIS HENRY Propofol (Diprivan) 500 mg in 50 mls @ 0 mls/hr IV PRN PRN; Protocol PRN Reason: SEDATION Insulin Glargine (Insulin Glargine 100 Units/Ml) 55 units SQ BID [facility] Last Admin: 02/21/21 09:19 Dose: 55 units Documented by: Insulin Human Regular (Insulin -Regular Human 50 Unit/0.5 Ml Ml) 0 unit SQ Q6H HENRY; Protocol Last Admin: 02/21/21 12:46 Dose: 100 unit Documented by: Lactobacillus Acidoph/Bulgaricus (Lactobacillus/Acidophilus Tab) 1 tab PO BID HENRY Last Admin: 02/21/21 09:19 Dose: 1 tab Documented by: Lactulose (Lactulose 20 Gm/30 Ml Ucup) 20 gm FT BID [facility] Last Admin: 02/21/21 09:19 Dose: 20 gm Documented by: Mannitol (Mannitol 25% 12.5 Gm/50 Ml Vial) 25 gm IV EVERY HD PRN PRN Reason: dialysis Last Admin: 02/14/21 11:33 Dose: 25 gm Documented by: Methylprednisolone Sodium Succinate (Methylprednisolone 125 Mg Inj) 80 mg IV Q12HR HENRY Last Admin: 02/21/21 09:19 Dose: 80 mg Documented by: Metoprolol Tartrate (Metoprolol Tartrate 5 Mg/5 Ml Inj) 5 mg IV TID PRN PRN Reason: Tachycardia Last Admin: 02/14/21 12:53 Dose: 5 mg Documented by: Nutritional Formula (Vital Hp 1,000 Ml Bot) 0 ml RTH CONT HENRY Last Admin: 02/15/21 01:35 Dose: 1,000 ml Documented by: Ondansetron HCl (Ondansetron 4 Mg/2 Ml Vial) 4 mg IV Q6HP PRN PRN Reason: NAUSEA / VOMITING Last Admin: 02/03/21 15:01 Dose: 4 mg Documented by: Pantoprazole Sodium (Pantoprazole 40 Mg Inj) 40 mg IVP Q12HR HENRY; Protocol Last Admin: 02/21/21 09:19 Dose: 40 mg Documented by: Sodium Chloride (Flush Normal Saline 10 Ml) 10 ml IV BID HENRY Last Admin: 02/21/21 09:19 Dose: 10 ml Documented by: Sodium Chloride (Sodium Chloride 0.9% 10ml Inj) 10 ml IV UD PRN PRN Reason: Diluant Last Admin: 02/18/21 20:55 Dose: 10 ml Documented by: Zinc Sulfate (Zinc Sulfate 220 Mg Cap) 220 mg PO DAILY [facility] Last Admin: 02/21/21 09:19 Dose: 220 mg Documented by: Microbiology Results 01/16/21 08:57 Blood - Blood Aerobic Blood Culture - Final No growth in 5 days. 01/16/21 08:57 Blood - Blood Anaerobic Blood Culture - Final No growth in 5 days. 01/16/21 08:47 Blood - Blood Aerobic Blood Culture - Final No growth in 5 days. 01/16/21 08:47 Blood - Blood Anaerobic Blood Culture - Final No growth in 5 days. 01/16/21 09:04 Nasopharnyx Influenza Type A Antigen Screen - Final 01/16/21 09:04 Nasopharnyx Influenza Type B Antigen Screen - Final Assessment/ Plan: Nephrology/ ICU Limited IH/ ROS due to critical illness. No acute events overnight. General: Unresponsive, Obese HEENT: Atraumatic Neck: Supple Respiratory: Diminished Cardiovascular: Regular rate/rhythm, Edema Gastrointestinal: Soft and benign, Non-distended Musculoskeletal: No clubbing, No contractures Integumentary: No rashes, No cyanosis Neurological: Abnormal tone Greater than 30min patient care. Blood work reviewed in the chart. Imagings Data: EXAM DESCRIPTION: RAD - Chest Single View - 02/08/2021 6:36 am CLINICAL HISTORY: Eval Pneumo/covid COMPARISON: Chest Single View dated 02/07/2021; Chest Single View dated 02/06/2021; Abdomen 1 View (KUB) dated 02/06/2021; Chest Single View dated 02/06/2021 FINDINGS: Endotracheal tube and NG tube in similar positioning. Improving aeration in the right lung compared with 02/07/2021. There are still widespread bilateral airspace disease is now left eccentric. Cardiomegaly. Improving subcutaneous emphysema. No pneumothorax is appreciated. IMPRESSION: No pneumothorax appreciated. Mild improved aeration of the right lung compared with 02/07/2021. Support apparatus is stable. Conclusions/Impression: NAYA in the setting of sepsis -No NSAIDs -Continue aguero -Continue dialysis EOD; dialysis held today Hypernatremia -Free water through FT Nephrolithiasis Respiratory acidosis, resolved Metabolic Alkalosis, resolved Hypocalcemia -Continue Calcitriol throught FT Pulmonary Edema -Hold Lasix IV 80mg q6h DM II with hyperglycemia -Continue Lantus -RISS Moderate malnutrition -Maintain nutrition with tube feeds Anemia in chronic illness -Monitor H&H -Transfuse PRBC as needed -Retacrit PRN Thrombocytopnea -HIT ab pending -Hold Heparin with HD Sepsis/ Septic shock -IVF bolus as needed -Continue vasopressor support prn -Continue abx COVID-19 PNA Acute hypoxic hypercapnic respiratory failure -Intubated; continue ventilatory support as ordered -Continue high dose IV steroids; wean as tolerated Toxic Metabolic Encephalopathy due to critical illness -Continue Meropenem Poor prognosis. Family at the bedside considering withdrawal of care.
[2021-02-21] MEDS ORDERED: LORazepam 2 MG/ML VIAL IV PRN (15:57)
[2021-02-21] MEDS ORDERED: MORPHINE 4 MG/ML SYR IV PRN (15:57)
[2021-02-21 16:46] VITALS: TEMP 98.1
[2021-02-21 18:16] VITALS: BP 128/88
--- NOTE | 2021-02-21 18:40 | P.PN ---
Date of Service: 02/21/21 Pt is not improving/ comatosed/ Multiorgan failure/ On dialysis/ Oral bleeding/ Apneustic breathing/ CXRY diffuse consolidation DW unlikely to survive I advsied withdrawal of care and patient was extubated and
--- NOTE | 2021-02-24 10:10 | P.DS ---
Discharge Date: 02/21/21 Primary Care Provider: Buck Disposition: Discharge Condition: GOOD Reason for Admission: Resp failure from COVID Consultations: Pulmonary Cardiology Nephrology - Problems (1) Pneumonia due to COVID-19 virus Status: Acute (2) Hypertension Status: Acute (3) Morbid obesity Status: Acute (4) Respiratory acidosis Status: Acute (5) Anemia Status: Acute (6) Thrombocytopenia Status: Acute (7) Hyperglycemia Status: Acute (8) Uremia Status: Acute Brief History of Present Illness: Patient was a 40-year-old gentleman who came into the hospital with COVID-19 Pneumonia. Patient's hypoxic and his clinical condition continued to worsen. Patient was intubated. Hospital Course: Patient's hospitalization was prolonged period patient fought hard from getting intubated but once he got intubated his clinical condition deteriorated. Patient was not improving and it appeared that he was going to the ICU. Patient's clinical condition is worsened. At the time, patient is not doing well. Plan is to withdraw care per family's request. Patient's care was withdraw with family at bedside including his mother and his . Patient peacefully and [id number] with his family at bedside . Home Medications: NK [No Home Meds] 01/16/21 Physician Discharge Instructions: Patient Time spent managing pt's care (in minutes): 35
== END 2021-02-21 16:29 | disposition expired | DRG 870 ==
LOC: ER 08:40 → ERHOLD 11:50 → 3RD-ICU 13:38
PROVIDERS: ADMIT Family Medicine; ATTEND Family Medicine
PROC: 5A1955Z Respiratory Ventilation, Greater than 96 Consecutive Hours (ICD-10-PCS; 2021-02-06)
PROC: 0BH17EZ Insertion of Endotracheal Airway into Trachea, Via Natural or Artificial Opening (ICD-10-PCS; 2021-02-06)
PROC: 30233N1 Transfusion of Nonautologous Red Blood Cells into Peripheral Vein, Percutaneous Approach (ICD-10-PCS; 2021-02-06)
PROC: 0JHM3XZ Insertion of Tunneled Vascular Access Device into Left Upper Leg Subcutaneous Tissue and Fascia, Percutaneous Approach (ICD-10-PCS; principal; 2021-02-10)
PROC: 06HN33Z Insertion of Infusion Device into Left Femoral Vein, Percutaneous Approach (ICD-10-PCS; 2021-02-10)
PROC: 5A1D70Z Performance of Urinary Filtration, Intermittent, Less than 6 Hours Per Day (ICD-10-PCS; 2021-02-10)
PROC: 5A1D70Z Performance of Urinary Filtration, Intermittent, Less than 6 Hours Per Day (ICD-10-PCS; 2021-02-11)
PROC: 5A1D70Z Performance of Urinary Filtration, Intermittent, Less than 6 Hours Per Day (ICD-10-PCS; 2021-02-12)
PROC: 5A1D70Z Performance of Urinary Filtration, Intermittent, Less than 6 Hours Per Day (ICD-10-PCS; 2021-02-14)
PROC: 5A1D70Z Performance of Urinary Filtration, Intermittent, Less than 6 Hours Per Day (ICD-10-PCS; 2021-02-15)
PROC: 5A1D70Z Performance of Urinary Filtration, Intermittent, Less than 6 Hours Per Day (ICD-10-PCS; 2021-02-17)
PROC: 5A1D70Z Performance of Urinary Filtration, Intermittent, Less than 6 Hours Per Day (ICD-10-PCS; 2021-02-19)
DX: A41.9 Sepsis, unspecified organism (principal); U07.1 COVID-19; J12.82 Pneumonia due to coronavirus disease 2019; J96.01 Acute respiratory failure with hypoxia; J86.9 Pyothorax without fistula; G93.41 Metabolic encephalopathy; R65.21 Severe sepsis with septic shock; K72.00 Acute and subacute hepatic failure without coma; J96.02 Acute respiratory failure with hypercapnia; N17.9 Acute kidney failure, unspecified; K92.1 Melena; E87.4 Mixed disorder of acid-base balance; E44.1 Mild protein-calorie malnutrition; J98.2 Interstitial emphysema; I48.91 Unspecified atrial fibrillation; I10 Essential (primary) hypertension; D63.8 Anemia in other chronic diseases classified elsewhere; E66.9 Obesity, unspecified; K76.0 Fatty (change of) liver, not elsewhere classified; E11.65 Type 2 diabetes mellitus with hyperglycemia; E83.51 Hypocalcemia; I46.9 Cardiac arrest, cause unspecified; Z68.38 Body mass index [BMI] 38.0-38.9, adult; D69.6 Thrombocytopenia, unspecified; Z66 Do not resuscitate
CPT/HCPCS: 36415; 36430; 71045; 71275; 74018; 80048; 80053; 80076; 80202; 81001; 81003; 81015; 82565; 82570; 82728; 82805; 82947; 83036; 83605; 83735; 83880; 83935; 84100; 84145; 84156; 84300; 84439; 84443; 84484; 84550; 85014; 85018; 85025; 85044; 85379; 85610; 85730; 86140; 86317; 86704; 86850; 86900; 86901; 87040; 87070; 87086; 87088; 87205; 87340; 87804; 90935; 93005; 93307; 94002; 94003; 94010; 94660; 95816; 96361; 96374; 99291; 99292; C9113; J0153; J0171; J0282; J0610; J0696; J1160; J1170; J1450; J1644; J1650; J1815; J1940; J2150; J2185; J2250; J2270; J2370; J2405; J2550; J2704; J2930; J3010; J3370; J7030; J7040; J7050; J7060; P9016; Q5106; Q9967